=== PATIENT | male | born 1940 | race Caucasian/White ===

== ENCOUNTER → 2017-03-05 | Outpatient (CLI) | payer MEDICARE | END | disposition home or self-care (01) | LOC: LABPAT 15:37 | PROVIDERS: ATTEND Orthopaedic Surgery | DX: Z01.812 Encounter for preprocedural laboratory examination (principal) | CPT/HCPCS: 87070 ==

== ENCOUNTER → 2017-03-10 | Outpatient (CLI) | payer MEDICARE | END | disposition home or self-care (01) | LOC: LABWHC1 08:00 | PROVIDERS: ATTEND Orthopaedic Surgery | DX: Z01.818 Encounter for other preprocedural examination (principal); M16.12 Unilateral primary osteoarthritis, left hip | CPT/HCPCS: 86850; 86900; 86901 ==

== ENCOUNTER 2017-03-17 07:30 | Inpatient (IN) | payer MEDICARE ==
[2017-03-13 14:46] VITALS: BMI 25.1
--- NOTE | 2017-03-16 14:17 | HP ---
DATE OF ADMISSION: Vasyl Khalil is a 76-year-old patient seen with symptomatic left hip osteoarthritis. After treatment options were discussed, he elected to proceed with direct anterior left total hip arthroplasty. Consent was obtained. Medical clearance was provided by Dr. Dagoberto Munoz. Past medical history is hypothyroidism, osteoarthritis. Past surgical history is right hand surgery and right knee surgery. Daily medications: 1. Aleve. 2. Aspirin. 3. Synthroid. ALLERGIES: None. SOCIAL HISTORY: Patient denies tobacco use. Physical evaluation of the left hip: He has a limited range of motion with significant pain, diffuse tenderness, positive hip impingement sign. Straight-leg raise is negative. Left lower extremity is 1 inch shorter than the right. Distal neurovascular exam is intact. Radiographs of the left hip reveal severe osteoarthritis. IMPRESSION: Left hip osteoarthritis. PLAN: Direct anterior left total hip arthroplasty.
[~2017-03-17 07:30] MED LIST: ACETAMINOPHEN TAB 500 MG TAB PO ONE; DEXAMETHASONE SOD PHOSPHATE 10 MG/ML 1 ML VIAL IV ONE; HYDROmorphone 1 MG/ML 1 ML SYRINGE IVP PRN; LIDOCAINE 1% 20 ML VIAL (10MG/ML) FOR IV START INTRADERMA PRN; MELOXICAM 7.5 MG TAB PO ONE; MIDAZOLAM 2 MG/2 ML VIAL IV PRN; ONDANSETRON 4 MG/2 ML VIAL IVP ONE; TRANEXAMIC ACID 1,000 MG in SODIUM CHLORIDE 0.9% 100 ML IVPB ONE; ceFAZolin 2 GM in SODIUM CHLORIDE 0.9% 100 ML IVPB ONE
[2017-03-17 12:53] VITALS: RESP 16
[2017-03-17] MEDS ORDERED: LIDOCAINE 1% 20 ML VIAL (10MG/ML) FOR IV START INTRADERMA ONE (12:56)
[2017-03-17] MEDS: LACTATED RINGERS 1,000 ML IV SCH (12:56)
[2017-03-17] MEDS ORDERED: TRANEXAMIC ACID 1,000 MG/10 ML VIAL ONE (15:15)
[2017-03-17] MEDS ORDERED: SODIUM CHLORIDE 0.9% 100 ML BAG ONE (15:15)
[2017-03-17] MEDS ORDERED: fentaNYL (PF) 50 MCG/ML 2 ML AMP ONE (15:15)
[2017-03-17] MEDS ORDERED: PROPOFOL 10 MG/ML 20 ML VIAL IV ONE (15:15)
[2017-03-17] MEDS ORDERED: PHENYLEPHRINE-0.9% NACL SYG 1 MG/10 ML SYRINGE ONE (15:15)
[2017-03-17] MEDS ORDERED: ePHEDrine 50 MG/ML 1 ML AMP ONE (15:15)
[2017-03-17] MEDS ORDERED: MIDAZOLAM 2 MG/2 ML VIAL ONE (15:15)
[2017-03-17] MEDS ORDERED: ceFAZolin 3,000 MG in SODIUM CHLORIDE 0.9% IRRIGATIO 3,000 ML IRRIGATION ONE (15:15)
[2017-03-17] MEDS: ROPIVACAINE 246.25 MG, EPINEPHrine 0.5 MG, KETOROLAC 30 MG, cloNIDine HCL/PF 80 MCG, WA... MISCELLANE ONE ×15 (15:17→17:10)
[2017-03-17] MEDS ORDERED: LACTATED RINGERS 1,000 ML IV ONE (17:11)
[2017-03-17] MEDS ORDERED: NALOXONE 0.4 MG/ML 1 ML VIAL IV PRN (17:40)
[2017-03-17] MEDS ORDERED: ONDANSETRON 4 MG/2 ML VIAL IVP PRN (17:40)
[2017-03-17] MEDS ORDERED: HYDROcodone/APAP 7.5-325MG 1 EACH TAB PO PRN ×2 (17:40)
[2017-03-17] MEDS ORDERED: HYDROmorphone 1 MG/ML 1 ML SYRINGE IVP PRN ×3 (17:40)
[2017-03-17] MEDS ORDERED: hydrOXYzine PAMOATE 25 MG CAP PO PRN (17:40)
--- NOTE | 2017-03-17 17:40 | P.OP ---
Date of Procedure: 03/17/17 Preoperative Diagnosis: Left hip osteoarthritis Postoperative Diagnosis: Left hip osteoarthritis Procedure(s) Performed: Direct anterior left total hip arthroplasty Implants: 1. Depuy Corail cementless KLA size 13 femoral stem high offset collar 2. Depuy pinnacle 60 mm acetabular shell 3. Depuy pinnacle polyethylene acetabular liner 60 mm OD 36 mm ID 4. Biolox delta ceramic femoral head +1.536 mm Anesthesia: local, spinal Surgeon: Thomas Holland Hard Candy Spinner #1: Aguilar Lainez Estimated Blood Loss (ml): 400 Pathology: other (Femoral head) Condition: stable Disposition: PACU Indications for Procedure: 76-year-old patient seen with left hip osteoarthritis. After having treatment options discussed, he elected to proceed with left total hip arthroplasty. Operative Findings: Description of procedure Description of Procedure: The patient was taken to the operative suite. Patient underwent a spinal anesthetic by the department of anesthesia. Patient was then transferred to the [place] table. Patient was given preoperative IV antibiotics and TXA. Both lower extremities were placed in standard leg spars. The hip was then prepped and draped in the normal sterile orthopedic fashion. A standard anterior incision was made beginning 3 cm lateral and 1 cm distal to the ASIS extending 10 cm. Dissection was then carried down through the subcutaneous soft tissues down to the fascia overlying the tensor fascia maximiliano. An incision was now made through the fascia. Careful dissection was taken down exposing the tensor fascia maximiliano muscle. A Cobra retractor was now placed along the medial femoral neck and a second one along the lateral femoral neck. The venous circumflex vessels were now identified, cauterized and clipped. We identified the anterior hip capsule. An incision was made through the hip capsule along the lateral border. Tag sutures were then placed along the anterior capsule and lateral capsule. We then performed a capsulotomy. Retractors were now placed around the femoral neck itself. A Cobra retractor was now placed along the anterior acetabulum. Good exposure was now noted of the femoral head/neck complex. Residual labrum was debrided out. We placed the extremity into 3 turns of fine traction. We were then able to introduce a skid in between the femoral head and acetabulum. A placed a awl into the femoral head. We took 2 turns of traction off the extremity. Rotation was now released. The femoral head was then dislocated without difficulty. Additional releasing was performed of the capsule. The head was then reduced. All traction was released. A femoral neck cut was now made with a sagittal saw. It was completed with an osteotome at the lateral neck area. The femoral head was now removed without difficulty. There was advanced osteoarthritis of both the femoral head and acetabulum The extremity was now rotated to 60 of external rotation. It was locked in position. Residual labrum was now debrided out. Serial reaming was performed of the acetabulum. Once we reached the appropriate size and a trial was position and fit nicely. The appropriate size was now chosen opened and made available. The wound was irrigated with pulse lavage mechanical irrigation It was introduced into the acetabulum without difficulty. The C-arm/fluoroscopy was now brought into the operative field. We made sure we had a true AP pelvic view. We now under direct C-arm/ fluoroscopy introduced into the acetabular component with appropriate version and inclination. It was well seated and stable. The C-arm was pulled back. An appropriate liner was introduced and clicked into position. It was felt to be stable. At this point retractors were removed. The extremity was now placed into 125 external rotation with no traction. The leg was now dropped to the ground and adducted. Appropriate retractors were now positioned along the proximal femur. We also placed our femoral look into position. Additional capsular releasing was performed to gain access to the proximal femur. We now used a box osteotome. A canal finder was now utilized. Serial broaching was now performed until we reached the appropriate size with good overall rotational stability. Appropriate calcar planing was performed. A trial head/ neck was placed into position. The hip was now reduced. The C-arm/fluoroscopy was brought back into the operative field. A spot film was obtained of the nonoperative hip. A spot film was obtained of the trial components. Overlays were performed, we noted good overall alignment and positioning for determining leg length. The C-arm/fluoroscopy was pulled back. Retractors were repositioned and the hip was dislocated. The leg was again taken down to the ground and adducted. Appropriate retractors were repositioned as well as the femoral hook. All trial components were removed. The femoral implant was opened along with the femoral head. Wound was irrigated with pulse lavage mechanical irrigation The femoral implant was introduced with good purchase and fixation noted. The femoral head was introduced with good positioning and fixation noted. Retractors were now removed. The hip was now reduced. There appeared be good positioning of the hip. This was confirmed via fluoroscopy and a spot film was obtained to document that. Bipolar cautery had been utilized intermittently through the procedure for hemostasis. The wound was irrigated copiously with pulse lavage mechanical irrigation. The fascia was repaired with Vicryl suture. The subcutaneous soft tissues were repaired in layers with Vicryl suture. The skin was approximated with pernio/Dermabond. Sterile dressings were applied. Patient was then awakened, transferred to a bed and taken to recovery in stable condition. Raheem DE LA CRUZ assisted with the procedure.
[2017-03-17] MEDS ORDERED: SODIUM CHLORIDE 0.9% 1,000 ML IV SCH (17:45)
[2017-03-17] MEDS: traMADol 50 MG TAB PO SCH ×2 (20:14→21:07)
[2017-03-17] MEDS ORDERED: SENNOSIDES-DOCUSATE SODIUM 1 EACH TAB PO SCH (21:00)
[2017-03-17] MEDS: ceFAZolin 2 GM in SODIUM CHLORIDE 0.9% 100 ML IVPB SCH (23:12)
[2017-03-18] MEDS: LACTATED RINGERS 1,000 ML IV SCH (05:16)
[2017-03-18] MEDS ORDERED: LEVOTHYROXINE 75 MCG TAB PO SCH (06:30)
[2017-03-18 07:16] VITALS: BP 100/57; PULSE 64; TEMP 98.1
[2017-03-18 07:40] LABS: Basophils % (A) 0 %; CH 33.2; CHCM 34.1; Eosinophils % (A) 0 %; HCT 32.5 % (39.0-53.0); HDW 2.41; HGB 11.2 gm/dL (13.0-17.5); Luc # (Auto) 0.25; Luc % (Auto) 3; Lymphocytes # (A) 0.9 k/uL (1.0-4.8); Lymphocytes % (A) 10 %; MCH 33.7 pg (25.0-35.0); MCHC 34.5 g/dL (31.0-37.0); MCV 97.7 fL (80.0-100.0); Mean Platelet Volume 6.5; Monocytes # (A) 0.8 k/uL (0-1.0); Monocytes % (A) 8 %; Neutrophils # (A) 7.4 k/uL (1.3-7.7); Neutrophils % (A) 79 %; RBC 3.33 m/uL (4.30-5.90); RDW 12.5 % (11.5-15.5); WBC 9.3 k/uL (3.8-10.6); WBC (Perox) 9.73
--- NOTE | 2017-03-18 07:58 | XR ---
Limited left hip HISTORY: Open reduction internal fixation Intraoperative C-arm image documents the procedure.
[2017-03-18] MEDS: traMADol 50 MG TAB PO SCH ×2 (08:06→12:58)
[2017-03-18] MEDS: ceFAZolin 2 GM in SODIUM CHLORIDE 0.9% 100 ML IVPB SCH (08:07)
--- NOTE | 2017-03-18 08:27 | FL ---
Fluoroscopy HISTORY: Open reduction internal fixation left hip 25 seconds fluoroscopy time supplied to the referring clinician. 1 intraoperative C-arm image docume nts the procedure. See dictated report from orthopedic surgery.
[2017-03-18] MEDS ORDERED: ENOXAPARIN 40 MG/0.4 ML SYRINGE SQ SCH (09:00)
[2017-03-18] MEDS ORDERED: ASPIRIN 81 MG CHEW PO SCH (09:00)
[2017-03-18] MEDS ORDERED: MELOXICAM 7.5 MG TAB PO SCH (09:00)
[2017-03-18] MEDS ORDERED: FAMOTIDINE 20 MG TAB PO SCH (09:00)
--- NOTE | 2017-03-18 11:08 | P.PN ---
Subjective Principal diagnosis: Status post left total hip arthroplasty. Patient is seen today resting in his hospital chair, he appears comfortable. His pain is well-controlled. Patient ambulated about this point, urinary cath was removed. He denies any headaches, lightheadedness, chest pain, shortness of breath, fever or chills. Objective - Vital Signs Vital signs: Vital Signs Temp 98.1 F 03/18/17 07:00 Pulse 64 03/18/17 07:00 Resp 16 03/18/17 07:00 BP 100/57 03/18/17 07:00 Pulse Ox 98 03/18/17 07:00 Intake & Output 03/17/17 03/18/17 03/18/17 18:59 06:59 18:59 Intake Total 4850 240 240 Output Total 500 200 Balance 4350 240 40 Weight 83.007 kg Intake: IV 4850 240 Lactated Ringers 1,000 ml 240 @ 20 mls/hr IV .Q24H BUTCH Rx#:[id number] Oral 240 Output: Urine 100 200 Uretheral (Ortega) 200 Estimated Blood Loss 400 Other: Voiding Method Indwelling Catheter - Exam Left lower extremity: Incision is clean, dry and intact. Minimal soft tissue swelling present over the hip. Calf is soft, no tenderness with palpation. Plantar flexion, dorsiflexion, EHL, FHL are intact. Sensory exam light touch throughout the extremities intact, cap refill is less than 3 seconds. - Labs CBC & Chem 7: 03/18/17 07:13 Labs: Abnormal Lab Results - Last 24 Hours (Table) 03/18/17 Range/Units 07:13 RBC 3.33 L (4.30-5.90) m/uL Hgb 11.2 L (13.0-17.5) gm/dL Hct 32.5 L (39.0-53.0) % Lymphocytes # 0.9 L (1.0-4.8) k/uL Assessment and Plan Plan: Assessment: 1. Postop day 1 status post left total hip arthroplasty. Plan: 1. Pain control, we'll discharge home on oral medication 2. GI and DVT prophylaxis, will be discharged home on aspirin 325 mg twice a day 3. Wound care was discussed with patient 4. Home therapy and nursing after discharge 5. Medical recommendations 6. Discharge planning: Patient will be discharged home today Time with Patient: Less than 30
--- NOTE | 2017-03-18 11:11 | P.DS ---
Providers Date of admission: 03/17/17 11:18 Expected date of discharge: 03/18/17 Attending physician: Thomas Holland Consults: 03/17/17 17:40 Consult Physician Routine Consulting Provider: Dagoberto Munoz Consult Reason/Comments: Medical management Do you want consulting provider notified?: Yes Primary care physician: Stated None Hospital Course: Date of admission: 03/17/2017 Date of discharge: 03/18/2017 Admission diagnosis: Status post left total hip arthroplasty Discharge diagnosis: Same Attending physician: Dr. Holland Surgical procedures: Direct anterior left total hip arthroplasty Brief history: Patient is a 76-year-old male with a history of progressive primary left hip osteoarthritis. At this point patient has failed conservative treatment measures and has opted to proceed with a elective direct anterior left total hip arthroplasty. Hospital course: Details of patient's surgery can be found in operative report. Patient tolerated the procedure well and was subsequently transported to orthopedic floor. Patient's orthopeidc and medical care was provided daily. Patient had daily laboratory tests performed for evaluation of overall blood counts. Patient had daily physical therapy to include strengthening range of motion as well as education with walker ambulation. Patient was treated with Lovenox for their postoperative DVT prophylaxis during their inpatient stay. Patient was noted to have a relatively uneventful postoperative course. Patient reported satisfactory pain control with oral pain medications by postoperative day 0. Patient showed satisfactory progress with physical therapy. Patient moved steadily through the program and had no difficulty meeting the goals by postoperative day 1. Given patient's otherwise satisfactory course and having met physical therapy goals, plan is to discharge patient home on postoperative day 1. Discharge condition/disposition: Patient will be discharged home in stable condition. Discharge medications: Instructions are given on resumption of patient's normal daily medications per primary care recommendation, in addition patient will be prescribed [place] 7.5 mg/325 mg, tramadol 50 mg, Colace 100 mg, Pepcid 20 mg, aspirin 325 mg. Discharge instructions: 1. Wound care and infection precautions, keep incision dry and covered while showering, no lotions, creams, moisturizers. No soaking, tubs, pools, hottubs. Do not scrub over the incision. 2. Weight-bear as tolerated with walker / cane until follow-up. 3. Ice and elevate when necessary. Do not exceed 20 minutes per hour with ice pack. 4. Utilize compression sleeve until seen at first follow up appointment. 5. Visiting nursing care. 6. Home physical therapy. 7. Pain meds and anticoagulants per prescription. 8. Pain medication has potential to cause constipation. Increase oral fluid and fiber intake. Contact primary care provider if you have not had a bowel movement within 48 hours after discharge 9. No anti-inflammatory medication until discussed at first post operative visit, this including Motrin, Aleve, Mobic, Diclofenac. 10. Follow up in office at 2 weeks postop with Raheem Lainez PA-C 11. Follow up with your primary care doctor 7-10 days after discharge. 12. Contact [facility] with any questions, . Procedures: Left total hip arthroplasty Patient Condition at Discharge: Good Plan - Discharge Summary New Discharge Prescriptions: Aspirin 325 mg PO BID #60 tab Docusate [Colace] 100 mg PO DAILY #30 capsule Famotidine [Pepcid] 20 mg PO DAILY #30 tablet HYDROcodone/APAP 7.5-325MG [[place] 7.5] 1 each PO Q6HR PRN #40 tab PRN Reason: Pain traMADol HCl [Ultram] 50 mg PO Q6H PRN #40 tab PRN Reason: Pain Discharge Medication List Levothyroxine Sodium [Synthroid] 150 mcg PO DAILY 05/03/14 [History] Iron (Unknown Dose) 1 tab PO MOWEFR 03/13/17 [History] Niacin 500 mg PO BID 03/13/17 [History] Vitamin Pack 1 dose PO DAILY 03/13/17 [History] Aspirin 325 mg PO BID #60 tab 03/18/17 [Rx] Docusate [Colace] 100 mg PO DAILY #30 capsule 03/18/17 [Rx] Famotidine [Pepcid] 20 mg PO DAILY #30 tablet 03/18/17 [Rx] HYDROcodone/APAP 7.5-325MG [[place] 7.5] 1 each PO Q6HR PRN #40 tab 03/18/17 [Rx] traMADol HCl [Ultram] 50 mg PO Q6H PRN #40 tab 03/18/17 [Rx] Follow up Appointment(s)/Referral(s): [facility], [NON-STAFF] - 1 Week Aguilar Lainez PAC [PHYSICIAN PRECISION INSTRUMENT MAKER AND REPAIRER] - 04/02/17 1:50 pm Activity/Diet/Wound Care/Special Instructions: Orthopedic Discharge Instructions: 1. Wound care and infection precautions, keep incision dry and covered while showering, no lotions, creams, moisturizers. No soaking, pools, hot tubs. Do not scrub over incision. 2. Weight-bear as tolerated with walker / cane until follow-up. 3. Ice and elevate when necessary. Do not exceed 20 minutes per hour with ice pack. 4. Utilize compression sleeve until seen at first follow up appointment. 5. Visiting nursing care. 6. Home physical therapy. 7. Pain meds and anticoagulants per prescription. 8. Pain medication has potential to cause constipation. Increase oral fluid and fiber intake. Contact primary care provider if you have not had a bowel movement within 48 hours after discharge. 9. No anti-inflammatory medication until discussed at first post operative visit, this including Motrin, Aleve, Mobic, Diclofenac. 10. Follow up in office at 2 weeks postop with Raheem Lainez PA-C 11. Follow up with your primary care doctor 7-10 days after discharge. 12. Contact [facility] with any questions, . Discharge Disposition: HOME WITH HOME HEALTH SERVICES
[2017-03-19] MEDS ORDERED: LEVOTHYROXINE 150 MCG PO SCH (06:30)
== END 2017-03-18 14:35 | disposition home health service (06) | DRG 470 ==
LOC: 2ORMAIN 11:18 → 3SUR 17:29
PROVIDERS: ADMIT Orthopaedic Surgery; ATTEND Orthopaedic Surgery
PROC: 0SRB04A Replacement of Left Hip Joint with Ceramic on Polyethylene Synthetic Substitute, Uncemented, Open Approach (ICD-10-PCS; principal; 2017-03-17 13:00)
DX: M16.12 Unilateral primary osteoarthritis, left hip (principal); E03.9 Hypothyroidism, unspecified; Z79.82 Long term (current) use of aspirin; Z79.899 Other long term (current) drug therapy
CPT/HCPCS: 73501; 85025; 86850; 86900; 86901; 88305; 88311

== ENCOUNTER 2017-03-22 10:06 | Emergency (ER) | payer MEDICARE ==
[2017-03-22 11:02] VITALS: RESP 16
--- NOTE | 2017-03-22 11:09 | ED ---
Male Urogenital HPI - General Chief complaint: Urogenital Stated complaint: cant urinate Time Seen by Provider: 03/22/17 10:52 Source: patient, RN notes reviewed Mode of arrival: ambulatory Limitations: no limitations - History of Present Illness Initial comments: This is a 76-year-old male with a history of prostate cancer status post prostatectomy who just had a left hip replacement 5 days ago which she states is doing well who states he is been unable to urinate since last evening and now has lower abdominal pain and occasional bouts of blood from his meatus of his penis. He states that he thought he could remove his own catheter after the surgery the next day he did pull on it but did not realize there was a balloon in it. He did have blood in his urine after this the catheter was removed however and he had no trouble urinating until last night. He denies any fevers chills or sweats denies any nausea vomiting. He states the wound appears be healing well from his surgery is able ambulate. He voices no other problems at this time. He does state the lower abdominal pain is severe however. MD Complaint: other - Related Data Home Medications Medication Instructions Recorded Confirmed Levothyroxine Sodium [Synthroid] 150 mcg PO DAILY 05/03/14 03/22/17 Niacin 500 mg PO BID 03/13/17 03/22/17 Vitamin Pack 1 dose PO DAILY 03/13/17 03/22/17 Docusate [Colace] 100 mg PO DAILY PRN 03/22/17 03/22/17 Ferrous Sulfate [Feosol] 325 mg PO TUTHSA 03/22/17 03/22/17 HYDROcodone/APAP 7.5-325MG [Dairy 1 tab PO Q6HR PRN 03/22/17 03/22/17 7.5] Previous Rx's Medication Instructions Recorded Aspirin 325 mg PO BID #60 tab 03/18/17 Famotidine [Pepcid] 20 mg PO DAILY #30 tablet 03/18/17 Allergies Allergy/AdvReac Type Severity Reaction Status Date / Time No Known Allergies Allergy Verified 03/22/17 12:44 Review of Systems ROS Statement: Those systems with pertinent positive or pertinent negative responses have been documented in the HPI. ROS Other: All systems not noted in ROS Statement are negative. Past Medical History Past Medical History: Cancer, Hyperlipidemia, Osteoarthritis (OA), Prostate Disorder, Thyroid Disorder Additional Past Medical History / Comment(s): HX OF PROSTATE CANCER WITH RADIATION (2014), SQUAMOUS CELL SKIN CANCER, CHRONIC SINUSITIS, , HYPOTHYROID., STATES PAST HX OF BACK PROBLEMS. History of Any Multi-Drug Resistant Organisms: None Reported Past Surgical History: Adenoidectomy, Orthopedic Surgery, Prostate Surgery, Tonsillectomy Additional Past Surgical History / Comment(s): rt knee surgery, HIP REPLACED Past Anesthesia/Blood Transfusion Reactions: No Reported Reaction Past Psychological History: No Psychological Hx Reported Smoking Status: Never smoker Past Alcohol Use History: Occasional Additional Past Alcohol Use History / Comment(s): 2-4 BEERS - 3-4 TIMES PER WEEK. Past Drug Use History: None Reported - Past Family History Mother Family Medical History: CVA/TIA Sister(s) Family Medical History: CVA/TIA Father Family Medical History: Myocardial Infarction (DC) General Exam - General Exam Comments Initial Comments: This is a well-developed well-nourished awake alert oriented 3 male Limitations: no limitations General appearance: alert, anxious Head exam: Present: atraumatic, normocephalic, normal inspection Eye exam: Present: normal appearance, PERRL, EOMI. Absent: scleral icterus, conjunctival injection, periorbital swelling ENT exam: Present: normal exam, mucous membranes moist Neck exam: Present: normal inspection. Absent: tenderness, meningismus, lymphadenopathy Respiratory exam: Present: normal lung sounds bilaterally. Absent: respiratory distress, wheezes, rales, rhonchi, stridor Cardiovascular Exam: Present: regular rate, normal rhythm, normal heart sounds. Absent: systolic murmur, diastolic murmur, rubs, gallop, clicks GI/Abdominal exam: Present: soft, other (A distended bladder is palpable.). Absent: bruit, pulsatile mass, hernia Rectal exam: Present: deferred exam: Present: other (Circumcised male genitalia there is a small on of dark blood at the meatus). Absent: testicular tenderness, scrotal swelling Extremities exam: Present: normal capillary refill, other (The right hip incision appears be healing well no evidence of any wound dehiscence no evidence of any erythema or drainage a small amount of localized ecchymosis. No tenderness over the hip very minimal discomfort over the surgical site.) Back exam: Present: normal inspection Neurological exam: Present: alert, oriented X3, CN II-XII intact Psychiatric exam: Present: anxious Skin exam: Present: warm, dry Course Vital Signs 03/22/17 11:00 Temperature 97.9 F Pulse Rate 64 Respiratory 16 Rate Blood Pressure 176/91 O2 Sat by Pulse 100 Oximetry - Reevaluation(s) Reevaluation #1: 03/22/17 13:23 Patient did require irrigation was Ortega but he is having much relief after having the irrigation done in the bladder emptied. He'll be discharged with a Ortega catheter and leg bag she is a follow-up with Dr. Norris and return when necessary Disposition Clinical Impression: Acute urinary retention Disposition: HOME SELF-CARE Condition: Good Instructions: Urinary Retention in Men (ED)
[2017-03-22 13:58] VITALS: BP 121/59; PULSE 72; TEMP 97.6
== END 2017-03-22 13:57 | disposition home or self-care (01) ==
LOC: EC 10:06
DX: R33.9 Retention of urine, unspecified (principal); R10.30 Lower abdominal pain, unspecified; E78.5 Hyperlipidemia, unspecified; E03.9 Hypothyroidism, unspecified; Z79.899 Other long term (current) drug therapy; Z85.46 Personal history of malignant neoplasm of prostate; Z90.79 Acquired absence of other genital organ(s)
CPT/HCPCS: 51702; 99283

== ENCOUNTER 2017-05-12 19:33 | Emergency (ER) | payer MEDICARE ==
[2017-05-12 19:40] VITALS: RESP 18
--- NOTE | 2017-05-12 19:58 | ED ---
Male Urogenital HPI - General Chief complaint: Urogenital Stated complaint: Male Time Seen by Provider: 05/12/17 19:45 Source: patient, RN notes reviewed Mode of arrival: ambulatory Limitations: no limitations - History of Present Illness Initial comments: 37-year-old male presents emergency Department chief complaint states he can't urinate. Patient states that he wanted to urology this morning and it showed a harm to self cath. Patient states he started not been able to urinate last night but states that he was given self Up the Urology Office and Is Supposed to Receive More in the Mail. Patient States He Attempted Twice When He Durant That He Had Ago and States That He Was Unsuccessful. Patient States He Durant That He Stuck It in Far Enough Though He States He Had No Urine Output. Patient Denies Any Nausea and Diarrhea Constipation. Denies Any Fevers or Chills. Patient Offers No Other Complaints. - Related Data Home Medications Medication Instructions Recorded Confirmed Levothyroxine Sodium [Synthroid] 150 mcg PO DAILY 05/03/14 05/12/17 Vitamin Pack 1 dose PO DAILY 03/13/17 05/12/17 Ferrous Sulfate [Feosol] 325 mg PO MOWEFR 03/22/17 05/12/17 Aspirin EC [Ecotrin Low Dose] 81 mg PO DAILY 05/12/17 05/12/17 Niacin (Inositol Niacinate) 400 mg PO BID 05/12/17 05/12/17 [Niacin Flush Free 500 mg Cap] Allergies Allergy/AdvReac Type Severity Reaction Status Date / Time No Known Allergies Allergy Verified 05/12/17 19:40 Review of Systems ROS Statement: Those systems with pertinent positive or pertinent negative responses have been documented in the HPI. ROS Other: All systems not noted in ROS Statement are negative. Past Medical History Past Medical History: Cancer, Hyperlipidemia, Osteoarthritis (OA), Prostate Disorder, Thyroid Disorder Additional Past Medical History / Comment(s): HX OF PROSTATE CANCER WITH RADIATION (2013), SQUAMOUS CELL SKIN CANCER, CHRONIC SINUSITIS, , HYPOTHYROID., STATES PAST HX OF BACK PROBLEMS. History of Any Multi-Drug Resistant Organisms: None Reported Past Surgical History: Adenoidectomy, Orthopedic Surgery, Prostate Surgery, Tonsillectomy Additional Past Surgical History / Comment(s): rt knee surgery, HIP REPLACED Past Anesthesia/Blood Transfusion Reactions: No Reported Reaction Past Psychological History: No Psychological Hx Reported Smoking Status: Never smoker Past Alcohol Use History: Occasional Past Drug Use History: None Reported - Past Family History Mother Family Medical History: CVA/TIA Sister(s) Family Medical History: CVA/TIA Father Family Medical History: Myocardial Infarction ([place]) General Exam Limitations: no limitations General appearance: alert, in no apparent distress Respiratory exam: Present: normal lung sounds bilaterally. Absent: respiratory distress, wheezes, rales, rhonchi, stridor Cardiovascular Exam: Present: regular rate, normal rhythm, normal heart sounds. Absent: systolic murmur, diastolic murmur, rubs, gallop, clicks GI/Abdominal exam: Present: soft, tenderness (Mild suprapubic), normal bowel sounds. Absent: distended, guarding, rebound, rigid Back exam: Absent: CVA tenderness (R), CVA tenderness (L) Course Vital Signs 05/12/17 19:37 Temperature 97.0 F L Pulse Rate 78 Respiratory 18 Rate Blood Pressure 155/83 O2 Sat by Pulse 98 Oximetry Medical Decision Making - Medical Decision Making 77 show male present emergency from for urinary retention. Patient had Ortega placed. Patient states he does not want a Ortega that he wants to try to self cath again at home. Patient was instructed how to. Patient will be discharged at this time no evidence of urinary tract infection. - Lab Data Lab Results 05/12/17 Range/Units 20:05 Urine Color Yellow Urine Appearance Clear (Clear) Urine pH 5.5 (5.0-8.0) Ur Specific [place] 1.014 (1.001-1.035) Urine Protein Negative (Negative) Urine Glucose (UA) Negative (Negative) Urine Ketones Trace H (Negative) Urine Blood Negative (Negative) Urine Nitrite Negative (Negative) Urine Bilirubin Negative (Negative) Urine Urobilinogen <2.0 (<2.0) mg/dL Ur Leukocyte Esterase Negative (Negative) Disposition Clinical Impression: Urinary retention Disposition: HOME SELF-CARE Condition: Stable Instructions: Urinary Retention in Men (ED) Additional Instructions: Please return to the Emergency Department if symptoms worsen or any other concerns. Referrals: Dagoberto Munoz DO [Primary Care Provider] - 1-2 days Time of Disposition: 21:13
[2017-05-12 20:49] LABS: Appearance,Urine Clear (Clear); Bilirubin,Urine Negative (Negative); Glucose,Urine (UA) Negative (Negative); Ketones,Urine Trace (Negative); Leukocyte Esterase,Urine Negative (Negative); Nitrite,Urine Negative (Negative); PH, Urine 5.5 (5.0-8.0); Protein,Urine Negative (Negative); Specific Gravity,Urine 1.014 (1.001-1.035); UA Billing (MACRO vs. MICRO) CHEM; Urobilinogen,Urine <2.0 mg/dL (<2.0)
[2017-05-12 21:33] VITALS: BP 149/84; PULSE 65; TEMP 97.9
--- NOTE | 2017-05-20 04:59 | CDI ---
Dear Nestor Shanks MD: Please do addendum clear documentation for Ortega catheter whether it was inserted in the current visit or not as there is some confusion in the given current document. Thank You, Zak Partida Senior Hardware Design Engineer. If you have any questions, please contact Backing In Machine Tender at [phone]. mtdD
== END 2017-05-12 21:33 | disposition home or self-care (01) ==
LOC: EC 19:33
DX: R33.9 Retention of urine, unspecified (principal); R10.819 Abdominal tenderness, unspecified site; E78.5 Hyperlipidemia, unspecified; E03.9 Hypothyroidism, unspecified; M19.90 Unspecified osteoarthritis, unspecified site; Z79.82 Long term (current) use of aspirin; Z79.899 Other long term (current) drug therapy; Z85.46 Personal history of malignant neoplasm of prostate; Z98.890 Other specified postprocedural states
CPT/HCPCS: 51702; 81003; 87086; 99283

== ENCOUNTER → 2018-03-11 | Outpatient (CLI) | payer MEDICARE ==
--- NOTE | 2018-03-11 13:05 | CT ---
EXAMINATION TYPE: CT abdomen pelvis wo con DATE OF EXAM: 03/11/2018 COMPARISON: NONE HISTORY: Patient complains of upper abdominal pain. CT DLP: 880 mGycm Automated exposure control for dose reduction was used. TECHNIQUE: Helical acquisition of images was performed from the lung bases through the pelvis. FINDINGS: LUNG BASES: There is a small amount of intrafissural fluid seen on the left. Otherwise the lung bases are unremarkable. Ossifications along the pericardial surface may relate to prior pericarditis or tr auma. Visualized portions of the heart are not enlarged. LIVER/GB: The unenhanced liver is of normal morphology. No radiopaque gallstones. PANCREAS: No ductal dilatation. SPLEEN: No significant abnormality is seen. ADRENALS: Adrenal glands are symmetric without nodularity or thickening. KIDNEYS: There is a left renal sinus cyst measuring 3.7 cm possibly related to a parapelvic cyst divi ng into the renal pelvis. No evidence of hydronephrosis or nephrolithiasis. Right kidney is unremarka ble without hydronephrosis or nephrolithiasis. FREE AIR: No free air is visualized ADENOPATHY: No greater than 1 cm short axis lymph nodes are seen within the abdomen or pelvis. REPRODUCTIVE ORGANS: No significant abnormality is seen URINARY BLADDER: Bladder is decompressed with circumferential urinary bladder wall thickening. OSSEOUS STRUCTURES: There is a left hip arthroplasty and extensive degenerative changes of the right femoral acetabular joint. Moderate degenerative changes of the sacroiliac joints as well as of the v isualized spine are seen. Osseous structures are intact. BOWEL: There is proximal and mid dilatation of the small bowel containing numerous differential smal l bowel air-fluid levels. Small bowel measures up to 5.2 cm proximally. Although there is no distinct transition point in peaking the distal ileum and terminal ileal loops are decompressed. Mild bowel w all thickening is also seen with small bowel feces sign in the right mid abdomen and mid to low abdom en. Few sigmoid diverticula are noted without evidence of pneumatosis intestinalis, pneumatosis coli, or bowel perforation. There is generalized haziness of the mesentery compatible with mesenteric clinton a. No focal fluid collection is identified. Small bilateral fat filled inguinal hernias are noted. OTHER: There are mild calcific atheromatous changes seen of the abdominal aorta and its branches. IMPRESSION: 1. FINDINGS CONCERNING FOR EARLY COMPLETE VERSUS INCOMPLETE SMALL BOWEL OBSTRUCTION WITH PROXIMAL DIL ATATION OF THE DUODENUM AND JEJUNUM AND ILEAL DECOMPRESSION WITHOUT FOCAL TRANSITION POINT. DIFFERENT IAL AIR-FLUID LEVELS AND SMALL BOWEL FECES SIGN IN ADDITION TO SMALL BOWEL WALL THICKENING ARE ALSO I DENTIFIED. NO CURRENT EVIDENCE OF FOCAL PERIENTERIC FLUID COLLECTION OR PERFORATION. MILD MESENTERIC EDEMA IS ALSO PRESENT, LIKELY REACTIVE. 2. CALCIFICATIONS OF THE PERICARDIUM LIKELY FROM PRIOR PERICARDITIS. 3. CIRCUMFERENTIAL THICKENING OF THE URINARY BLADDER WALL LIKELY RELATES TO INCOMPLETE DISTENTION ALT MELANY CORRELATION WITH URINALYSIS IS RECOMMENDED.
== END | disposition home or self-care (01) ==
LOC: RADCTMAIN 10:49
PROVIDERS: ATTEND Family Medicine
DX: I31.1 Chronic constrictive pericarditis (principal); N32.89 Other specified disorders of bladder; R60.0 Localized edema
CPT/HCPCS: 74176

== ENCOUNTER 2018-03-16 10:23 | Inpatient (IN) | payer MEDICARE ==
[2018-03-16] MEDS ORDERED: SODIUM CHLORIDE 0.9% 1,000 ML IV STA (11:09)
[2018-03-16] MEDS ORDERED: RX INFO: IV CONTRAST WAS GIVEN 1 EACH MISC MISCELLANE PRN (11:09)
--- NOTE | 2018-03-16 11:57 | ED ---
General Adult HPI - General Chief complaint: Abdominal Pain Stated complaint: constipation x 18 days Time Seen by Provider: 03/16/18 10:57 Source: patient, RN notes reviewed, old records reviewed Mode of arrival: ambulatory Limitations: no limitations - History of Present Illness Initial comments: This is a 77-year-old male the ER for evaluation. Patient was essay for evaluation patient states the symptoms have progressed and worsened, he has not had bowel movements, is not eating, he has severe bloating abdominal pain. Patient has no recent change in medications. Again denies prior history of surgical or similar medical illness or surgical or surgery. - Related Data Home Medications Medication Instructions Recorded Confirmed Levothyroxine Sodium [Synthroid] 112 mcg PO DAILY 03/16/18 03/16/18 Niacin [Slo-Niacin] 1,000 mg PO DAILY 03/16/18 03/16/18 Allergies Allergy/AdvReac Type Severity Reaction Status Date / Time No Known Allergies Allergy Verified 03/16/18 10:54 Review of Systems ROS Statement: Those systems with pertinent positive or pertinent negative responses have been documented in the HPI. ROS Other: All systems not noted in ROS Statement are negative. Past Medical History Past Medical History: Cancer, Hyperlipidemia, Osteoarthritis (OA), Prostate Disorder, Thyroid Disorder Additional Past Medical History / Comment(s): HX OF PROSTATE CANCER WITH RADIATION (2013), SQUAMOUS CELL SKIN CANCER, CHRONIC SINUSITIS, , HYPOTHYROID., STATES PAST HX OF BACK PROBLEMS. History of Any Multi-Drug Resistant Organisms: None Reported Past Surgical History: Adenoidectomy, Orthopedic Surgery, Prostate Surgery, Tonsillectomy Additional Past Surgical History / Comment(s): rt knee surgery, HIP REPLACED Past Anesthesia/Blood Transfusion Reactions: No Reported Reaction Past Psychological History: No Psychological Hx Reported Smoking Status: Never smoker Past Alcohol Use History: Occasional Past Drug Use History: None Reported - Past Family History Mother Family Medical History: CVA/TIA Sister(s) Family Medical History: CVA/TIA Father Family Medical History: Myocardial Infarction ([place]) General Exam Limitations: no limitations General appearance: alert, in no apparent distress Head exam: Present: atraumatic, normocephalic, normal inspection Eye exam: Present: normal appearance, PERRL, EOMI. Absent: scleral icterus, conjunctival injection, periorbital swelling ENT exam: Present: normal exam, mucous membranes moist Neck exam: Present: normal inspection. Absent: tenderness, meningismus, lymphadenopathy Respiratory exam: Present: normal lung sounds bilaterally. Absent: respiratory distress, wheezes, rales, rhonchi, stridor Cardiovascular Exam: Present: regular rate, normal rhythm, normal heart sounds. Absent: systolic murmur, diastolic murmur, rubs, gallop, clicks GI/Abdominal exam: Present: soft, distended, normal bowel sounds. Absent: tenderness, guarding, rebound, rigid Extremities exam: Present: normal inspection, full ROM, normal capillary refill. Absent: tenderness, pedal edema, joint swelling, calf tenderness Back exam: Present: normal inspection Neurological exam: Present: alert, oriented X3, CN II-XII intact Psychiatric exam: Present: normal affect, normal mood Skin exam: Present: warm, dry, intact, normal color. Absent: rash Course Vital Signs 03/16/18 03/16/18 10:24 12:47 Temperature 96.4 F L Pulse Rate 90 74 Respiratory 18 18 Rate Blood Pressure 143/79 136/75 O2 Sat by Pulse 97 95 Oximetry Medical Decision Making - Medical Decision Making 77 male to the ED co abd pain, NV, decreased BM, positive SBO will admit for surgical conversation - Lab Data Result diagrams: 03/16/18 12:05 03/16/18 12:05 Lab Results 03/16/18 03/16/18 03/16/18 Range/Units 12:05 12:05 12:05 WBC 10.1 (3.8-10.6) k/uL RBC 4.20 L (4.30-5.90) m/uL Hgb 13.1 (13.0-17.5) gm/dL Hct 39.0 (39.0-53.0) % MCV 92.7 (80.0-100.0) fL MCH 31.2 (25.0-35.0) pg MCHC 33.6 (31.0-37.0) g/dL RDW 12.0 (11.5-15.5) % Plt Count 423 (150-450) k/uL Neutrophils % 84 % Lymphocytes % 9 % Monocytes % 5 % Eosinophils % 1 % Basophils % 0 % Neutrophils # 8.5 H (1.3-7.7) k/uL Lymphocytes # 0.9 L (1.0-4.8) k/uL Monocytes # 0.5 (0-1.0) k/uL Eosinophils # 0.1 (0-0.7) k/uL Basophils # 0.0 (0-0.2) k/uL Sodium 141 (137-145) mmol/L Potassium 4.1 (3.5-5.1) mmol/L Chloride 96 L (98-107) mmol/L Carbon Dioxide 28 (22-30) mmol/L Anion Gap 17 mmol/L BUN 24 H (9-20) mg/dL Creatinine 0.80 (0.66-1.25) mg/dL Est GFR (CKD-EPI)AfAm >90 (>60 ml/min/1.73 sqM) Est GFR (CKD-EPI)NonAf 87 (>60 ml/min/1.73 sqM) Glucose 108 H (74-99) mg/dL Plasma Lactic Acid Pradeep 0.9 (0.7-2.0) mmol/L Calcium 9.6 (8.4-10.2) mg/dL Total Bilirubin 0.5 (0.2-1.3) mg/dL AST 21 (17-59) U/L ALT 15 L (21-72) U/L Alkaline Phosphatase 66 (38-126) U/L Total Protein 6.9 (6.3-8.2) g/dL Albumin 3.9 (3.5-5.0) g/dL Amylase 68 (30-110) U/L Lipase 118 (23-300) U/L - Radiology Data Radiology results: report reviewed (CT abd Pelvis positive for SBO), image reviewed Disposition Clinical Impression: Small bowel obstruction Disposition: ADMITTED IP TO THIS [facility] Condition: Fair Referrals: Dagoberto Munoz DO [Primary Care Provider] - 1-2 days
[2018-03-16 12:15] LABS: Basophils % (A) 0 %; Eosinophils # (A) 0.1 k/uL (0-0.7); Eosinophils % (A) 1 %; HGB 13.1 gm/dL (13.0-17.5); Lymphocytes # (A) 0.9 k/uL (1.0-4.8); Lymphocytes % (A) 9 %; MCH 31.2 pg (25.0-35.0); MCHC 33.6 g/dL (31.0-37.0); MCV 92.7 fL (80.0-100.0); Mean Platelet Volume 6.4; Monocytes # (A) 0.5 k/uL (0-1.0); Monocytes % (A) 5 %; Neutrophils # (A) 8.5 k/uL (1.3-7.7); Neutrophils % (A) 84 %; Platelet Count 423 k/uL (150-450); WBC 10.1 k/uL (3.8-10.6)
[2018-03-16 12:29] LABS: ALT 15 U/L (21-72); AST 21 U/L (17-59); Albumin 3.9 g/dL (3.5-5.0); Alkaline Phosphatase 66 U/L (38-126); Amylase 68 U/L (30-110); Anion Gap 17 mmol/L; Blood Urea Nitrogen 24 mg/dL (9-20); Calcium 9.6 mg/dL (8.4-10.2); Carbon Dioxide 28 mmol/L (22-30); Chloride 96 mmol/L (98-107); Glucose 108 mg/dL (74-99); Lipase 118 U/L (23-300); Potassium 4.1 mmol/L (3.5-5.1); Sodium 141 mmol/L (137-145); Total Bilirubin 0.5 mg/dL (0.2-1.3); Total Protein 6.9 g/dL (6.3-8.2)
--- NOTE | 2018-03-16 13:40 | CT ---
EXAMINATION TYPE: CT abdomen pelvis w con DATE OF EXAM: 03/16/2018 COMPARISON: CT abdomen and pelvis from 5 days ago and older study March 28, 2014. HISTORY: Abdominal pain with nausea and decreased bowel movements CT DLP: 773.1 mGycm, Automated Exposure Control for Dose Reduction was Utilized. CONTRAST: CT scan of the abdomen and pelvis is performed without new oral but with IV Contrast, patient injecte d with 100 mL of Isovue 300. FINDINGS: LUNG BASES: Small degree of bilateral gynecomastia is noted. There is coronary artery calcification p resent which is noted marker for coronary artery disease. Calcifications in the pericardium are redem onstrated. LIVER/GB: No significant abnormality is appreciated. PANCREAS: No significant abnormality is seen. SPLEEN: No significant abnormality is seen. ADRENALS: There is slight nodular thickening to both adrenal glands, right more prominent than left o n axial image 18 favoring benign etiology redemonstrated at this is not significantly changed in size from 2014 CT. KIDNEYS: There is stable 4.3 cm oval cyst centrally left kidney upper pole level. There is symmetric cortical medullary uptake and excretion from both kidneys without evidence of hydronephrosis bilatera lly. BOWEL: There is persistent dilatation of stomach with air-fluid level, slightly less prominent than p rior exam. There is fluid-filled duodenal sweep slightly more prominent than prior study there are pe rsistent dilated small bowel loops with air-fluid levels. There is abrupt transition in the upper to midabdomen where there is narrowing of small bowel and mesentery seen best coronal images 35 through 44. Small bowel loops are dilated up to 5.8 cm right aspect axial image 38. Some residual contrast fr om prior CT is now passed into colonic loops. There is hyperdense material in the rectum. Some scatte red colonic diverticula are seen most prominent in the sigmoid colon. Colon is not dilated. Terminal ileum is not dilated in the right lower quadrant. There may be second transitional point in distal il eal loops in the right lower quadrant and pelvis. More dilated contrast diluted and fluid-filled dist al small bowel loops are noted on current study in the lower abdomen and pelvis. No definitive free a ir is seen currently. PROSTATE/SEMINAL VESICLES: No gross abnormality seen. LYMPH NODES: No greater than 1cm abdominal or pelvic lymph nodes are appreciated. OSSEOUS STRUCTURES: Metallic hardware from left hip arthroplasty causes streak artifact limiting eval uation of pelvic structures. There is moderate joint space loss and spurring in the right hip. There is multilevel moderate spurring in the thoracolumbar spine. There is facet arthropathy and disc space narrowing lower lumbar levels redemonstrated. OTHER: No significant additional abnormality is seen. IMPRESSION: Findings are consistent with worsening high-grade partial small bowel obstruction or obst ructions. Complete obstruction is not present as contrast from prior CT passes 2 colonic level but th ere is noted marked delay. There is increasing dilatation of small bowel loops noted. One suspicious point midabdomen shows swirling of mesentery, internal hernia at this level cannot be excluded. Secon d area of obstruction is felt in the distal ileum likely in the right lower quadrant or pelvis. Advis e NG tube placement and surgical consultation.
[2018-03-16] MEDS ORDERED: DEXTROSE 5%-0.45% NACL 1,000 ML IV ONE (14:03)
[2018-03-16] MEDS ORDERED: MORPHINE SULFATE 4 MG/0.8 ML SYRINGE (INJ) IVP STA (14:03)
[2018-03-16] MEDS ORDERED: MORPHINE SULFATE 4 MG/ML SYRINGE IVP PRN (14:03)
[2018-03-16] MEDS ORDERED: PANTOPRAZOLE 40 MG/10 ML VIAL IVP STA (14:03)
[2018-03-16] MEDS ORDERED: ONDANSETRON 4 MG/2 ML VIAL IVP PRN (14:03)
[2018-03-16] MEDS ORDERED: LACTATED RINGERS 1,000 ML IV SCH (16:15)
[2018-03-16] MEDS: ONDANSETRON 4 MG/2 ML VIAL IVP STA (16:24)
--- NOTE | 2018-03-16 16:29 | P.GSCN ---
History of Present Illness Consult date: 03/16/18 Reason for Consult: Small bowel obstruction History of present illness: This is a 77-year-old male who has had a 2-3 week history of crampy abdominal pain. Patient states that he is unable eat solid food. He develops abdominal pain and bloating. His CAT scan performed today shows evidence of high-grade small bowel obstruction Past Medical History Past Medical History: Cancer, Hyperlipidemia, Osteoarthritis (OA), Prostate Disorder, Thyroid Disorder Additional Past Medical History / Comment(s): HX OF PROSTATE CANCER WITH RADIATION (2013), SQUAMOUS CELL SKIN CANCER, CHRONIC SINUSITIS, , HYPOTHYROID., STATES PAST HX OF BACK PROBLEMS. History of Any Multi-Drug Resistant Organisms: None Reported Past Surgical History: Adenoidectomy, Orthopedic Surgery, Prostate Surgery, Tonsillectomy Additional Past Surgical History / Comment(s): rt knee surgery, HIP REPLACED Past Anesthesia/Blood Transfusion Reactions: No Reported Reaction Past Psychological History: No Psychological Hx Reported Smoking Status: Never smoker Past Alcohol Use History: Occasional Past Drug Use History: None Reported - Past Family History Mother Family Medical History: CVA/TIA Sister(s) Family Medical History: CVA/TIA Father Family Medical History: Myocardial Infarction ([place]) Medications and Allergies Home Medications Medication Instructions Recorded Confirmed Type Levothyroxine Sodium [Synthroid] 112 mcg PO DAILY 03/16/18 03/16/18 History Niacin [Slo-Niacin] 1,000 mg PO DAILY 03/16/18 03/16/18 History Allergies Allergy/AdvReac Type Severity Reaction Status Date / Time No Known Allergies Allergy Verified 03/16/18 10:54 Surgical - Exam Vital Signs Temp Pulse Resp BP Pulse Ox 96.4 F L 90 18 143/79 97 03/16/18 10:24 03/16/18 10:24 03/16/18 10:24 03/16/18 10:24 03/16/18 10:24 The patient denies any nausea - General well developed, no distress - Eyes PERRL - Respiratory normal expansion, normal respiratory effort - Cardiovascular Rhythm: regular - Abdomen Abdomen is bloated. There is some minimal right upper quadrant tenderness. There is no rebound or guarding. There is no peritoneal signs. Abdomen: soft Results - Labs 03/16/18 12:05 03/16/18 12:05 Abnormal Lab Results - Last 24 Hours (Table) 03/16/18 03/16/18 Range/Units 12:05 12:05 RBC 4.20 L (4.30-5.90) m/uL Neutrophils # 8.5 H (1.3-7.7) k/uL Lymphocytes # 0.9 L (1.0-4.8) k/uL Chloride 96 L (98-107) mmol/L BUN 24 H (9-20) mg/dL Glucose 108 H (74-99) mg/dL ALT 15 L (21-72) U/L Diabetes panel 03/16/18 Range/Units 12:05 Sodium 141 (137-145) mmol/L Potassium 4.1 (3.5-5.1) mmol/L Chloride 96 L (98-107) mmol/L Carbon Dioxide 28 (22-30) mmol/L BUN 24 H (9-20) mg/dL Creatinine 0.80 (0.66-1.25) mg/dL Glucose 108 H (74-99) mg/dL Calcium 9.6 (8.4-10.2) mg/dL AST 21 (17-59) U/L ALT 15 L (21-72) U/L Alkaline Phosphatase 66 (38-126) U/L Total Protein 6.9 (6.3-8.2) g/dL Albumin 3.9 (3.5-5.0) g/dL Calcium panel 03/16/18 Range/Units 12:05 Calcium 9.6 (8.4-10.2) mg/dL Albumin 3.9 (3.5-5.0) g/dL Pituitary panel 03/16/18 Range/Units 12:05 Sodium 141 (137-145) mmol/L Potassium 4.1 (3.5-5.1) mmol/L Chloride 96 L (98-107) mmol/L Carbon Dioxide 28 (22-30) mmol/L BUN 24 H (9-20) mg/dL Creatinine 0.80 (0.66-1.25) mg/dL Glucose 108 H (74-99) mg/dL Calcium 9.6 (8.4-10.2) mg/dL Adrenal panel 03/16/18 Range/Units 12:05 Sodium 141 (137-145) mmol/L Potassium 4.1 (3.5-5.1) mmol/L Chloride 96 L (98-107) mmol/L Carbon Dioxide 28 (22-30) mmol/L BUN 24 H (9-20) mg/dL Creatinine 0.80 (0.66-1.25) mg/dL Glucose 108 H (74-99) mg/dL Calcium 9.6 (8.4-10.2) mg/dL Total Bilirubin 0.5 (0.2-1.3) mg/dL AST 21 (17-59) U/L ALT 15 L (21-72) U/L Alkaline Phosphatase 66 (38-126) U/L Total Protein 6.9 (6.3-8.2) g/dL Albumin 3.9 (3.5-5.0) g/dL Assessment and Plan Assessment: Worsening high-grade partial small bowel structure. Patient will undergo exploratory laparotomy with possible lysis of adhesions tomorrow. He'll receive fluid hydration overnight.
[2018-03-16] MEDS: DEXTROSE 5%-0.45% NACL 1,000 ML IV SCH (17:55)
[2018-03-16 18:50] LABS: Amorphous Sediment,Urine Rare /hpf; Appearance,Urine Clear (Clear); Bilirubin,Urine Negative (Negative); Blood,Urine Negative (Negative); Color,Urine Yellow; Glucose,Urine (UA) Negative (Negative); Ketones,Urine 4+ (Negative); Leukocyte Esterase,Urine Negative (Negative); Mucus,Urine Rare /hpf; Nitrite,Urine Negative (Negative); Protein,Urine 1+ (Negative); RBC,Urine 2 /hpf (0-5); Squamous Epithelial Cell,Urine <1 /hpf (0-4); Urobilinogen,Urine <2.0 mg/dL (<2.0); WBC,Urine 5 /hpf (0-5)
[2018-03-16 18:51] LABS: Specific Gravity,Urine >1.050 (1.001-1.035)
[2018-03-17] MEDS: DEXTROSE 5%-0.45% NACL 1,000 ML IV SCH ×4 (00:21→20:55)
[2018-03-17] MEDS ORDERED: HEPARIN SODIUM,PORCINE 5,000 UNIT/ML 1 ML VIAL SQ STA (08:52)
[2018-03-17] MEDS ORDERED: ENOXAPARIN 40 MG/0.4 ML SYRINGE SQ SCH (09:00)
[2018-03-17] MEDS ORDERED: IV FLUID CONTINUATION 1,000 ML IV ONE (09:23)
[2018-03-17] MEDS: ONDANSETRON 4 MG/2 ML VIAL IVP STA (09:24)
[2018-03-17] MEDS ORDERED: DEXAMETHASONE SOD PHOS (MDV) 100 MG/10 ML VIAL IVP ONE (09:24)
[2018-03-17] MEDS ORDERED: MIDAZOLAM 2 MG/2 ML VIAL IV PRN (09:41)
[2018-03-17] MEDS ORDERED: ONDANSETRON ODT 4 MG TAB PO ONE (09:41)
[2018-03-17] MEDS ORDERED: DEXAMETHASONE SOD PHOSPHATE 10 MG/ML 1 ML VIAL IV ONE (09:41)
[2018-03-17] MEDS ORDERED: SCOPOLAMINE 1.5MG/72HR PATCH TRANSDERM ONE (09:41)
[2018-03-17] MEDS ORDERED: fentaNYL (PF) 50 MCG/ML 20 ML VIAL IVP PRN (09:41)
[2018-03-17] MEDS ORDERED: fentaNYL (PF) 50 MCG/ML 2 ML AMP IV PRN (09:41)
[2018-03-17] MEDS ORDERED: NALOXONE 0.4 MG/ML 1 ML VIAL IV PRN (09:42)
[2018-03-17] MEDS ORDERED: diphenhydrAMINE 50 MG/ML 1 ML VIAL IVP PRN (09:42)
[2018-03-17] MEDS ORDERED: NALBUPHINE 10 MG/ML AMPUL IV PRN (09:42)
[2018-03-17] MEDS ORDERED: MIDAZOLAM 2 MG/2 ML VIAL IVP ONE (09:48)
[2018-03-17] MEDS ORDERED: ceFAZolin IN SWFI 2 GM/20 ML SYRINGE IVP STA (10:07)
[2018-03-17] MEDS ORDERED: NEOSTIGMINE 1 MG/ML 10 ML VIAL ONE (10:41)
[2018-03-17] MEDS ORDERED: SUCCINYLCHOLINE CHLORIDE 100 MG/5 ML SYR IV ONE (10:41)
[2018-03-17] MEDS ORDERED: fentaNYL (PF) 50 MCG/ML 2 ML AMP ONE (10:41)
[2018-03-17] MEDS ORDERED: GLYCOPYRROLATE 0.2 MG/ML 2 ML VIAL ONE (10:41)
[2018-03-17] MEDS ORDERED: HEPARIN SODIUM,PORCINE 5,000 UNIT/ML 1 ML VIAL ONE (10:41)
[2018-03-17] MEDS ORDERED: ROCURONIUM BROMIDE 10 MG/ML 10 ML VIAL IV ONE (10:41)
[2018-03-17] MEDS ORDERED: MIDAZOLAM 2 MG/2 ML VIAL ONE (10:41)
[2018-03-17] MEDS ORDERED: PROPOFOL 10 MG/ML 20 ML VIAL IV ONE (10:41)
[2018-03-17] MEDS ORDERED: LIDOCAINE 1% INJ 10MG/ML (20 ML MDV) ONE (10:41)
[2018-03-17] MEDS ORDERED: LACTATED RINGERS 1,000 ML IV ONE ×2 (11:42→12:17)
[2018-03-17] MEDS ORDERED: METOCLOPRAMIDE 5 MG/ML 2 ML VIAL IVP PRN (12:30)
[2018-03-17] MEDS: BUPIVACAINE (PF) 0.5% 31.3 ML, fentaNYL (PF) 1,250 MCG in SODIUM CHLORIDE 0.9% 194 ML EPIDURAL PRN ×2 (12:40→13:15)
--- NOTE | 2018-03-17 13:03 | P.OP ---
Date of Procedure: 03/17/18 Preoperative Diagnosis: Small bowel obstruction Postoperative Diagnosis: Small bowel obstruction Pelvic abscess Diverticulitis Procedure(s) Performed: Exploratory laparotomy Lysis of adhesion Drainage of pelvic abscess Small bowel resection Partial colectomy with end colostomy Anesthesia: BHARATHI Surgeon: Nikolay Murillo Estimated Blood Loss (ml): 200 Pathology: other (Small bowel, colon) Condition: stable Disposition: PACU Description of Procedure: The patient's placed the operative table in the supine position. He received general anesthesia. His abdomen was prepped and draped in usual sterile fashion. The abdomen was entered through a midline incision and a pulmonary abdomen there was grossly dilated small bowel. The proximal small bowel was approximately 7 cm in diameter. The small bowel was run, several adhesions were lysed. and in the pelvis there appeared to be significant inflammatory response. In dissecting the small bowel out of the pelvis a abscess cavity was entered. The abscess cavity was adherent to small bowel and distal sigmoid colon. It appeared to be evidence of a diverticular abscess. At this point the abscess cavity was cultured and then a small enterotomy was made next to the inflamed small bowel in the small bowel was decompressed with suction through this enterotomy. Next the small bowel was transected proximally distally to the inflamed portion of the bowel. The bowel was divided with a GI stapler. The mesentery the bowel was divided with the LigaSure device. The specimen sent to pathology. A [id number] functional end-to-end staple anastomosis was then created between the proximal and distal ileum. A 3-0 GI silk suture was used as a crotch stitch. Next the sigmoid colon was examined. The sigmoid colon appeared to be grossly inflamed. There was concern of possible perforation of the sigmoid colon due to the inflammatory changes. At this point a limited sigmoid colectomy was performed. The bowel was transected proximally distally with the LORENE and contour stapler. Using LigaSure device the mesentery the bowel was divided. the abdomen was then irrigated with 3 L of normal saline. The proximal colon had suitable length for colostomy. The colostomy site was chosen on the left abdominal wall. And then the placenta was performed by dividing the skin with a 15 blade and then the fascia with electrocautery and then the colostomy site was created through the rectus muscle. A drain was placed in the pelvis and brought out through the right lower quadrant. The fascia was then closed with looped #1 PDS suture. The skin was closed amparo. The colostomy then matured using 3-0 Vicryl suture.
[2018-03-17 14:59] LABS: Basophils % (A) 0 %; Eosinophils % (A) 0 %; HCT 36.3 % (39.0-53.0); HGB 12.1 gm/dL (13.0-17.5); Lymphocytes # (A) 0.4 k/uL (1.0-4.8); Lymphocytes % (A) 6 %; MCH 31.4 pg (25.0-35.0); MCHC 33.4 g/dL (31.0-37.0); MCV 93.9 fL (80.0-100.0); Mean Platelet Volume 6.6; Monocytes # (A) 0.3 k/uL (0-1.0); Monocytes % (A) 4 %; Neutrophils # (A) 6.7 k/uL (1.3-7.7); Neutrophils % (A) 90 %; Platelet Count 334 k/uL (150-450); RBC 3.87 m/uL (4.30-5.90); RDW 11.9 % (11.5-15.5); WBC 7.4 k/uL (3.8-10.6)
[2018-03-17 15:07] LABS: Anion Gap 8 mmol/L; Blood Urea Nitrogen 13 mg/dL (9-20); Calcium 8.3 mg/dL (8.4-10.2); Carbon Dioxide 27 mmol/L (22-30); Chloride 104 mmol/L (98-107); Glucose 144 mg/dL (74-99); Potassium 4.3 mmol/L (3.5-5.1); Sodium 139 mmol/L (137-145)
[2018-03-17] MEDS: LACTATED RINGERS 1,000 ML IV SCH (15:22)
[2018-03-17] MEDS: PANTOPRAZOLE 40 MG/10 ML VIAL IVP SCH (15:25)
[2018-03-17] MEDS: D5-0.45% NACL WITH KCL 20MEQ/L 1,000 ML IV SCH (15:26)
[2018-03-17] MEDS: BENZOCAINE/MENTHOL LOZENG 1 EACH LOZENGE MUCOUS MEM PRN ×2 (15:29→20:58)
--- NOTE | 2018-03-17 16:24 | P.HPIM ---
History of Present Illness H&P Date: 03/17/18 77-year-old male who presented to the emergency room with a chief complaint of abdominal pain. Patient was recently seen by his primary care physician Dr. Munoz in the outpatient setting. Patient was prescribed laxatives , clear liquid diet, etc. He was also instructed to come to the ER if his symptoms did not improve or worsened. Patient states he is unable to tolerate PO intake. He tried to eat yesterday and he ended up vomiting. He states his abdominal distention has gotten worse and he continues to have abdominal pain. The patient is also noted to be somewhat noncompliant as he reported he never took the laxatives prescribed to him by Dr. Munoz in the outpatient setting because he didnt "see the need for it". CT abdominal and pelvis: Findings are consistent with worsening high grade partial small bowel obstruction or obstructions. The patient was admitted to the hospital under the care of Dr. Munoz. Consultations were placed to Dr. Murillo. Review of Systems GENERAL: Patient denies fever. Denies chills. EYES: Denies blurred vision. Denies vision changes. Denies eye pain. EARS, NOSE, MOUTH, & THROAT: Denies headache. Denies sore throat. Denies ear pain. RESPIRATORY: Denies cough. Denies shortness of breath. Denies sputum production. Denies hemoptysis. CARDIOVASCULAR: Denies chest pain or pressure. Denies palpitations. Denies arrhythmias. GASTROINTESTINAL: Positive for abdominal pain. Positive for abdominal distention. Positive for vomiting at home. Denies heartburn. Denies blood in the stool. GENITOURINARY: Denies urinary frequency. Denies burning. Denies dysuria. Denies cloudy urine. Denies blood in the urine. MUSCULOSKELETAL: Denies myalgias. Denies joint swelling. Denies decreased range of motion beyond patients baseline. INTEGUMENTARY: Denies pruitis. Denies rash. PSYCHIATRIC: Denies suicidal or homicial ideations. ENDOCRINE: Denies weight change. Denies polydipsia. Denies polyuria. HEMATOLOGIC: Denies bleeding disorders. Past Medical History Past Medical History: Cancer, Hyperlipidemia, Osteoarthritis (OA), Prostate Disorder, Thyroid Disorder Additional Past Medical History / Comment(s): HX OF PROSTATE CANCER WITH RADIATION (2013), SQUAMOUS CELL SKIN CANCER, CHRONIC SINUSITIS, , HYPOTHYROID., STATES PAST HX OF BACK PROBLEMS. History of Any Multi-Drug Resistant Organisms: None Reported Past Surgical History: Adenoidectomy, Orthopedic Surgery, Prostate Surgery, Tonsillectomy Additional Past Surgical History / Comment(s): rt knee surgery, HIP REPLACED Past Anesthesia/Blood Transfusion Reactions: No Reported Reaction Smoking Status: Never smoker - Past Family History Mother Family Medical History: CVA/TIA Sister(s) Family Medical History: CVA/TIA Father Family Medical History: Myocardial Infarction (NM) Medications and Allergies Home Medications Medication Instructions Recorded Confirmed Type Levothyroxine Sodium [Synthroid] 112 mcg PO DAILY 03/16/18 03/16/18 History Niacin [Slo-Niacin] 1,000 mg PO DAILY 03/16/18 03/16/18 History Allergies Allergy/AdvReac Type Severity Reaction Status Date / Time No Known Allergies Allergy Verified 03/16/18 10:54 Physical Exam Vitals: Vital Signs Temp Pulse Pulse Pulse Resp BP BP 03/17/18 10:13 73 18 114/62 03/17/18 10:08 81 18 122/75 03/17/18 09:45 77 18 134/74 03/17/18 09:27 98.2 F 73 18 137/73 03/17/18 09:00 98.1 F 67 16 107/61 03/17/18 06:57 98.1 F 67 16 107/61 03/16/18 22:05 98.7 F 67 16 107/53 03/16/18 21:30 16 03/16/18 16:46 76 03/16/18 15:43 97.4 F L 76 16 141/77 03/16/18 15:12 97.5 F L 77 18 139/74 03/16/18 14:59 97.5 F L 77 139/74 03/16/18 14:51 97.5 F L 77 139/74 03/16/18 12:47 74 18 136/75 Pulse Ox 03/17/18 10:13 97 03/17/18 10:08 95 03/17/18 09:45 98 03/17/18 09:27 95 03/17/18 09:00 96 03/17/18 06:57 96 03/16/18 22:05 95 03/16/18 21:30 03/16/18 16:46 03/16/18 15:43 99 03/16/18 15:12 100 03/16/18 14:59 100 03/16/18 14:51 100 03/16/18 12:47 95 Intake and Output 03/16/18 03/17/18 03/17/18 22:59 06:59 14:59 Intake Total 600 2450 600 Output Total 600 Balance 600 1850 600 Intake: IV 600 Amount of Fluid Infused ( 600 ml) Intake, IV Titration 2300 Amount Dextrose 5%-0.45% NaCl 1, 2300 000 ml @ 150 mls/hr IV . Q6H40M [facility] Rx#:[id number] Oral 150 Output: Urine 600 Other: # Voids 2 1 GENERAL: This is a 77-year-old male in no apparent distress at the time of examination. Pleasant and cooperative. HEENT: Head is atraumatic, normocephalic. Pupils are equal, round, and reactive to light. Sclerae anicteric. Conjunctivae are clear. Mucus membranes of the mouth are moist. Neck is supple. RESPIRATORY: Clear to ausculation. No wheezes, rales, or rhonchi. No use of accessory muscles. Patient maintaining oxygen saturation greater than 92%. No chest wall tenderness is noted on palpation or with deep breathing. CARDIOVASCULAR: Regular rate and rhythm. S1 and S2 noted. No systolic or diastolic murmur auscultated. No JVD noted. No S3 or S4 noted. GASTROINTESTINAL: Abdominal distention noted. Abdomen is soft and round. Pain and tenderness is noted upon palpation. INTEGUMENTARY: No cyanosis. No jaundice. No rashes noted. No cellulitis noted. EXTREMITIES: 2+ peripheral pulses. No evidence of peripheral edema. No calf tenderness noted. NEUROLOGIC: Cranial nerves II-XII intact. PSYCHIATRIC: Awake, alert, and oriented X 3. Appropriate affect. Intact judgement and insight. Results CBC & Chem 7: 03/17/18 14:10 03/17/18 14:10 Labs: Abnormal Lab Results - Last 24 Hours (Table) 03/16/18 03/16/18 03/16/18 Range/Units 12:05 12:05 18:30 RBC 4.20 L (4.30-5.90) m/uL Neutrophils # 8.5 H (1.3-7.7) k/uL Lymphocytes # 0.9 L (1.0-4.8) k/uL Chloride 96 L (98-107) mmol/L BUN 24 H (9-20) mg/dL Glucose 108 H (74-99) mg/dL ALT 15 L (21-72) U/L Ur Specific [place] >1.050 H (1.001-1.035) Urine Protein 1+ H (Negative) Urine Ketones 4+ H (Negative) Amorphous Sediment Rare H (None) /hpf Urine Mucus Rare H (None) /hpf Microbiology - Last 24 Hours (Table) 03/16/18 18:30 Urine Culture - Preliminary Urine,Voided Assessment and Plan Plan: ASSESSMENT: Abdominal pain with vomiting, inability to tolerate PO intake, and abdominal distention, present on admission, secondary to worsening high-grade partial small bowel obstruction History of prostate cancer with radiation therapy in 2013 Hypothyroidism Osteoarthritis with history of total hip replacement Hyperlipidemia PLAN: Patient scheduled for OR today with Dr. Murillo. Maintain NPO. Monitor vital signs. Further recommendations pending patient's course Nurse practitioner note has been reviewed by physician. Signing provider agrees with the documented findings, assessment, and plan of care.
[2018-03-17] MEDS: ALVIMOPAN 12 MG CAPSULE PO SCH (20:59)
[2018-03-17] MEDS: FAMOTIDINE 20 MG/2 ML VIAL IV SCH (20:59)
[2018-03-18] MEDS: D5-0.45% NACL WITH KCL 20MEQ/L 1,000 ML IV SCH ×4 (00:02→21:00)
--- NOTE | 2018-03-18 06:53 | P.PN ---
Progress Note - Text Progress Note Date: 03/18/18 Postoperative day # 1 status post expected laparotomy, epidural catheter placed for postoperative analgesia, patient doing well epidural site okay, patient currently on combination of epidural infusion solution of bupivacaine 0.0625% and Fentanyle ,the infusion rate at 7 ml per hour , patient had no motor deficit epidural site okay , vital signs stable ,VAS 0 /10 , Assessment and plan=. post operative day # 1 patient doing well ,pain well controlled , there is no anesthesia related complications
[2018-03-18] MEDS: LACTATED RINGERS 1,000 ML IV SCH (07:13)
[2018-03-18 08:25] LABS: Basophils % (A) 0 %; Eosinophils % (A) 0 %; HCT 31.2 % (39.0-53.0); HGB 10.3 gm/dL (13.0-17.5); Lymphocytes # (A) 0.8 k/uL (1.0-4.8); Lymphocytes % (A) 9 %; MCH 30.8 pg (25.0-35.0); MCHC 33.2 g/dL (31.0-37.0); MCV 92.9 fL (80.0-100.0); Mean Platelet Volume 7.3; Monocytes # (A) 0.4 k/uL (0-1.0); Monocytes % (A) 5 %; Neutrophils # (A) 8.3 k/uL (1.3-7.7); Neutrophils % (A) 86 %; Platelet Count 325 k/uL (150-450); RBC 3.36 m/uL (4.30-5.90); RDW 12.1 % (11.5-15.5); WBC 9.6 k/uL (3.8-10.6)
[2018-03-18] MEDS: ALVIMOPAN 12 MG CAPSULE PO SCH ×2 (08:49→22:03)
[2018-03-18] MEDS: FAMOTIDINE 20 MG/2 ML VIAL IV SCH ×2 (08:49→21:00)
[2018-03-18] MEDS: PANTOPRAZOLE 40 MG/10 ML VIAL IVP SCH (08:49)
[2018-03-18 08:53] LABS: ALT 17 U/L (21-72); AST 16 U/L (17-59); Albumin 2.4 g/dL (3.5-5.0); Alkaline Phosphatase 39 U/L (38-126); Anion Gap 9 mmol/L; Blood Urea Nitrogen 12 mg/dL (9-20); Calcium 7.9 mg/dL (8.4-10.2); Carbon Dioxide 26 mmol/L (22-30); Chloride 102 mmol/L (98-107); Glucose 121 mg/dL (74-99); Potassium 4.5 mmol/L (3.5-5.1); Sodium 137 mmol/L (137-145); Total Bilirubin 0.3 mg/dL (0.2-1.3); Total Protein 4.4 g/dL (6.3-8.2)
[2018-03-18] MEDS: BENZOCAINE/MENTHOL LOZENG 1 EACH LOZENGE MUCOUS MEM PRN ×2 (09:50→20:58)
--- NOTE | 2018-03-18 10:53 | P.PN ---
Subjective Progress Note Date: 03/18/18 77-year-old male who presented to the emergency room with a chief complaint of abdominal pain. Patient was recently seen by his primary care physician Dr. Munoz in the outpatient setting. Patient was prescribed laxatives , clear liquid diet, etc. He was also instructed to come to the ER if his symptoms did not improve or worsened. Patient states he is unable to tolerate PO intake. He tried to eat yesterday and he ended up vomiting. He states his abdominal distention has gotten worse and he continues to have abdominal pain. The patient is also noted to be somewhat noncompliant as he reported he never took the laxatives prescribed to him by Dr. Munoz in the outpatient setting because he didnt "see the need for it". CT abdominal and pelvis: Findings are consistent with worsening high grade partial small bowel obstruction or obstructions. The patient was admitted to the hospital under the care of Dr. Munoz. Consultations were placed to Dr. Murillo. 03/18/2018 Patient seen and examined at the bedside on rounds with Dr. Munoz. Patient is POD #1 exploratory laparotomy, lysis of adhesions, drainage of pelvic abscess, small bowel resection, and partial colectomy with end colostomy. Pathology is pending. Patient is awake and alert. States pain is tolerable. Denies shortness of breath. Denies chest pain. NG tube present with bilious output. Approximately 75cc in collection canister. CAMILA drain is intact with serosanguineous drainage. Stoma is red with very scant serous output. Urinary catheter is intact with clear yellow urine. Epidural is infusing at 7cc/hr. Blood pressure this morning is stable at 138/78. Heart rate 80-100. He is afebrile. Hemoglobin is 10.3, down from 12.1. He remains NPO. Dr. Munoz would like dietary to evaluate patient for PPN as he has been without PO intake for over a week. Objective - Vital Signs Vital signs: Vital Signs Temp 98.3 F 03/18/18 07:00 Pulse 101 H 03/18/18 07:00 Resp 18 03/18/18 07:00 BP 138/78 03/18/18 07:00 Pulse Ox 95 03/18/18 07:00 Intake & Output 03/17/18 03/18/18 03/18/18 18:59 06:59 18:59 Intake Total 4103.3 Output Total 2410 50 Balance 1693.3 -50 Weight 72.575 kg 72.575 kg 72.575 kg Intake: IV 2503.3 Intake, IV Titration 1600 Amount D5-0.45% NaCl with KCl 300 20Meq/l 1,000 ml @ 125 mls/hr IV .Q8H [facility] Rx#: [id number] Dextrose 5%-0.45% NaCl 1, 300 000 ml @ 150 mls/hr IV . Q6H40M [facility] Rx#:[id number] Lactated Ringers 1,000 ml 1000 As IV .[facility] Rx#: [id number] Output: Gastric Drainage 950 Drainage 80 50 Right Abdomen 80 50 Urine 1180 Estimated Blood Loss 200 Other: Voiding Method Indwelling Catheter Indwelling Catheter # Voids 1 - Exam GENERAL: This is a 77-year-old male in no apparent distress at the time of examination. Epidural infusing for pain control. HEENT: NG tube to LIS with bilious output. Head is atraumatic, normocephalic. Pupils are equal, round, and reactive to light. Sclerae anicteric. Conjunctivae are clear. Mucus membranes of the mouth are moist. Neck is supple. RESPIRATORY: Clear to ausculation. No wheezes, rales, or rhonchi. No use of accessory muscles. Patient maintaining oxygen saturation greater than 92%. No chest wall tenderness is noted on palpation or with deep breathing. CARDIOVASCULAR: Regular rate and rhythm. S1 and S2 noted. No systolic or diastolic murmur auscultated. No JVD noted. No S3 or S4 noted. GASTROINTESTINAL: Dressing to abdomen clean dry and intact. CAMILA drain with serosanguineous drainage noted. Colostomy present to left lower quadrant with very scant amount of serous drainage. Stoma pink. : Ortega present with clear yellow urine. INTEGUMENTARY: No cyanosis. No jaundice. No rashes noted. No cellulitis noted. EXTREMITIES: 2+ peripheral pulses. No evidence of peripheral edema. No calf tenderness noted. NEUROLOGIC: Cranial nerves II-XII intact. PSYCHIATRIC: Awake, alert, and oriented X 3. Appropriate affect. Intact judgement and insight. - Labs CBC & Chem 7: 03/18/18 08:06 03/18/18 08:06 Labs: Abnormal Lab Results - Last 24 Hours (Table) 03/17/18 03/17/18 03/18/18 Range/Units 14:10 14:10 08:06 RBC 3.87 L 3.36 L (4.30-5.90) m/uL Hgb 12.1 L 10.3 L (13.0-17.5) gm/dL Hct 36.3 L 31.2 L (39.0-53.0) % Neutrophils # 8.3 H (1.3-7.7) k/uL Lymphocytes # 0.4 L 0.8 L (1.0-4.8) k/uL Glucose 144 H (74-99) mg/dL Calcium 8.3 L (8.4-10.2) mg/dL AST (17-59) U/L ALT (21-72) U/L Total Protein (6.3-8.2) g/dL Albumin (3.5-5.0) g/dL 03/18/18 Range/Units 08:06 RBC (4.30-5.90) m/uL Hgb (13.0-17.5) gm/dL Hct (39.0-53.0) % Neutrophils # (1.3-7.7) k/uL Lymphocytes # (1.0-4.8) k/uL Glucose 121 H (74-99) mg/dL Calcium 7.9 L (8.4-10.2) mg/dL AST 16 L (17-59) U/L ALT 17 L (21-72) U/L Total Protein 4.4 L (6.3-8.2) g/dL Albumin 2.4 L (3.5-5.0) g/dL Microbiology - Last 24 Hours (Table) 03/16/18 18:30 Urine Culture - Final Urine,Voided 03/17/18 12:00 Wound Culture - Preliminary Abdomen Assessment and Plan Plan: ASSESSMENT: Abdominal pain with vomiting, inability to tolerate PO intake, and abdominal distention, present on admission, secondary to worsening high-grade partial small bowel obstruction S/P exploratory laparotomy, lysis of adhesions, drainage of pelvic abscess, small bowel resection, and partial colectomy with end colostomy, POD #1 Anemia, secondary to acute blood loss from surgery (EBL 200cc) and hemodilution from IV fluids History of prostate cancer with radiation therapy in 2013 Hypothyroidism Osteoarthritis with history of total hip replacement Hyperlipidemia PLAN: Dr. Murillo on consult. Appreciate recommendations and input. Continue postoperative surgical care per Dr. Murillo Await pathology results Maintain NPO until bowel function returns Consult dietary per Dr. Munoz to evaluate for PPN as patient has been without oral intake for over a week Pain control-Epidural management per anesthesia Continue urinary catheter while epidural is in place Incentive spirometer 10 times an hour while awake GI prophylaxis: Protonix 40 mg IV push daily DVT prophylaxis: SCDs to bilateral lower extremities Monitor vital signs and address as appropriate Monitor labs Discharge planning: Patient to return home in stable Further recommendations to follow pending patient's course Nurse practitioner note has been reviewed by physician. Signing provider agrees with the documented findings, assessment, and plan of care.
[2018-03-18 11:54] LABS: Magnesium 1.5 mg/dL (1.6-2.3); Phosphorus 2.8 mg/dL (2.5-4.5)
--- NOTE | 2018-03-18 12:23 | P.PN ---
Subjective Progress Note Date: 03/18/18 77-year-old male seen at bedside. Sitting up talkative. Nasal gastric tube in place connected to suction 50 mL out since 7 AM. CAMILA drain right lower quadrant 50 mL out since 7 AM serous drainage. Indwelling Ortega catheter in place katerine urine. Patient states pain medication effective for pain control. Has an epidural in place no numbness or tingling to the lower extremities. White count 9.6 this morning hemoglobin stable at 10.3 electrolytes within normal limits. The plan is to initiate PPN for nutritional support. Remains nothing by mouth Afebrile Postop March 17 exploratory laparotomy, lysis of adhesions, drainage of pelvic abscess, small bowel resection, partial colectomy with end colostomy for small bowel obstruction Objective - Vital Signs Vital signs: Vital Signs Temp 98.3 F 03/18/18 07:00 Pulse 101 H 03/18/18 07:00 Resp 18 03/18/18 07:00 BP 138/78 03/18/18 07:00 Pulse Ox 95 03/18/18 07:00 Intake & Output 03/17/18 03/18/18 03/18/18 18:59 06:59 18:59 Intake Total 4103.3 Output Total 2410 50 Balance 1693.3 -50 Weight 72.575 kg 72.575 kg 72.575 kg Intake: IV 2503.3 Intake, IV Titration 1600 Amount D5-0.45% NaCl with KCl 300 20Meq/l 1,000 ml @ 125 mls/hr IV .Q8H [facility] Rx#: [id number] Dextrose 5%-0.45% NaCl 1, 300 000 ml @ 150 mls/hr IV . Q6H40M [facility] Rx#:[id number] Lactated Ringers 1,000 ml 1000 As IV .[facility] Rx#: [id number] Output: Gastric Drainage 950 Drainage 80 50 Right Abdomen 80 50 Urine 1180 Estimated Blood Loss 200 Other: Voiding Method Indwelling Catheter Indwelling Catheter # Voids 1 - Exam Physical exam 77-year-old male sitting up in bed talkative pleasant cooperative stating pain medication effective for pain control Lungs bilateral adequate air movement able to use the incentive spirometer can achieve 2000 sats 95% room air no wheezing rail rhonchi no cough Heart S1-S2 audible regular no murmur denying chest pain Abdomen surgical dressing site dressing dry. CAMILA drain in place right lower quadrant serous drainage noted in the bulb. Ostomy left lower quadrant scant amount of liquid brown secretions noted. Nasal gastric tube to suction brownish secretions in the canister few hypoactive bowel tones no nausea no vomiting Extremities Venodyne's on to the bilateral lower extremities no numbness tingling to the lower extremities - Labs CBC & Chem 7: 03/18/18 08:06 03/18/18 08:06 Labs: Abnormal Lab Results - Last 24 Hours (Table) 03/17/18 03/17/18 03/18/18 Range/Units 14:10 14:10 08:06 RBC 3.87 L 3.36 L (4.30-5.90) m/uL Hgb 12.1 L 10.3 L (13.0-17.5) gm/dL Hct 36.3 L 31.2 L (39.0-53.0) % Neutrophils # 8.3 H (1.3-7.7) k/uL Lymphocytes # 0.4 L 0.8 L (1.0-4.8) k/uL Glucose 144 H (74-99) mg/dL Calcium 8.3 L (8.4-10.2) mg/dL AST (17-59) U/L ALT (21-72) U/L Total Protein (6.3-8.2) g/dL Albumin (3.5-5.0) g/dL 03/18/18 Range/Units 08:06 RBC (4.30-5.90) m/uL Hgb (13.0-17.5) gm/dL Hct (39.0-53.0) % Neutrophils # (1.3-7.7) k/uL Lymphocytes # (1.0-4.8) k/uL Glucose 121 H (74-99) mg/dL Calcium 7.9 L (8.4-10.2) mg/dL AST 16 L (17-59) U/L ALT 17 L (21-72) U/L Total Protein 4.4 L (6.3-8.2) g/dL Albumin 2.4 L (3.5-5.0) g/dL Microbiology - Last 24 Hours (Table) 03/16/18 18:30 Urine Culture - Final Urine,Voided 03/17/18 12:00 Wound Culture - Preliminary Abdomen Assessment and Plan Assessment: Impression Present on admission acute abdominal pain with poor oral intake suspect due to small bowel obstruction as evident on a CAT scan abdomen and pelvis Postop March 17 exploratory laparotomy, lysis of adhesions, drainage of pelvic abscess, Small Bowel Resection, Partial Colectomy with end colostomy for small bowel obstruction with diverticulitis History of prostate cancer with radiation treatment diagnosed 2013 Postop acute blood loss anemia from surgery with IV fluid dilutional Mild protein calorie malnutrition suspect due to poor caloric intake in a patient with two-week history of nausea inability to take a diet Plan Continue postop surgical care PPN per dietitian recommendations Epidural for pain control per anesthesia DVT and GI prophylaxis Increase activity as tolerated Encourage the use of the incentive spirometer use every 1 hour while awake Continue with the nasal gastric tube as ordered until bowel function resumes Venodyne's on as ordered Follow-up on pending wound culture The above impression and plan of care have been discussed and directed by signing physician. Jo Gant nurse practitioner acting as scribe for signing physician.
[2018-03-18] MEDS: MVI, ADULT NO.4 WITH VIT K 10 ML, TRACE (CONC-1ML/DOSE) 1 ML in AMIN 2.4%/DEX 6.8%/LIPI... IV SCH ×3 (15:27)
[2018-03-18] MEDS: MAGNESIUM SULFATE-D5W PMX 1 GM in DEXTROSE/WATER 1 100ML.BAG IVPB SCH ×2 (15:36→16:53)
[2018-03-18 17:50] LABS: Glucose,Whole Blood 156 mg/dL (75-99)
[2018-03-18] MEDS: INSULIN ASPART 100 UNIT/ML 1 ML 10 ML VIAL SQ SCH (18:16)
[2018-03-18] MEDS: BUPIVACAINE (PF) 0.5% 31.3 ML, fentaNYL (PF) 1,250 MCG in SODIUM CHLORIDE 0.9% 194 ML EPIDURAL PRN (22:04)
[2018-03-19 00:59] LABS: Glucose,Whole Blood 162 mg/dL (75-99)
[2018-03-19] MEDS: INSULIN ASPART 100 UNIT/ML 1 ML 10 ML VIAL SQ SCH ×5 (01:50→23:49)
[2018-03-19] MEDS: D5-0.45% NACL WITH KCL 20MEQ/L 1,000 ML IV SCH ×2 (04:09→12:18)
[2018-03-19] MEDS: LEVOTHYROXINE 112 MCG TAB PO SCH (05:38)
[2018-03-19 06:38] LABS: Glucose,Whole Blood 144 mg/dL (75-99)
[2018-03-19] MEDS: FAMOTIDINE 20 MG/2 ML VIAL IV SCH ×2 (08:11→20:12)
[2018-03-19] MEDS: ALVIMOPAN 12 MG CAPSULE PO SCH ×2 (08:11→20:12)
[2018-03-19] MEDS: PANTOPRAZOLE 40 MG/10 ML VIAL IVP SCH (08:12)
[2018-03-19] MEDS: BENZOCAINE/MENTHOL LOZENG 1 EACH LOZENGE MUCOUS MEM PRN ×2 (08:15→20:12)
[2018-03-19 08:33] LABS: Basophils % (A) 0 %; Eosinophils # (A) 0.1 k/uL (0-0.7); Eosinophils % (A) 2 %; HCT 27.5 % (39.0-53.0); HGB 9.2 gm/dL (13.0-17.5); Lymphocytes # (A) 0.8 k/uL (1.0-4.8); Lymphocytes % (A) 9 %; MCHC 33.6 g/dL (31.0-37.0); MCV 92.5 fL (80.0-100.0); Mean Platelet Volume 6.5; Monocytes # (A) 0.4 k/uL (0-1.0); Monocytes % (A) 5 %; Neutrophils # (A) 6.6 k/uL (1.3-7.7); Neutrophils % (A) 83 %; Platelet Count 270 k/uL (150-450); RBC 2.97 m/uL (4.30-5.90); RDW 12.1 % (11.5-15.5)
[2018-03-19 08:36] LABS: Ionized Calcium 4.8 mg/dL (4.5-5.3)
[2018-03-19 09:40] LABS: ALT 15 U/L (21-72); AST 22 U/L (17-59); Albumin 2.2 g/dL (3.5-5.0); Alkaline Phosphatase 42 U/L (38-126); Anion Gap 7 mmol/L; Blood Urea Nitrogen 12 mg/dL (9-20); Calcium 7.4 mg/dL (8.4-10.2); Carbon Dioxide 27 mmol/L (22-30); Chloride 101 mmol/L (98-107); Glucose 116 mg/dL (74-99); Magnesium 2.1 mg/dL (1.6-2.3); Phosphorus 1.9 mg/dL (2.5-4.5); Potassium 4.2 mmol/L (3.5-5.1); Sodium 135 mmol/L (137-145); Total Bilirubin 0.2 mg/dL (0.2-1.3); Total Protein 4.2 g/dL (6.3-8.2)
[2018-03-19] MEDS: LACTATED RINGERS 1,000 ML IV SCH (10:01)
--- NOTE | 2018-03-19 11:01 | P.PN ---
Subjective Progress Note Date: 03/19/18 77 -year-old male sitting up in bed talkative pleasant states the pain medication effective for pain control epidural in place. Per Anesthesia protocol denies any tingling numbness to the bilateral lower extremities. Indwelling Ortega catheter in place. Labs reviewed noted low phosphorus currently being corrected and replaced denies dizziness lightheadedness chest pain or shortness of breath nasal gastric tube to suction PPN infusing for nutritional support Initial presentation to the emergency room with severe abdominal bloating increased pain decrease appetite no bowel movement worked up for small bowel obstruction Postop March 17 exploratory laparotomy, lysis of adhesions, drainage of pelvic abscess, small bowel resection, partial colectomy with end colostomy for small bowel obstruction - Objective - Vital Signs Vital signs: Vital Signs Temp 97.8 F 03/19/18 08:01 Pulse 79 03/19/18 08:01 Resp 16 03/19/18 08:01 BP 116/63 03/19/18 08:01 Pulse Ox 95 03/19/18 08:01 Intake & Output 03/18/18 03/19/18 03/19/18 18:59 06:59 18:59 Output Total 600 950 Balance -600 -950 Weight 72.575 kg 82.5 kg Output: Gastric Drainage 450 Urine 600 500 2-way Urethral 500 Other: Voiding Method Indwelling Catheter Indwelling Catheter Indwelling Catheter # Voids 1 - Exam Physical exam 77-year-old male sitting up in bed denying any dizziness lightheadedness no chest pain no shortness of breath afebrile Lungs bilateral adequate air movement able to use the incentive spirometer can achieve 2000 sats 95% room air Heart S1-S2 audible regular no murmur denying chest pain not tachycardic heart rate in the 70s Abdomen surgical dressing site dressing dry. CAMILA drain in place right lower quadrant serous drainage noted in the bulb. Ostomy left lower quadrant scant amount of liquid brown secretions noted. Nasal gastric tube to suction brownish secretions in the canister few hypoactive bowel tones no nausea no vomiting Extremities Venodyne's on to the bilateral lower extremities no numbness tingling to the lower extremities moves all extremities appropriately - Labs CBC & Chem 7: 03/19/18 08:14 03/19/18 08:14 Labs: Abnormal Lab Results - Last 24 Hours (Table) 03/18/18 03/18/18 03/19/18 Range/Units 08:06 17:48 00:55 RBC (4.30-5.90) m/uL Hgb (13.0-17.5) gm/dL Hct (39.0-53.0) % Lymphocytes # (1.0-4.8) k/uL Sodium (137-145) mmol/L Glucose (74-99) mg/dL POC Glucose (mg/dL) 156 H 162 H (75-99) mg/dL Calcium (8.4-10.2) mg/dL Phosphorus (2.5-4.5) mg/dL Magnesium 1.5 L (1.6-2.3) mg/dL ALT (21-72) U/L Total Protein (6.3-8.2) g/dL Albumin (3.5-5.0) g/dL 03/19/18 03/19/18 03/19/18 Range/Units 06:37 08:14 08:14 RBC 2.97 L (4.30-5.90) m/uL Hgb 9.2 L (13.0-17.5) gm/dL Hct 27.5 L (39.0-53.0) % Lymphocytes # 0.8 L (1.0-4.8) k/uL Sodium 135 L (137-145) mmol/L Glucose 116 H (74-99) mg/dL POC Glucose (mg/dL) 144 H (75-99) mg/dL Calcium 7.4 L (8.4-10.2) mg/dL Phosphorus 1.9 L (2.5-4.5) mg/dL Magnesium (1.6-2.3) mg/dL ALT 15 L (21-72) U/L Total Protein 4.2 L (6.3-8.2) g/dL Albumin 2.2 L (3.5-5.0) g/dL Microbiology - Last 24 Hours (Table) 03/17/18 12:00 Wound Culture - Preliminary Abdomen Assessment and Plan Assessment: Impression Present on admission acute abdominal pain with poor oral intake suspect due to small bowel obstruction as evident on a CAT scan abdomen and pelvis Postop March 17 exploratory laparotomy, lysis of adhesions, drainage of pelvic abscess, Small Bowel Resection, Partial Colectomy with end colostomy for small bowel obstruction with diverticulitis History of prostate cancer with radiation treatment diagnosed 2013 Postop acute blood loss anemia from surgery with IV fluid dilutional Mild protein calorie malnutrition suspect due to poor caloric intake in a patient with two-week history of nausea inability to take a diet Electrolyte abnormality hypophosphorus Plan Pain control PT OT eval for subacute rehab placement when appropriate Phosphorus been replaced Continue postop surgical care PPN per dietitian recommendations Epidural for pain control per anesthesia DVT and GI prophylaxis Increase activity as tolerated Encourage the use of the incentive spirometer use every 1 hour while awake Continue with the nasal gastric tube as ordered until bowel function resumes Venodyne's on as ordered Follow-up on pending wound culture The above impression and plan of care have been discussed and directed by signing physician. Jo Gant nurse practitioner acting as scribe for signing physician.
[2018-03-19 11:32] LABS: Glucose,Whole Blood 150 mg/dL (75-99)
--- NOTE | 2018-03-19 12:30 | P.PN ---
Subjective Progress Note Date: 03/19/18 77-year-old male who presented to the emergency room with a chief complaint of abdominal pain. Patient was recently seen by his primary care physician Dr. Munoz in the outpatient setting. Patient was prescribed laxatives , clear liquid diet, etc. He was also instructed to come to the ER if his symptoms did not improve or worsened. Patient states he is unable to tolerate PO intake. He tried to eat yesterday and he ended up vomiting. He states his abdominal distention has gotten worse and he continues to have abdominal pain. The patient is also noted to be somewhat noncompliant as he reported he never took the laxatives prescribed to him by Dr. Munoz in the outpatient setting because he didnt "see the need for it". CT abdominal and pelvis: Findings are consistent with worsening high grade partial small bowel obstruction or obstructions. The patient was admitted to the hospital under the care of Dr. Munoz. Consultations were placed to Dr. Murillo. 03/18/2018 Patient seen and examined at the bedside on rounds with Dr. Munoz. Patient is POD #1 exploratory laparotomy, lysis of adhesions, drainage of pelvic abscess, small bowel resection, and partial colectomy with end colostomy. Pathology is pending. Patient is awake and alert. States pain is tolerable. Denies shortness of breath. Denies chest pain. NG tube present with bilious output. Approximately 75cc in collection canister. CAMILA drain is intact with serosanguineous drainage. Stoma is red with very scant serous output. Urinary catheter is intact with clear yellow urine. Epidural is infusing at 7cc/hr. Blood pressure this morning is stable at 138/78. Heart rate 80-100. He is afebrile. Hemoglobin is 10.3, down from 12.1. He remains NPO. Dr. Munoz would like dietary to evaluate patient for PPN as he has been without PO intake for over a week. 03/19/2018 Patient seen and examined at the bedside on rounds with Dr. Munoz. Patient is awake and alert. Epidural is infusing. Pain is tolerable per patient. NG tube intact to LIS. PPN infusing. Ortega catheter intact with yellow urine. Hemoglobin 9.2. Phosphorus is low at 1.9. Patient denies shortness of breath or chest pain. Patient remains hemodynamically stable. Objective - Vital Signs Vital signs: Vital Signs Temp 97.8 F 03/19/18 08:01 Pulse 79 03/19/18 08:01 Resp 16 03/19/18 08:01 BP 116/63 03/19/18 08:01 Pulse Ox 95 03/19/18 08:01 Intake & Output 03/18/18 03/19/18 03/19/18 18:59 06:59 18:59 Output Total 600 950 Balance -600 -950 Weight 72.575 kg 82.5 kg Output: Gastric Drainage 450 Urine 600 500 2-way Urethral 500 Other: Voiding Method Indwelling Catheter Indwelling Catheter Indwelling Catheter # Voids 1 - Exam GENERAL: This is a 77-year-old male in no apparent distress at the time of examination. Epidural infusing for pain control. HEENT: NG tube to LIS with bilious/brown output. Head is atraumatic, normocephalic. Pupils are equal, round, and reactive to light. Sclerae anicteric. Conjunctivae are clear. Mucus membranes of the mouth are moist. Neck is supple. RESPIRATORY: Clear to ausculation. No wheezes, rales, or rhonchi. No use of accessory muscles. Patient maintaining oxygen saturation greater than 92%. No chest wall tenderness is noted on palpation or with deep breathing. CARDIOVASCULAR: Regular rate and rhythm. S1 and S2 noted. No systolic or diastolic murmur auscultated. No JVD noted. No S3 or S4 noted. GASTROINTESTINAL: Dressing to abdomen intact with dark brownish drainage noted on dressing. CAMILA drain with serosanguineous drainage noted. Colostomy present to left lower quadrant with very scant amount of brown output. Stoma pink/red. : Ortega present with clear yellow urine. INTEGUMENTARY: No cyanosis. No jaundice. No rashes noted. No cellulitis noted. EXTREMITIES: 2+ peripheral pulses. No evidence of peripheral edema. No calf tenderness noted. NEUROLOGIC: Cranial nerves II-XII intact. PSYCHIATRIC: Awake, alert, and oriented X 3. Appropriate affect. Intact judgement and insight. - Labs CBC & Chem 7: 03/19/18 08:14 03/19/18 08:14 Labs: Abnormal Lab Results - Last 24 Hours (Table) 03/18/18 03/18/18 03/19/18 Range/Units 08:06 17:48 00:55 RBC (4.30-5.90) m/uL Hgb (13.0-17.5) gm/dL Hct (39.0-53.0) % Lymphocytes # (1.0-4.8) k/uL Sodium (137-145) mmol/L Glucose (74-99) mg/dL POC Glucose (mg/dL) 156 H 162 H (75-99) mg/dL Calcium (8.4-10.2) mg/dL Phosphorus (2.5-4.5) mg/dL Magnesium 1.5 L (1.6-2.3) mg/dL ALT (21-72) U/L Total Protein (6.3-8.2) g/dL Albumin (3.5-5.0) g/dL 03/19/18 03/19/18 03/19/18 Range/Units 06:37 08:14 08:14 RBC 2.97 L (4.30-5.90) m/uL Hgb 9.2 L (13.0-17.5) gm/dL Hct 27.5 L (39.0-53.0) % Lymphocytes # 0.8 L (1.0-4.8) k/uL Sodium 135 L (137-145) mmol/L Glucose 116 H (74-99) mg/dL POC Glucose (mg/dL) 144 H (75-99) mg/dL Calcium 7.4 L (8.4-10.2) mg/dL Phosphorus 1.9 L (2.5-4.5) mg/dL Magnesium (1.6-2.3) mg/dL ALT 15 L (21-72) U/L Total Protein 4.2 L (6.3-8.2) g/dL Albumin 2.2 L (3.5-5.0) g/dL 03/19/18 Range/Units 11:23 RBC (4.30-5.90) m/uL Hgb (13.0-17.5) gm/dL Hct (39.0-53.0) % Lymphocytes # (1.0-4.8) k/uL Sodium (137-145) mmol/L Glucose (74-99) mg/dL POC Glucose (mg/dL) 150 H (75-99) mg/dL Calcium (8.4-10.2) mg/dL Phosphorus (2.5-4.5) mg/dL Magnesium (1.6-2.3) mg/dL ALT (21-72) U/L Total Protein (6.3-8.2) g/dL Albumin (3.5-5.0) g/dL Microbiology - Last 24 Hours (Table) 03/17/18 12:00 Wound Culture - Preliminary Abdomen Assessment and Plan Plan: ASSESSMENT: Abdominal pain with vomiting, inability to tolerate PO intake, and abdominal distention, present on admission, secondary to worsening high-grade partial small bowel obstruction S/P exploratory laparotomy, lysis of adhesions, drainage of pelvic abscess, small bowel resection, and partial colectomy with end colostomy, POD #2 Anemia, secondary to acute blood loss from surgery (EBL 200cc) and hemodilution from IV fluids, an expected outcome of surgery History of prostate cancer with radiation therapy in 2013 Hypothyroidism Osteoarthritis with history of total hip replacement Hyperlipidemia Hypophosphatemia Mild calorie protein malnutrition secondary to decreased PO intake x 1 week PLAN: Dr. Murillo on consult. Appreciate recommendations and input. Continue postoperative surgical care per Dr. Murillo Await pathology results Maintain NPO until bowel function returns Continue PPN Replace phosphorus Pain control-Epidural management per anesthesia Continue urinary catheter while epidural is in place Incentive spirometer 10 times an hour while awake GI prophylaxis: Pepcid 20mg IV BID DVT prophylaxis: SCDs to bilateral lower extremities Monitor vital signs and address as appropriate Monitor labs PT/OT Further recommendations to follow pending patient's course Nurse practitioner note has been reviewed by physician. Signing provider agrees with the documented findings, assessment, and plan of care.
[2018-03-19] MEDS: SODIUM PHOSPHATE 10 MMOL in SODIUM CHLORIDE 0.9% 250 ML IVPB SCH ×2 (12:39→15:26)
[2018-03-19] MEDS: MVI, ADULT NO.4 WITH VIT K 10 ML, TRACE (CONC-1ML/DOSE) 1 ML in AMIN 2.4%/DEX 6.8%/LIPI... IV SCH ×3 (15:26)
[2018-03-19 17:34] LABS: Glucose,Whole Blood 120 mg/dL (75-99)
[2018-03-19] MEDS: BUPIVACAINE (PF) 0.5% 31.3 ML, fentaNYL (PF) 1,250 MCG in SODIUM CHLORIDE 0.9% 194 ML EPIDURAL PRN (23:20)
[2018-03-19 23:31] LABS: Glucose,Whole Blood 194 mg/dL (75-99)
[2018-03-20] MEDS: D5-0.45% NACL WITH KCL 20MEQ/L 1,000 ML IV SCH ×4 (03:00→23:11)
[2018-03-20] MEDS: BENZOCAINE/MENTHOL LOZENG 1 EACH LOZENGE MUCOUS MEM PRN ×2 (04:54→08:52)
[2018-03-20 05:21] LABS: Glucose,Whole Blood 164 mg/dL (75-99)
[2018-03-20] MEDS: INSULIN ASPART 100 UNIT/ML 1 ML 10 ML VIAL SQ SCH ×3 (06:07→17:56)
[2018-03-20] MEDS: LEVOTHYROXINE 112 MCG TAB PO SCH (06:08)
--- NOTE | 2018-03-20 07:21 | P.PN ---
Progress Note - Text Progress Note Date: 03/20/18 Postoperative day # 3 status post exploratory laparotomy lysis of adhesions , epidural catheter placement for postoperative analgesia, patient doing well epidural site okay, patient currently on combination of epidural infusion solution of bupivacaine 0.0625% and fentanyl 5 g per mL the infusion rate at 5 ml per hour , patient had no motor deficit epidural site okay , pain adequately controlled. Catheter to be removed today, do not give subQ heparin until 2 hours after catheter removal
[2018-03-20 08:00] LABS: Anion Gap 8 mmol/L; Blood Urea Nitrogen 9 mg/dL (9-20); Calcium 7.5 mg/dL (8.4-10.2); Carbon Dioxide 27 mmol/L (22-30); Chloride 101 mmol/L (98-107); Glucose 130 mg/dL (74-99); Magnesium 2.1 mg/dL (1.6-2.3); Phosphorus 2.5 mg/dL (2.5-4.5); Sodium 136 mmol/L (137-145)
--- NOTE | 2018-03-20 09:22 | P.PN ---
Subjective Progress Note Date: 03/20/18 77-year-old male who presented to the emergency room with a chief complaint of abdominal pain. Patient was recently seen by his primary care physician Dr. Munoz in the outpatient setting. Patient was prescribed laxatives , clear liquid diet, etc. He was also instructed to come to the ER if his symptoms did not improve or worsened. Patient states he is unable to tolerate PO intake. He tried to eat yesterday and he ended up vomiting. He states his abdominal distention has gotten worse and he continues to have abdominal pain. The patient is also noted to be somewhat noncompliant as he reported he never took the laxatives prescribed to him by Dr. Munoz in the outpatient setting because he didnt "see the need for it". CT abdominal and pelvis: Findings are consistent with worsening high grade partial small bowel obstruction or obstructions. The patient was admitted to the hospital under the care of Dr. Munoz. Consultations were placed to Dr. Murillo. 03/18/2018 Patient seen and examined at the bedside on rounds with Dr. Munoz. Patient is POD #1 exploratory laparotomy, lysis of adhesions, drainage of pelvic abscess, small bowel resection, and partial colectomy with end colostomy. Pathology is pending. Patient is awake and alert. States pain is tolerable. Denies shortness of breath. Denies chest pain. NG tube present with bilious output. Approximately 75cc in collection canister. CAMILA drain is intact with serosanguineous drainage. Stoma is red with very scant serous output. Urinary catheter is intact with clear yellow urine. Epidural is infusing at 7cc/hr. Blood pressure this morning is stable at 138/78. Heart rate 80-100. He is afebrile. Hemoglobin is 10.3, down from 12.1. He remains NPO. Dr. Munoz would like dietary to evaluate patient for PPN as he has been without PO intake for over a week. 03/19/2018 Patient seen and examined at the bedside on rounds with Dr. Munoz. Patient is awake and alert. Epidural is infusing. Pain is tolerable per patient. NG tube intact to LIS. PPN infusing. Ortega catheter intact with yellow urine. Hemoglobin 9.2. Phosphorus is low at 1.9. Patient denies shortness of breath or chest pain. Patient remains hemodynamically stable. 03/20/2018 Patient seen and examined at the bedside on rounds with Dr. Munoz. Patient awake and alert. Epidural to be discontinued today per anesthesia. NG tube remains intact to LIS. PPN is infusing. Ortega catheter present with yellow urine. Patient states his pain is tolerable at this time. Denies shortness of breath. Denies chest pain or pressure. He states he is using his incentive spirometer 10 times an hour. Patient remains hemodynamically stable. Discharge planning includes subacute rehab. Patient requesting [facility] or [facility]. Objective - Vital Signs Vital signs: Vital Signs Temp 98.7 F 03/20/18 07:47 Pulse 72 03/20/18 07:47 Resp 16 03/20/18 07:47 BP 111/57 03/20/18 07:47 Pulse Ox 95 03/20/18 07:47 Intake & Output 03/19/18 03/20/18 03/20/18 18:59 06:59 18:59 Intake Total 1918.667 177.567 Output Total 625 1150 Balance 1293.667 -972.433 Weight 83.3 kg Intake: Intake, IV Titration 1918.667 177.567 Amount Bupivacaine (Pf) 0.5% 31. 177.567 3 ml fentaNYL (PF) 1,250 mcg In Sodium Chloride 0. 9% 194 ml @ Per Protocol EPIDURAL .Q0M PRN Rx#: [id number] Mvi, Adult No.4 with Vit 1918.667 K 10 ml Trace (Conc-1Ml/ Dose) 1 ml In Brantley 2.4%/ Dex 6.8%/Lipid/Lytes 1, 920 ml @ 80 mls/hr IV . Q24H [facility] Rx#:[id number] Output: Gastric Drainage 100 Drainage 60 Right Abdomen 60 Urine 450 1150 2-way Urethral 1150 Stool 15 Other: Voiding Method Indwelling Catheter Indwelling Catheter - Exam GENERAL: This is a 77-year-old male in no apparent distress at the time of examination. HEENT: NG tube to LIS with bilious/brown output. Head is atraumatic, normocephalic. Pupils are equal, round, and reactive to light. Sclerae anicteric. Conjunctivae are clear. Mucus membranes of the mouth are moist. Neck is supple. RESPIRATORY: Clear to ausculation. No wheezes, rales, or rhonchi. No use of accessory muscles. Patient maintaining oxygen saturation greater than 92%. No chest wall tenderness is noted on palpation or with deep breathing. CARDIOVASCULAR: Regular rate and rhythm. S1 and S2 noted. No systolic or diastolic murmur auscultated. No JVD noted. No S3 or S4 noted. GASTROINTESTINAL: Dressing to abdomen clean dry and intact. CAMILA drain with serosanguineous drainage noted. Colostomy present to left lower quadrant with small amount of brown liquid output. Stoma pink/red. : Ortega present with clear yellow urine. INTEGUMENTARY: No cyanosis. No jaundice. No rashes noted. No cellulitis noted. EXTREMITIES: 2+ peripheral pulses. No evidence of peripheral edema. No calf tenderness noted. NEUROLOGIC: Cranial nerves II-XII intact. PSYCHIATRIC: Awake, alert, and oriented X 3. Appropriate affect. Intact judgement and insight. - Labs CBC & Chem 7: 03/19/18 08:14 03/20/18 07:12 Labs: Abnormal Lab Results - Last 24 Hours (Table) 03/19/18 03/19/18 03/19/18 Range/Units 08:14 11:23 17:15 Sodium 135 L (137-145) mmol/L Creatinine (0.66-1.25) mg/dL Glucose 116 H (74-99) mg/dL POC Glucose (mg/dL) 150 H 120 H (75-99) mg/dL Calcium 7.4 L (8.4-10.2) mg/dL Phosphorus 1.9 L (2.5-4.5) mg/dL ALT 15 L (21-72) U/L Total Protein 4.2 L (6.3-8.2) g/dL Albumin 2.2 L (3.5-5.0) g/dL 03/19/18 03/20/18 03/20/18 Range/Units 23:28 05:19 07:12 Sodium 136 L (137-145) mmol/L Creatinine 0.65 L (0.66-1.25) mg/dL Glucose 130 H (74-99) mg/dL POC Glucose (mg/dL) 194 H 164 H (75-99) mg/dL Calcium 7.5 L (8.4-10.2) mg/dL Phosphorus (2.5-4.5) mg/dL ALT (21-72) U/L Total Protein (6.3-8.2) g/dL Albumin (3.5-5.0) g/dL Microbiology - Last 24 Hours (Table) 03/17/18 12:00 Gram Stain - Final Abdomen Wound Culture - Final Assessment and Plan Plan: ASSESSMENT: Abdominal pain with vomiting, inability to tolerate PO intake, and abdominal distention, present on admission, secondary to worsening high-grade partial small bowel obstruction S/P exploratory laparotomy, lysis of adhesions, drainage of pelvic abscess, small bowel resection, and partial colectomy with end colostomy, POD #3 Anemia, secondary to acute blood loss from surgery (EBL 200cc) and hemodilution from IV fluids, an expected outcome of surgery History of prostate cancer with radiation therapy in 2013 Hypothyroidism Osteoarthritis with history of total hip replacement Hyperlipidemia Hypophosphatemia Mild calorie protein malnutrition secondary to decreased PO intake x 1 week PLAN: Dr. Murillo on consult. Appreciate recommendations and input. Continue postoperative surgical care per Dr. Murillo Await pathology results Begin clear liquid diet if okay with surgery Once clear liquid diet is started, PPN may be discontinued after current bag infuses Epidural to be discontinued today Discontinue urinary catheter after epidural is discontinued Incentive spirometer 10 times an hour while awake GI prophylaxis: Pepcid 20mg IV BID DVT prophylaxis: SCDs to bilateral lower extremities Monitor vital signs and address as appropriate Monitor labs PT/OT Discharge planning: [place]. Patient requesting [facility] or [facility] Further recommendations to follow pending patient's course Nurse practitioner note has been reviewed by physician. Signing provider agrees with the documented findings, assessment, and plan of care.
[2018-03-20] MEDS: FAMOTIDINE 20 MG/2 ML VIAL IV SCH ×2 (09:26→20:23)
[2018-03-20] MEDS: ALVIMOPAN 12 MG CAPSULE PO SCH ×2 (09:26→20:23)
[2018-03-20 11:59] LABS: Glucose,Whole Blood 154 mg/dL (75-99)
[2018-03-20] MEDS: LACTATED RINGERS 1,000 ML IV SCH (12:20)
--- NOTE | 2018-03-20 13:13 | P.PN ---
Subjective Progress Note Date: 03/20/18 77 -year-old male seen sitting up in a chair reading a newspaper states pain medication has been effective for pain control. Denying any nausea vomiting. Nasogastric tube to be removed with the plan to keep the patient nothing by mouth. Epidural catheter has been removed no numbness or tingling to the lower extremities. A few hypoactive bowel tones noted surgical dressing dry ostomy stoma pink left lower quadrant no movement states is not passing gas Postop March 17 exploratory laparotomy, lysis of adhesions, drainage of pelvic abscess, small bowel resection, partial colectomy with end colostomy for small bowel obstruction Objective - Vital Signs Vital signs: Vital Signs Temp 98.7 F 03/20/18 07:47 Pulse 72 03/20/18 07:47 Resp 16 03/20/18 07:47 BP 111/57 03/20/18 07:47 Pulse Ox 95 03/20/18 07:47 Intake & Output 03/19/18 03/20/18 03/20/18 18:59 06:59 18:59 Intake Total 1918.667 177.567 58.583 Output Total 625 1150 Balance 1293.667 -972.433 58.583 Weight 83.3 kg Intake: Intake, IV Titration 1918.667 177.567 58.583 Amount Bupivacaine (Pf) 0.5% 31. 177.567 58.583 3 ml fentaNYL (PF) 1,250 mcg In Sodium Chloride 0. 9% 194 ml @ Per Protocol EPIDURAL .Q0M PRN Rx#: [id number] Mvi, Adult No.4 with Vit 1918.667 K 10 ml Trace (Conc-1Ml/ Dose) 1 ml In Brantley 2.4%/ Dex 6.8%/Lipid/Lytes 1, 920 ml @ 80 mls/hr IV . Q24H [facility] Rx#:[id number] Output: Gastric Drainage 100 Drainage 60 Right Abdomen 60 Urine 450 1150 2-way Urethral 1150 Stool 15 Other: Voiding Method Indwelling Catheter Indwelling Catheter Indwelling Catheter - Exam Physical exam 77-year-old male sitting up in a chair pleasant talkative cooperative oriented 3 Lungs adequate air movement bilaterally on room air sats are 98% no cough noted Heart S1-S2 audible regular denying chest pain Abdomen soft not distended surgical tenderness appropriate ostomy left lower quadrant stoma pink no gas no stool. Has not voided since indwelling Ortega catheter removed. Nasogastric tube just removed a few hypoactive bowel tones. Surgical dressings dry. CAMILA drain right lower quadrant scant amount of serous drainage noted in the bulb Extremities Venodyne's on to the bilateral lower extreme - Labs CBC & Chem 7: 03/19/18 08:14 03/20/18 07:12 Labs: Abnormal Lab Results - Last 24 Hours (Table) 03/19/18 03/19/18 03/20/18 Range/Units 17:15 23:28 05:19 Sodium (137-145) mmol/L Creatinine (0.66-1.25) mg/dL Glucose (74-99) mg/dL POC Glucose (mg/dL) 120 H 194 H 164 H (75-99) mg/dL Calcium (8.4-10.2) mg/dL 03/20/18 03/20/18 Range/Units 07:12 11:57 Sodium 136 L (137-145) mmol/L Creatinine 0.65 L (0.66-1.25) mg/dL Glucose 130 H (74-99) mg/dL POC Glucose (mg/dL) 154 H (75-99) mg/dL Calcium 7.5 L (8.4-10.2) mg/dL Microbiology - Last 24 Hours (Table) 03/17/18 12:00 Gram Stain - Final Abdomen Wound Culture - Final Assessment and Plan Assessment: Impression Present on admission acute abdominal pain with poor oral intake suspect due to small bowel obstruction as evident on a CAT scan abdomen and pelvis Postop March 17 exploratory laparotomy, lysis of adhesions, drainage of pelvic abscess, Small Bowel Resection, Partial Colectomy with end colostomy for small bowel obstruction with diverticulitis History of prostate cancer with radiation treatment diagnosed 2013 Postop acute blood loss anemia from surgery with IV fluid dilutional Mild protein calorie malnutrition suspect due to poor caloric intake in a patient with two-week history of nausea inability to take a diet Electrolyte abnormality hypophosphorus corrected improved Plan Pain control PT OT eval for subacute rehab placement when appropriate Remove nasal gastric and indwelling Ortega catheter now Continue postop surgical care PPN per dietitian recommendations Keep nothing by mouth until bowel function resumes DVT and GI prophylaxis Increase activity as tolerated Encourage the use of the incentive spirometer use every 1 hour while awake Venodyne's on as ordered Follow-up on pending wound culture The above impression and plan of care have been discussed and directed by signing physician. Jo Gant nurse practitioner acting as scribe for signing physician.
[2018-03-20 13:34] VITALS: BMI 25.6
[2018-03-20] MEDS: MVI, ADULT NO.4 WITH VIT K 10 ML, TRACE (CONC-1ML/DOSE) 1 ML in AMIN 2.4%/DEX 6.8%/LIPI... IV SCH ×3 (16:08)
[2018-03-20 17:51] LABS: Glucose,Whole Blood 148 mg/dL (75-99)
[2018-03-20 23:58] LABS: Glucose,Whole Blood 149 mg/dL (75-99)
[2018-03-21] MEDS: INSULIN ASPART 100 UNIT/ML 1 ML 10 ML VIAL SQ SCH ×5 (00:26→23:44)
[2018-03-21 05:59] LABS: Glucose,Whole Blood 167 mg/dL (75-99)
[2018-03-21] MEDS: D5-0.45% NACL WITH KCL 20MEQ/L 1,000 ML IV SCH (06:12)
[2018-03-21] MEDS: LEVOTHYROXINE 112 MCG TAB PO SCH (06:13)
[2018-03-21 08:06] LABS: Anion Gap 9 mmol/L; Blood Urea Nitrogen 7 mg/dL (9-20); Calcium 7.8 mg/dL (8.4-10.2); Carbon Dioxide 25 mmol/L (22-30); Chloride 103 mmol/L (98-107); Glucose 97 mg/dL (74-99); Magnesium 2.3 mg/dL (1.6-2.3); Phosphorus 2.7 mg/dL (2.5-4.5); Potassium 3.9 mmol/L (3.5-5.1); Sodium 137 mmol/L (137-145)
--- NOTE | 2018-03-21 09:14 | P.PN ---
Progress Note - Text Progress Note Date: 03/21/18 The patient resting comfortably in his bed. His epidural and Ortega catheter removed yesterday. He has no trouble urinating. He has some minimal incisional pain. On exam his vital signs are stable. His abdomen soft. Incision site is clean dry tach. There is some minimal output through the colostomy. Status post small bowel resection and Pema procedure for diverticular abscess with small bowel obstruction. Patient will start on clear liquids today. We will advance his diet slowly.
[2018-03-21] MEDS ORDERED: D5-0.45% NACL WITH KCL 20MEQ/L 1,000 ML IV SCH (09:15)
[2018-03-21] MEDS: DEXTROSE 5%-0.9% NACL 1,000 ML IV SCH (09:38)
[2018-03-21] MEDS: ALVIMOPAN 12 MG CAPSULE PO SCH ×2 (09:40→20:50)
[2018-03-21] MEDS: FAMOTIDINE 20 MG/2 ML VIAL IV SCH ×2 (09:40→20:50)
[2018-03-21 11:59] LABS: Glucose,Whole Blood 154 mg/dL (75-99)
[2018-03-21] MEDS: POTASSIUM CHLORIDE 10 MEQ in WATER FOR INJECTION 1 100ML.BAG IVPB SCH ×2 (12:52→15:55)
[2018-03-21] MEDS: KETOROLAC 30 MG/ML 1 ML VIAL IVP PRN ×2 (13:44→19:13)
--- NOTE | 2018-03-21 14:36 | P.PN ---
Subjective patient underwent the partial colectomy for high-grade partial small bowel obstruction has a colostomy bag had a small bowel movement sluggish bowel sounds , avoiding opiates patient will be started on Toradol for pain. Patient is on full liquid diet at this time. Constitutional: Denied any fatigue denied any fever. Cardio vascular: denied any chest pain, palpitations Gastrointestinal denied any nausea vomiting, is complaining of mild abdominal pain Pulmonary: Denied any shortness of breath cough Neurologic denied any new focal deficits Objective - Vital Signs Vital signs: Vital Signs Temp 98.4 F 03/21/18 07:05 Pulse 73 03/21/18 07:05 Resp 18 03/21/18 07:05 BP 129/60 03/21/18 07:05 Pulse Ox 90 L 03/21/18 07:05 Intake & Output 03/20/18 03/21/18 03/21/18 18:59 06:59 18:59 Intake Total 6618.475 1993 Output Total 25 820 500 Balance 1963.583 820 -500 Weight 83.3 kg 83.5 kg Intake: IV 1640 D5-0.45% NaCl with KCl 1000 20Meq/l 1,000 ml @ 125 mls/hr IV .Q8H [facility] Rx#: [id number] Mvi, Adult No.4 with Vit 640 K 10 ml Trace (Conc-1Ml/ Dose) 1 ml In Brantley 2.4%/ Dex 6.8%/Lipid/Lytes 1, 920 ml @ 80 mls/hr IV . Q24H [facility] Rx#:[id number] Intake, IV Titration 583 Amount Bupivacaine (Pf) 0.5% 31. .583 3 ml fentaNYL (PF) 1,250 mcg In Sodium Chloride 0. 9% 194 ml @ Per Protocol EPIDURAL .Q0M PRN Rx#: [id number] Mvi, Adult No.4 with Vit 1931 K 10 ml Trace (Conc-1Ml/ Dose) 1 ml In Brantley 2.4%/ Dex 6.8%/Lipid/Lytes 1, 920 ml @ 80 mls/hr IV . Q24H [facility] Rx#:[id number] Output: Drainage 25 20 Right Abdomen 25 20 Urine 800 500 Other: Voiding Method Indwelling Catheter Toilet # Voids 1 2 - Exam PHYSICAL EXAMINATION: GENERAL: The patient is alert and oriented x3, not in any acute distress. Well developed, well nourished. HEENT: Pupils are round and equally reacting to light. EOMI. No scleral icterus. No conjunctival pallor. Normocephalic, atraumatic. No pharyngeal erythema. No thyromegaly. CARDIOVASCULAR: S1 and S2 present. No murmurs, rubs, or gallops. PULMONARY: Chest is clear to auscultation, no wheezing or crackles. ABDOMEN: Soft, minimal diffuse tenderness left-sided colostomy bag in place to his bowel sounds MUSCULOSKELETAL: No joint swelling or deformity. EXTREMITIES: No cyanosis, clubbing, or pedal edema. NEUROLOGICAL: Gross neurological examination did not reveal any focal deficits. SKIN: No rashes. - Labs CBC & Chem 7: 03/19/18 08:14 03/21/18 07:17 Labs: Abnormal Lab Results - Last 24 Hours (Table) 03/20/18 03/20/18 03/21/18 Range/Units 17:48 23:55 05:56 BUN (9-20) mg/dL Creatinine (0.66-1.25) mg/dL POC Glucose (mg/dL) 148 H 149 H 167 H (75-99) mg/dL Calcium (8.4-10.2) mg/dL 03/21/18 03/21/18 Range/Units 07:17 11:57 BUN 7 L (9-20) mg/dL Creatinine 0.60 L (0.66-1.25) mg/dL POC Glucose (mg/dL) 154 H (75-99) mg/dL Calcium 7.8 L (8.4-10.2) mg/dL Assessment and Plan Plan: -high-grade partial small bowel obstruction: Secondary to a small mass pathology of which is still pending patient had a colostomy in place does appear to have mild ileus further management as mentioned above fluids will be changed to D5 normal saline from D5 half-normal saline because of concerns of hyponatremia -Status post laparotomy and adhesion lysis and drainage of pelvic abscess -acute blood loss anemia from surgery -Benign prostatic hypertrophy and history of prostate cancer status post radiation therapy -Hypothyroid as a -Past arthritis -Hyperlipidemia -Mild protein calorie malnutrition. For above-mentioned chronic visual problems patient will be resumed and continued on home medications patient will needpharmacologic DVT prophylaxisas well as GI prophylaxis
[2018-03-21] MEDS: MVI, ADULT NO.4 WITH VIT K 10 ML, TRACE (CONC-1ML/DOSE) 1 ML in AMIN 2.4%/DEX 6.8%/LIPI... IV SCH ×3 (15:42)
[2018-03-21 18:00] LABS: Glucose,Whole Blood 122 mg/dL (75-99)
[2018-03-21] MEDS: HEPARIN SODIUM,PORCINE 5,000 UNIT/ML 1 ML VIAL SQ SCH (20:53)
[2018-03-21 23:45] LABS: Glucose,Whole Blood 117 mg/dL (75-99)
[2018-03-22] MEDS: DEXTROSE 5%-0.9% NACL 1,000 ML IV SCH (01:28)
[2018-03-22] MEDS: KETOROLAC 30 MG/ML 1 ML VIAL IVP PRN ×3 (01:29→22:36)
[2018-03-22 06:09] LABS: Glucose,Whole Blood 130 mg/dL (75-99)
[2018-03-22] MEDS: LEVOTHYROXINE 112 MCG TAB PO SCH (06:11)
[2018-03-22] MEDS: INSULIN ASPART 100 UNIT/ML 1 ML 10 ML VIAL SQ SCH ×2 (06:11→13:39)
[2018-03-22 08:09] LABS: Albumin 2.4 g/dL (3.5-5.0); Anion Gap 9 mmol/L; Blood Urea Nitrogen 8 mg/dL (9-20); Calcium 7.9 mg/dL (8.4-10.2); Carbon Dioxide 27 mmol/L (22-30); Chloride 104 mmol/L (98-107); Glucose 108 mg/dL (74-99); Magnesium 2.3 mg/dL (1.6-2.3); Phosphorus 3.6 mg/dL (2.5-4.5); Potassium 4.3 mmol/L (3.5-5.1); Sodium 140 mmol/L (137-145)
[2018-03-22 08:25] LABS: Ionized Calcium 4.9 mg/dL (4.5-5.3)
[2018-03-22] MEDS: ALVIMOPAN 12 MG CAPSULE PO SCH ×2 (08:58→20:27)
[2018-03-22] MEDS: HEPARIN SODIUM,PORCINE 5,000 UNIT/ML 1 ML VIAL SQ SCH ×2 (08:58→20:27)
[2018-03-22] MEDS: FAMOTIDINE 20 MG/2 ML VIAL IV SCH ×2 (08:58→20:27)
--- NOTE | 2018-03-22 09:21 | P.PN ---
Subjective patient underwent the partial colectomy for high-grade partial small bowel obstruction has a colostomy bag had a small bowel movement sluggish bowel sounds , avoiding opiates patient will be started on Toradol for pain. Patient is on full liquid diet at this time. 03/22/2018 Patient colonic mass is benign and a small abscess no malignant pathology was appreciated. Patient's the D5 normal saline will risk and new patient is on oral diet patient is also on peripheral parenteral nutrition which need to be tapered down Constitutional: Denied any fatigue denied any fever. Cardio vascular: denied any chest pain, palpitations Gastrointestinal denied any nausea vomiting, is complaining of mild abdominal pain Pulmonary: Denied any shortness of breath cough Neurologic denied any new focal deficits Objective - Vital Signs Vital signs: Vital Signs Temp 97.6 F 03/22/18 07:10 Pulse 66 03/22/18 07:10 Resp 18 03/22/18 07:10 BP 125/62 03/22/18 07:10 Pulse Ox 97 03/22/18 07:10 Intake & Output 03/21/18 03/22/18 03/22/18 18:59 06:59 18:59 Intake Total 1885.333 240 Output Total 530 1000 Balance 1355.333 -760 Weight 83.5 kg Intake: Intake, IV Titration 1885.333 Amount Mvi, Adult No.4 with Vit 1885.333 K 10 ml Trace (Conc-1Ml/ Dose) 1 ml In Brantley 2.4%/ Dex 6.8%/Lipid/Lytes 1, 920 ml @ 80 mls/hr IV . Q24H [facility] Rx#:[id number] Oral 240 Output: Drainage 30 Right Abdomen 30 Urine 500 1000 Other: Voiding Method Toilet Toilet Urinal Urinal Diaper # Voids 1 - Exam PHYSICAL EXAMINATION: GENERAL: The patient is alert and oriented x3, not in any acute distress. Well developed, well nourished. HEENT: Pupils are round and equally reacting to light. EOMI. No scleral icterus. No conjunctival pallor. Normocephalic, atraumatic. No pharyngeal erythema. No thyromegaly. CARDIOVASCULAR: S1 and S2 present. No murmurs, rubs, or gallops. PULMONARY: Chest is clear to auscultation, no wheezing or crackles. ABDOMEN: Soft, minimal diffuse tenderness left-sided colostomy bag in place, that is gas in the colostomy bag patient has a right-sided abdominal drain and sluggish bowel sounds MUSCULOSKELETAL: No joint swelling or deformity. EXTREMITIES: No cyanosis, clubbing, or pedal edema. NEUROLOGICAL: Gross neurological examination did not reveal any focal deficits. SKIN: No rashes. - Labs CBC & Chem 7: 03/19/18 08:14 03/22/18 07:36 Labs: Abnormal Lab Results - Last 24 Hours (Table) 03/21/18 03/21/18 03/21/18 Range/Units 11:57 17:58 23:43 BUN (9-20) mg/dL Creatinine (0.66-1.25) mg/dL Glucose (74-99) mg/dL POC Glucose (mg/dL) 154 H 122 H 117 H (75-99) mg/dL Calcium (8.4-10.2) mg/dL Albumin (3.5-5.0) g/dL 03/22/18 03/22/18 Range/Units 06:08 07:36 BUN 8 L (9-20) mg/dL Creatinine 0.63 L (0.66-1.25) mg/dL Glucose 108 H (74-99) mg/dL POC Glucose (mg/dL) 130 H (75-99) mg/dL Calcium 7.9 L (8.4-10.2) mg/dL Albumin 2.4 L (3.5-5.0) g/dL Assessment and Plan Plan: -high-grade partial small bowel obstruction: Status post laparotomy and colectomy, Secondary to a small mass pathology is benign. -Status post laparotomy and adhesion lysis and drainage of pelvic abscess -acute blood loss anemia from surgery -Benign prostatic hypertrophy and history of prostate cancer status post radiation therapy -Hypothyroid as a -Past arthritis -Hyperlipidemia -Mild protein calorie malnutrition. For above-mentioned chronic visual problems patient will be resumed and continued on home medications patient will needpharmacologic DVT prophylaxisas well as GI prophylaxis
--- NOTE | 2018-03-22 10:25 | P.PN ---
Progress Note - Text Progress Note Date: 03/22/18 The patient's resting comfortably in his bed. He has evidence of flatus and his colostomy bag. On exam his vital signs are stable. His abdomen soft. His incision is clean dry intact. Status post small bowel and colonic resection for obstruction related to diverticular abscess. The patient will have his TPN weaned. We'll encourage increased oral intake
[2018-03-22] MEDS: BENZOCAINE/MENTHOL LOZENG 1 EACH LOZENGE MUCOUS MEM PRN ×3 (16:25→22:39)
[2018-03-22 22:27] VITALS: RESP 16
[2018-03-23] MEDS: BENZOCAINE/MENTHOL LOZENG 1 EACH LOZENGE MUCOUS MEM PRN ×4 (00:53→12:03)
[2018-03-23] MEDS: KETOROLAC 30 MG/ML 1 ML VIAL IVP PRN ×2 (04:46→12:04)
[2018-03-23] MEDS: LEVOTHYROXINE 112 MCG TAB PO SCH (06:01)
[2018-03-23 07:47] VITALS: BP 127/64; PULSE 74; TEMP 98.1
[2018-03-23] MEDS ORDERED: MORPHINE SULFATE 4 MG/ML SYRINGE IVP PRN (08:00)
[2018-03-23] MEDS ORDERED: HYDROcodone/APAP 5-325MG 1 EACH TAB PO PRN (08:02)
[2018-03-23 08:11] LABS: Anion Gap 11 mmol/L; Blood Urea Nitrogen 8 mg/dL (9-20); Calcium 8.2 mg/dL (8.4-10.2); Carbon Dioxide 27 mmol/L (22-30); Chloride 103 mmol/L (98-107); Glucose 96 mg/dL (74-99); Phosphorus 4.4 mg/dL (2.5-4.5); Potassium 4.5 mmol/L (3.5-5.1); Sodium 141 mmol/L (137-145)
[2018-03-23] MEDS: ALVIMOPAN 12 MG CAPSULE PO SCH (08:35)
[2018-03-23] MEDS: HEPARIN SODIUM,PORCINE 5,000 UNIT/ML 1 ML VIAL SQ SCH (08:35)
[2018-03-23] MEDS ORDERED: FAMOTIDINE 20 MG TAB PO SCH (09:00)
[2018-03-23] MEDS ORDERED: MORPHINE ORAL SOLN 10 MG/5 ML CUP PO PRN (09:02)
--- NOTE | 2018-03-23 12:00 | P.DS ---
Providers Date of admission: 03/16/18 14:03 Expected date of discharge: 03/23/18 Attending physician: Dagoberto Munoz Consults: 03/16/18 14:03 Consult Physician Routine Consulting Provider: Nikolay Murillo Consult Reason/Comments: sbo Do you want consulting provider notified?: Yes Primary care physician: Dagoberto Munoz [facility] Course: 77-year-old male who presented to the emergency room with a chief complaint of abdominal pain. Patient was recently seen by his primary care physician Dr. Munoz in the outpatient setting. Patient was prescribed laxatives , clear liquid diet, etc. He was also instructed to come to the ER if his symptoms did not improve or worsened. Patient states he is unable to tolerate PO intake. He tried to eat yesterday and he ended up vomiting. He states his abdominal distention has gotten worse and he continues to have abdominal pain. The patient is also noted to be somewhat noncompliant as he reported he never took the laxatives prescribed to him by Dr. Munoz in the outpatient setting because he didnt "see the need for it". CT abdominal and pelvis: Findings are consistent with worsening high grade partial small bowel obstruction or obstructions. The patient was admitted to the hospital under the care of Dr. Munoz. Consultations were placed to Dr. Murillo. The patient underwent exploratory laparotomy, lysis of adhesions, drainage of pelvic abscess, small bowel resection, and partial colectomy with end colostomy on 03/17/2018. The patient was initially placed on TPN due to decreased PO intake , which has since been discontinued. He also had an NG tube which has been discontinued. He also had a CAMILA drain placed to the right lower quadrant. He was started on a clear liquid diet which was advanced as tolerated. His ostomy has been functioning with brown output. Patient had an epidural for pain control which was discontinued without complication. He has been transitioned to oral pain medications. Physical therapy evaluated patient and recommended subacute rehab. Patient agreeable to [facility] . The patient was deemed stable for discharge per Dr. Munoz. He is to follow up on an outpatient basis with Dr. Munoz and Dr. Murillo. DISCHARGE DIAGNOSIS: Abdominal pain with vomiting, inability to tolerate PO intake, and abdominal distention, present on admission, secondary to worsening high-grade partial small bowel obstruction S/P exploratory laparotomy, lysis of adhesions, drainage of pelvic abscess, small bowel resection, and partial colectomy with end colostomy Anemia, secondary to acute blood loss from surgery (EBL 200cc) and hemodilution from IV fluids, an expected outcome of surgery History of prostate cancer with radiation therapy in 2013 Hypothyroidism Osteoarthritis with history of total hip replacement Hyperlipidemia Hypophosphatemia, improved Mild calorie protein malnutrition secondary to decreased PO intake x 1 week Nurse practitioner note has been reviewed by physician. Signing provider agrees with the documented findings, assessment, and plan of care. Patient Condition at Discharge: Stable Plan - Discharge Summary Discharge Rx Participant: Yes New Discharge Prescriptions: New Alvimopan [Entereg] 12 mg PO BID capsule Benzocaine/Menthol Lozeng [Cepacol lozenge] 1 each MUCOUS MEM Q1HR PRN lozenge PRN Reason: Sore Throat HYDROcodone/APAP 5-325MG [[place] 5-325] 1 each PO Q6HR PRN tab PRN Reason: Moderate Pain Continue Levothyroxine Sodium [Synthroid] 112 mcg PO DAILY Niacin [Slo-Niacin] 1,000 mg PO DAILY Discharge Medication List Levothyroxine Sodium [Synthroid] 112 mcg PO DAILY 03/16/18 [History] Niacin [Slo-Niacin] 1,000 mg PO DAILY 03/16/18 [History] Alvimopan [Entereg] 12 mg PO BID capsule 03/23/18 [Rx] Benzocaine/Menthol Lozeng [Cepacol lozenge] 1 each MUCOUS MEM Q1HR PRN lozenge 03/23/18 [Rx] HYDROcodone/APAP 5-325MG [[place] 5-325] 1 each PO Q6HR PRN tab 03/23/18 [Rx] Follow up Appointment(s)/Referral(s): Dagoberto Munoz DO [Primary Care Provider] - 1 Week [facility], [NON-STAFF] - 1 Week Nikolay Murillo MD [STAFF PHYSICIAN] - 2 Weeks Patient Instructions/Handouts: Colostomy Care (GEN) Activity/Diet/Wound Care/Special Instructions: Colostomy Care Instructions: Date of last pouching system change: 03.19.2018 Current colostomy Care Products for Rehab Provided by the hospital : Convatec moldable flange #[id number] (three) Convatec pouches with filter [id number] (three) No sting prep pads (10) Ostomy powder for around the stoma irritation Mr Khalil is to empty the pouching system when the bag is 1/3 to 1/2 full Mr Khalil will need assistance to change the pouching system which needs to be done every 3 -5 days. Mr Khalil desires to have disposable pouching system as soon as possible (Please arrange in 2-3 weeks form hospital discharge) Activity as tolerated Regular/soft diet with chopped foods
--- NOTE | 2018-03-23 12:53 | P.PN ---
Subjective Progress Note Date: 03/23/18 77 -year-old male seen sitting up in a chair this morning. Currently taking a full liquid diet tolerating. Ostomy functioning moderate amount of air noted in the ostomy bag moderate amount of brown stool noted ostomy teaching reinforced. The plan of care discussed with the patient scheduled today to go to subacute rehab patient choice. Reports no nausea vomiting urinating no difficulty.Postop March 17 exploratory laparotomy, lysis of adhesions, drainage of pelvic abscess, small bowel resection, partial colectomy with end colostomy for small bowel obstruction Objective - Vital Signs Vital signs: Vital Signs Temp 98.1 F 03/23/18 07:08 Pulse 74 03/23/18 07:08 Resp 16 03/23/18 07:08 BP 127/64 03/23/18 07:08 Pulse Ox 95 03/23/18 07:08 Intake & Output 03/22/18 03/23/18 03/23/18 18:59 06:59 18:59 Output Total 165 10 Balance -165 -10 Weight 83.2 kg Output: Drainage 10 Right Abdomen 10 Urine 150 Stool 15 Other: Voiding Method Urinal Urinal Urinal Incontinent Incontinent Incontinent # Voids 2 - Exam Physical exam 77-year-old male sitting up in a chair no dizziness or lightheadedness or chest pain or shortness of breath taking a diet tolerating Lungs adequate air movement bilaterally no shortness of breath Heart S1-S2 audible regular Abdomen ostomy left lower quadrant moderate amount of air in the bag 100 amount of brown stool noted stoma pink. Urinating no difficulty. Tolerating diet. Surgical dressing site dry CAMILA drain right lower quadrant scant amount of serous drainage noted nondistended nontender Extremities no edema noted - Labs CBC & Chem 7: 03/19/18 08:14 03/23/18 07:28 Labs: Abnormal Lab Results - Last 24 Hours (Table) 03/23/18 Range/Units 07:28 BUN 8 L (9-20) mg/dL Calcium 8.2 L (8.4-10.2) mg/dL Assessment and Plan Assessment: Impression Present on admission acute abdominal pain with poor oral intake suspect due to small bowel obstruction as evident on a CAT scan abdomen and pelvis Postop March 17 exploratory laparotomy, lysis of adhesions, drainage of pelvic abscess, Small Bowel Resection, Partial Colectomy with end colostomy for small bowel obstruction with diverticulitis History of prostate cancer with radiation treatment diagnosed 2014 Postop acute blood loss anemia from surgery with IV fluid dilutional Mild protein calorie malnutrition suspect due to poor caloric intake in a patient with two-week history of nausea inability to take a diet Electrolyte abnormality hypophosphorus corrected improved Plan Pain control PT OT From a surgical perspective okay to transfer to subacute rehab defer to the timing to the attending The above impression and plan of care have been discussed and directed by signing physician. Jo Gant nurse practitioner acting as scribe for signing physician.
== END 2018-03-23 15:45 | DRG 330 ==
LOC: EC 10:23 → 5MS5E 14:03
PROVIDERS: ADMIT Family Medicine; ATTEND Family Medicine
PROC: 0DBN0ZZ Excision of Sigmoid Colon, Open Approach (ICD-10-PCS; principal; 2018-03-17 07:30)
PROC: 0DB80ZZ Excision of Small Intestine, Open Approach (ICD-10-PCS; principal; 2018-03-17 07:30)
PROC: 0D1N0Z4 Bypass Sigmoid Colon to Cutaneous, Open Approach (ICD-10-PCS; principal; 2018-03-17 07:30)
DX: K56.51 Intestinal adhesions [bands], with partial obstruction (principal); D62 Acute posthemorrhagic anemia; K57.20 Diverticulitis of large intestine with perforation and abscess without bleeding; E44.1 Mild protein-calorie malnutrition; E03.9 Hypothyroidism, unspecified; E78.5 Hyperlipidemia, unspecified; E83.39 Other disorders of phosphorus metabolism; J32.9 Chronic sinusitis, unspecified; M19.90 Unspecified osteoarthritis, unspecified site; Z82.49 Family history of ischemic heart disease and other diseases of the circulatory system; Z85.46 Personal history of malignant neoplasm of prostate; Z85.828 Personal history of other malignant neoplasm of skin; Z91.19 Patient's noncompliance with other medical treatment and regimen; Z92.3 Personal history of irradiation; Z96.649 Presence of unspecified artificial hip joint; Z79.890 Hormone replacement therapy; Z79.899 Other long term (current) drug therapy
CPT/HCPCS: 36415; 74177; 80048; 80053; 81001; 82040; 82150; 82330; 83605; 83690; 83735; 84100; 84478; 85025; 87070; 87086; 87205; 88307; 94760; 96360; 96361; 99285

== ENCOUNTER → 2018-06-12 | Outpatient (CLI) | payer MEDICARE ==
[2018-06-12 12:16] LABS: HCT 39.5 % (39.0-53.0); HGB 12.6 gm/dL (13.0-17.5); MCH 31.1 pg (25.0-35.0); MCHC 31.9 g/dL (31.0-37.0); MCV 97.5 fL (80.0-100.0); Mean Platelet Volume 6.4; Platelet Count 168 k/uL (150-450); RBC 4.05 m/uL (4.30-5.90); RDW 15.3 % (11.5-15.5); WBC 5.4 k/uL (3.8-10.6)
[2018-06-12 12:28] LABS: Potassium 4.4 mmol/L (3.5-5.1)
== END | disposition home or self-care (01) ==
LOC: LABPAT 11:26
PROVIDERS: ATTEND Surgery
DX: Z01.818 Encounter for other preprocedural examination (principal); Z01.812 Encounter for preprocedural laboratory examination; K57.32 Diverticulitis of large intestine without perforation or abscess without bleeding; E03.9 Hypothyroidism, unspecified
CPT/HCPCS: 36415; 80051; 85027; 93005

== ENCOUNTER 2018-06-17 09:39 | Day surgery (SDC) | payer MEDICARE ==
[2018-06-09 13:38] VITALS: BMI 23.0
[~2018-06-17 09:39] MED LIST changes: -ACETAMINOPHEN TAB 500 MG TAB PO ONE; -DEXAMETHASONE SOD PHOSPHATE 10 MG/ML 1 ML VIAL IV ONE; -HYDROmorphone 1 MG/ML 1 ML SYRINGE IVP PRN; -MELOXICAM 7.5 MG TAB PO ONE; -MIDAZOLAM 2 MG/2 ML VIAL IV PRN; -ONDANSETRON 4 MG/2 ML VIAL IVP ONE; -TRANEXAMIC ACID 1,000 MG in SODIUM CHLORIDE 0.9% 100 ML IVPB ONE; -ceFAZolin 2 GM in SODIUM CHLORIDE 0.9% 100 ML IVPB ONE
[2018-06-17 10:19] VITALS: TEMP 97.9
[2018-06-17] MEDS: LACTATED RINGERS 1,000 ML IV SCH ×2 (10:19→11:49)
[2018-06-17] MEDS ORDERED: PROPOFOL 10 MG/ML 20 ML VIAL IV ONE (11:51)
--- NOTE | 2018-06-17 11:58 | P.GSHP ---
History of Present Illness H&P Date: 06/17/18 Chief Complaint: History of perforated diverticulitis 's is a 78-year-old male been sick for colonoscopy. Patient has a previous history of perforated diverticula is. He presents for colonoscopy. He is undergoing reversal colostomy tomorrow. Past Medical History Past Medical History: Cancer, Hyperlipidemia, Osteoarthritis (OA), Prostate Disorder, Thyroid Disorder Additional Past Medical History / Comment(s): In February 2018 pelvic abscess, diverticulitis,small bowel obs, HX OF PROSTATE CANCER WITH RADIATION (2013), SQUAMOUS CELL SKIN CANCER, CHRONIC SINUSITIS, , HYPOTHYROID., STATES PAST HX OF BACK PROBLEMS. History of Any Multi-Drug Resistant Organisms: MRSA Date of last positivie culture/infection: 04/01/18 MDRO Source:: ABDOMEN Surgical Site Past Surgical History: Adenoidectomy, Bowel Resection, Orthopedic Surgery, Prostate Surgery, Tonsillectomy Additional Past Surgical History / Comment(s): Exploratory Laparotomy Lysis of Adhesions Small Bowel Resection Partial Colectomy w/Colostomy 03-17-18,rt knee surgery, Lt HIP REPLACED Past Anesthesia/Blood Transfusion Reactions: No Reported Reaction Additional Past Anesthesia/Blood Transfusion Reaction / Comment(s): No hx blood transfusion Additional Psychological History / Comment(s): pt is independant. lives alone in 2 story home that has 8 porch steps. no home care sevices. no medical equipment. - Past Family History Mother Family Medical History: CVA/TIA Sister(s) Family Medical History: CVA/TIA Father Family Medical History: Myocardial Infarction ([place]) Medications and Allergies Home Medications Medication Instructions Recorded Confirmed Type Levothyroxine Sodium [Synthroid] 112 mcg PO HS 03/16/18 06/17/18 History Niacin [Slo-Niacin] 500 mg PO BID 03/16/18 06/17/18 History Daily Advantage Supp Packet 1 dose PO DAILY 06/09/18 06/17/18 History Gold Daily Regiman Supp Packet 1 dose PO DAILY 06/09/18 06/17/18 History Iron 27 mg PO DAILY 06/09/18 06/17/18 History Allergies Allergy/AdvReac Type Severity Reaction Status Date / Time No Known Allergies Allergy Verified 06/17/18 10:07 Surgical - Exam Vital Signs Temp Pulse Resp BP Pulse Ox 97.9 F 70 16 146/68 97 06/17/18 10:06/17/18 10:06/17/18 10:09 06/17/18 10:06/17/18 10:09 - General well developed, no distress - Eyes PERRL - ENT normal pinna - Neck no masses - Respiratory normal expansion - Cardiovascular Rhythm: regular - Abdomen Abdomen: soft, non tender Assessment and Plan Assessment: History of perforated diverticula is. We'll perform colonoscopy.
--- NOTE | 2018-06-17 12:15 | P.OP ---
Date of Procedure: 06/17/18 Preoperative Diagnosis: History of perforated diverticula Postoperative Diagnosis: Diverticulosis Procedure(s) Performed: Colonoscopy Anesthesia: MAC Surgeon: Nikolay Murillo Pathology: none sent Condition: stable Disposition: PACU Description of Procedure: The patient's placed on the endoscopy table in the lateral position. He received IV sedation. Digital rectal exam was performed which revealed no abnormalities. The flexible colonoscope was then placed patient anus. There was a large amount stool seen in the defunctionalized rectum. The colonoscope was placed the level of 20 cm there is no evidence of any pathology. Scope was withdrawn. Next digital exam of the colostomy was performed. The flexible close scope was then placed patient colostomy passed rotator colon. The ileocecal valve sutures. The cecum, ascending and transverse colon appeared normal. In the remaining descending colon there was a few scattered diverticula. Scope was withdrawn for patient.
[2018-06-17 12:17] VITALS: RESP 18
[2018-06-17] MEDS ORDERED: NA PHOS,M-B/NA PHOS,DI-BA 133 ML ENEMA RECTAL STA (12:20)
[2018-06-17 12:43] VITALS: BP 142/75; PULSE 50
== END 2018-06-17 13:29 | disposition home or self-care (01) ==
LOC: ORWHC2ENDO 09:39
PROVIDERS: ATTEND Surgery
DX: Z43.3 Encounter for attention to colostomy (principal); K57.30 Diverticulosis of large intestine without perforation or abscess without bleeding; E78.5 Hyperlipidemia, unspecified; M19.90 Unspecified osteoarthritis, unspecified site; E03.9 Hypothyroidism, unspecified; J32.9 Chronic sinusitis, unspecified; Z90.49 Acquired absence of other specified parts of digestive tract; Z79.890 Hormone replacement therapy; Z79.899 Other long term (current) drug therapy; Z96.642 Presence of left artificial hip joint; Z85.46 Personal history of malignant neoplasm of prostate; Z85.828 Personal history of other malignant neoplasm of skin; Z92.3 Personal history of irradiation; Z86.14 Personal history of Methicillin resistant Staphylococcus aureus infection
CPT/HCPCS: 44388; 45330; J2704; 44389; 45388

== ENCOUNTER 2018-06-18 07:45 | Inpatient (IN) | payer MEDICARE ==
[2018-06-09 10:48] VITALS: BMI 23.0
[~2018-06-18 07:45] MED LIST changes: +DEXAMETHASONE SOD PHOSPHATE 10 MG/ML 1 ML VIAL IV ONE; +HEPARIN SODIUM,PORCINE 5,000 UNIT/ML 1 ML VIAL SQ ONE; +HYDROmorphone 0.5 MG/0.5 ML SYRINGE IVP PRN; -LIDOCAINE 1% 20 ML VIAL (10MG/ML) FOR IV START INTRADERMA PRN; +ONDANSETRON 4 MG/2 ML VIAL IVP ONE; +ceFAZolin IN SWFI 2 GM/20 ML SYRINGE IVP ONE; +metroNIDAZOLE-NS PMX 500 MG in SALINE 1 100ML.BAG IVPB ONE
[2018-06-18] MEDS ORDERED: NA PHOS,M-B/NA PHOS,DI-BA 133 ML ENEMA RECTAL ONE (08:25)
[2018-06-18] MEDS ORDERED: LIDOCAINE 1% 20 ML VIAL (10MG/ML) FOR IV START INTRADERMA ONE (09:29)
[2018-06-18] MEDS: LACTATED RINGERS 1,000 ML IV SCH (09:29)
[2018-06-18] MEDS ORDERED: MIDAZOLAM 2 MG/2 ML VIAL IV ONE (09:36)
[2018-06-18] MEDS ORDERED: fentaNYL (PF) 50 MCG/ML 2 ML AMP IV ONE (09:36)
--- NOTE | 2018-06-18 09:51 | P.GSHP ---
History of Present Illness H&P Date: 06/18/18 Chief Complaint: History of perforated diverticulitis This a 78-year-old male who is a history of perforated diverticulitis. Patient presents today for reversal of colostomy. Patient aware the risk of bleeding, wound infection and possible colostomy. Past Medical History Past Medical History: Cancer, Hyperlipidemia, Osteoarthritis (OA), Prostate Disorder, Thyroid Disorder Additional Past Medical History / Comment(s): In February 2018 pelvic abscess, diverticulitis,small bowel obs, HX OF PROSTATE CANCER WITH RADIATION (2013), SQUAMOUS CELL SKIN CANCER, CHRONIC SINUSITIS, , HYPOTHYROID., STATES PAST HX OF BACK PROBLEMS. History of Any Multi-Drug Resistant Organisms: MRSA Date of last positivie culture/infection: 04/01/18 MDRO Source:: ABDOMEN Surgical Site Past Surgical History: Adenoidectomy, Bowel Resection, Orthopedic Surgery, Prostate Surgery, Tonsillectomy Additional Past Surgical History / Comment(s): Exploratory Laparotomy Lysis of Adhesions Small Bowel Resection Partial Colectomy w/Colostomy 03-17-18,rt knee surgery, Lt HIP REPLACED Past Anesthesia/Blood Transfusion Reactions: No Reported Reaction Additional Past Anesthesia/Blood Transfusion Reaction / Comment(s): No hx blood transfusion Additional Psychological History / Comment(s): pt is independant. lives alone in 2 story home that has 8 [address] steps. no home care sevices. no medical equipment. - Past Family History Mother Family Medical History: CVA/TIA Sister(s) Family Medical History: CVA/TIA Father Family Medical History: Myocardial Infarction ([place]) Medications and Allergies Home Medications Medication Instructions Recorded Confirmed Type Levothyroxine Sodium [Synthroid] 112 mcg PO HS 03/16/18 06/18/18 History Niacin [Slo-Niacin] 500 mg PO BID 03/16/18 06/18/18 History Daily Advantage Supp Packet 1 dose PO DAILY 06/09/18 06/18/18 History Gold Daily Regiman Supp Packet 1 dose PO DAILY 06/09/18 06/18/18 History Iron 27 mg PO DAILY 06/09/18 06/18/18 History Allergies Allergy/AdvReac Type Severity Reaction Status Date / Time No Known Allergies Allergy Verified 06/18/18 08:46 Surgical - Exam Vital Signs Temp Pulse Resp BP Pulse Ox 98.0 F 91 16 127/69 97 06/18/18 08:39 06/18/18 08:39 06/18/18 08:39 06/18/18 08:39 06/18/18 08:39 - General well developed, no distress - Eyes PERRL - ENT normal pinna - Neck no masses - Respiratory normal expansion - Cardiovascular Rhythm: regular - Abdomen Colostomy in left lower quadrant Abdomen: soft, non tender Assessment and Plan Assessment: History of perforated diverticulitis with colostomy. Patient will undergo reversal of colostomy today.
[2018-06-18] MEDS ORDERED: NALOXONE 0.4 MG/ML 1 ML VIAL IV PRN (09:56)
[2018-06-18] MEDS ORDERED: ROPIVACAINE 300 MG, HYDROMORPHONE (PF) 5 MG in SODIUM CHLORIDE 0.9% 190 ML EPIDURAL PRN (09:56)
[2018-06-18] MEDS ORDERED: SUCCINYLCHOLINE CHLORIDE 100 MG/5 ML SYR IV ONE (10:19)
[2018-06-18] MEDS ORDERED: fentaNYL (PF) 50 MCG/ML 2 ML AMP ONE (10:19)
[2018-06-18] MEDS ORDERED: GLYCOPYRROLATE 0.2 MG/ML 2 ML VIAL ONE (10:19)
[2018-06-18] MEDS ORDERED: ePHEDrine SULFATE/0.9% NACL/PF 50 MG/5 ML SYRINGE IV ONE (10:19)
[2018-06-18] MEDS ORDERED: PROPOFOL 10 MG/ML 20 ML VIAL IV ONE (10:19)
[2018-06-18] MEDS ORDERED: NEOSTIGMINE 1 MG/ML 10 ML VIAL ONE (10:19)
[2018-06-18] MEDS ORDERED: LIDOCAINE 1% INJ 10MG/ML (20 ML MDV) ONE (10:19)
[2018-06-18] MEDS ORDERED: MIDAZOLAM 2 MG/2 ML VIAL ONE (10:19)
[2018-06-18] MEDS ORDERED: ROCURONIUM BROMIDE 10 MG/ML 10 ML VIAL IV ONE (10:19)
[2018-06-18] MEDS ORDERED: LACTATED RINGERS 1,000 ML IV ONE (11:36)
[2018-06-18] MEDS ORDERED: ONDANSETRON 4 MG/2 ML VIAL IVP PRN (12:12)
[2018-06-18] MEDS ORDERED: BENZOCAINE/MENTHOL LOZENG 1 EACH LOZENGE MUCOUS MEM PRN (12:12)
--- NOTE | 2018-06-18 12:18 | P.OP ---
Date of Procedure: 06/18/18 Preoperative Diagnosis: Perforated diverticulitis Postoperative Diagnosis: Perforated diverticulitis Adhesions Incisional hernia Procedure(s) Performed: Reversal of colostomy Lysis of adhesions Partial colectomy Repair of incisional hernia Anesthesia: BHARATHI Surgeon: Nikolay Mruillo Estimated Blood Loss (ml): 50 Pathology: other (Sigmoid colon) Condition: stable Disposition: PACU Description of Procedure: Patient's placed the operative table in supine position. He received general anesthesia. He was then placed in dorsal lithotomy position. Several times made to place a Ortega catheter and then a Coude catheter. This was impossible. Dr. Marie was consulted for Ortega catheter placement. Please see his operative note. The abdomen was prepped and draped usual sterile fashion. The abdomen was entered through a midline incision. There were adhesions encountered. Approximately 20 minutes of operative time used to lyse adhesions. The colon was transected at the fascial level of the colostomy. And then more adhesions were lysed in the pelvis. The rectal stump was then visualized. At this point the redundant colon was transected with a GI stapler. Then using the Enseal device the mesentery the bowel was divided. The specimen sent to pathology. The pursestring device was placed on the proximal colon. And then the colon was opened and the anvil for the 29 mm EEA stapler is placed in the colon. The pursestring was secured. The human resources executive assistant placed the EEA stapler into the rectum. The spike was driven through the rectum and then connected to the anvil. The stapler was then closed and then fired. The stapler was withdrawn. 2 intact tissue rings were removed. Using a hiydrogrip Distal colon was occluded and then the rigid sigmoidoscope was used to place air into the rectal vault. There is known to any extravasation of the air at the anastomosis. At this point the abdomen was irrigated there is no bleeding seen. Using clean instruments the fascia was closed with PDS suture. Skin was closed amparo. The colostomy site was then excised and the fascia was closed with 0 Vicryl. The skin was closed amparo. Prevena wound system was placed on top of the staple line. Patient top procedure well. Dr. Marie came into the end of the case to place the Ortega catheter.
--- NOTE | 2018-06-18 13:14 | P.PCN ---
Date of Procedure: 06/18/18 Preoperative Diagnosis: Inability to place Ortega catheter Postoperative Diagnosis: Vesical Neck Contracture Procedure(s) Performed: Flexible Cystoscopy with Ortega Catheter Insertion Anesthesia: BHARATHI Surgeon: Sony Hillman Estimated Blood Loss (ml): 0 Pathology: none sent Condition: stable Disposition: PACU Indications for Procedure: 78 yo WM who underwent an RALP for prostate cancer in March 2014. He underwent reversal of colostomy today by Dr. Murillo. Attempts to place a Ortega catheter were unsuccessful, as well as urethral dilation with filiforms and followers. I was consulted for this reason. Operative Findings: Vesical Neck Contracture Description of Procedure: I entered the operating room with the patient under general anesthesia. Dr. Murillo had completed the colostomy reversal. The patient's condition was stable. He was placed in the dorsolithotomy position. The 16-Norwegian flexible cystoscope was passed through the urethra under direct vision. The urethra appeared normal. The prostate is surgically absent. A wide caliber vesical neck contracture was noted. It was possible to deflect the cystoscope anteriorly and advanced the cystoscope into the bladder. There is a small amount of debris in the bladder, thus somewhat limiting visualization. No tumors or foreign bodies were seen. The ureteral orifices were not identified with certainty. The cystoscope was removed, and a 14-Norwegian coud-tip Ortega catheter was placed without difficulty. The return was clear. The catheter was connected to gravity drainage.
[2018-06-18] MEDS ORDERED: diphenhydrAMINE 50 MG/ML 1 ML VIAL IVP ONE (13:39)
[2018-06-18 14:34] LABS: Basophils % (A) 0 %; Eosinophils % (A) 0 %; HCT 39.3 % (39.0-53.0); HGB 12.5 gm/dL (13.0-17.5); Lymphocytes # (A) 0.4 k/uL (1.0-4.8); Lymphocytes % (A) 5 %; MCH 30.2 pg (25.0-35.0); MCHC 31.8 g/dL (31.0-37.0); MCV 94.8 fL (80.0-100.0); Mean Platelet Volume 6.6; Monocytes # (A) 0.1 k/uL (0-1.0); Monocytes % (A) 2 %; Neutrophils # (A) 7.1 k/uL (1.3-7.7); Neutrophils % (A) 93 %; Platelet Count 150 k/uL (150-450); RBC 4.14 m/uL (4.30-5.90); RDW 14.6 % (11.5-15.5); WBC 7.7 k/uL (3.8-10.6)
[2018-06-18 14:48] LABS: Anion Gap 6 mmol/L; Blood Urea Nitrogen 15 mg/dL (9-20); Calcium 8.6 mg/dL (8.4-10.2); Carbon Dioxide 25 mmol/L (22-30); Chloride 108 mmol/L (98-107); Glucose 125 mg/dL (74-99); Potassium 3.8 mmol/L (3.5-5.1); Sodium 139 mmol/L (137-145)
--- NOTE | 2018-06-18 18:04 | P.GSCN ---
History of Present Illness Consult date: 06/18/18 Reason for Consult: Inability to place Ortega catheter Requesting physician: Nikolay Murillo History of present illness: The patient is a 78-year-old white male undergoing colostomy reversal. Attempts to place a Ortega catheter preoperatively were unsuccessful. I'm consulted for this reason. The patient is known to have undergone a robotic- assisted laparoscopic prostatectomy (RALP) in 2013. Past Medical History Past Medical History: Cancer, Hyperlipidemia, Osteoarthritis (OA), Prostate Disorder, Thyroid Disorder Additional Past Medical History / Comment(s): In February 2018 pelvic abscess, diverticulitis,small bowel obs, HX OF PROSTATE CANCER WITH RADIATION (2013), SQUAMOUS CELL SKIN CANCER, CHRONIC SINUSITIS, , HYPOTHYROID., STATES PAST HX OF BACK PROBLEMS. History of Any Multi-Drug Resistant Organisms: MRSA Year Discovered:: 04/01/18 MDRO Source:: ABDOMEN Surgical Site Past Surgical History: Adenoidectomy, Bowel Resection, Orthopedic Surgery, Prostate Surgery, Tonsillectomy Additional Past Surgical History / Comment(s): Exploratory Laparotomy Lysis of Adhesions Small Bowel Resection Partial Colectomy w/Colostomy 03-17-18,rt knee surgery, Lt HIP REPLACED Past Anesthesia/Blood Transfusion Reactions: No Reported Reaction Additional Past Anesthesia/Blood Transfusion Reaction / Comm: No hx blood transfusion Additional Psychological History / Comment(s): pt is independant. lives alone in 2 story home that has 8 porch steps. no home care sevices. no medical equipment. - Past Family History Mother Family Medical History: CVA/TIA Sister(s) Family Medical History: CVA/TIA Father Family Medical History: Myocardial Infarction ([place]) Medications and Allergies Home Medications Medication Instructions Recorded Confirmed Type Levothyroxine Sodium [Synthroid] 112 mcg PO HS 03/16/18 06/18/18 History Niacin [Slo-Niacin] 500 mg PO BID 03/16/18 06/18/18 History Daily Advantage Supp Packet 1 dose PO DAILY 06/09/18 06/18/18 History Gold Daily Regiman Supp Packet 1 dose PO DAILY 06/09/18 06/18/18 History Iron 27 mg PO DAILY 06/09/18 06/18/18 History Allergies Allergy/AdvReac Type Severity Reaction Status Date / Time No Known Allergies Allergy Verified 06/18/18 08:46 Surgical - Exam Vital Signs Temp Pulse Resp BP Pulse Ox 98.0 F 91 16 127/69 97 06/18/18 08:39 06/18/18 08:39 06/18/18 08:39 06/18/18 08:39 06/18/18 08:39 - General well developed, well nourished - Genitourinary normal penis with no external lesions, testicles non-tender Assessment and Plan (1) Bladder neck contracture Current Visit: Yes Status: Acute Code(s): N32.0 - BLADDER-NECK OBSTRUCTION SNOMED Code(s): 60981273727764 (2) Malignant neoplasm of prostate Current Visit: Yes Status: Acute Code(s): C61 - MALIGNANT NEOPLASM OF PROSTATE SNOMED Code(s): 826703664 Plan: The patient has a wide caliber vesical neck contracture, confirmed by cystoscopy , and a 14-Burmese coud-tip Ortega catheter was placed. This may be removed when no longer needed. Incidentally, the patient had extracapsular extension of his prostate cancer, with negative surgical margins. However, his PSA level in April 2018 was 0.25. In view of this, he may require salvage radiation therapy. I will review his office records and discuss this with him.
[2018-06-18] MEDS: HEPARIN SODIUM,PORCINE 5,000 UNIT/ML 1 ML VIAL SQ SCH (18:13)
[2018-06-18] MEDS: D5-0.45% NACL WITH KCL 20MEQ/L 1,000 ML IV SCH ×2 (20:43→20:46)
[2018-06-18] MEDS: LEVOTHYROXINE 112 MCG TAB PO SCH (20:48)
[2018-06-18] MEDS: FAMOTIDINE 20 MG/2 ML VIAL IV SCH (20:48)
[2018-06-19] MEDS: HEPARIN SODIUM,PORCINE 5,000 UNIT/ML 1 ML VIAL SQ SCH ×4 (00:13→23:28)
[2018-06-19] MEDS: D5-0.45% NACL WITH KCL 20MEQ/L 1,000 ML IV SCH ×3 (04:52→20:26)
[2018-06-19] MEDS: LACTATED RINGERS 1,000 ML IV SCH (05:35)
--- NOTE | 2018-06-19 07:39 | P.PN ---
Progress Note - Text 06/19 716am 78-year-old male status post colostomy reversal by Dr. downs. Patient has an epidural catheter for postop pain control with the solution running at 5 cc an hour. Patient has a VAS of 1 with no motor or sensory deficit. Plan to continue epidural infusion
[2018-06-19] MEDS: ALVIMOPAN 12 MG CAPSULE PO SCH ×2 (09:52→20:25)
[2018-06-19] MEDS: FAMOTIDINE 20 MG/2 ML VIAL IV SCH ×2 (09:52→20:25)
[2018-06-19] MEDS ORDERED: diphenhydrAMINE 50 MG/ML 1 ML VIAL IVP PRN (10:50)
--- NOTE | 2018-06-19 10:51 | P.CONS ---
History of Present Illness - Reason for Consult Consult date: 06/19/18 Medical management Requesting physician: Nikolay Murillo - Chief Complaint s/p reversal of colostomy - History of Present Illness 78-year-old male who underwent reversal of colostomy on 06/18/[address] Munoz was consulted for medical management. The patient was hospitalized from 03/16/2018 until 03/24/2018 secondary to bowel obstruction. At that time the patient underwent expiratory laparotomy, lysis of adhesions, drainage of pelvic abscess, small bowel resection, and partial colectomy with end colostomy. He presents back to the hospital on 06/18/2018 for reversal of colostomy. In the operating room a indwelling urinary catheter was attempted many times but was unsuccessful. Urology was consulted and Dr. Hillman performed flexible cystoscopy with Ortega catheter insertion. 06/19/2018 The patient is seen and examined at the bedside on rounds with Dr. Munoz. The patient is sitting up in bed. He is awake and alert and oriented. He is tolerating a clear liquid diet. Epidural catheter is infusing at 5 mL an hour. Patient states his pain is tolerable at this time. Patient does complain of some mild itching to bilateral upper extremities. Indwelling urinary catheter remains intact with clear yellow urine. Patient denies passing flatus at this time. Prevara wound vac is intact to abdominal surgical site. Vital signs remain stable. He is afebrile. He is on room air with oxygen saturations greater then 92%. He denies shortness of breath or cough. Denies chest pain or pressure. Denies nausea or vomiting. Review of Systems Those systems with pertinent positive or pertinent negative responses have been documented in the HPI Past Medical History Past Medical History: Cancer, Hyperlipidemia, Osteoarthritis (OA), Prostate Disorder, Thyroid Disorder Additional Past Medical History / Comment(s): In February 2018 pelvic abscess, diverticulitis,small bowel obs, HX OF PROSTATE CANCER WITH RADIATION (2013), SQUAMOUS CELL SKIN CANCER, CHRONIC SINUSITIS, , HYPOTHYROID., STATES PAST HX OF BACK PROBLEMS. History of Any Multi-Drug Resistant Organisms: MRSA Year Discovered:: 04/01/18 MDRO Source:: ABDOMEN Surgical Site Past Surgical History: Adenoidectomy, Bowel Resection, Orthopedic Surgery, Prostate Surgery, Tonsillectomy Additional Past Surgical History / Comment(s): Exploratory Laparotomy Lysis of Adhesions Small Bowel Resection Partial Colectomy w/Colostomy 03-17-18,rt knee surgery, Lt HIP REPLACED Past Anesthesia/Blood Transfusion Reactions: No Reported Reaction Additional Past Anesthesia/Blood Transfusion Reaction / Comm: No hx blood transfusion Additional Psychological History / Comment(s): pt is independant. lives alone in 2 story home that has 8 porch steps. no home care sevices. no medical equipment. - Past Family History Mother Family Medical History: CVA/TIA Sister(s) Family Medical History: CVA/TIA Father Family Medical History: Myocardial Infarction ([place]) Medications and Allergies Home Medications Medication Instructions Recorded Confirmed Type Levothyroxine Sodium [Synthroid] 112 mcg PO HS 03/16/18 06/18/18 History Niacin [Slo-Niacin] 500 mg PO BID 03/16/18 06/18/18 History Daily Advantage Supp Packet 1 dose PO DAILY 06/09/18 06/18/18 History Gold Daily Regiman Supp Packet 1 dose PO DAILY 06/09/18 06/18/18 History Iron 27 mg PO DAILY 06/18/18 06/18/18 History Allergies Allergy/AdvReac Type Severity Reaction Status Date / Time No Known Allergies Allergy Verified 06/18/18 14:36 Physical Exam Vitals: Vital Signs Temp Pulse Pulse Pulse Resp BP Pulse Ox 06/19/18 07:00 97.6 F 78 16 102/60 92 L 06/19/18 00:10 98.7 F 82 16 100/55 93 L 06/18/18 20:41 97.7 F 74 16 110/58 95 06/18/18 16:30 78 16 111/59 97 06/18/18 16:15 88 16 117/56 99 06/18/18 16:00 85 16 117/59 96 06/18/18 15:45 79 16 110/62 97 06/18/18 15:30 79 16 106/56 98 06/18/18 15:15 79 16 104/57 98 06/18/18 15:00 79 16 108/57 95 06/18/18 14:45 74 16 114/61 95 06/18/18 14:37 97.9 F 72 16 112/59 96 06/18/18 14:30 97.9 F 72 16 112/59 96 06/18/18 14:01 71 18 107/58 96 06/18/18 13:45 74 18 90/52 95 06/18/18 13:31 84 18 107/55 97 06/18/18 13:12 97.5 F L 85 14 103/56 97 Intake and Output 06/18/18 06/19/18 06/19/18 22:59 06:59 14:59 Intake Total 300 600 Output Total 900 Balance 300 -900 600 Intake: Oral 300 600 Output: Urine 900 Other: Voiding Method Indwelling Catheter Indwelling Catheter GENERAL: This is a 78-year-old male in no apparent distress at the time of examination. Pleasant and cooperative. HEENT: Head is atraumatic, normocephalic. Pupils are equal, round, and reactive to light. Sclerae anicteric. Conjunctivae are clear. Mucus membranes of the mouth are moist. Neck is supple. RESPIRATORY: Clear to ausculation. No wheezes, rales, or rhonchi. No use of accessory muscles. Patient maintaining oxygen saturation greater than 92%. No chest wall tenderness is noted on palpation or with deep breathing. CARDIOVASCULAR: Regular rate and rhythm. S1 and S2 noted. No systolic or diastolic murmur auscultated. No JVD noted. No S3 or S4 noted. GASTROINTESTINAL: Wound VAC system intact to surgical site. No distention noted. Abdomen soft and round. Hypoactive bowel sounds auscultated x 4 quadrants. Appropriate surgical pain upon palpation of abdomen. INTEGUMENTARY: Epidural site clean dry and intact. No cyanosis. No jaundice. No rashes noted. No cellulitis noted. EXTREMITIES: 2+ peripheral pulses. No evidence of peripheral edema. No calf tenderness noted. NEUROLOGIC: Cranial nerves II-XII intact. PSYCHIATRIC: Awake, alert, and oriented X 3. Appropriate affect. Intact judgement and insight. Results CBC & Chem 7: 06/18/18 14:21 06/18/18 14:21 Labs: Abnormal Lab Results - Last 24 Hours (Table) 06/18/18 06/18/18 Range/Units 14:21 14:21 RBC 4.14 L (4.30-5.90) m/uL Hgb 12.5 L (13.0-17.5) gm/dL Lymphocytes # 0.4 L (1.0-4.8) k/uL Chloride 108 H (98-107) mmol/L Glucose 125 H (74-99) mg/dL Assessment and Plan Plan: ASSESSMENT: S/P reversal of colostomy, POD #1 History of bowel obstruction in March 2018 with exploratory laparotomy, lysis of adhesions, drainage of pelvic abscess, small bowel resection, and partial colectomy with end colostomy Vesicular neck contracture, status post flexible cystoscopy with Ortega catheter insertion per urology History of prostate cancer, status post robotic-assisted laparoscopic prostatectomy in 2013 Hypothyroidism Hyperlipidemia Osteoarthritis PLAN: Continue postoperative care per Dr. Murillo Continue epidural per anesthesia. Continue catheter while epidural is infusing Benadryl PRN for itching Incentive spirometer 10 times an hour Activity as tolerated Advance diet per surgery Home meds as appropriate Monitor labs GI prophylaxis: Pepcid 20 mg IV BID DVT prophylaxis: Heparin 5000 units subcu every 8 hours Monitor vital signs and address as appropriate Further recommendations pending patient's course Thank you for this consultation We will continue to follow with Vasyl during his hospitalization Nurse practitioner note has been reviewed by physician. Signing provider agrees with the documented findings, assessment, and plan of care.
--- NOTE | 2018-06-19 14:32 | P.PN ---
Subjective Progress Note Date: 06/19/18 Principal diagnosis: Colostomy reversal Patient doing well today. Tolerating clear liquids. Asking for more to eat. No labs from today. No nausea or vomiting. Objective - Vital Signs Vital signs: Vital Signs Temp 97.6 F 06/19/18 07:00 Pulse 78 06/19/18 07:00 Resp 16 06/19/18 07:00 BP 102/60 06/19/18 07:00 Pulse Ox 92 L 06/19/18 07:00 Intake & Output 06/18/18 06/19/18 06/19/18 18:59 06:59 18:59 Intake Total 1400 300 600 Output Total 70 900 1300 Balance 1330 -600 -700 Weight 74.843 kg Intake: IV 1400 Oral 300 600 Output: Urine 20 900 1300 Coude 500 Estimated Blood Loss 50 Other: Voiding Method Indwelling Catheter Indwelling Catheter Indwelling Catheter - Exam Abdomen: Soft, nondistended, suction dressing intact, minimal tenderness - Labs CBC & Chem 7: 06/18/18 14:21 06/18/18 14:21 Labs: Abnormal Lab Results - Last 24 Hours (Table) 06/18/18 06/18/18 Range/Units 14:21 14:21 RBC 4.14 L (4.30-5.90) m/uL Hgb 12.5 L (13.0-17.5) gm/dL Lymphocytes # 0.4 L (1.0-4.8) k/uL Chloride 108 H (98-107) mmol/L Glucose 125 H (74-99) mg/dL Assessment and Plan (1) History of colostomy reversal Narrative/Plan: Will increase diet. Ambulate. Recheck labs tomorrow. Current Visit: Yes Status: Acute Code(s): Z98.890 - OTHER SPECIFIED POSTPROCEDURAL STATES SNOMED Code(s): 995170810
[2018-06-19] MEDS: LEVOTHYROXINE 112 MCG TAB PO SCH (20:25)
[2018-06-20] MEDS: LACTATED RINGERS 1,000 ML IV SCH (05:11)
[2018-06-20] MEDS: D5-0.45% NACL WITH KCL 20MEQ/L 1,000 ML IV SCH ×3 (05:12→23:28)
[2018-06-20 06:40] LABS: Basophils % (A) 0 %; Eosinophils # (A) 0.1 k/uL (0-0.7); Eosinophils % (A) 2 %; HCT 32.4 % (39.0-53.0); HGB 10.4 gm/dL (13.0-17.5); Lymphocytes % (A) 15 %; MCH 30.4 pg (25.0-35.0); MCHC 32.1 g/dL (31.0-37.0); MCV 94.7 fL (80.0-100.0); Mean Platelet Volume 6.8; Monocytes # (A) 0.4 k/uL (0-1.0); Monocytes % (A) 6 %; Neutrophils % (A) 75 %; Platelet Count 131 k/uL (150-450); RBC 3.42 m/uL (4.30-5.90); RDW 14.6 % (11.5-15.5); WBC 6.7 k/uL (3.8-10.6)
[2018-06-20 06:53] LABS: Anion Gap 3 mmol/L; Blood Urea Nitrogen 8 mg/dL (9-20); Calcium 8.1 mg/dL (8.4-10.2); Carbon Dioxide 28 mmol/L (22-30); Chloride 105 mmol/L (98-107); Glucose 106 mg/dL (74-99); Potassium 4.4 mmol/L (3.5-5.1); Sodium 136 mmol/L (137-145)
[2018-06-20] MEDS: HEPARIN SODIUM,PORCINE 5,000 UNIT/ML 1 ML VIAL SQ SCH ×3 (09:59→23:27)
[2018-06-20] MEDS: ALVIMOPAN 12 MG CAPSULE PO SCH ×2 (10:00→19:58)
[2018-06-20] MEDS: FAMOTIDINE 20 MG/2 ML VIAL IV SCH (10:00)
--- NOTE | 2018-06-20 10:16 | P.PN ---
Progress Note - Text Anesthesia POD 2. Status Post colostomy reversal under general endotracheal anesthesia with an epidrual catheter placed at T10 for post surgical pain releif. VAS (0, 3) with Ropivicaine 0.12 % and Dilaudid 20 mcg / cc running at 5 cc / hr. Lower extremity strength (4/4). No sedation. Site looks OK.
--- NOTE | 2018-06-20 10:28 | P.PN ---
Subjective Progress Note Date: 06/20/18 Principal diagnosis: Colostomy reversal Patient doing well today. Pain is well-controlled. Tolerating full liquids. White blood cell count normal. Objective - Vital Signs Vital signs: Vital Signs Temp 98.2 F 06/20/18 09:55 Pulse 74 06/20/18 09:55 Resp 16 06/20/18 09:55 BP 112/67 06/20/18 09:55 Pulse Ox 94 L 06/20/18 09:55 Intake & Output 06/19/18 06/20/18 06/20/18 18:59 06:59 18:59 Intake Total 600 1100 Output Total 1800 2500 Balance -1200 -1400 Intake: Intake, IV Titration 1000 Amount D5-0.45% NaCl with KCl 1000 20Meq/l 1,000 ml @ 125 mls/hr IV .Q8H BUTCH Rx#: [id number] Oral 600 Other 100 Output: Urine 1800 2500 Coude 500 Other: Voiding Method Indwelling Catheter Indwelling Catheter Indwelling Catheter # Bowel Movements 1 - Exam Abdomen: Soft, nondistended, mild tenderness, incision clean and dry - Labs CBC & Chem 7: 06/20/18 06:10 06/20/18 06:10 Labs: Abnormal Lab Results - Last 24 Hours (Table) 06/20/18 06/20/18 Range/Units 06:10 06:10 RBC 3.42 L (4.30-5.90) m/uL Hgb 10.4 L (13.0-17.5) gm/dL Hct 32.4 L (39.0-53.0) % Plt Count 131 L (150-450) k/uL Sodium 136 L (137-145) mmol/L BUN 8 L (9-20) mg/dL Glucose 106 H (74-99) mg/dL Calcium 8.1 L (8.4-10.2) mg/dL Assessment and Plan (1) History of colostomy reversal Narrative/Plan: Increase activity today. Advance diet for breakfast tomorrow. Keep Ortega for now. Remove epidural tomorrow. Current Visit: Yes Status: Acute Code(s): Z98.890 - OTHER SPECIFIED POSTPROCEDURAL STATES SNOMED Code(s): 552798916
--- NOTE | 2018-06-20 12:38 | P.PN ---
Subjective on-call hospitalist covering over the weekend only 06/20 and 06/21 This a 78-year-old male who is a history of perforated diverticulitis. Patient presents today for reversal of colostomy, done on 06/18/2018. also patient has been evaluated by urology for failure to place the Ortega catheter preoperatively. The patient is known to have undergone a robotic-assisted laparoscopic prostatectomy (RALP) in 2013. patient has a PSA level of 0.25 on 2017 , and the urologist recommended salvage radiation therapy 06/20/2018 Patient is doing well, she is tolerating diet. Pain is minimal. Ortega still in a Place. Colostomy bag looks draining appropriately with no surrounding leakage or cellulitis. Blood pressure is controlled Objective - Vital Signs Vital signs: Vital Signs Temp 98.2 F 06/20/18 09:55 Pulse 74 06/20/18 09:55 Resp 16 06/20/18 09:55 BP 112/67 06/20/18 09:55 Pulse Ox 94 L 06/20/18 09:55 Intake & Output 06/19/18 06/20/18 06/20/18 18:59 06:59 18:59 Intake Total 600 1100 Output Total 1800 2500 Balance -1200 -1400 Intake: Intake, IV Titration 1000 Amount D5-0.45% NaCl with KCl 1000 20Meq/l 1,000 ml @ 125 mls/hr IV .Q8H BUTCH Rx#: [id number] Oral 600 Other 100 Output: Urine 1800 2500 Coude 500 Other: Voiding Method Indwelling Catheter Indwelling Catheter Indwelling Catheter # Bowel Movements 1 - Labs CBC & Chem 7: 06/20/18 06:10 06/20/18 06:10 Labs: Abnormal Lab Results - Last 24 Hours (Table) 06/20/18 06/20/18 Range/Units 06:10 06:10 RBC 3.42 L (4.30-5.90) m/uL Hgb 10.4 L (13.0-17.5) gm/dL Hct 32.4 L (39.0-53.0) % Plt Count 131 L (150-450) k/uL Sodium 136 L (137-145) mmol/L BUN 8 L (9-20) mg/dL Glucose 106 H (74-99) mg/dL Calcium 8.1 L (8.4-10.2) mg/dL Assessment and Plan Plan: - reverse of colostomy on 06/18/2018, patient has been followed by the surgical team for postop management. patient still on clear liquid diet. possible removal of epidural catheter tomorrow - history of her prostate cancer, status post prostatectomy. the urologist recommended salvage radiation therapy DVT prophylaxis, subcutaneous heparin GI prophylaxis on Pepcid covering for Dr. Munoz over the weekend
[2018-06-20] MEDS: FAMOTIDINE 20 MG TAB PO SCH (19:59)
[2018-06-20] MEDS: LEVOTHYROXINE 112 MCG TAB PO SCH (19:59)
[2018-06-21] MEDS: D5-0.45% NACL WITH KCL 20MEQ/L 1,000 ML IV SCH ×3 (05:23→23:35)
[2018-06-21 07:17] LABS: Basophils % (A) 0 %; Eosinophils # (A) 0.1 k/uL (0-0.7); Eosinophils % (A) 3 %; HCT 32.1 % (39.0-53.0); HGB 10.6 gm/dL (13.0-17.5); Lymphocytes # (A) 0.9 k/uL (1.0-4.8); Lymphocytes % (A) 20 %; MCH 31.8 pg (25.0-35.0); MCHC 33.1 g/dL (31.0-37.0); MCV 95.9 fL (80.0-100.0); Mean Platelet Volume 6.8; Monocytes # (A) 0.3 k/uL (0-1.0); Monocytes % (A) 7 %; Neutrophils % (A) 68 %; Platelet Count 119 k/uL (150-450); RBC 3.35 m/uL (4.30-5.90); RDW 14.4 % (11.5-15.5); WBC 4.4 k/uL (3.8-10.6)
[2018-06-21 07:31] LABS: Anion Gap 4 mmol/L; Blood Urea Nitrogen 5 mg/dL (9-20); Calcium 8.1 mg/dL (8.4-10.2); Carbon Dioxide 28 mmol/L (22-30); Chloride 104 mmol/L (98-107); Glucose 102 mg/dL (74-99); Potassium 4.3 mmol/L (3.5-5.1); Sodium 136 mmol/L (137-145)
[2018-06-21] MEDS ORDERED: HYDROmorphone 1 MG/ML 1 ML SYRINGE IVP PRN (10:03)
--- NOTE | 2018-06-21 10:04 | P.PN ---
Subjective Progress Note Date: 06/21/18 Principal diagnosis: Colostomy reversal Patient doing well today. T-max 99.4. Minimal pain. White blood cell count normal. He is having liquid stools. Objective - Vital Signs Vital signs: Vital Signs Temp 98.4 F 06/21/18 09:48 Pulse 72 06/21/18 09:48 Resp 16 06/21/18 09:48 BP 112/64 06/21/18 09:48 Pulse Ox 96 06/21/18 09:48 Intake & Output 06/20/18 06/21/18 06/21/18 18:59 06:59 18:59 Intake Total 2200 Output Total 2700 1200 400 Balance -2700 1000 -400 Intake: Intake, IV Titration 2000 Amount D5-0.45% NaCl with KCl 2000 20Meq/l 1,000 ml @ 125 mls/hr IV .Q8H BUTCH Rx#: [id number] Other 200 Output: Urine 2700 1200 400 Coude 2200 400 Other: Voiding Method Indwelling Catheter Indwelling Catheter # Voids 3 # Bowel Movements 1 - Exam Abdomen: Soft, nondistended, minimal tenderness, dressing intact - Labs CBC & Chem 7: 06/21/18 06:39 06/21/18 06:39 Labs: Abnormal Lab Results - Last 24 Hours (Table) 06/21/18 06/21/18 Range/Units 06:39 06:39 RBC 3.35 L (4.30-5.90) m/uL Hgb 10.6 L (13.0-17.5) gm/dL Hct 32.1 L (39.0-53.0) % Plt Count 119 L (150-450) k/uL Lymphocytes # 0.9 L (1.0-4.8) k/uL Sodium 136 L (137-145) mmol/L BUN 5 L (9-20) mg/dL Glucose 102 H (74-99) mg/dL Calcium 8.1 L (8.4-10.2) mg/dL Assessment and Plan (1) History of colostomy reversal Narrative/Plan: We'll remove epidural. Keep Ortega. Ambulate. Continue low fiber diet. Current Visit: Yes Status: Acute Code(s): Z98.890 - OTHER SPECIFIED POSTPROCEDURAL STATES SNOMED Code(s): 320540246
[2018-06-21] MEDS: HYDROcodone/APAP 5-325MG 1 EACH TAB PO PRN ×3 (12:44→23:35)
[2018-06-21] MEDS: FAMOTIDINE 20 MG TAB PO SCH ×2 (12:45→20:29)
[2018-06-21] MEDS: ALVIMOPAN 12 MG CAPSULE PO SCH ×2 (12:45→20:29)
[2018-06-21] MEDS: HEPARIN SODIUM,PORCINE 5,000 UNIT/ML 1 ML VIAL SQ SCH ×3 (12:45→23:35)
--- NOTE | 2018-06-21 13:56 | P.PN ---
Progress Note - Text Anesthesia postoperative day 3. We have discontinued the T10 epidural catheter , the patient is resting comfortably and doing well. Epidural site looks good.
[2018-06-21] MEDS: LEVOTHYROXINE 112 MCG TAB PO SCH (20:29)
[2018-06-21] MEDS ORDERED: HYDROmorphone 2 MG TAB PO PRN (21:21)
--- NOTE | 2018-06-21 21:38 | P.PN ---
Progress Note - Text Progress Note Date: 06/21/18 Mr. Khalil required intraoperative cystoscopy for Ortega catheter placement, due to a wide caliber vesical neck contracture. He underwent a robotic radical prostatectomy in 2013 for high risk [place] 4+ 3 cancer with a pre op PSA of 9.63 ng/ml. 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 There was invasion of seminal vesicles and extensive extraprostatic extension with 1 positive periprostatic lymph node. He receive adjuvant RT, and his PSA level was 0.25 in April 2018. He normally has very good continence. Mr. Khalil is very knowledgeable regarding his prostate cancer. He saw a medical oncologist at [facility] last fall regarding his biochemical recurrence. He is aware that there is no role for additional surgery or pelvic irradiation. If the PSA level were to increase significantly , imaging would be considered along with the institution of androgen deprivation therapy. However, I do not recommend either at this time. I did stress the need for him to undergo surveillance at regular intervals, and I suggested he follow up with Dr. Sarmiento in 6-12 months.
--- NOTE | 2018-06-21 22:43 | P.PN ---
Subjective on-call hospitalist covering over the weekend only 06/20 and 06/21 This a 78-year-old male who is a history of perforated diverticulitis. Patient presents today for reversal of colostomy, done on 06/18/2018. also patient has been evaluated by urology for failure to place the Ortega catheter preoperatively. The patient is known to have undergone a robotic-assisted laparoscopic prostatectomy (RALP) in 2013. patient has a PSA level of 0.25 on 2017 , and the urologist recommended salvage radiation therapy 06/20/2018 Patient is doing well, she is tolerating diet. Pain is minimal. Ortega still in a Place. Colostomy bag looks draining appropriately with no surrounding leakage or cellulitis. Blood pressure is controlled 06/21/2018 pt remains to do well, his epidural is off. his pain is controlled. i had a lengthy discussion with the pt about this prostate problem, pt is aware of his prostate disease and states his last PSA on 2016 was around 0.19 (pt is not sure though), and he made aware of his PSA is 0.25 and the recommendation of the urologist for salvage radiation therapy for his cancer disease, he agrees with these recommendation he told me he is going to talk to for more details Objective - Vital Signs Vital signs: Vital Signs Temp 98.0 F 06/21/18 15:00 Pulse 76 06/21/18 15:00 Resp 16 06/21/18 16:11 BP 114/66 06/21/18 15:00 Pulse Ox 97 06/21/18 15:00 Intake & Output 06/20/18 06/21/18 06/21/18 18:59 06:59 18:59 Intake Total 2200 Output Total 2700 1200 1600 Balance -2700 1000 -1600 Intake: Intake, IV Titration 2000 Amount D5-0.45% NaCl with KCl 2000 20Meq/l 1,000 ml @ 125 mls/hr IV .Q8H BUTCH Rx#: [id number] Other 200 Output: Urine 2700 1200 1600 Coude 2200 1300 Other: Voiding Method Indwelling Catheter Indwelling Catheter # Voids 3 # Bowel Movements 1 - Exam GENERAL: The patient is alert and oriented x3, not in any acute distress. Well developed, well nourished. HEENT: Pupils are round and equally reacting to light. EOMI. No scleral icterus. No conjunctival pallor. Normocephalic, atraumatic. No pharyngeal erythema. No thyromegaly. CARDIOVASCULAR: S1 and S2 present. No murmurs, rubs, or gallops. PULMONARY: Chest is clear to auscultation, no wheezing or crackles. ABDOMEN: Soft, nontender, nondistended, normoactive bowel sounds. No palpable organomegaly. wound is clean with no surrounding cellulites MUSCULOSKELETAL: No joint swelling or deformity. EXTREMITIES: No cyanosis, clubbing, or pedal edema. NEUROLOGICAL: Gross neurological examination did not reveal any focal deficits. SKIN: No rashes. - Labs CBC & Chem 7: 06/21/18 06:39 06/21/18 06:39 Labs: Abnormal Lab Results - Last 24 Hours (Table) 06/21/18 06/21/18 Range/Units 06:39 06:39 RBC 3.35 L (4.30-5.90) m/uL Hgb 10.6 L (13.0-17.5) gm/dL Hct 32.1 L (39.0-53.0) % Plt Count 119 L (150-450) k/uL Lymphocytes # 0.9 L (1.0-4.8) k/uL Sodium 136 L (137-145) mmol/L BUN 5 L (9-20) mg/dL Glucose 102 H (74-99) mg/dL Calcium 8.1 L (8.4-10.2) mg/dL Assessment and Plan Plan: - reverse of colostomy on 06/18/2018, patient has been followed by the surgical team for postop management. patient still on clear liquid diet. possible removal of epidural catheter tomorrow - history of her prostate cancer, status post prostatectomy. the urologist recommended salvage radiation therapy.please refer to for futher recommendation and follow up. pt informed about this problem and recommendation DVT prophylaxis, subcutaneous heparin GI prophylaxis on Pepcid covering for Dr. Munoz over the weekend, he will resume the care of the pt tomorrow
[2018-06-22] MEDS: HYDROcodone/APAP 5-325MG 1 EACH TAB PO PRN ×2 (05:12→11:28)
[2018-06-22] MEDS: D5-0.45% NACL WITH KCL 20MEQ/L 1,000 ML IV SCH ×3 (07:15→21:28)
[2018-06-22 07:53] LABS: Basophils % (A) 0 %; Eosinophils # (A) 0.1 k/uL (0-0.7); Eosinophils % (A) 3 %; HCT 34.8 % (39.0-53.0); HGB 11.6 gm/dL (13.0-17.5); Lymphocytes # (A) 0.8 k/uL (1.0-4.8); Lymphocytes % (A) 18 %; MCH 31.5 pg (25.0-35.0); MCHC 33.3 g/dL (31.0-37.0); MCV 94.7 fL (80.0-100.0); Mean Platelet Volume 6.5; Monocytes # (A) 0.3 k/uL (0-1.0); Monocytes % (A) 8 %; Neutrophils % (A) 69 %; Platelet Count 162 k/uL (150-450); RBC 3.67 m/uL (4.30-5.90); RDW 14.3 % (11.5-15.5); WBC 4.4 k/uL (3.8-10.6)
[2018-06-22 08:05] LABS: Anion Gap 2 mmol/L; Blood Urea Nitrogen 4 mg/dL (9-20); Calcium 8.3 mg/dL (8.4-10.2); Carbon Dioxide 30 mmol/L (22-30); Chloride 107 mmol/L (98-107); Glucose 105 mg/dL (74-99); Potassium 4.1 mmol/L (3.5-5.1); Sodium 139 mmol/L (137-145)
[2018-06-22] MEDS: HEPARIN SODIUM,PORCINE 5,000 UNIT/ML 1 ML VIAL SQ SCH ×3 (08:09→23:43)
[2018-06-22] MEDS: ALVIMOPAN 12 MG CAPSULE PO SCH ×2 (08:09→21:22)
[2018-06-22] MEDS: FAMOTIDINE 20 MG TAB PO SCH ×2 (08:09→21:22)
--- NOTE | 2018-06-22 11:22 | P.PN ---
Subjective Progress Note Date: 06/22/18 78-year-old male who underwent reversal of colostomy on 06/18/[address] Munoz was consulted for medical management. The patient was hospitalized from 03/16/2018 until 03/24/2018 secondary to bowel obstruction. At that time the patient underwent expiratory laparotomy, lysis of adhesions, drainage of pelvic abscess, small bowel resection, and partial colectomy with end colostomy. He presents back to the hospital on 06/18/2018 for reversal of colostomy. In the operating room a indwelling urinary catheter was attempted many times but was unsuccessful. Urology was consulted and Dr. Hillman performed flexible cystoscopy with Ortega catheter insertion. 06/19/2018 The patient is seen and examined at the bedside on rounds with Dr. Munoz. The patient is sitting up in bed. He is awake and alert and oriented. He is tolerating a clear liquid diet. Epidural catheter is infusing at 5 mL an hour. Patient states his pain is tolerable at this time. Patient does complain of some mild itching to bilateral upper extremities. Indwelling urinary catheter remains intact with clear yellow urine. Patient denies passing flatus at this time. Prevara wound vac is intact to abdominal surgical site. Vital signs remain stable. He is afebrile. He is on room air with oxygen saturations greater then 92%. He denies shortness of breath or cough. Denies chest pain or pressure. Denies nausea or vomiting. 06/20/2018-note per covering provider 06/21/2018-note per covering provider 06/22/2018 Patient seen and examined at the bedside. Patient is awake and alert. Patient reports he ambulated in the hallways and made 4 laps around the nursing unit. He states his appetite is fair but is tolerating his diet. Denies nausea or vomiting. Denies chest pain or pressure. Wound vac to abdomen remains intact. Patient reports he has been having bowel movements. IV fluids continue to infuse at 125cc/hr. Vital signs remain stable. Objective - Vital Signs Vital signs: Vital Signs Temp 97.8 F 06/22/18 07:19 Pulse 64 06/22/18 07:19 Resp 16 06/22/18 07:19 BP 149/72 06/22/18 07:19 Pulse Ox 97 06/22/18 07:19 Intake & Output 06/21/18 06/22/18 06/22/18 18:59 06:59 18:59 Intake Total 2100 Output Total 20990 Balance -2099 - Intake: Intake, IV Titration 2000 Amount D5-0.45% NaCl with KCl 2000 20Meq/l 1,000 ml @ 125 mls/hr IV .Q8H [facility] Rx#: [id number] Other 100 Output: Urine 20990 [place] 1300 Other: Voiding Method Indwelling Catheter Indwelling Catheter - Exam GENERAL: This is a 78-year-old male in no apparent distress at the time of examination. Pleasant and cooperative. HEENT: Head is atraumatic, normocephalic. Pupils are equal, round, and reactive to light. Sclerae anicteric. Conjunctivae are clear. Mucus membranes of the mouth are moist. Neck is supple. RESPIRATORY: Clear to ausculation. No wheezes, rales, or rhonchi. No use of accessory muscles. Patient maintaining oxygen saturation greater than 92%. No chest wall tenderness is noted on palpation or with deep breathing. CARDIOVASCULAR: Regular rate and rhythm. S1 and S2 noted. No systolic or diastolic murmur auscultated. No JVD noted. No S3 or S4 noted. GASTROINTESTINAL: Wound VAC system intact to surgical site. No distention noted. Abdomen soft and round. Bowel sounds auscultated x 4 quadrants. Appropriate surgical pain upon palpation of abdomen. INTEGUMENTARY: No cyanosis. No jaundice. No rashes noted. No cellulitis noted. EXTREMITIES: 2+ peripheral pulses. No evidence of peripheral edema. No calf tenderness noted. NEUROLOGIC: Cranial nerves II-XII intact. PSYCHIATRIC: Awake, alert, and oriented X 3. Appropriate affect. Intact judgement and insight. - Labs CBC & Chem 7: 06/22/18 07:30 06/22/18 07:30 Labs: Abnormal Lab Results - Last 24 Hours (Table) 06/22/18 06/22/18 Range/Units 07:30 07:30 RBC 3.67 L (4.30-5.90) m/uL Hgb 11.6 L (13.0-17.5) gm/dL Hct 34.8 L (39.0-53.0) % Lymphocytes # 0.8 L (1.0-4.8) k/uL BUN 4 L (9-20) mg/dL Glucose 105 H (74-99) mg/dL Calcium 8.3 L (8.4-10.2) mg/dL Assessment and Plan Plan: ASSESSMENT: S/P reversal of colostomy, POD #4 History of bowel obstruction in March 2018 with exploratory laparotomy, lysis of adhesions, drainage of pelvic abscess, small bowel resection, and partial colectomy with end colostomy Vesicular neck contracture, status post flexible cystoscopy with Ortega catheter insertion per urology History of prostate cancer, status post robotic-assisted laparoscopic prostatectomy in 2013 Hypothyroidism Hyperlipidemia Osteoarthritis PLAN: Continue postoperative care per Dr. Murillo Pain control with [place]. Dilaudid added for severe pain. Try to limit narcotics if possible Continue indwelling catheter per urology Incentive spirometer 10 times an hour Activity as tolerated Home meds as appropriate Monitor labs GI prophylaxis: Pepcid 20 mg PO BID DVT prophylaxis: Heparin 5000 units subcu every 8 hours Monitor vital signs and address as appropriate Further recommendations pending patient's course Patient will require home care at the time of discharge as he lives alone Nurse practitioner note has been reviewed by physician. Signing provider agrees with the documented findings, assessment, and plan of care.
--- NOTE | 2018-06-22 11:32 | P.PN ---
Subjective Progress Note Date: 06/22/18 78-year-old male resting in bed no new events. Reports having had one bowel movement yesterday tolerating a diet white count 4.4 hemoglobin 11.6 pain medication effective for pain control Nursing reports patient tentative discharge plans are to go home home care per hospice case manager Postop colstomy reversal, lysis of adhesions, partial colectomy, repair of incisional hernia done for perforated diverticulitis June 18 Objective - Vital Signs Vital signs: Vital Signs Temp 97.8 F 06/22/18 07:19 Pulse 64 06/22/18 07:19 Resp 16 06/22/18 07:19 BP 149/72 06/22/18 07:19 Pulse Ox 97 06/22/18 07:19 Intake & Output 06/21/18 06/22/18 06/22/18 18:59 06:59 18:59 Intake Total 2100 Output Total 2100 2300 Balance -2100 -200 Intake: Intake, IV Titration 2000 Amount D5-0.45% NaCl with KCl 2000 20Meq/l 1,000 ml @ 125 mls/hr IV .Q8H [facility] Rx#: [id number] Other 100 Output: Urine 2100 2300 Coude 1300 Other: Voiding Method Indwelling Catheter Indwelling Catheter - Exam Physical exam limited Abdomen soft nondistended prevenra wound system in place surgical dressing dry not distended tolerating diet surgical tenderness appropriate indwelling Ortega catheter in place - Labs CBC & Chem 7: 06/22/18 07:30 06/22/18 07:30 Labs: Abnormal Lab Results - Last 24 Hours (Table) 06/22/18 06/22/18 Range/Units 07:30 07:30 RBC 3.67 L (4.30-5.90) m/uL Hgb 11.6 L (13.0-17.5) gm/dL Hct 34.8 L (39.0-53.0) % Lymphocytes # 0.8 L (1.0-4.8) k/uL BUN 4 L (9-20) mg/dL Glucose 105 H (74-99) mg/dL Calcium 8.3 L (8.4-10.2) mg/dL Assessment and Plan Assessment: Impression Postop on the june reversal of colostomy , lysis of adhesions, partial colectomy, repair of incisional hernia done for perforated diverticulitis History of undergoing an robotic-assisted laparoscopic prostatectomy for prostate cancer in March [address]. [address] Ortega catheter preoperatively likely due to vesical neck contracture status post flexible cystoscopy with Ortega catheter insertion Plan Continue postop surgical care Pain control Increase activity Anticipate discharge next 24 hours if clinically stable DVT and GI prophylaxis Continue indwelling Ortega catheter until discussed with urology The above impression and plan of care have been discussed and directed by signing physician. Jo Gant nurse practitioner acting as scribe for signing physician.
[2018-06-22] MEDS: METOCLOPRAMIDE 5 MG/ML 2 ML VIAL IVP PRN ×2 (14:01→21:22)
[2018-06-22] MEDS: LEVOTHYROXINE 112 MCG TAB PO SCH (21:22)
[2018-06-23] MEDS: METOCLOPRAMIDE 5 MG/ML 2 ML VIAL IVP PRN ×2 (04:47→10:55)
[2018-06-23 07:06] LABS: Basophils % (A) 0 %; Eosinophils # (A) 0.1 k/uL (0-0.7); Eosinophils % (A) 2 %; HCT 35.8 % (39.0-53.0); HGB 11.8 gm/dL (13.0-17.5); Lymphocytes # (A) 0.6 k/uL (1.0-4.8); Lymphocytes % (A) 12 %; MCH 30.7 pg (25.0-35.0); Mean Platelet Volume 6.7; Monocytes # (A) 0.4 k/uL (0-1.0); Monocytes % (A) 7 %; Neutrophils # (A) 4.1 k/uL (1.3-7.7); Neutrophils % (A) 78 %; Platelet Count 206 k/uL (150-450); RBC 3.85 m/uL (4.30-5.90); RDW 14.2 % (11.5-15.5); WBC 5.3 k/uL (3.8-10.6)
[2018-06-23 07:16] LABS: Anion Gap 7 mmol/L; Blood Urea Nitrogen 5 mg/dL (9-20); Calcium 8.5 mg/dL (8.4-10.2); Carbon Dioxide 26 mmol/L (22-30); Chloride 103 mmol/L (98-107); Glucose 118 mg/dL (74-99); Potassium 4.2 mmol/L (3.5-5.1); Sodium 136 mmol/L (137-145)
[2018-06-23] MEDS: ALVIMOPAN 12 MG CAPSULE PO SCH ×2 (08:59→21:00)
[2018-06-23] MEDS: FAMOTIDINE 20 MG TAB PO SCH ×2 (08:59→21:00)
[2018-06-23] MEDS: HEPARIN SODIUM,PORCINE 5,000 UNIT/ML 1 ML VIAL SQ SCH ×2 (09:00→16:16)
--- NOTE | 2018-06-23 09:44 | P.PN ---
Subjective Progress Note Date: 06/23/18 78-year-old male who underwent reversal of colostomy on 06/18/[address] Munoz was consulted for medical management. The patient was hospitalized from 03/16/2018 until 03/24/2018 secondary to bowel obstruction. At that time the patient underwent expiratory laparotomy, lysis of adhesions, drainage of pelvic abscess, small bowel resection, and partial colectomy with end colostomy. He presents back to the hospital on 06/18/2018 for reversal of colostomy. In the operating room a indwelling urinary catheter was attempted many times but was unsuccessful. Urology was consulted and Dr. Hillman performed flexible cystoscopy with Ortega catheter insertion. 06/19/2018 The patient is seen and examined at the bedside on rounds with Dr. Munoz. The patient is sitting up in bed. He is awake and alert and oriented. He is tolerating a clear liquid diet. Epidural catheter is infusing at 5 mL an hour. Patient states his pain is tolerable at this time. Patient does complain of some mild itching to bilateral upper extremities. Indwelling urinary catheter remains intact with clear yellow urine. Patient denies passing flatus at this time. Prevara wound vac is intact to abdominal surgical site. Vital signs remain stable. He is afebrile. He is on room air with oxygen saturations greater then 92%. He denies shortness of breath or cough. Denies chest pain or pressure. Denies nausea or vomiting. 06/20/2018-note per covering provider 06/21/2018-note per covering provider 06/22/2018 Patient seen and examined at the bedside. Patient is awake and alert. Patient reports he ambulated in the hallways and made 4 laps around the nursing unit. He states his appetite is fair but is tolerating his diet. Denies nausea or vomiting. Denies chest pain or pressure. Wound vac to abdomen remains intact. Patient reports he has been having bowel movements. IV fluids continue to infuse at 125cc/hr. Vital signs remain stable. 06/23/2018 Patient seen and examined at the bedside on rounds with Dr. Munoz. Patient is awake and alert. Patient reports he had a liquid bowel movement yesterday afternoon but none since that time. Patient reports he feels very gassy and is burping alot. Patient reports eating oatmeal this morning and then having an episode of emesis afterwards. Abdomen appears more distended today versus yesterday. Wound vac to abdomen remains intact. Urinary catheter remains intact. Patients blood pressure has been elevated over the past 12 hours, however blood pressure has been controlled before that. Patient takes no antihypertensive medications outpatient basis. Patient once again expresses concerns that there is no one at home to take care of him or to cook for him. Patient states last admission he was discharged to [facility] and states it helped him greatly. Patient expresses wishes to possibly go back to [facility] after DC. However, patient stated he was walking around the nursing unit yesterday although this was not visualized by this provider. Will obtain PT/OT consult to see if patient meets [facility] requirements/ Objective - Vital Signs Vital signs: Vital Signs Temp 97.1 F L 06/23/18 07:00 Pulse 67 06/23/18 07:00 Resp 16 06/23/18 07:00 BP 174/84 06/23/18 07:00 Pulse Ox 97 06/23/18 07:00 Intake & Output 06/22/18 06/23/18 06/23/18 18:59 06:59 18:59 Intake Total 1890 200 Output Total 1600 Balance -1600 1890 200 Intake: Intake, IV Titration 960 Amount D5-0.45% NaCl with KCl 960 20Meq/l 1,000 ml @ 60 mls /hr IV .[id number] [facility] Rx#: [id number] Oral 930 200 Output: Urine 1600 Other: Voiding Method Indwelling Catheter Indwelling Catheter # Bowel Movements 1 - Exam GENERAL: This is a 78-year-old male in no apparent distress at the time of examination. Pleasant and cooperative. HEENT: Head is atraumatic, normocephalic. Pupils are equal, round, and reactive to light. Sclerae anicteric. Conjunctivae are clear. Mucus membranes of the mouth are moist. Neck is supple. RESPIRATORY: Clear to ausculation. No wheezes, rales, or rhonchi. No use of accessory muscles. Patient maintaining oxygen saturation greater than 92%. No chest wall tenderness is noted on palpation or with deep breathing. CARDIOVASCULAR: Regular rate and rhythm. S1 and S2 noted. No systolic or diastolic murmur auscultated. No JVD noted. No S3 or S4 noted. GASTROINTESTINAL/: Wound VAC system intact to surgical site. Indwelling urinary catheter remains intact with clear yellow urine. Abdomen appears more firm and distended today. Appropriate surgical pain upon palpation of abdomen. INTEGUMENTARY: No cyanosis. No jaundice. No rashes noted. No cellulitis noted. EXTREMITIES: 2+ peripheral pulses. No evidence of peripheral edema. No calf tenderness noted. NEUROLOGIC: Cranial nerves II-XII intact. PSYCHIATRIC: Awake, alert, and oriented X 3. Appropriate affect. Intact judgement and insight. - Labs CBC & Chem 7: 06/23/18 06:43 06/23/18 06:43 Labs: Abnormal Lab Results - Last 24 Hours (Table) 06/23/18 06/23/18 Range/Units 06:43 06:43 RBC 3.85 L (4.30-5.90) m/uL Hgb 11.8 L (13.0-17.5) gm/dL Hct 35.8 L (39.0-53.0) % Lymphocytes # 0.6 L (1.0-4.8) k/uL Sodium 136 L (137-145) mmol/L BUN 5 L (9-20) mg/dL Glucose 118 H (74-99) mg/dL Assessment and Plan Plan: ASSESSMENT: S/P reversal of colostomy, POD #5 Suspected postoperative ileus History of bowel obstruction in March 2018 with exploratory laparotomy, lysis of adhesions, drainage of pelvic abscess, small bowel resection, and partial colectomy with end colostomy Vesicular neck contracture, status post flexible cystoscopy with Ortega catheter insertion per urology History of prostate cancer, status post robotic-assisted laparoscopic prostatectomy in 2013 Hypothyroidism Hyperlipidemia Osteoarthritis Hypertension, suspect due to pain, emesis, or ileus PLAN: Continue postoperative care per Dr. Murillo Change diet to NPO. Await further recommendations from general surgery Tylenol for pain. Try to limit narcotics if possible Continue indwelling catheter per urology Incentive spirometer 10 times an hour Activity as tolerated Continue to monitor BP. Will not add PO medications at this time as patients elevated BP has only been present for about 12 hours and was well controlled prior. Will add PRN hydralazine and monitor patients BP. Home meds as appropriate Monitor labs GI prophylaxis: Pepcid 20 mg PO BID DVT prophylaxis: Heparin 5000 units subcu every 8 hours Monitor vital signs and address as appropriate Further recommendations pending patient's course Patient will require home care at the time of discharge as he lives alone versus [facility] Consult PT/OT to evaluate if patient will meet requirements of [facility] Nurse practitioner note has been reviewed by physician. Signing provider agrees with the documented findings, assessment, and plan of care.
--- NOTE | 2018-06-23 09:49 | P.PN ---
Subjective Progress Note Date: 06/23/18 A 78-year-old male sitting up in bed. Patient states he did take a [place] for pain last night felt nauseated after did vomit a small amount of oatmeal "[place] do not seem to really help the pain" indwelling Ortega catheter in place surgical dressing site dry active bowel tones no stool Prevenera wound system in place patient states he did ambulate in the hallway several times yesterday abdomen not distended mild tenderness patient has multiple questions about going home will defer to the case management coordinator to discuss with patient discharge plan Postop colstomy reversal, lysis of adhesions, partial colectomy, repair of incisional hernia done for perforated diverticulitis June 18 Objective - Vital Signs Vital signs: Vital Signs Temp 97.1 F L 06/23/18 07:00 Pulse 67 06/23/18 07:00 Resp 16 06/23/18 07:00 BP 174/84 06/23/18 07:00 Pulse Ox 97 06/23/18 07:00 Intake & Output 06/22/18 06/23/18 06/23/18 18:59 06:59 18:59 Intake Total 1890 200 Output Total 1600 Balance -1600 1890 200 Intake: Intake, IV Titration 960 Amount D5-0.45% NaCl with KCl 960 20Meq/l 1,000 ml @ 60 mls /hr IV .[id number] [facility] Rx#: [id number] Oral 930 200 Output: Urine 1600 Other: Voiding Method Indwelling Catheter Indwelling Catheter Indwelling Catheter # Bowel Movements 1 - Exam Physical exam Sitting up in bed appears in no acute distress Lungs clear on room air no shortness of breath Heart S1-S2 audible regular denying chest pain Abdomen soft nondistended prevenra wound system in place surgical dressing dry not distended tolerating surgical tenderness appropriate indwelling Ortega catheter in place Extremities no edema - Labs CBC & Chem 7: 06/23/18 06:43 06/23/18 06:43 Labs: Abnormal Lab Results - Last 24 Hours (Table) 06/23/18 06/23/18 Range/Units 06:43 06:43 RBC 3.85 L (4.30-5.90) m/uL Hgb 11.8 L (13.0-17.5) gm/dL Hct 35.8 L (39.0-53.0) % Lymphocytes # 0.6 L (1.0-4.8) k/uL Sodium 136 L (137-145) mmol/L BUN 5 L (9-20) mg/dL Glucose 118 H (74-99) mg/dL Assessment and Plan Assessment: Impression Postop on the june reversal of colostomy , lysis of adhesions, partial colectomy, repair of incisional hernia done for perforated diverticulitis History of undergoing an robotic-assisted laparoscopic prostatectomy for prostate cancer in March [address]. [address] Ortega catheter preop likely due to vesical neck contracture status post flexible cystoscopy with Ortega catheter insertion Plan Continue postop surgical care Pain control Increase activity Anticipate discharge next 24 hours if clinically stable DVT and GI prophylaxis Continue indwelling Ortega catheter until discussed with urology talent acquisition program manager to pursue the discharge plan The above impression and plan of care have been discussed and directed by signing physician. Jo Gant nurse practitioner acting as scribe for signing physician.
[2018-06-23] MEDS: ONDANSETRON 4 MG TAB PO PRN ×2 (12:40→18:54)
[2018-06-23] MEDS: ACETAMINOPHEN TAB 325 MG TAB PO PRN ×2 (15:34→20:59)
[2018-06-23] MEDS: hydrALAZINE HCL 20 MG/ML 1 ML VIAL IVP PRN ×2 (15:35→21:18)
[2018-06-23 20:25] VITALS: RESP 16
[2018-06-23] MEDS: LEVOTHYROXINE 112 MCG TAB PO SCH (21:00)
[2018-06-24] MEDS: HEPARIN SODIUM,PORCINE 5,000 UNIT/ML 1 ML VIAL SQ SCH ×2 (00:41→08:33)
[2018-06-24] MEDS: D5-0.45% NACL WITH KCL 20MEQ/L 1,000 ML IV SCH (01:14)
[2018-06-24] MEDS: ONDANSETRON 4 MG TAB PO PRN ×2 (02:19→10:56)
[2018-06-24] MEDS: ACETAMINOPHEN TAB 325 MG TAB PO PRN (04:02)
[2018-06-24 07:06] LABS: Glucose,Whole Blood 145 mg/dL (75-99)
[2018-06-24 07:46] VITALS: BP 166/80; PULSE 69; TEMP 97.6
[2018-06-24] MEDS: FAMOTIDINE 20 MG TAB PO SCH (08:33)
[2018-06-24] MEDS: ALVIMOPAN 12 MG CAPSULE PO SCH (08:33)
--- NOTE | 2018-06-24 09:38 | P.DS ---
Providers Date of admission: 06/18/18 08:01 Expected date of discharge: 06/24/18 Attending physician: Nikolay Downs Consults: 06/18/18 12:12 Consult Physician Routine Consulting Provider: Dagoberto Munoz Reason/Comments: Medical management Do you want consulting provider notified?: Yes Primary care physician: Dagoberto Munoz [facility] Course: 78-year-old male presented on the day of admission to undergo reversal of colostomy , lysis of adhesion, partial colectomy, repair of incisional hernia. Patient had perforated diverticulitis that had occurred on the 03/17/2018. This admission there were no postop events. On the day of discharge patient was up ambulatory on the unit tolerating diet as prescribed. Pain medication effective for pain control patient was using plain Tylenol. Patient had refused [place] stated they made him nauseated could not control the pain. Patient was urinating without difficulty in the surgical incision sites were dry patient was deemed appropriate to be discharged home Impression discharge diagnosis Postop on the june reversal of colostomy , lysis of adhesions, partial colectomy, repair of incisional hernia done for perforated diverticulitis History of undergoing an robotic-assisted laparoscopic prostatectomy for prostate cancer in March [address]. [address] Ortega catheter preop likely due to vesical neck contracture status post flexible cystoscopy with Ortega catheter insertion The above impression and plan of care have been discussed and directed by signing physician. Jo Gant nurse practitioner acting as scribe for signing physician. Plan - Discharge Summary Discharge Rx Participant: Yes New Discharge Prescriptions: New Acetaminophen Tab [Tylenol] 650 mg PO Q4HR PRN #30 tab PRN Reason: Fever And/ Or Pain Ondansetron [Zofran] 4 mg PO Q8HR PRN #20 tab PRN Reason: Nausea And Vomiting Continue Levothyroxine Sodium [Synthroid] 112 mcg PO HS Niacin [Slo-Niacin] 500 mg PO BID Gold Daily [place] Supp Packet 1 dose PO DAILY Daily Advantage Supp Packet 1 dose PO DAILY Iron 27 mg PO DAILY Discharge Medication List Levothyroxine Sodium [Synthroid] 112 mcg PO HS 03/16/18 [History] Niacin [Slo-Niacin] 500 mg PO BID 03/16/18 [History] Daily Advantage Supp Packet 1 dose PO DAILY 06/09/18 [History] Gold Daily Regiman Supp Packet 1 dose PO DAILY 06/09/18 [History] Iron 27 mg PO DAILY 06/18/18 [History] Acetaminophen Tab [Tylenol] 650 mg PO Q4HR PRN #30 tab 06/24/18 [Rx] Ondansetron [Zofran] 4 mg PO Q8HR PRN #20 tab 06/24/18 [Rx] Follow up Appointment(s)/Referral(s): Dagoberto Munoz DO [Primary Care Provider] - 07/01/18 9:40 am [facility], [NON-STAFF] - Nikolay Downs MD [STAFF PHYSICIAN] - 06/29/18 12:15 pm Patient Instructions/Handouts: Open Colostomy Reversal (DC) Activity/Diet/Wound Care/Special Instructions: Hospital bed and bedside table - Rented from [facility] - [phone] No tub bath for six weeks. Shower daily. No lifting over 10 pounds for the next 6 weeks. May use ice packs to surgical site. Continue Provena wound VAC as ordered to be removed at Dr. downs office Encourage patient to walk hourly Encourage patient to take 6 small meals daily rather than 3 large meals Encourage oral intake Discharge Disposition: HOME WITH HOME HEALTH SERVICES
--- NOTE | 2018-06-24 11:19 | P.PN ---
Subjective Progress Note Date: 06/24/18 78-year-old male who underwent reversal of colostomy on 06/18/[address] Munoz was consulted for medical management. The patient was hospitalized from 03/16/2018 until 03/24/2018 secondary to bowel obstruction. At that time the patient underwent expiratory laparotomy, lysis of adhesions, drainage of pelvic abscess, small bowel resection, and partial colectomy with end colostomy. He presents back to the hospital on 06/18/2018 for reversal of colostomy. In the operating room a indwelling urinary catheter was attempted many times but was unsuccessful. Urology was consulted and Dr. Hillman performed flexible cystoscopy with Ortega catheter insertion. 06/19/2018 The patient is seen and examined at the bedside on rounds with Dr. Munoz. The patient is sitting up in bed. He is awake and alert and oriented. He is tolerating a clear liquid diet. Epidural catheter is infusing at 5 mL an hour. Patient states his pain is tolerable at this time. Patient does complain of some mild itching to bilateral upper extremities. Indwelling urinary catheter remains intact with clear yellow urine. Patient denies passing flatus at this time. Prevara wound vac is intact to abdominal surgical site. Vital signs remain stable. He is afebrile. He is on room air with oxygen saturations greater then 92%. He denies shortness of breath or cough. Denies chest pain or pressure. Denies nausea or vomiting. 06/20/2018-note per covering provider 06/21/2018-note per covering provider 06/22/2018 Patient seen and examined at the bedside. Patient is awake and alert. Patient reports he ambulated in the hallways and made 4 laps around the nursing unit. He states his appetite is fair but is tolerating his diet. Denies nausea or vomiting. Denies chest pain or pressure. Wound vac to abdomen remains intact. Patient reports he has been having bowel movements. IV fluids continue to infuse at 125cc/hr. Vital signs remain stable. 06/23/2018 Patient seen and examined at the bedside on rounds with Dr. Munoz. Patient is awake and alert. Patient reports he had a liquid bowel movement yesterday afternoon but none since that time. Patient reports he feels very gassy and is burping alot. Patient reports eating oatmeal this morning and then having an episode of emesis afterwards. Abdomen appears more distended today versus yesterday. Wound vac to abdomen remains intact. Urinary catheter remains intact. Patients blood pressure has been elevated over the past 12 hours, however blood pressure has been controlled before that. Patient takes no antihypertensive medications outpatient basis. Patient once again expresses concerns that there is no one at home to take care of him or to cook for him. Patient states last admission he was discharged to [facility] and states it helped him greatly. Patient expresses wishes to possibly go back to [facility] after DC. However, patient stated he was walking around the nursing unit yesterday although this was not visualized by this provider. Will obtain PT/OT consult to see if patient meets [facility] requirements 06/24/2018 patient seen and examined at the bedside. Patient states he is passing flatus and did have a bowel movement. Patient has been ambulating around in the hallway. Patient states his pain is tolerable at this time. Anticipate discharge home today. Objective - Vital Signs Vital signs: Vital Signs Temp 97.6 F 06/24/18 06:45 Pulse 69 06/24/18 06:45 Resp 16 06/24/18 06:45 BP 166/80 06/24/18 06:45 Pulse Ox 94 L 06/24/18 06:45 Intake & Output 06/23/18 06/24/18 06/24/18 18:59 06:59 18:59 Intake Total 200 820 600 Output Total 525 100 Balance -325 820 500 Intake: Oral 200 820 600 Output: Urine 525 100 Coude 300 Other: Voiding Method Indwelling Catheter Urinal # Voids 1 1 3 # Bowel Movements 1 - Exam GENERAL: This is a 78-year-old male in no apparent distress at the time of examination. Pleasant and cooperative. HEENT: Head is atraumatic, normocephalic. Pupils are equal, round, and reactive to light. Sclerae anicteric. Conjunctivae are clear. Mucus membranes of the mouth are moist. Neck is supple. RESPIRATORY: Clear to ausculation. No wheezes, rales, or rhonchi. No use of accessory muscles. Patient maintaining oxygen saturation greater than 92%. No chest wall tenderness is noted on palpation or with deep breathing. CARDIOVASCULAR: Regular rate and rhythm. S1 and S2 noted. No systolic or diastolic murmur auscultated. No JVD noted. No S3 or S4 noted. GASTROINTESTINAL/: Wound VAC system intact to surgical site. abdomen soft. Bowel sounds present. Appropriate surgical pain upon palpation of abdomen. INTEGUMENTARY: No cyanosis. No jaundice. No rashes noted. No cellulitis noted. EXTREMITIES: 2+ peripheral pulses. No evidence of peripheral edema. No calf tenderness noted. NEUROLOGIC: Cranial nerves II-XII intact. PSYCHIATRIC: Awake, alert, and oriented X 3. Appropriate affect. Intact judgement and insight. - Labs CBC & Chem 7: 06/23/18 06:43 06/23/18 06:43 Labs: Abnormal Lab Results - Last 24 Hours (Table) 06/24/18 Range/Units 07:04 POC Glucose (mg/dL) 145 H (75-99) mg/dL Assessment and Plan Plan: ASSESSMENT: S/P reversal of colostomy, POD #6 Suspected postoperative ileus, ruled out per general surgery History of bowel obstruction in March 2018 with exploratory laparotomy, lysis of adhesions, drainage of pelvic abscess, small bowel resection, and partial colectomy with end colostomy Vesicular neck contracture, status post flexible cystoscopy with Ortega catheter insertion per urology History of prostate cancer, status post robotic-assisted laparoscopic prostatectomy in 2013 Hypothyroidism Hyperlipidemia Osteoarthritis Hypertension, suspect due to pain, emesis, or ileus PLAN: patient is cleared for discharge from a medical standpoint when cleared by general surgery. Patient is to resume his previous home medications. Patient to follow-up with Dr. Munoz on an outpatient basis. Nurse practitioner note has been reviewed by physician. Signing provider agrees with the documented findings, assessment, and plan of care.
== END 2018-06-24 11:15 | disposition home health service (06) | DRG 331 ==
LOC: 2ORMAIN 08:01 → 3SUR 13:11
PROVIDERS: ADMIT Surgery; ATTEND Surgery
PROC: 0WQF0ZZ Repair Abdominal Wall, Open Approach (ICD-10-PCS; 2018-06-18)
PROC: 0T9B80Z Drainage of Bladder with Drainage Device, Via Natural or Artificial Opening Endoscopic (ICD-10-PCS; 2018-06-18)
PROC: 0DBN0ZZ Excision of Sigmoid Colon, Open Approach (ICD-10-PCS; principal; 2018-06-18 09:45)
PROC: 0DNW0ZZ Release Peritoneum, Open Approach (ICD-10-PCS; 2018-06-18 09:45)
DX: Z43.3 Encounter for attention to colostomy (principal); E03.9 Hypothyroidism, unspecified; N32.0 Bladder-neck obstruction; K43.2 Incisional hernia without obstruction or gangrene; K66.0 Peritoneal adhesions (postprocedural) (postinfection); I10 Essential (primary) hypertension; J32.9 Chronic sinusitis, unspecified; E78.5 Hyperlipidemia, unspecified; M19.91 Primary osteoarthritis, unspecified site; Z79.890 Hormone replacement therapy; Z79.899 Other long term (current) drug therapy; Z87.19 Personal history of other diseases of the digestive system; Z92.3 Personal history of irradiation; Z85.46 Personal history of malignant neoplasm of prostate; Z85.828 Personal history of other malignant neoplasm of skin; Z86.14 Personal history of Methicillin resistant Staphylococcus aureus infection; Z96.641 Presence of right artificial hip joint; Z82.3 Family history of stroke; Z82.49 Family history of ischemic heart disease and other diseases of the circulatory system
CPT/HCPCS: 80048; 85025; 86850; 86900; 86901; 88304

== ENCOUNTER 2018-07-05 12:16 | Emergency (ER) | payer MEDICARE ==
[2018-07-05 12:37] VITALS: RESP 16
[2018-07-05] MEDS ORDERED: LIDOCAINE URO-JET JELLY 2% 5 ML KIT URETHRAL ONE (13:26)
--- NOTE | 2018-07-05 13:38 | ED ---
General Adult HPI - General Chief complaint: Urogenital Stated complaint: URINE RETENTION Source: patient Mode of arrival: ambulatory Limitations: no limitations - History of Present Illness Initial comments: Dictation was produced using [employer] dictation software. please excuse any grammatical, word or spelling errors. Chief Complaint: 78-year-old male with past medical history cancer, this anemia , prostate disorder it's with urinary retention History of Present Illness: Patient is a 78-year-old male with recent surgery presents urinary retention. Patient has past medical history of prostate disorder. He states that he had had Foleys multiple occasions. Since yesterday he has been having had to self cath himself due to inability to urinate. Patient states he last Himself at 11:30 AM. Patient had cath himself approximately 3 times since yesterday. He does have an established urologist Dr. Marie. Patient denies any constitutional symptoms. The ROS documented in this emergency department record has been reviewed and confirmed by me. Those systems with pertinent positive or negative responses have been documented in the HPI. All other systems are other negative and/or noncontributory. - Related Data Home Medications Medication Instructions Recorded Confirmed Levothyroxine Sodium [Synthroid] 112 mcg PO HS 03/16/18 06/18/18 Niacin [Slo-Niacin] 500 mg PO BID 03/16/18 06/18/18 Daily Advantage Supp Packet 1 dose PO DAILY 06/09/18 06/18/18 Gold Daily Regiman Supp Packet 1 dose PO DAILY 06/09/18 06/18/18 Iron 27 mg PO DAILY 06/18/18 06/18/18 Previous Rx's Medication Instructions Recorded Acetaminophen Tab [Tylenol] 650 mg PO Q4HR PRN #30 tab 06/24/18 Ondansetron [Zofran] 4 mg PO Q8HR PRN #20 tab 06/24/18 Allergies Allergy/AdvReac Type Severity Reaction Status Date / Time No Known Allergies Allergy Verified 06/18/18 14:36 Review of Systems ROS Statement: Those systems with pertinent positive or pertinent negative responses have been documented in the HPI. ROS Other: All systems not noted in ROS Statement are negative. Past Medical History Past Medical History: Cancer, Hyperlipidemia, Osteoarthritis (OA), Prostate Disorder, Thyroid Disorder Additional Past Medical History / Comment(s): In February 2018 pelvic abscess, diverticulitis,small bowel obs, HX OF PROSTATE CANCER WITH RADIATION (2013), SQUAMOUS CELL SKIN CANCER, CHRONIC SINUSITIS, , HYPOTHYROID., STATES PAST HX OF BACK PROBLEMS. History of Any Multi-Drug Resistant Organisms: MRSA Date of last positivie culture/infection: 04/01/18 MDRO Source:: ABDOMEN Surgical Site Past Surgical History: Adenoidectomy, Bowel Resection, Orthopedic Surgery, Prostate Surgery, Tonsillectomy Additional Past Surgical History / Comment(s): Exploratory Laparotomy Lysis of Adhesions Small Bowel Resection Partial Colectomy w/Colostomy 03-17-18,rt knee surgery, Lt HIP REPLACED, had gamez cath placed after 03/17/18 surgery. Past Anesthesia/Blood Transfusion Reactions: No Reported Reaction Additional Past Anesthesia/Blood Transfusion Reaction / Comment(s): No hx blood transfusion Past Psychological History: No Psychological Hx Reported Smoking Status: Never smoker Past Alcohol Use History: Rare Past Drug Use History: None Reported - Past Family History Mother Family Medical History: CVA/TIA Sister(s) Family Medical History: CVA/TIA Father Family Medical History: Myocardial Infarction ([place]) General Exam - General Exam Comments Initial Comments: PHYSICAL EXAM: General Impression: Alert and oriented x3, not in acute distress HEENT: Normocephalic atraumatic, extra-ocular movements intact, pupils equal and reactive to light bilaterally, mucous membranes moist. Cardiovascular: Heart regular rate and rhythm, S1&S2 audible, no murmurs, rubs or gallops Chest: Lungs clear to auscultation bilaterally, no rhonchi, no wheeze, no rales Abdomen: Bowel sounds present, abdomen soft, non-tender, non-distended, no organomegaly, surgical scar clean dry and intact Musculoskeletal: Pulses present and equal in all extremities, no peripheral edema Motor: Power 5/5 bilaterally, no focal deficits noted Neurological: CN II-XII grossly intact, no focal motor or sensory deficits noted Skin: Intact with no visualized rashes Psych: Normal affect and mood Limitations: no limitations Course Vital Signs 07/05/18 12:35 Temperature 97.9 F Pulse Rate 75 Respiratory 16 Rate Blood Pressure 118/68 O2 Sat by Pulse 98 Oximetry Medical Decision Making - Medical Decision Making ED course: [id number] with past medical history of urinary retention and multiple Gamez insertions presents with urinary retention. As upon arrival are within acceptable limits. Gamez catheter placed. 14-Macanese catheter was placed. Urinalysis obtained showing no acute processes. Patient given leg bag. He'll be discharged with Gamez catheter in place. Patient told to follow- up with his urologist upon discharge. Patient understandable and agreeable to plan. - Lab Data Lab Results 07/05/18 Range/Units 14:11 Urine Color Yellow Urine Appearance Clear (Clear) Urine pH 5.5 (5.0-8.0) Ur Specific [place] 1.021 (1.001-1.035) Urine Protein Trace H (Negative) Urine Glucose (UA) Negative (Negative) Urine Ketones Negative (Negative) Urine Blood Negative (Negative) Urine Nitrite Negative (Negative) Urine Bilirubin Negative (Negative) Urine Urobilinogen <2.0 (<2.0) mg/dL Ur Leukocyte Esterase Negative (Negative) Disposition Clinical Impression: Urinary retention Disposition: HOME SELF-CARE Condition: Good Instructions: Urinary Retention in Men (ED) Is patient prescribed a controlled substance at d/c from ED?: No Referrals: Dagoberto Munoz DO [Primary Care Provider] - 1-2 days Sony Hillman MD [STAFF PHYSICIAN] - 1-2 days Time of Disposition: 14:28
[2018-07-05 14:19] LABS: Appearance,Urine Clear (Clear); Bilirubin,Urine Negative (Negative); Blood,Urine Negative (Negative); Color,Urine Yellow; Glucose,Urine (UA) Negative (Negative); Ketones,Urine Negative (Negative); Leukocyte Esterase,Urine Negative (Negative); Nitrite,Urine Negative (Negative); PH, Urine 5.5 (5.0-8.0); Protein,Urine Trace (Negative); Specific Gravity,Urine 1.021 (1.001-1.035); Urobilinogen,Urine <2.0 mg/dL (<2.0)
[2018-07-05 14:49] VITALS: BP 125/71; PULSE 60; TEMP 98.3
== END 2018-07-05 14:57 | disposition home or self-care (01) ==
LOC: EC 12:16
DX: R33.9 Retention of urine, unspecified (principal); E03.9 Hypothyroidism, unspecified; Z86.14 Personal history of Methicillin resistant Staphylococcus aureus infection; Z85.828 Personal history of other malignant neoplasm of skin; Z85.46 Personal history of malignant neoplasm of prostate; Z79.899 Other long term (current) drug therapy; Z96.641 Presence of right artificial hip joint
CPT/HCPCS: 51702; 81003; 87086; 99283

== ENCOUNTER 2018-07-05 22:35 | Emergency (ER) | payer MEDICARE ==
--- NOTE | 2018-07-06 00:07 | ED ---
Male Urogenital HPI - General Chief complaint: Urogenital Stated complaint: Urination issue Time Seen by Provider: 07/05/18 23:42 Source: patient, RN notes reviewed Mode of arrival: ambulatory Limitations: no limitations - History of Present Illness Initial comments: This is a 78-year-old male who presents to the emergency department with chief complaint of urination issue. Patient states that he sees Dr. Hillman, urologist. Patient states that last evening he began having difficulty urinating. He states he was unable to initiate urination. Patient states that he had 3 straight caths left at home. He states that he used them yesterday and was able to urinate using them. Patient states that he then presented to the emergency department today at around 10 AM and a Gamez catheter was inserted. Patient states that he returned home at approximately 3 PM. He states that he has been drinking fluids but has had a low amount of urinary output into the bag. Patient reports lower abdominal pain and spasms. He states he believes the gamez catheter is not working properly. Patient denies any fevers or chills, chest pain or shortness of breath, nausea or vomiting, diarrhea or constipation. He requests to have the urinary catheter checked. - Related Data Home Medications Medication Instructions Recorded Confirmed Levothyroxine Sodium [Synthroid] 112 mcg PO HS 03/16/18 06/18/18 Niacin [Slo-Niacin] 500 mg PO BID 03/16/18 06/18/18 Daily Advantage Supp Packet 1 dose PO DAILY 06/09/18 06/18/18 Gold Daily Regiman Supp Packet 1 dose PO DAILY 06/09/18 06/18/18 Iron 27 mg PO DAILY 06/18/18 06/18/18 Previous Rx's Medication Instructions Recorded Acetaminophen Tab [Tylenol] 650 mg PO Q4HR PRN #30 tab 06/24/18 Ondansetron [Zofran] 4 mg PO Q8HR PRN #20 tab 06/24/18 Allergies Allergy/AdvReac Type Severity Reaction Status Date / Time No Known Allergies Allergy Verified 06/18/18 14:36 Review of Systems ROS Statement: Those systems with pertinent positive or pertinent negative responses have been documented in the HPI. ROS Other: All systems not noted in ROS Statement are negative. Past Medical History Past Medical History: Cancer, Hyperlipidemia, Osteoarthritis (OA), Prostate Disorder, Thyroid Disorder Additional Past Medical History / Comment(s): In February 2018 pelvic abscess, diverticulitis,small bowel obs, HX OF PROSTATE CANCER WITH RADIATION (2013), SQUAMOUS CELL SKIN CANCER, CHRONIC SINUSITIS, , HYPOTHYROID., STATES PAST HX OF BACK PROBLEMS. History of Any Multi-Drug Resistant Organisms: MRSA Date of last positivie culture/infection: 04/01/18 MDRO Source:: ABDOMEN Surgical Site Past Surgical History: Adenoidectomy, Bowel Resection, Orthopedic Surgery, Prostate Surgery, Tonsillectomy Additional Past Surgical History / Comment(s): Exploratory Laparotomy Lysis of Adhesions Small Bowel Resection Partial Colectomy w/Colostomy 03-17-18,rt knee surgery, Lt HIP REPLACED, had gamez cath placed after 03/17/18 surgery. Past Anesthesia/Blood Transfusion Reactions: No Reported Reaction Additional Past Anesthesia/Blood Transfusion Reaction / Comment(s): No hx blood transfusion Past Psychological History: No Psychological Hx Reported Smoking Status: Never smoker Past Alcohol Use History: Rare Past Drug Use History: None Reported - Past Family History Mother Family Medical History: CVA/TIA Sister(s) Family Medical History: CVA/TIA Father Family Medical History: Myocardial Infarction ([place]) General Exam - General Exam Comments Initial Comments: General: Awake and alert, well-developed; in no apparent distress. HEENT: Head atraumatic, normocephalic. Pupils are equal, round and reactive to light. Extraocular movements intact. Oropharynx moist without erythema or exudate. Neck: Supple. Normal ROM. Cardiovascular: Regular rate and rhythm. No murmurs, rubs or gallops. Chest symmetrical. Respiratory: Lungs clear to auscultation bilaterally. No wheezes, rales or rhonchi. Normal respiratory effort with no use of accessory muscles. Abdomen: Soft, non-distended. Tenderness on palpation of suprapubic region. No rigidity, rebound or guarding. Normal bowel sounds in all 4 quadrants. Musculoskeletal: Normal ROM, no tenderness bilateral upper and lower extremities. Ambulating normally. Skin: [place], warm and dry without rashes or lesions. Neurological: Alert and oriented x3. CN II-XII grossly intact. Speech is fluent and answers are appropriate. No focal neuro deficits. Psychiatric: Normal mood and affect. No overt signs of depression or anxiety noted. Limitations: no limitations Course Vital Signs 07/05/18 22:43 Temperature 98.3 F Pulse Rate 87 Respiratory 18 Rate Blood Pressure 183/90 O2 Sat by Pulse 99 Oximetry Medical Decision Making - Medical Decision Making This is a 78-year-old male who presents to the emergency department with chief complaint of urinary issues. Patient states that he presented to the emergency department earlier today for urinary retention and a Gamez catheter was placed. Patient states that he was discharged home at approximately 3 PM. He states that he has had minimal urine output into the bag. He reports lower abdominal pain, urgency and spasms. Patient states he has been drinking fluids. On exam , the nurse noticed that the Gamez catheter was not draining because the clamp was closed and the bag was originally installed upside down. This was corrected and urine freely flowed into the bag. A new bag was installed. Patient notes significant improvement in symptoms. Recommended following up with Dr. Hillman tomorrow morning. Patient's vital signs are stable and he is in no acute distress. He will be discharged home at this time. All questions answered. Disposition Clinical Impression: Gamez catheter problem Disposition: HOME SELF-CARE Condition: Good Instructions: Gamez Catheter Placement and Care (ED) Additional Instructions: Please follow-up with Dr. Hillman in the morning. Please follow up with primary care provider within 1-2 days. Return to emergency department if symptoms should worsen or any concerns arise. Is patient prescribed a controlled substance at d/c from ED?: No Referrals: Dagoberto Munoz DO [Primary Care Provider] - 1-2 days Time of Disposition: 00:37
[2018-07-06 00:53] VITALS: BP 162/59; PULSE 68; RESP 17; TEMP 98.8
== END 2018-07-06 00:53 | disposition home or self-care (01) ==
LOC: EC 22:35
DX: T83.098A Other mechanical complication of other urinary catheter, initial encounter (principal); E03.9 Hypothyroidism, unspecified; Z85.46 Personal history of malignant neoplasm of prostate; Z85.828 Personal history of other malignant neoplasm of skin; Z86.14 Personal history of Methicillin resistant Staphylococcus aureus infection; Z87.19 Personal history of other diseases of the digestive system; Z90.49 Acquired absence of other specified parts of digestive tract; Z93.3 Colostomy status; Z96.642 Presence of left artificial hip joint; Z79.899 Other long term (current) drug therapy; Y84.6 Urinary catheterization as the cause of abnormal reaction of the patient, or of later complication, without mention of misadventure at the time of the procedure
CPT/HCPCS: 51702; 81003; 87086; 99283

== ENCOUNTER → 2019-05-10 | Outpatient (CLI) | payer MEDICARE | END | disposition home or self-care (01) | LOC: LABWHC1 15:10 | PROVIDERS: ATTEND Urology | DX: C61 Malignant neoplasm of prostate (principal) | CPT/HCPCS: 36415; 84153 ==

== ENCOUNTER → 2019-08-23 | Outpatient (CLI) | payer MEDICARE ==
--- NOTE | 2019-08-23 14:20 | MR ---
EXAMINATION TYPE: MR knee RT wo con DATE OF EXAM: 08/23/2019 COMPARISON: Bilateral knee x-rays dated 08/06/2019 HISTORY: Right knee pain TECHNIQUE: Multiplanar, multisequence imaging of the right knee is performed without IV contrast. FINDINGS: MEDIAL MENISCUS: There is an oblique tear of the posterior horn of the medial meniscus contiguous wit h the inferior articular surface. There is also a radial tear of the free edge of the anterior body o f the medial meniscus. There is ar 4 mm parameniscal cyst. LATERAL MENISCUS: There is an oblique tear of the posterior horn of the lateral meniscus contiguous w ith the inferior articular surface. There is some extent into the meniscal body from a longitudinal c omponent. The tear appears to extend to the meniscal root posteriorly. CRUCIATE LIGAMENTS: The anterior and posterior cruciate ligaments are intact and unremarkable. COLLATERAL LIGAMENTS: The medial collateral ligament and lateral collateral ligament complex are inta ct. There is very mild high signal superficial to the medial collateral ligament suggesting medial co llateral ligament bursitis. EXTENSOR MECHANISM: Visualized quadriceps and patellar tendons are intact. There is slight increased signal seen on the insertional fibers of the quadriceps tendon with overlying subcutaneous edema in t he peripatellar region indicative of mild tendinosis. EFFUSION: Very small joint effusion. POPLITEAL CYST: No popliteal/hall cyst. TRICOMPARTMENT SPACES: There are small tricompartmental osteophytes. Joint spaces remain aligned CARTILAGE: There is a partial thickness defect of the weightbearing surface of the lateral compartmen t measuring 1.1 cm. Within the medial compartment there is generalized cartilaginous thinning and def ect of the medial tibial plateau measuring 7 mm. Patellofemoral compartment demonstrates mild thinnin g throughout, diffuse heterogeneity, small fissures, and medial facet near full-thickness defect robert uring 1.2 cm without underlying bone marrow edema. BONE MARROW SIGNAL: There is a small focus of bone marrow edema of the lateral tibia measuring 7 mm i n the proximal metaphysis. OTHER: There is a tear in the popliteus measuring 0.5 x 0.6 cm. This is intrasubstance with mild ten dinosis of the insertional fibers. IMPRESSION: 1. Oblique tear of the posterior horn of the medial meniscus with 4 mm parameniscal cyst. There is al so relates here the free edge of the anterior body of the medial meniscus. 2. Oblique tear posterior horn of the lateral meniscus contiguous with the inferior articular surface and extends into the meniscal root and body. 3. Small intrasubstance tear of the popliteus muscle and high signal of the insertional fibers indica ting tendinosis, appearing mild in degree. 4. Mild tricompartmental arthrosis and chondrosis. 5. Very small area of bone marrow edema of the lateral tibial metaphysis. 6. Slight high signal overlying the medial collateral ligament suggesting mild medial collateral liga ment bursitis. 7. Mild quadriceps insertional fiber tendinosis.
== END | disposition home or self-care (01) ==
LOC: RADMRIMAIN 10:59
PROVIDERS: ATTEND Orthopaedic Surgery
DX: S83.241A Other tear of medial meniscus, current injury, right knee, initial encounter (principal); S83.281A Other tear of lateral meniscus, current injury, right knee, initial encounter; M17.11 Unilateral primary osteoarthritis, right knee; M67.88 Other specified disorders of synovium and tendon, other site

== ENCOUNTER → 2019-09-17 | Outpatient (CLI) | payer MEDICARE ==
[2019-09-17 15:44] LABS: Basophils % (A) 1 %; Eosinophils # (A) 0.1 k/uL (0-0.7); Eosinophils % (A) 3 %; HCT 38.9 % (39.0-53.0); Lymphocytes # (A) 1.2 k/uL (1.0-4.8); Lymphocytes % (A) 28 %; MCH 33.3 pg (25.0-35.0); MCHC 33.5 g/dL (31.0-37.0); MCV 99.4 fL (80.0-100.0); Mean Platelet Volume 6.2; Monocytes # (A) 0.2 k/uL (0-1.0); Monocytes % (A) 5 %; Neutrophils # (A) 2.6 k/uL (1.3-7.7); Neutrophils % (A) 60 %; Platelet Count 173 k/uL (150-450); RBC 3.91 m/uL (4.30-5.90); RDW 12.1 % (11.5-15.5); WBC 4.4 k/uL (3.8-10.6)
[2019-09-17 15:50] LABS: Potassium 4.6 mmol/L (3.5-5.1)
== END | disposition home or self-care (01) ==
LOC: LABPAT 14:35
PROVIDERS: ATTEND Orthopaedic Surgery
DX: Z01.818 Encounter for other preprocedural examination (principal); Z01.812 Encounter for preprocedural laboratory examination; M23.91 Unspecified internal derangement of right knee
CPT/HCPCS: 80051; 85025; 93005

== ENCOUNTER → 2019-09-17 | Outpatient (CLI) | payer MEDICARE | LOC: LABWHC1 14:40 | DX: C61 Malignant neoplasm of prostate (principal) | CPT/HCPCS: 36415; 84153; 84403 ==

== ENCOUNTER 2019-09-30 12:37 | Day surgery (SDC) | payer MEDICARE ==
[2019-09-28 15:56] VITALS: BMI 24.4
--- NOTE | 2019-09-29 16:06 | HP ---
HISTORY AND PHYSICAL DATE OF SURGERY: 09/30/2019 Vasyl Khalil is a 79-year-old patient seen with progressive right knee pain. We discussed options for treatment. He elected to proceed with right knee arthroscopy. Consent was obtained. PAST MEDICAL HISTORY: Hypothyroidism. PAST SURGICAL HISTORY: Knee arthroscopy. DAILY MEDICATIONS: Synthroid. ALLERGIES: NONE. SOCIAL HISTORY: Denies tobacco use. PHYSICAL EVALUATION OF RIGHT KNEE: Range of motion is 0 to 125. There is tenderness along the medial joint line. Positive medial Keturah's. Ligaments are stable. Hip rotation without pain. Distal neurovascular exam is intact. RADIOGRAPHS: Radiographs of the right knee revealed mild to moderate osteoarthritis. MRI of the right knee revealed medial and lateral meniscal tears. IMPRESSION: 1. Internal derangement of the right knee with medial and lateral meniscal tears. 2. Right knee osteoarthritis. 3. Hypothyroidism. PLAN: Right knee arthroscopy with partial meniscectomy and debridement. MMODL / IJN: [id number] /
[~2019-09-30 12:37] MED LIST changes: -HEPARIN SODIUM,PORCINE 5,000 UNIT/ML 1 ML VIAL SQ ONE; +LACTATED RINGERS 1,000 ML IV SCH; +LIDOCAINE 1% 20 ML VIAL (10MG/ML) FOR IV START INTRADERMA PRN; -ONDANSETRON 4 MG/2 ML VIAL IVP ONE; +SCOPOLAMINE 1.5MG/72HR PATCH TRANSDERM ONE; -ceFAZolin IN SWFI 2 GM/20 ML SYRINGE IVP ONE; -metroNIDAZOLE-NS PMX 500 MG in SALINE 1 100ML.BAG IVPB ONE
[2019-09-30] MEDS ORDERED: ONDANSETRON 4 MG/2 ML VIAL IVP ONE (13:20)
[2019-09-30] MEDS ORDERED: MIDAZOLAM 2 MG/2 ML VIAL ONE (14:02)
[2019-09-30] MEDS ORDERED: LIDOCAINE 1% INJ 10MG/ML (20 ML MDV) ONE (14:02)
[2019-09-30] MEDS ORDERED: SUCCINYLCHOLINE CHLORIDE 100 MG/5 ML SYR IV ONE (14:02)
[2019-09-30] MEDS ORDERED: PROPOFOL 10 MG/ML 20 ML VIAL IV ONE (14:02)
[2019-09-30] MEDS ORDERED: fentaNYL (PF) 50 MCG/ML 2 ML AMP ONE (14:02)
[2019-09-30] MEDS ORDERED: BUPIVACAINE (PF) 0.25% 30 ML VIAL SQ ONE (14:27)
--- NOTE | 2019-09-30 14:52 | P.OP ---
Date of Procedure: 09/30/19 Preoperative Diagnosis: Internal derangement right knee Postoperative Diagnosis: 1. Medial meniscal tear right knee 2. Grade 2/3 chondromalacia medial femoral condyle right knee 3. Reactive synovitis medial, lateral and suprapatellar compartments right knee Procedure(s) Performed: 1. Arthroscopic partial medial meniscectomy right knee 2. Arthroscopic chondroplasty medial femoral condyle right knee 3. Arthroscopic partial synovectomy medial, lateral and suprapatellar compartments right knee Anesthesia: JOVANNAA, local Surgeon: Thomas Holland Estimated Blood Loss (ml): 5 Pathology: none sent Condition: stable Disposition: PACU Indications for Procedure: 79-year-old patient seen with progressive right knee pain. After treatment options were discussed, he elected to proceed with arthroscopy. Operative Findings: See description of procedure Description of Procedure: Patient was taken to the operative suite. Patient underwent a general anesthetic by the department of anesthesia. Patient was given preoperative antibiotics. The right lower extremity was placed in a well-padded arthroscopic leg bee. The right leg was prepped and draped in the normal sterile orthopedic fashion. A lateral parapatellar and suprapatellar incision was made. Trochars were inserted. Arthroscopy was initiated. Suprapatellar pouch revealed diffuse thick reactive synovitis. The patellofemoral joint appeared to articulate congruently. There was grade 1/2 chondromalacia of the patella with no osteochondral tears present. The scope was guided into the medial gutter. No loose bodies or plica were identified. The scope was then guided into the medial compartment. A medial parapatellar incision was made. Trocar inserted followed by probe. There was a complex tear involving the posterior horn medial meniscus. There was a radial tear anterior horn medial meniscus. There were grade 2/3 chondromalacia changes of the medial femoral condyle with osteochondral flap tears present. There was thick reactive synovitis anteriorly. I performed a partial medial meniscectomy getting down to stable meniscal tissue. I performed a chondroplasty of the medial femoral condyle getting down to stable osteochondral tissue. I performed a partial synovectomy decompressing the thick reactive synovitis. The residual meniscus was stable. There was good decompression of the synovitis. The residual osteochondral surface was stable. Scope and probe were then guided into the intercondylar notch. Cruciates were identified, probed and found to be stable. The scope and probe were then guided into lateral compartment. There was some mild fraying midbody lateral meniscus. There was thick reactive synovitis anteriorly. There was no significant chondromalacia. I debrided that mild fraying of the lateral meniscus. I performed a partial synovectomy decompressing the thick reactive synovitis. There was good decompression of the synovitis. The scope was in guided back into the suprapatellar compartment. I introduced a motorized shaver into the suprapatellar compartment. I debrided some piecemeal fragments of meniscus I encountered. I performed a partial synovectomy decompressing reactive synovitis. The shaver was removed. I took one more look on the entire knee, no residual debris. Instruments were now removed from the joint. The joint was infiltrated with .25% Marcaine. Steri-Strips were applied to the portal sites. Sterile dressings were applied. The patient was placed into a SOCO hose. No tourniquet was utilized. The patient was awakened, transferred to a bed and taken to recovery stable satisfactory condition.
[2019-09-30 15:00] VITALS: TEMP 96.9
[2019-09-30 15:43] VITALS: PULSE 64
[2019-09-30 16:09] VITALS: RESP 18
[2019-09-30 17:16] VITALS: BP 128/67
== END 2019-09-30 16:55 | disposition home or self-care (01) ==
LOC: OR 12:37
PROVIDERS: ATTEND Orthopaedic Surgery
DX: M23.221 Derangement of posterior horn of medial meniscus due to old tear or injury, right knee (principal); M23.211 Derangement of anterior horn of medial meniscus due to old tear or injury, right knee; M22.41 Chondromalacia patellae, right knee; M94.261 Chondromalacia, right knee; M65.861 Other synovitis and tenosynovitis, right lower leg; E03.9 Hypothyroidism, unspecified; M17.11 Unilateral primary osteoarthritis, right knee; E78.5 Hyperlipidemia, unspecified; I10 Essential (primary) hypertension; C61 Malignant neoplasm of prostate; Z79.890 Hormone replacement therapy; Z79.899 Other long term (current) drug therapy; Z90.49 Acquired absence of other specified parts of digestive tract
CPT/HCPCS: 29881; 29876; J2250; J1100; J0690; J2405; J2001; J3010; J0330; J2704

== ENCOUNTER → 2019-10-11 | Outpatient (CLI) | payer MEDICARE ==
[2019-10-11 15:14] LABS: African American GFR (CKD) >90 (>60 ml/min/1.73 sqM); Blood Urea Nitrogen 23 mg/dL (9-20); Non-African American GFR(CKD) 86 (>60 ml/min/1.73 sqM)
--- NOTE | 2019-10-12 10:05 | CT ---
EXAMINATION TYPE: CT abdomen pelvis w con DATE OF EXAM: 10/12/2019 COMPARISON: 03/16/2018 and 03/28/2014 HISTORY: 79 year-old male lower abdominal pain, 2018 hernia repair pain TECHNIQUE: Contiguous axial scanning of the abdomen and pelvis following administration of 100 ml Iso gordon 300 IV contrast. Delayed images through the kidneys and coronal/sagittal reconstructions perform ed. CT DLP: 1063.6 mGycm Automated exposure control for dose reduction was used. FINDINGS: Heart normal size without pericardial effusion. A few scattered pericardial calcifications suggesting sequela of prior pericarditis. Three-vessel coronary artery calcifications are present. Lung bases c lear without pleural effusion. No focal liver lesion or biliary ductal dilatation. Portal venous system is patent. Gallbladder, left adrenal gland, spleen, and pancreas appear within normal limits. Diverticulum of th e second portion of the duodenum projecting into the pancreatic region. Stable 1.3 cm right adrenal nodule as compared to 2014 suggesting underlying benign adrenal adenoma. Right kidney within normal limits. Stable 4.7 cm left-sided parapelvic cysts. No dilated small bowel, free fluid, or free air. Air ventral abdominal wall hernia repair. However, there is persistent supraumbilical rectus diastase s with anterior bulging laxity. Numerous small defects are present through the linea alba extending a pproximately 10 cm craniocaudal, refer to sagittal image 60-73 for examples. The largest area of maureen iating omental fat measures 3.9 cm wide along the epigastric region. There is mild subcutaneous edema in the left paramedian region directly above the umbilicus, referred axial image 49. No mesenteric or retroperitoneal lymphadenopathy. Moderate to large stool burden. Metal artifact from the patient's left thoracoplasty limits visualization of pelvic structures. This seems to be a staple line along the rectosigmoid junction from prior resection and reanastomosis. Bones: Degenerative changes of the right hip. Left vertebral artery plasty. Moderate to advanced dege nerative disc disease L4-L5 and L5-S1. Vascular disease. Facet arthropathy lower lumbar spine. IMPRESSION: 1. PRIOR VENTRAL ABDOMINAL WALL MESH REPAIR. NUMEROUS SMALL FATTY INCISIONAL HERNIAS ARE PRESENT MICHAEL G THE SUPRAUMBILICAL MIDLINE SPANNING 10.0 CM CRANIOCAUDAL. THE LARGEST SUCH OUTPOUCHING MEASURES 3.9 CM WIDE ALONG THE EPIGASTRIC REGION. 2. ADDITIONALLY, THERE IS A SMALL AMOUNT OF FOCAL EDEMA WITHIN THE SUBCUTANEOUS ADIPOSE ALONG THE LEF T PARAMEDIAN MIDLINE JUST ABOVE THE UMBILICUS. SOME LOCALIZED INFLAMMATION IS SUGGESTED HERE. 3. PERSISTENT RECTUS DIASTASES THROUGHOUT WITH ANTERIOR BULGING LAXITY. 4. LARGE STOOL BURDEN.
== END | disposition home or self-care (01) ==
LOC: RADCTMAIN 14:10
PROVIDERS: ATTEND Surgery
DX: K43.2 Incisional hernia without obstruction or gangrene (principal); K42.9 Umbilical hernia without obstruction or gangrene; M62.08 Separation of muscle (nontraumatic), other site; K62.89 Other specified diseases of anus and rectum; Z98.890 Other specified postprocedural states; Z01.812 Encounter for preprocedural laboratory examination
CPT/HCPCS: 82565; 84520; 74177; 36415; Q9967

== ENCOUNTER → 2020-04-19 | Outpatient (CLI) | payer MEDICARE | END | disposition home or self-care (01) | LOC: LABWHC1 12:04 | PROVIDERS: ATTEND Urology | DX: C61 Malignant neoplasm of prostate (principal) | CPT/HCPCS: 36415; 84153; 84403 ==

== ENCOUNTER → 2020-09-25 | Outpatient (CLI) | payer MEDICARE ==
[2020-09-26 02:01] LABS: Prostate Specific Antigen <0.1 ng/mL (0.0-6.5); Testosterone <7.00 ng/dL (86.98-780.10)
== END | disposition home or self-care (01) ==
LOC: LABWHC1 12:07
PROVIDERS: ATTEND Urology
DX: C61 Malignant neoplasm of prostate (principal)
CPT/HCPCS: 36415; 84153; 84403

== ENCOUNTER → 2020-11-24 | Outpatient (CLI) | payer MEDICARE ==
[2020-11-24 19:58] LABS: Prostate Specific Antigen 0.1 ng/mL (0.0-6.5)
== END | disposition home or self-care (01) ==
LOC: LABWHC1 12:04
PROVIDERS: ATTEND Urology
DX: C61 Malignant neoplasm of prostate (principal)
CPT/HCPCS: 36415; 84153; 84403

== ENCOUNTER 2021-02-09 09:28 | Emergency (ER) | payer MEDICARE ==
[2021-02-09 09:35] VITALS: BP 113/71; PULSE 76; RESP 19; TEMP 98.9
--- NOTE | 2021-02-09 10:14 | ED ---
General Adult HPI - General Chief complaint: Fever Stated complaint: COVID + Time Seen by Provider: 02/09/21 10:01 Source: patient, RN notes reviewed Mode of arrival: ambulatory Limitations: no limitations - History of Present Illness Initial comments: Patient is a 80-year-old male that presents to emergency department complaining of Covid since February 07. He noted that he went to [facility] after decided to begin experiencing some symptoms such as cough and fever. He tested positive and he did bring his results with him the emergency room. He notes that he was referred to the emergency room for monoclonal antibody therapy as he meets the criteria to his age weight and time frame of onset of symptoms. He denied any other complaints or issues that he noted that he did some research on the monoclonal antibody and noted that it prevents hospitalization and increase in symptoms by good margin and wants to get a therapy to prevent him from po tentially get admitted to the hospital. She did note that he had a mild cough and a fever intermittently. He denied any other symptoms or complaints. He denied any chest pain shortness of breath headache nausea vomiting diarrhea constipation or chills fatigue. - Related Data Home Medications Medication Instructions Recorded Confirmed Lupron(Dose Unkown) 1 dose IV Q180D 09/28/19 02/09/21 Levothyroxine Sodium [Synthroid] 125 mcg PO HS 02/09/21 02/09/21 Niacin [Niacin ER] 1,000 mg PO BID 02/09/21 02/09/21 Allergies Allergy/AdvReac Type Severity Reaction Status Date / Time No Known Allergies Allergy Verified 02/09/21 11:54 Review of Systems ROS Statement: Those systems with pertinent positive or pertinent negative responses have been documented in the HPI. ROS Other: All systems not noted in ROS Statement are negative. Past Medical History Past Medical History: Cancer, Hyperlipidemia, Osteoarthritis (OA), Prostate Disorder, Thyroid Disorder Additional Past Medical History / Comment(s): In February 2018 pelvic abscess,diverticulitis,small bowel obs, HX OF PROSTATE CANCER WITH RADIATION (2013), SQUAMOUS CELL SKIN CANCER, CHRONIC SINUSITIS, , HYPOTHYROID., STATES PAST HX OF BACK PROBLEMS. History of Any Multi-Drug Resistant Organisms: MRSA Date of last positivie culture/infection: 04/01/18 MDRO Source:: ABDOMEN Surgical Site Past Surgical History: Adenoidectomy, Bowel Resection, Orthopedic Surgery, Prostate Surgery, Tonsillectomy Additional Past Surgical History / Comment(s): Exploratory Laparotomy Lysis of Adhesions Small Bowel Resection Partial Colectomy w/Colostomy 03-17-18,rt knee surgery, Lt HIP REPLACED, had gamez cath placed after 03/17/18 surgery. Past Anesthesia/Blood Transfusion Reactions: No Reported Reaction Additional Past Anesthesia/Blood Transfusion Reaction / Comment(s): No hx blood transfusion Past Psychological History: No Psychological Hx Reported Smoking Status: Never smoker Past Alcohol Use History: Rare - Past Family History Mother Family Medical History: No Reported History Sister(s) Family Medical History: CVA/TIA Father Family Medical History: Myocardial Infarction (MS) General Exam Limitations: no limitations General appearance: alert, in no apparent distress Head exam: Present: atraumatic, normocephalic, normal inspection Eye exam: Present: normal appearance, PERRL, EOMI. Absent: scleral icterus, conjunctival injection, periorbital swelling ENT exam: Present: normal exam, mucous membranes moist Neck exam: Present: normal inspection. Absent: tenderness, meningismus, lymphadenopathy Respiratory exam: Present: normal lung sounds bilaterally. Absent: respiratory distress, wheezes, rales, rhonchi, stridor Cardiovascular Exam: Present: regular rate, normal rhythm, normal heart sounds. Absent: systolic murmur, diastolic murmur, rubs, gallop, clicks GI/Abdominal exam: Present: soft, normal bowel sounds. Absent: distended, tenderness, guarding, rebound, rigid Extremities exam: Present: normal inspection, full ROM, normal capillary refill. Absent: tenderness, pedal edema, joint swelling, calf tenderness Neurological exam: Present: alert, oriented X3, CN II-XII intact Psychiatric exam: Present: normal affect, normal mood Skin exam: Present: warm, dry, intact, normal color. Absent: rash Course Vital Signs 02/09/21 09:32 Temperature 98.9 F Pulse Rate 76 Respiratory 19 Rate Blood Pressure 113/71 O2 Sat by Pulse 99 Oximetry Medical Decision Making - Medical Decision Making 80-year-old male that tested positive for Covid on 02/07/2021 present for monoclonal antibody therapy. Chest x-ray ordered, Covid test withheld due to patient bringing results from urgent care visit with him. Monoclonal antibody therapy ordered. Patient was educated on the benefits versus risks and the treatment process. Case discussed with Dr. Zimmerman, patient can discharge home. - Radiology Data Radiology results: report reviewed, image reviewed Chest x-ray: No acute cardiopulmonary process. Disposition Clinical Impression: COVID-19 Disposition: HOME SELF-CARE Condition: Stable Instructions (If sedation given, give patient instructions): Coronavirus Disease 2019 (COVID-19) Additional Instructions: Please return to the Emergency Department if symptoms worsen or any other concerns. Follow-up with primary care in 2-5 days. Take [id number] anti-inflammatories for a muscle aches pains or fever. Increase oral fluid intake. Is patient prescribed a controlled substance at d/c from ED?: No Referrals: Dagoberto Munoz DO [Primary Care Provider] - 1-2 days Time of Disposition: 12:09
--- NOTE | 2021-02-09 10:57 | XR ---
EXAMINATION TYPE: XR chest 2V DATE OF EXAM: 02/09/2021 COMPARISON: NONE HISTORY: Covid infection TECHNIQUE: Frontal and lateral views of the chest are obtained. FINDINGS: There is no focal air space opacity, pleural effusion, or pneumothorax seen. The cardiac silhouette size is within normal limits. The osseous structures are intact. Patient is rotated. IMPRESSION: No acute cardiopulmonary process.
[2021-02-09] MEDS ORDERED: BAMLANIVIMAB 700 MG in SODIUM CHLORIDE 0.9% 50 ML IVPB ONE (11:00)
== END 2021-02-09 12:31 | disposition home or self-care (01) ==
LOC: EC 09:28
DX: U07.1 COVID-19 (principal); E78.5 Hyperlipidemia, unspecified; M19.90 Unspecified osteoarthritis, unspecified site; Z85.46 Personal history of malignant neoplasm of prostate
CPT/HCPCS: 71046; 99283; 96374; Q0239

== ENCOUNTER → 2021-05-17 | Outpatient (CLI) | payer MEDICARE ==
[2021-05-18 02:25] LABS: Prostate Specific Antigen <0.1 ng/mL (0.0-6.5); Testosterone <7.00 ng/dL (86.98-780.10)
== END | disposition home or self-care (01) ==
LOC: LABWHC1 15:18
PROVIDERS: ATTEND Urology
DX: C61 Malignant neoplasm of prostate (principal)
CPT/HCPCS: 36415; 84153; 84403

== ENCOUNTER → 2021-08-31 | Outpatient (CLI) | payer MEDICARE ==
--- NOTE | 2021-09-01 04:36 | MR ---
EXAMINATION TYPE: MR knee LT wo con DATE OF EXAM: 08/31/2021 COMPARISON: 08/23/2019 HISTORY: Left inner knee pain, pain behind knee, pain around kneecap for 7 weeks. History of knee lyn cyrus Multiplanar multiecho imaging of the left knee without contrast. The anterior and posterior cruciate ligaments are intact. There is moderate size knee joint effusion. There is some thinning and increased signal in the medial collateral ligament. The lateral collatera l ligament appears intact. There is large horizontal tear of the posterior horn of the medial meniscu s extending to the inferior surface. There is also tear of the anterior horn medial meniscus extendin g to the superior surface. Patella is intact. There is no evidence of a fracture. I see no bony destr uctive process. There is subcutaneous edema around the knee which is more on the medial aspect. IMPRESSION: Large horizontal tear of the anterior posterior horns of the medial meniscus. Partial tea r of the medial collateral ligament. Moderate knee joint effusion. No fracture.
== END | disposition home or self-care (01) ==
LOC: RADMRIMAIN 18:56
PROVIDERS: ATTEND Orthopaedic Surgery
DX: M23.322 Other meniscus derangements, posterior horn of medial meniscus, left knee (principal); M23.312 Other meniscus derangements, anterior horn of medial meniscus, left knee; M25.462 Effusion, left knee

== ENCOUNTER 2021-10-24 10:02 | Day surgery (SDC) | payer MEDICARE ==
[2021-10-22 10:55] VITALS: BMI 23.6
--- NOTE | 2021-10-23 19:50 | HP ---
HISTORY AND PHYSICAL DATE OF SURGERY: 10/24/2021 Vasyl Khalil is an 81-year-old gentleman seen with progressive left knee pain. We discussed options for treatment. He elected to proceed with arthroscopy. Consent was obtained. Medical clearance was provided by Dr. Dagoberto Munoz. PAST MEDICAL HISTORY: Hypothyroidism. PAST SURGICAL HISTORY: Knee arthroscopy, total hip arthroplasty, abdominal surgery, prostatectomy. DAILY MEDICATIONS: Lupron, Synthroid. ALLERGIES: NONE. SOCIAL HISTORY: He denies tobacco use. PHYSICAL EVALUATION OF THE LEFT KNEE: Range of motion is zero to 135. Mild effusion. Tenderness, medial joint line. Positive medial Keturah's. Ligaments stable. Hip rotation without pain. Distal neurovascular exam intact. Radiographs of the left knee show moderate osteoarthritis. MRI left knee shows medial meniscal tear and effusion. IMPRESSION: 1. Internal derangement of left knee with medial meniscal tear. 2. Hypothyroidism. PLAN: Left knee arthroscopy with partial meniscectomy and debridement. MMODL / IJN: [id number] /
[~2021-10-24 10:02] MED LIST changes: -DEXAMETHASONE SOD PHOSPHATE 10 MG/ML 1 ML VIAL IV ONE; +DEXAMETHASONE SOD PHOSPHATE 4 MG/ML 1 ML VIAL IV ONE; +LIDOCAINE 1% (10MG/ML) FOR IV START INTRADERMA PRN; -LIDOCAINE 1% 20 ML VIAL (10MG/ML) FOR IV START INTRADERMA PRN; +MIDAZOLAM 2 MG/2 ML VIAL IV PRN; +ONDANSETRON 4 MG/2 ML VIAL IVP ONE; -SCOPOLAMINE 1.5MG/72HR PATCH TRANSDERM ONE
[2021-10-24 10:53] VITALS: RESP 16
[2021-10-24] MEDS ORDERED: .fentaNYL (PF) 50 MCG/ML 2 ML AMP ONE (11:48)
[2021-10-24] MEDS ORDERED: LIDOCAINE 1% INJ 10MG/ML (20 ML MDV) ONE (11:48)
[2021-10-24] MEDS ORDERED: PROPOFOL 10 MG/ML 20 ML VIAL IV ONE (11:48)
[2021-10-24] MEDS ORDERED: SUCCINYLCHOLINE CHLORIDE 100 MG/5 ML SYR IV ONE (11:48)
[2021-10-24] MEDS ORDERED: BUPIVACAINE (PF) 0.25% 30 ML VIAL INTRAARTIC ONE (11:59)
--- NOTE | 2021-10-24 12:42 | P.OP ---
Date of Procedure: 10/24/21 Preoperative Diagnosis: Internal derangement left knee Postoperative Diagnosis: 1. Complex tear medial meniscus left knee 2. Reactive synovitis medial, lateral and suprapatellar compartments left knee Procedure(s) Performed: 1. Arthroscopic partial medial meniscectomy left knee 2. Arthroscopic partial synovectomy medial, lateral and suprapatellar compartments left knee Anesthesia: JOVANNAA, local Surgeon: Thomas Holland Estimated Blood Loss (ml): 5 Pathology: none sent Condition: stable Disposition: PACU Indications for Procedure: 81-year-old patient seen with progressive left knee pain. After treatment options were discussed, he elected to proceed with arthroscopy. Operative Findings: See description of procedure Description of Procedure: Patient was taken to the operative suite. Patient underwent a general ane sthetic by the department of anesthesia. Patient was given preoperative antibiotics. The left lower extremity was placed in a well-padded arthroscopic leg bee. The left leg was prepped and draped in the normal sterile orthopedic fashion. A lateral parapatellar and suprapatellar incision was made. Trochars were inserted. Arthroscopy was initiated. Suprapatellar pouch revealed diffuse thick reactive synovitis. The patellofemoral joint appeared to articulate congruently. There was grade 1 chondromalacia of the patella with no osteochondral tears present. The scope was guided into the medial gutter. No loose bodies or plica were identified. The scope was then guided into the medial compartment. A medial parapatellar incision was made. Trocar inserted followed by probe. There was a complex tear involving the posterior horn and midbody of the medial meniscus. There were grade 1 chondromalacia changes of the medial femoral condyle without osteochondral tears present. There was thick reactive synovitis anteriorly. I performed a partial medial meniscectomy getting down to stable meniscal tissue. I performed a partial synovectomy decompressing the thick reactive synovitis. Shaver was now removed. The residual meniscus was probed and found to be stable. Scope and probe were then guided into the intercondylar notch. Cruciates were identified, probed and found to be stable. The scope and probe were then guided into lateral compartment. Lateral meniscus was probed and was found to be stable. There was some thick reactive synovitis anteriorly. There was no chondromalacia present. I introduced a motorized shaver and I performed a partial synovectomy. The shaver was removed. There was good decompression of the synovitis. The scope was in guided back into the suprapatellar compartment. I introduced a motorized shaver into the super compartment. I debrided some piecemeal fragments of meniscus I encountered. I performed a partial synovectomy. Shaver was removed. There was good decompression of the synovitis. I took one more look on the entire knee, no residual debris. Instruments were now removed from the joint. The joint was infiltrated with .25% Marcaine. Steri-Strips were applied to the portal sites. Sterile dressings were applied. The patient was placed into a SOCO hose. No tourniquet was utilized. The patient was awakened, transferred to a bed and taken to recovery stable satisfactory condition.
[2021-10-24 12:51] VITALS: TEMP 96.9
[2021-10-24 13:57] VITALS: BP 145/64; PULSE 56
== END 2021-10-24 14:30 | disposition home or self-care (01) ==
LOC: OR 10:02
PROVIDERS: ATTEND Orthopaedic Surgery
DX: S83.232A Complex tear of medial meniscus, current injury, left knee, initial encounter (principal); E07.9 Disorder of thyroid, unspecified; Z79.899 Other long term (current) drug therapy
CPT/HCPCS: 29881; 29876; J1100; J0690; J2405; J2001; J3010; J0330; J2704

== ENCOUNTER → 2021-11-26 | Outpatient (CLI) | payer MEDICARE | END | disposition home or self-care (01) | LOC: LABWHC1 11:02 | PROVIDERS: ATTEND Urology | DX: R97.20 Elevated prostate specific antigen [PSA] (principal) | CPT/HCPCS: 36415; 84153 ==

== ENCOUNTER → 2022-09-09 | Outpatient (CLI) | payer MEDICARE ==
--- NOTE | 2022-09-09 15:17 | US ---
EXAMINATION TYPE: US venous doppler duplex LE DATE OF EXAM: 09/09/2022 3:00 PM COMPARISON: NONE CLINICAL HISTORY: M79.661 pain right lower leg. Not on blood thinners. No hx blood clots. SIDE PERFORMED: Bilateral TECHNIQUE: The lower extremity deep venous system is examined utilizing real time linear array sonog arnav with graded compression, doppler sonography and color-flow sonography. VESSELS IMAGED: Common Femoral Vein Deep Femoral Vein Greater Saphenous Vein * Femoral Vein Popliteal Vein Small Saphenous Vein * Proximal Calf Veins (* superficial vessels) Right Leg: Negative for DVT Left Leg: Negative for DVT Grayscale, color doppler, spectral doppler imaging performed of the deep veins of the lower extremiti es. There is normal flow, compressibility, vascular waveforms. IMPRESSION: No evidence of deep vein thrombosis of either lower extremity.
== END | disposition home or self-care (01) ==
LOC: RADUSWWP 14:28
PROVIDERS: ATTEND Family Medicine
DX: M79.661 Pain in right lower leg (principal)
CPT/HCPCS: 93970

== ENCOUNTER 2023-11-30 03:09 | Emergency (ER) | payer MEDICARE ==
[2023-11-30 03:40] VITALS: BP 121/70; PULSE 75; RESP 18; TEMP 98.5
[2023-11-30 04:26] LABS: Basophils % (A) 0 %; Eosinophils # (A) 0.2 k/uL (0-0.7); Eosinophils % (A) 3 %; HCT 40.3 % (39.0-53.0); HGB 13.6 gm/dL (13.0-17.5); Lymphocytes # (A) 1.8 k/uL (1.0-4.8); Lymphocytes % (A) 30 %; MCH 33.1 pg (25.0-35.0); MCHC 33.6 g/dL (31.0-37.0); MCV 98.4 fL (80.0-100.0); Mean Platelet Volume 7.1; Monocytes # (A) 0.5 k/uL (0-1.0); Monocytes % (A) 8 %; Neutrophils # (A) 3.4 k/uL (1.3-7.7); Neutrophils % (A) 56 %; Platelet Count 176 k/uL (150-450); RDW 12.3 % (11.5-15.5); WBC 6.1 k/uL (3.8-10.6)
[2023-11-30 04:34] LABS: Appearance,Urine Turbid (Clear); Bacteria,Urine Moderate /hpf; Bilirubin,Urine Negative (Negative); Blood,Urine Large (Negative); Color,Urine Dark Red; Glucose,Urine (UA) Negative (Negative); Hyaline Casts,Urine 68 /lpf (0-2); Ketones,Urine Negative (Negative); Leukocyte Esterase,Urine Small (Negative); Nitrite,Urine Negative (Negative); Protein,Urine 2+ (Negative); RBC,Urine >182 /hpf (0-5); Triple Phosphate Crystal,Urine Few /hpf; Urobilinogen,Urine <2.0 mg/dL (<2.0); WBC,Urine 30 /hpf (0-5)
[2023-11-30 04:36] LABS: Specific Gravity,Urine 1.022 (1.001-1.035)
[2023-11-30 04:53] LABS: ALT 17 U/L (4-49); AST 31 U/L (17-59); African American GFR (CKD) >90 (>60 ml/min/1.73 sqM); Albumin 3.8 g/dL (3.5-5.0); Alkaline Phosphatase 89 U/L (38-126); Anion Gap 6 mmol/L; Blood Urea Nitrogen 25 mg/dL (9-20); Calcium 8.9 mg/dL (8.4-10.2); Carbon Dioxide 28 mmol/L (22-30); Chloride 104 mmol/L (98-107); Glucose 108 mg/dL (74-99); Non-African American GFR(CKD) 86 (>60 ml/min/1.73 sqM); Potassium 4.1 mmol/L (3.5-5.1); Sodium 138 mmol/L (137-145); Total Bilirubin 0.3 mg/dL (0.2-1.3); Total Protein 6.7 g/dL (6.3-8.2)
[2023-11-30] MEDS ORDERED: cefTRIAXone IN SWFI 1,000 MG/10 ML SYRINGE IVP STA (05:36)
--- NOTE | 2023-11-30 05:38 | ED ---
General Adult HPI - General Chief complaint: Urogenital Stated complaint: blood in cath Time Seen by Provider: 11/30/23 03:29 Source: patient, RN notes reviewed, old records reviewed Mode of arrival: ambulatory Limitations: no limitations - History of Present Illness Initial comments: Patient is an 83-year-old male with past medical history remarkable for prostate cancer, with recently placed suprapubic catheter. States that yesterday he began experiencing hematuria. Has been continuing. Is not on blood thinners. Has no other complaints. Presents for further evaluation of this time. He is following up with local urology Dr. Blanc. Presents for further evaluation. Denies any other consultations. 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 Is not on blood thinners. - Related Data Home Medications Medication Instructions Recorded Confirmed Lupron(Dose Unkown) 1 dose IV Q180D 09/28/19 10/24/21 Levothyroxine Sodium [Synthroid] 125 mcg PO HS 02/09/21 10/24/21 Niacin [Niacin ER] 1,000 mg PO BID 02/09/21 10/22/21 Previous Rx's Medication Instructions Recorded Ciprofloxacin HCl [Cipro] 500 mg PO BID 7 Days #14 tab 11/30/23 Allergies Allergy/AdvReac Type Severity Reaction Status Date / Time No Known Allergies Allergy Verified 11/30/23 03:27 Review of Systems ROS Statement: Those systems with pertinent positive or pertinent negative responses have been documented in the HPI. Review of Systems: CONST: Denies fever EYES: Denies blurry vision ENT: Denies nasal congestion C/V: Denies Chest pain RESP: Denies shortness of breath GI: Denies abdominal pain : Endorses hematuria SKIN: Denies rash. MSK: Denies joint pain. NEURO: Denies headache ROS Other: All systems not noted in ROS Statement are negative. Past Medical History Past Medical History: Cancer, Hyperlipidemia, Osteoarthritis (OA), Prostate Disorder, Thyroid Disorder Additional Past Medical History / Comment(s): In February 2018 pelvic absces s,diverticulitis,small bowel obs, HX OF PROSTATE CANCER WITH RADIATION (2013), SQUAMOUS CELL SKIN CANCER, CHRONIC SINUSITIS, , HYPOTHYROID., STATES PAST HX OF BACK PROBLEMS. History of Any Multi-Drug Resistant Organisms: MRSA Date of last positivie culture/infection: 04/01/18 MDRO Source:: ABDOMEN Surgical Site Past Surgical History: Adenoidectomy, Bowel Resection, Orthopedic Surgery, Prostate Surgery, Tonsillectomy Additional Past Surgical History / Comment(s): Exploratory Laparotomy Lysis of Adhesions Small Bowel Resection Partial Colectomy w/Colostomy 03-17-18,rt knee surgery, Lt HIP REPLACED, had gamez cath placed after 03/17/18 surgery. Past Anesthesia/Blood Transfusion Reactions: No Reported Reaction Additional Past Anesthesia/Blood Transfusion Reaction / Comment(s): No hx blood transfusion Past Psychological History: No Psychological Hx Reported Smoking Status: Never smoker Past Alcohol Use History: Occasional Past Drug Use History: None Reported - Past Family History Mother Family Medical History: No Reported History Sister(s) Family Medical History: CVA/TIA Father Family Medical History: Myocardial Infarction ([place]) General Exam - General Exam Comments Initial Comments: General: Appears in no acute distress. HEAD: Normal with no signs of head trauma. EYES: PERRLA, EOMI, conjunctiva normal, no discharge. ENT: Hearing grossly intact, normal oropharynx. RESPIRATORY: Clear breath sounds bilaterally. No wheezes, rales, or rhonchi. C/V: Regular rate and rhythm. S1 and S2 auscultated, no edema, peripheral pulses 2+ and intact throughout ABD: Abd is soft, nontender, nondistended. Suprapubic catheter site is clean with no signs of infection. There is gross hematuria in leg bag. EXT: Normal range of motion, no obvious deformity SKIN: No rashes or lesions observed on exposed skin. NEURO: Alert and oriented x 4. Limitations: no limitations Course Vital Signs 11/30/23 03:26 Temperature 98.5 F Pulse Rate 75 Respiratory 18 Rate Blood Pressure 121/70 O2 Sat by Pulse 99 Oximetry Medical Decision Making - Medical Decision Making Was pt. sent in by a medical professional or institution (, PA, SENIOR ASP NET DEVELOPER, urgent care, hospital, or care home...) When possible be specific @ -No Did you speak to anyone other than the patient for history (EMS, parent, family, police, friend...)? What history was obtained from this source @ -No Did you review nursing and triage notes (agree or disagree)? Why? @ -I reviewed and agree with nursing and triage notes Were old charts reviewed (outside hosp., previous admission, EMS record, old EKG, old radiological studies, urgent care reports/EKG's, care home records)? Report findings @ -No old charts were reviewed Differential Diagnosis (chest pain, altered mental status, abdominal pain women, abdominal pain men, vaginal bleeding, weakness, fever, dyspnea, syncope, headache, dizziness, GI bleed, back pain, seizure, CVA, palpatations, mental health, musculoskeletal)? @ -Hematuria, UTI, dysfunctional suprapubic catheter. This list is not all- inclusive. EKG interpreted by me (3pts min.). @ -None done X-rays interpreted by me (1pt min.). @ -None done CT interpreted by me (1pt min.). @ -None done U/S interpreted by me (1pt. min.). @ -None done What testing was considered but not performed or refused? (CT, X-rays, U/S, labs)? Why? @ -None What meds were considered but not given or refused? Why? @ -None Did you discuss the management of the patient with other professionals (professionals i.e. , PA, SENIOR ASP NET DEVELOPER, lab, RT, psych nurse, psychotherapist social worker, client solutions manager, teacher, principal gifts officer, case worker)? Give summary @ -No Was smoking cessation discussed for >3mins.? @ -No Was critical care preformed (if so, how long)? @ -No Were there social determinants of health that impacted care today? How? (Homelessness, low income, unemployed, alcoholism, drug addiction, transportation, low edu. Level, literacy, decrease access to med. care, [facility], rehab)? @ -No Was there de-escalation of care discussed even if they declined (Discuss DNR or withdrawal of care, Hospice)? DNR status @ -No What co-morbidities impacted this encounter? (DM, HTN, Smoking, COPD, CAD, Cancer, CVA, ARF, Chemo, Hep., AIDS, mental health diagnosis, sleep apnea, morbid obesity)? @ -None Was patient admitted / discharged? Hospital course, mention meds given and route, prescriptions, significant lab abnormalities, going to OR and other pertinent info. @ -Patient presents with hematuria and a suprapubic Gamez catheter. No other complaints. We'll obtain basic labs to evaluate kidney function, possible UTI, as well as hemoglobin level. Patient was in agreement this plan. We will irrigate the Gamez catheter multiple times. Vital signs within except for limits. Gamez catheter irrigated with 3-4 L of normal saline with improvement as the urine is now pinkish color. His no longer dark red. Patient's labs are markable for normal hemoglobin, kidney function within acceptable limits, as well as findings suggestive of UTI on urinalysis. I discussed results of the patient. He will be discharged home at this time on antibiotics. He will receive a dose of Rocephin prior to discharge. Recommended he follow-up with his urologist Dr. Blanc. He was in agreement this plan. I will provide the patient with a prescription for ciprofloxacin. I instructed the patient to follow up with their PCP in the next 1-3 days. I explained that the patient should return to the emergency department if they experience any worsening symptoms. Strict return precautions were discussed with the patient. The patient expressed understanding of these instructions. I answered all questions that the patient had. The patient was discharged home in good condition with their prescriptions and follow up information. Undiagnosed new problem with uncertain prognosis? @ -No Drug Therapy requiring intensive monitoring for toxicity (Heparin, Nitro, Insulin, Cardizem)? @ -No Were any procedures done? @ -No Diagnosis/symptom? @ -Hematuria, UTI, suprapubic Gamez catheter Acute, or Chronic, or Acute on Chronic? @ -Acute Uncomplicated (without systemic symptoms) or Complicated (systemic symptoms)? @ -Uncomplicated Side effects of treatment? @ -No Exacerbation, Progression, or Severe Exacerbation? @ -No Poses a threat to life or bodily function? How? (Chest pain, USA, [place], pneumonia, PE, COPD, DKA, ARF, appy, cholecystitis, CVA, Diverticulitis, Homicidal, Suicidal, threat to staff... and all critical care pts) @ -No - Lab Data Result diagrams: 11/30/23 04:03 11/30/23 04:34 Lab Results 11/30/23 11/30/23 11/30/23 Range/Units 04:03 04:19 04:34 WBC 6.1 (3.8-10.6) k/uL RBC 4.10 L (4.30-5.90) m/uL Hgb 13.6 (13.0-17.5) gm/dL Hct 40.3 (39.0-53.0) % MCV 98.4 (80.0-100.0) fL MCH 33.1 (25.0-35.0) pg MCHC 33.6 (31.0-37.0) g/dL RDW 12.3 (11.5-15.5) % Plt Count 176 (150-450) k/uL MPV 7.1 Neutrophils % 56 % Lymphocytes % 30 % Monocytes % 8 % Eosinophils % 3 % Basophils % 0 % Neutrophils # 3.4 (1.3-7.7) k/uL Lymphocytes # 1.8 (1.0-4.8) k/uL Monocytes # 0.5 (0-1.0) k/uL Eosinophils # 0.2 (0-0.7) k/uL Basophils # 0.0 (0-0.2) k/uL Sodium 138 (137-145) mmol/L Potassium 4.1 (3.5-5.1) mmol/L Chloride 104 (98-107) mmol/L Carbon Dioxide 28 (22-30) mmol/L Anion Gap 6 mmol/L BUN 25 H (9-20) mg/dL Creatinine 0.73 (0.66-1.25) mg/dL Est GFR (CKD-EPI)AfAm >90 (>60 ml/min/1.73 sqM) Est GFR (CKD-EPI)NonAf 86 (>60 ml/min/1.73 sqM) Glucose 108 H (74-99) mg/dL Calcium 8.9 (8.4-10.2) mg/dL Total Bilirubin 0.3 (0.2-1.3) mg/dL AST 31 (17-59) U/L ALT 17 (4-49) U/L Alkaline Phosphatase 89 (38-126) U/L Total Protein 6.7 (6.3-8.2) g/dL Albumin 3.8 (3.5-5.0) g/dL Urine Color Dark Red Urine Appearance Turbid (Clear) Urine pH 8.0 (5.0-8.0) Ur Specific [place] 1.022 (1.001-1.035) Urine Protein 2+ H (Negative) Urine Glucose (UA) Negative (Negative) Urine Ketones Negative (Negative) Urine Blood Large H (Negative) Urine Nitrite Negative (Negative) Urine Bilirubin Negative (Negative) Urine Urobilinogen <2.0 (<2.0) mg/dL Ur Leukocyte Esterase Small H (Negative) Urine RBC >182 H (0-5) /hpf Urine WBC 30 H (0-5) /hpf Triple Phos Crystals Few H (None) /hpf Urine Bacteria Moderate H (None) /hpf Hyaline Casts 68 H (0-2) /lpf Disposition Clinical Impression: UTI (urinary tract infection), Suprapubic catheter, Hematuria Disposition: HOME SELF-CARE Condition: Good Instructions (If sedation given, give patient instructions): Urinary Tract Infection in Men (ED) Prescriptions: Ciprofloxacin HCl [Cipro] 500 mg PO BID 7 Days #14 tab Is patient prescribed a controlled substance at d/c from ED?: No Referrals: Dagoberto Munoz DO [Primary Care Provider] - 1-2 days Vega Blanc MD [STAFF PHYSICIAN] - 1-2 days Time of Disposition: 05:25
== END 2023-11-30 06:22 | disposition home or self-care (01) ==
LOC: EC 03:09
DX: T83.091A Other mechanical complication of indwelling urethral catheter, initial encounter (principal); N39.0 Urinary tract infection, site not specified; E03.9 Hypothyroidism, unspecified; Z79.890 Hormone replacement therapy
CPT/HCPCS: 36415; 80053; 85025; 81001; 99283; 96374; J0696

== ENCOUNTER 2023-12-01 13:58 | Emergency (ER) | payer MEDICARE ==
--- NOTE | 2023-12-01 14:00 | ED ---
Male Urogenital HPI - General Stated complaint: abn labs Time Seen by Provider: 12/01/23 13:59 Source: patient, RN notes reviewed - History of Present Illness Initial comments: Patient is an 83-year-old male presented ER with chief complaint of urinary catheter bag problem. Patient states he is unable to get it to drain. Patient has tried sticking a toothpick and it has been unsuccessful. Patient denies any fevers, chills, night sweats. - Related Data Home Medications Medication Instructions Recorded Confirmed Lupron(Dose Unkown) 1 dose IV Q180D 09/28/19 10/24/21 Levothyroxine Sodium [Synthroid] 125 mcg PO HS 02/09/21 10/24/21 Niacin [Niacin ER] 1,000 mg PO BID 02/09/21 10/22/21 Previous Rx's Medication Instructions Recorded Ciprofloxacin HCl [Cipro] 500 mg PO BID 7 Days #14 tab 11/30/23 Allergies Allergy/AdvReac Type Severity Reaction Status Date / Time No Known Allergies Allergy Verified 12/01/23 14:15 Review of Systems ROS Statement: Those systems with pertinent positive or pertinent negative responses have been documented in the HPI. ROS Other: All systems not noted in ROS Statement are negative. Past Medical History Past Medical History: Cancer, Hyperlipidemia, Osteoarthritis (OA), Prostate Disorder, Thyroid Disorder Additional Past Medical History / Comment(s): In February 2018 pelvic abscess,diverticulitis,small bowel obs, HX OF PROSTATE CANCER WITH RADIATION (2013), SQUAMOUS CELL SKIN CANCER, CHRONIC SINUSITIS, , HYPOTHYROID., STATES PAST HX OF BACK PROBLEMS. History of Any Multi-Drug Resistant Organisms: MRSA Date of last positivie culture/infection: 04/01/18 MDRO Source:: ABDOMEN Surgical Site Past Surgical History: Adenoidectomy, Bowel Resection, Orthopedic Surgery, Prostate Surgery, Tonsillectomy Additional Past Surgical History / Comment(s): Exploratory Laparotomy Lysis of Adhesions Small Bowel Resection Partial Colectomy w/Colostomy 03-17-18,rt knee surgery, Lt HIP REPLACED, had gamez cath placed after 03/17/18 surgery. Past Anesthesia/Blood Transfusion Reactions: No Reported Reaction Additional Past Anesthesia/Blood Transfusion Reaction / Comment(s): No hx blood transfusion Past Psychological History: No Psychological Hx Reported Smoking Status: Never smoker Past Alcohol Use History: Occasional Past Drug Use History: None Reported - Past Family History Mother Family Medical History: No Reported History Sister(s) Family Medical History: CVA/TIA Father Family Medical History: Myocardial Infarction ([place]) General Exam - General Exam Comments Initial Comments: Visual Physical Exam Vital signs reviewed General: Well-appearing, nontoxic, no acute distress. Head: Normocephalic, atraumatic Eyes: PERRLA, EOMI ENT: Airway patent Chest: Nonlabored breathing Skin: No visual rash, normal skin tone Neuro: Alert and oriented 3 Musculoskeletal: No gross abnormalities General appearance: alert, in no apparent distress Head exam: Present: atraumatic, normocephalic, normal inspection Respiratory exam: Present: normal lung sounds bilaterally. Absent: respiratory distress, wheezes, rales, rhonchi, stridor Cardiovascular Exam: Present: regular rate, normal rhythm, normal heart sounds. Absent: systolic murmur, diastolic murmur, rubs, gallop, clicks Neurological exam: Present: alert, oriented X3, CN II-XII intact Psychiatric exam: Present: normal affect, normal mood Skin exam: Present: warm, dry, intact, normal color. Absent: rash Course Vital Signs 12/01/23 14:13 Temperature 98 F Pulse Rate 62 Respiratory 16 Rate Blood Pressure 115/51 O2 Sat by Pulse 99 Oximetry Medical Decision Making - Medical Decision Making I performed the quick note portion of the exam. Electronically signed by Rachel Hill PA-C Was pt. sent in by a medical professional or institution (DOROTHY Lopez, ELECTRIC LINEMAN, urgent care, hospital, or snf...) When possible be specific @ -No Did you speak to anyone other than the patient for history (EMS, parent, family, police, friend...)? What history was obtained from this source @ -No Did you review nursing and triage notes (agree or disagree)? Why? @ -I reviewed and agree with nursing and triage notes Were old charts reviewed (outside hosp., previous admission, EMS record, old EKG, old radiological studies, urgent care reports/EKG's, snf records)? Report findings @ -No old charts were reviewed Differential Diagnosis (chest pain, altered mental status, abdominal pain women, abdominal pain men, vaginal bleeding, weakness, fever, dyspnea, syncope, headache, dizziness, GI bleed, back pain, seizure, CVA, palpatations, mental health, musculoskeletal)? @ -Differential Abdominal Pain Men: Appendicitis, cholecystitis, diverticulosis, ischemic bowel, pancreatitis, hepatitis, UTI, gastroenteritis, AAA, incarcerated hernia, bowel obstruction, constipation, inflammatory bowel, hepatitis, peptic ulcer disease, splenic infarction, perforated viscus, testicular torsion, this is not meant to be an all-inclusive list EKG interpreted by me (3pts min.). @ -None X-rays interpreted by me (1pt min.). @ -None done CT interpreted by me (1pt min.). @ -None done U/S interpreted by me (1pt. min.). @ -None done What testing was considered but not performed or refused? (CT, X-rays, U/S, labs)? Why? @ -None What meds were considered but not given or refused? Why? @ -None Did you discuss the management of the patient with other professionals (professionals i.e. , PA, ELECTRIC LINEMAN, lab, RT, psych nurse, social service director, business transformation manager, teacher, agricultural technical officer, case work aide)? Give summary @ -No Was smoking cessation discussed for >3mins.? @ -No Was critical care preformed (if so, how long)? @ -No Were there social determinants of health that impacted care today? How? (Homelessness, low income, unemployed, alcoholism, drug addiction, transportation, low edu. Level, literacy, decrease access to med. care, detention, rehab)? @ -No Was there de-escalation of care discussed even if they declined (Discuss DNR or withdrawal of care, Hospice)? DNR status @ -No What co-morbidities impacted this encounter? (DM, HTN, Smoking, COPD, CAD, Cancer, CVA, ARF, Chemo, Hep., AIDS, mental health diagnosis, sleep apnea, morbid obesity)? @ -None Was patient admitted / discharged? Hospital course, mention meds given and route, prescriptions, significant lab abnormalities, going to OR and other pertinent info. @ -Patient is an 83-year-old male presented ER with chief complaint of urinary catheter bag malfunction. Vitals stable. History and physical exam were completed. Patient no other complaints at this time. Patient's catheter bag was cleaned with warm water and was flowing correctly. I discussed return parameters. Patient discharged stable condition with follow-up to PCP. Patient exposed understanding and agreement with care plan. Undiagnosed new problem with uncertain prognosis? @ -No Drug Therapy requiring intensive monitoring for toxicity (Heparin, Nitro, I nsulin, Cardizem)? @ -No Were any procedures done? @ -No Diagnosis/symptom? @ -Urinary catheter problem Acute, or Chronic, or Acute on Chronic? @ -Acute Uncomplicated (without systemic symptoms) or Complicated (systemic symptoms)? @ -Uncomplicated Side effects of treatment? @ -No Exacerbation, Progression, or Severe Exacerbation? @ -No Poses a threat to life or bodily function? How? (Chest pain, [place], [place], pneumonia, PE, COPD, DKA, ARF, appy, cholecystitis, CVA, Diverticulitis, Homicidal, Suicidal, threat to staff... and all critical care pts) @ -No Disposition Clinical Impression: Urinary catheter complication Disposition: HOME SELF-CARE Condition: Stable Additional Instructions: Please follow-up with PCP. Return to ER for any new or worsening symptoms. Is patient prescribed a controlled substance at d/c from ED?: No Referrals: Dagoberto Munoz DO [Primary Care Provider] - 1-2 days Time of Disposition: 14:48
[2023-12-01 14:25] VITALS: BP 115/51; PULSE 62; RESP 16; TEMP 98
== END 2023-12-01 15:01 | disposition home or self-care (01) ==
LOC: EC 13:58
DX: T83.098A Other mechanical complication of other urinary catheter, initial encounter (principal); E07.9 Disorder of thyroid, unspecified; Z79.890 Hormone replacement therapy
CPT/HCPCS: 99282

== ENCOUNTER 2023-12-25 02:46 | Emergency (ER) | payer MEDICARE ==
[2023-12-25 02:58] VITALS: RESP 18
--- NOTE | 2023-12-25 04:07 | ED ---
General Adult HPI - General Chief complaint: Urogenital Stated complaint: NEEDS FLUSHING, CATHETER Source: patient Mode of arrival: ambulatory Limitations: no limitations - History of Present Illness Initial comments: 3-year-old male presents to ED with a chief complaint of catheter problem. Patient states he had a suprapubic catheter placed while he was on for the on November 06. Patient states it has been draining normally with intermittent hematuria however patient states over the past 2 days has noticed that he has been able to urinate small amounts out of his penis. Because of this he manipulated his suprapubic catheter bag above his belly to try and see if he can urinate on his own. Since then he reports that the bag has not been draining and he has been unable to urinate on his own and now notes some lower abdominal pain. No other complaints at this time. - Related Data Home Medications Medication Instructions Recorded Confirmed Lupron(Dose Unkown) 1 dose IV Q180D 09/28/19 10/24/21 Levothyroxine Sodium [Synthroid] 125 mcg PO HS 02/09/21 10/24/21 Niacin [Niacin ER] 1,000 mg PO BID 02/09/21 10/22/21 Previous Rx's Medication Instructions Recorded Ciprofloxacin HCl [Cipro] 500 mg PO BID 7 Days #14 tab 11/30/23 Allergies Allergy/AdvReac Type Severity Reaction Status Date / Time No Known Allergies Allergy Verified 12/25/23 02:56 Review of Systems ROS Statement: Those systems with pertinent positive or pertinent negative responses have been documented in the HPI. ROS Other: All systems not noted in ROS Statement are negative. Past Medical History Past Medical History: Cancer, Hyperlipidemia, Osteoarthritis (OA), Prostate Disorder, Thyroid Disorder Additional Past Medical History / Comment(s): In February 2018 pelvic abscess,diverticulitis,small bowel obs, HX OF PROSTATE CANCER WITH RADIATION (2013), SQUAMOUS CELL SKIN CANCER, CHRONIC SINUSITIS, , HYPOTHYROID., STATES PAST HX OF BACK PROBLEMS. History of Any Multi-Drug Resistant Organisms: MRSA Date of last positivie culture/infection: 04/01/18 MDRO Source:: ABDOMEN Surgical Site Past Surgical History: Adenoidectomy, Bowel Resection, Orthopedic Surgery, Prostate Surgery, Tonsillectomy Additional Past Surgical History / Comment(s): Exploratory Laparotomy Lysis of Adhesions Small Bowel Resection Partial Colectomy w/Colostomy 03-17-18,rt knee surgery, Lt HIP REPLACED, had gamez cath placed after 03/17/18 surgery. Past Anesthesia/Blood Transfusion Reactions: No Reported Reaction Additional Past Anesthesia/Blood Transfusion Reaction / Comment(s): No hx blood transfusion Past Psychological History: No Psychological Hx Reported Smoking Status: Never smoker Past Alcohol Use History: Occasional Past Drug Use History: None Reported - Past Family History Mother Family Medical History: No Reported History Sister(s) Family Medical History: CVA/TIA Father Family Medical History: Myocardial Infarction ([place]) General Exam Limitations: no limitations General appearance: alert Neck exam: Present: normal inspection Respiratory exam: Present: normal lung sounds bilaterally Cardiovascular Exam: Present: regular rate GI/Abdominal exam: Present: other (Distention in the suprapubic region with tend erness to palpation. Bladder scan showed 500 mL) Neurological exam: Present: alert, oriented X3 Skin exam: Present: warm, dry Course Vital Signs 12/25/23 12/25/23 02:52 04:04 Temperature 97.8 F 98.0 F Pulse Rate 92 78 Respiratory 18 18 Rate Blood Pressure 153/88 150/89 O2 Sat by Pulse 99 99 Oximetry Medical Decision Making - Medical Decision Making Was pt. sent in by a medical professional or institution (, PA, [employer], urgent care, hospital, or [place] [facility] facility...) When possible be specific @ -No Did you speak to anyone other than the patient for history (EMS, parent, family, police, friend...)? What history was obtained from this source @ -No Did you review nursing and triage notes (agree or disagree)? Why? @ -I reviewed and agree with nursing and triage notes Were old charts reviewed (outside hosp., previous admission, EMS record, old EKG, old radiological studies, urgent care reports/EKG's, [place] [facility] facility records)? Report findings @ -No old charts were reviewed Differential Diagnosis (chest pain, altered mental status, abdominal pain women, abdominal pain men, vaginal bleeding, weakness, fever, dyspnea, syncope, headache, dizziness, GI bleed, back pain, seizure, CVA, palpatations, mental health, musculoskeletal)? @ -Differential Abdominal Pain Men: Appendicitis, cholecystitis, diverticulosis, ischemic bowel, pancreatitis, hepatitis, UTI, gastroenteritis, AAA, incarcerated hernia, bowel obstruction, constipation, inflammatory bowel, hepatitis, peptic ulcer disease, splenic infarction, perforated viscus, testicular torsion, this is not meant to be an all-inclusive list EKG interpreted by me (3pts min.). @ -As above X-rays interpreted by me (1pt min.). @ -None done CT interpreted by me (1pt min.). @ -None done U/S interpreted by me (1pt. min.). @ -None done What testing was considered but not performed or refused? (CT, X-rays, U/S, labs)? Why? @ -None What meds were considered but not given or refused? Why? @ -None Did you discuss the management of the patient with other professionals (professionals i.e. Dr., PA, [employer], lab, RT, psych nurse, high school social studies teacher, business job titles, teacher, special loan officer, case liner)? Give summary @ -No Was smoking cessation discussed for >3mins.? @ -No Was critical care preformed (if so, how long)? @ -No Were there social determinants of health that impacted care today? How? (Homelessness, low income, unemployed, alcoholism, drug addiction, transportation, low edu. Level, literacy, decrease access to med. care, nursing home, rehab)? @ -No Was there de-escalation of care discussed even if they declined (Discuss DNR or withdrawal of care, Hospice)? DNR status @ -No What co-morbidities impacted this encounter? (DM, HTN, Smoking, COPD, CAD, Cancer, CVA, ARF, Chemo, Hep., AIDS, mental health diagnosis, sleep apnea, morbid obesity)? @ -None Was patient admitted / discharged? Hospital course, mention meds given and route, prescriptions, significant lab abnormalities, going to OR and other pertinent info. @ -Discharge Patient presenting secondary to his suprapubic catheter not draining. Patient had this irrigated and is now draining properly. Advised to follow up with his reconstructive surgeon and urologist as scheduled. Discussed return precautions with patient who verbalizes agreement. Undiagnosed new problem with uncertain prognosis? @ -No Drug Therapy requiring intensive monitoring for toxicity (Heparin, Nitro, Insulin, Cardizem)? @ -No Were any procedures done? @ -No Diagnosis/symptom? @ -Urinary retention, malfunctioning suprapubic catheter now resolved Acute, or Chronic, or Acute on Chronic? @ -Acute Uncomplicated (without systemic symptoms) or Complicated (systemic symptoms)? @ -Uncomplicated Side effects of treatment? @ -No Exacerbation, Progression, or Severe Exacerbation? @ -No Poses a threat to life or bodily function? How? (Chest pain, [place], MA, pneumonia, PE, COPD, DKA, ARF, appy, cholecystitis, CVA, Diverticulitis, Homicidal, Suicidal, threat to staff... and all critical care pts) @ -No Disposition Clinical Impression: Urinary retention, Suprapubic catheter dysfunction Disposition: HOME SELF-CARE Condition: Good Additional Instructions: Please return to the Emergency Department if symptoms worsen or any other concerns. Please follow-up with your reconstructive surgeon and urologist as scheduled. Is patient prescribed a controlled substance at d/c from ED?: No Referrals: Dagoberto Munoz DO [Primary Care Provider] - 1-2 days Time of Disposition: 04:12
[2023-12-25 04:21] VITALS: BP 150/89; PULSE 78; TEMP 98
== END 2023-12-25 04:19 | disposition home or self-care (01) ==
LOC: EC 02:46
DX: T83.098A Other mechanical complication of other urinary catheter, initial encounter (principal); E07.9 Disorder of thyroid, unspecified; Z79.890 Hormone replacement therapy
CPT/HCPCS: 99283

== ENCOUNTER 2023-12-29 04:32 | Emergency (ER) | payer MEDICARE ==
[2023-12-29 05:11] VITALS: BP 134/66; PULSE 73; RESP 18; TEMP 97.9
--- NOTE | 2023-12-29 06:26 | ED ---
Male Urogenital HPI - General Chief complaint: Urogenital Stated complaint: Catheter Malfunction Time Seen by Provider: 12/29/23 06:13 Source: patient, RN notes reviewed Mode of arrival: ambulatory Limitations: no limitations - History of Present Illness Initial comments: This is an 83 year old male who presents to the emergency department for problems with his suprapubic catheter. States that he went about 4 hours without any drainage from the suprapubic catheter. He did not want to wait before he started to develop discomfort before he came in. However, when he was in the waiting room he started to get drainage from this again. States that when he has been here for this issue before, they were able to use a syringe and unclog it. He inquired as to if he can be taught how to do this so he can try and manage this at home on his own before coming to the emergency department in the future. - Related Data Home Medications Medication Instructions Recorded Confirmed Lupron(Dose Unkown) 1 dose IV Q180D 09/28/19 10/24/21 Levothyroxine Sodium [Synthroid] 125 mcg PO HS 02/09/21 10/24/21 Niacin [Niacin ER] 1,000 mg PO BID 02/09/21 10/22/21 Previous Rx's Medication Instructions Recorded Ciprofloxacin HCl [Cipro] 500 mg PO BID 7 Days #14 tab 11/30/23 Sulfamethox-Tmp 800-160Mg [Bactrim 1 tab PO Q12HR 7 Days #14 tab 12/29/23 DS 800-160 mg] Allergies Allergy/AdvReac Type Severity Reaction Status Date / Time No Known Allergies Allergy Verified 12/29/23 04:46 Review of Systems ROS Statement: Those systems with pertinent positive or pertinent negative responses have been documented in the HPI. ROS Other: All systems not noted in ROS Statement are negative. Past Medical History Past Medical History: Cancer, Hyperlipidemia, Osteoarthritis (OA), Prostate Disorder, Thyroid Disorder Additional Past Medical History / Comment(s): In February 2018 pelvic abscess,diverticulitis,small bowel obs, HX OF PROSTATE CANCER WITH RADIATION (2013), SQUAMOUS CELL SKIN CANCER, CHRONIC SINUSITIS, , HYPOTHYROID., STATES PAST HX OF BACK PROBLEMS. History of Any Multi-Drug Resistant Organisms: MRSA Date of last positivie culture/infection: 04/01/18 MDRO Source:: ABDOMEN Surgical Site Past Surgical History: Adenoidectomy, Bowel Resection, Orthopedic Surgery, Prostate Surgery, Tonsillectomy Additional Past Surgical History / Comment(s): Exploratory Laparotomy Lysis of Adhesions Small Bowel Resection Partial Colectomy w/Colostomy 03-17-18,rt knee surgery, Lt HIP REPLACED, had gamez cath placed after 03/17/18 surgery. Past Anesthesia/Blood Transfusion Reactions: No Reported Reaction Additional Past Anesthesia/Blood Transfusion Reaction / Comment(s): No hx blood transfusion Past Psychological History: No Psychological Hx Reported Smoking Status: Never smoker Past Alcohol Use History: Occasional Past Drug Use History: None Reported - Past Family History Mother Family Medical History: No Reported History Sister(s) Family Medical History: CVA/TIA Father Family Medical History: Myocardial Infarction ([place]) General Exam Limitations: no limitations General appearance: alert, in no apparent distress Head exam: Present: atraumatic, normocephalic, normal inspection Respiratory exam: Present: normal lung sounds bilaterally. Absent: respiratory distress, wheezes, rales, rhonchi, stridor Cardiovascular Exam: Present: regular rate, normal rhythm, normal heart sounds. Absent: systolic murmur, diastolic murmur, rubs, gallop, clicks GI/Abdominal exam: Present: soft, normal bowel sounds. Absent: distended, tenderness, guarding, rebound, rigid Neurological exam: Present: alert, oriented X3, CN II-XII intact Psychiatric exam: Present: normal affect, normal mood Skin exam: Present: warm, dry, intact, normal color. Absent: rash Course Vital Signs 12/29/23 04:45 Temperature 97.9 F Pulse Rate 73 Respiratory 18 Rate Blood Pressure 134/66 O2 Sat by Pulse 98 Oximetry Medical Decision Making - Medical Decision Making This is an 83-year-old male who presents to the emergency department for problems with drainage from his suprapubic catheter. Was pt. sent in by a medical professional or institution? @ -No Did you speak to anyone other than the patient for history? @ -No Did you review nursing and triage notes? @ -Yes, and I agree, it is accurate with regards to the patient's symptoms. Were old charts reviewed? @ -No Differential Diagnosis? @ -Differential Suprapubic Catheter Problems: Obstruction, UTI, malposition, this is not meant to be an all-inclusive list. EKG interpreted by me (3pts min.)? @ -Not obtained X-rays interpreted by me (1pt min.)? @ -Not obtained CT interpreted by me (1pt min.)? @ -Not obtained U/S interpreted by me (1pt. min.)? @ -Not obtained What testing was considered but not performed? (CT, X-rays, U/S, labs)? Why? @ -None What meds were considered but not given? Why? @ -None Did you discuss the management of the patient with other professionals? @ -No Did you reconcile home meds? @ -No Was smoking cessation discussed for >3mins.? @ -No Was critical care preformed (if so, how long)? @ -No Were there social determinants of health that impacted care today? How? (Homelessness, low income, unemployed, alcoholism, drug addiction, transportation, low edu. Level, literacy, decrease access to med. care, group home, rehab)? @ -No Was there de-escalation of care discussed even if they declined? (Discuss DNR or withdrawal of care, Hospice)? @ -No What co-morbidities impacted this encounter? (DM, HTN, Smoking, COPD, CAD, Cancer, CVA, Hep., AIDS, mental health diagnosis, sleep apnea, morbid obesity)? @ -Prostate disorder Was patient admitted / discharged? @ -Discharged. When the patient was brought back to the examination room, his suprapubic catheter started draining on its own again and he did not have any discomfort. Urinalysis was potentially suggestive of infection. Urine sent for culture. Will start patient on antibiotics given the blood and possible clogs in the catheter, which may be a result of infection. Prescription for Bactrim provided with dosing instructions reviewed. Urine sent for culture. Patient was educated by nursing staff on how to flush the catheter himself in the event this happens in the future. He was otherwise discharged home in stable condition. Undiagnosed new problem with uncertain prognosis? @ -None Drug Therapy requiring intensive monitoring for toxicity (Heparin, Nitro, Insulin, Cardizem)? @ -None Were any procedures done? @ -None Diagnosis/symptom? @ -Problem with his suprapubic catheter, UTI Acute, or Chronic, or Acute on Chronic? @ -Acute Uncomplicated (without systemic symptoms) or Complicated (systemic symptoms)? @ -Uncomplicated Side effects of treatment? @ -None Exacerbation, Progression, or Severe Exacerbation] @ -Not applicable Poses a threat to life or bodily function? @ -No Return precautions reviewed in depth, the patient is instructed to return to the emergency department with any new, worsening, or concerning symptoms. Patient verbalized understanding. This case was discussed in detail with the attending ED physician, Dr. Brown. Presentation, findings, and treatment plan discussed in detail as well. - Lab Data Lab Results 12/29/23 Range/Units 06:21 Urine Color Light Red Urine Appearance Cloudy (Clear) Urine pH 5.5 (5.0-8.0) Ur Specific [place] 1.024 (1.001-1.035) Urine Protein 2+ H (Negative) Urine Glucose (UA) Negative (Negative) Urine Ketones 1+ H (Negative) Urine Blood Large H (Negative) Urine Nitrite Negative (Negative) Urine Bilirubin Negative (Negative) Urine Urobilinogen <2.0 (<2.0) mg/dL Ur Leukocyte Esterase Moderate H (Negative) Urine RBC >182 H (0-5) /hpf Urine WBC 82 H (0-5) /hpf Ur Squamous Epith Cells <1 (0-4) /hpf Urine Bacteria Few H (None) /hpf Urine Mucus Many H (None) /hpf Disposition Clinical Impression: Suprapubic catheter dysfunction, UTI (urinary tract infection) Disposition: HOME SELF-CARE Instructions (If sedation given, give patient instructions): Urinary Tract Infection in Men (ED), How to Care for Your Suprapubic Catheter (DC) Additional Instructions: Return to the emergency department with any new, worsening, or concerning symptoms. Take the antibiotic as prescribed for 7 days. Follow up with your primary care provider in 1-2 days. Prescriptions: Sulfamethox-Tmp 800-160Mg [Bactrim DS 800-160 mg] 1 tab PO Q12HR 7 Days #14 tab Is patient prescribed a controlled substance at d/c from ED?: No Referrals: Dagoberto Munoz DO [Primary Care Provider] - 1-2 days Time of Disposition: 08:34
[2023-12-29 08:20] LABS: Bacteria,Urine Few /hpf; Mucus,Urine Many /hpf; RBC,Urine >182 /hpf (0-5); Squamous Epithelial Cell,Urine <1 /hpf (0-4); WBC,Urine 82 /hpf (0-5)
[2023-12-29 08:51] LABS: Appearance,Urine Cloudy (Clear); Bilirubin,Urine Negative (Negative); Blood,Urine Large (Negative); Color,Urine Light Red; Glucose,Urine (UA) Negative (Negative); Ketones,Urine 1+ (Negative); Leukocyte Esterase,Urine Moderate (Negative); Nitrite,Urine Negative (Negative); PH, Urine 5.5 (5.0-8.0); Protein,Urine 2+ (Negative); Specific Gravity,Urine 1.024 (1.001-1.035); Urobilinogen,Urine <2.0 mg/dL (<2.0)
== END 2023-12-29 08:57 | disposition home or self-care (01) ==
LOC: EC 04:32
DX: T83.091A Other mechanical complication of indwelling urethral catheter, initial encounter (principal); E07.9 Disorder of thyroid, unspecified; Z79.890 Hormone replacement therapy
CPT/HCPCS: 81001; 87086; 99283

== ENCOUNTER 2024-01-01 10:15 | Emergency (ER) | payer MEDICARE ==
[2024-01-01 10:23] VITALS: RESP 18
--- NOTE | 2024-01-01 10:33 | ED ---
Male Urogenital HPI - General Chief complaint: Urogenital Stated complaint: BLOOD IN URINE Time Seen by Provider: 01/01/24 10:25 Source: patient Mode of arrival: ambulatory Limitations: no limitations - History of Present Illness Initial comments: Patient's an 83-year-old gentleman with a history of bladder outlet obstruction with suprapubic catheter and hypothyroidism presents emergency room with complaints of blood in the urine. The patient had a suprapubic catheter placed at the end of October. He has seen a regular urologist times since having this place. Last saw the urologist a week ago. Patient has a follow-up appointment with a specialist surgeon tomorrow regarding the suprapubic catheter impending surgery. The patient states that he grew concerned that he might be anemic due to the blood loss. He states that the leg bag frequently has blood in it however occasionally does clear up. He is not on any anticoagulation. He denie s any flank pain nausea vomiting or fever. He denies any history of anemia. - Related Data Home Medications Medication Instructions Recorded Confirmed Levothyroxine Sodium [Synthroid] 112 mcg PO HS 01/01/24 01/01/24 Previous Rx's Medication Instructions Recorded Sulfamethox-Tmp 800-160Mg [Bactrim 1 tab PO Q12HR 7 Days #14 tab 12/29/23 DS 800-160 mg] Allergies Allergy/AdvReac Type Severity Reaction Status Date / Time No Known Allergies Allergy Verified 01/01/24 12:38 Review of Systems ROS Statement: Those systems with pertinent positive or pertinent negative responses have been documented in the HPI. ROS Other: All systems not noted in ROS Statement are negative. Past Medical History Past Medical History: Cancer, Hyperlipidemia, Osteoarthritis (OA), Prostate Disorder, Thyroid Disorder Additional Past Medical History / Comment(s): In February 2018 pelvic abscess,diverticulitis,small bowel obs, HX OF PROSTATE CANCER WITH RADIATION (2013), SQUAMOUS CELL SKIN CANCER, CHRONIC SINUSITIS, , HYPOTHYROID., STATES PAST HX OF BACK PROBLEMS. History of Any Multi-Drug Resistant Organisms: MRSA Date of last positivie culture/infection: 04/01/18 MDRO Source:: ABDOMEN Surgical Site Past Surgical History: Adenoidectomy, Bowel Resection, Orthopedic Surgery, Prostate Surgery, Tonsillectomy Additional Past Surgical History / Comment(s): Exploratory Laparotomy Lysis of Adhesions Small Bowel Resection Partial Colectomy w/Colostomy 03-17-18,rt knee surgery, Lt HIP REPLACED, had gamez cath placed after 03/17/18 surgery. Past Anesthesia/Blood Transfusion Reactions: No Reported Reaction Additional Past Anesthesia/Blood Transfusion Reaction / Comment(s): No hx blood transfusion Past Psychological History: No Psychological Hx Reported Smoking Status: Never smoker Past Alcohol Use History: Occasional Past Drug Use History: None Reported - Past Family History Mother Family Medical History: No Reported History Sister(s) Family Medical History: CVA/TIA Father Family Medical History: Myocardial Infarction ([place]) General Exam Limitations: no limitations General appearance: alert, in no apparent distress Head exam: Present: atraumatic Eye exam: Present: normal appearance ENT exam: Present: normal exam Neck exam: Present: normal inspection, full ROM Respiratory exam: Present: normal lung sounds bilaterally Cardiovascular Exam: Present: regular rate GI/Abdominal exam: Present: soft, other (suprapubic catheter in place, no sparks rrounding erythema or warmth. no drainage.). Absent: tenderness, guarding Extremities exam: Present: full ROM Back exam: Present: full ROM Neurological exam: Present: alert, oriented X3 Course Vital Signs 01/01/24 10:20 Temperature 98 F Pulse Rate 78 Respiratory 18 Rate Blood Pressure 138/68 O2 Sat by Pulse 100 Oximetry - Reevaluation(s) Reevaluation #1: 01/01/24 12:15 Patient is well-appearing emergency room. I discussed lab results which are positive for UTI and hematuria. He is not anemic on the CBC. I discussed these findings with him and discussed treatment with antibiotics and follow-up at his appointment with the specialist tomorrow. The patient was written for Bactrim and picked it up about 5 days ago however he has not started it. I did discuss with him that he should in fact start this medication prescribed. Was given Rocephin in the emergency room Medical Decision Making - Medical Decision Making Was pt. sent in by a medical professional or institution (DOROTHY Lopez, HITCH TECHNICIAN, urgent care, hospital, or skilled nursing...) When possible be specific @ -[No] Did you speak to anyone other than the patient for history (EMS, parent, family, police, friend...)? What history was obtained from this source @ -[No] Did you review nursing and triage notes (agree or disagree)? Why? @ -[I reviewed and agree with nursing and triage notes] Were old charts reviewed (outside hosp., previous admission, EMS record, old E KG, old radiological studies, urgent care reports/EKG's, skilled nursing records)? Report findings @ -External medication records were reviewed Differential Diagnosis (chest pain, altered mental status, abdominal pain women, abdominal pain men, vaginal bleeding, weakness, fever, dyspnea, syncope, headache, dizziness, GI bleed, back pain, seizure, CVA, palpatations, mental health, musculoskeletal)? @ -UTI, anemia, hematuria, cystitis EKG interpreted by me (3pts min.). @ -[As above] X-rays interpreted by me (1pt min.). @ -[None done] CT interpreted by me (1pt min.). @ -[None done] U/S interpreted by me (1pt. min.). @ -[None done] What testing was considered but not performed or refused? (CT, X-rays, U/S, labs)? Why? @ -CT has patient has no flank pain no pelvic pain nausea, vomiting or fevers. What meds were considered but not given or refused? Why? @ -[None] Did you discuss the management of the patient with other professionals (professionals i.e. , PA, HITCH TECHNICIAN, lab, RT, psych nurse, social science professor, oil gauger, teacher, low altitude air defense officer, rn case mgr)? Give summary @ -[No] Was smoking cessation discussed for >3mins.? @ -[No] Was critical care preformed (if so, how long)? @ -[No] Were there social determinants of health that impacted care today? How? (Homelessness, low income, unemployed, alcoholism, drug addiction, transportation, low edu. Level, literacy, decrease access to med. care, long term, rehab)? @ -[No] Was there de-escalation of care discussed even if they declined (Discuss DNR or withdrawal of care, Hospice)? DNR status @ -[No] What co-morbidities impacted this encounter? (DM, HTN, Smoking, COPD, CAD, Cancer, CVA, ARF, Chemo, Hep., AIDS, mental health diagnosis, sleep apnea, morbid obesity)? @ -Chronic indwelling suprapubic catheter Was patient admitted / discharged? Hospital course, mention meds given and route, prescriptions, significant lab abnormalities, going to OR and other pertinent info. @ -Patient is stable to be discharged and outpatient. He was instructed to start the Bactrim he was prescribed by days ago for the UTI and keep his appointment with a specialist tomorrow. Undiagnosed new problem with uncertain prognosis? @ -No Drug Therapy requiring intensive monitoring for toxicity (Heparin, Nitro, Insulin, Cardizem)? @ -[No] Were any procedures done? @ -[No] Diagnosis/symptom? @ -UTI, hematuria Acute, or Chronic, or Acute on Chronic? @ -Acute Uncomplicated (without systemic symptoms) or Complicated (systemic symptoms)? @ -[default] Side effects of treatment? @ -[No] Exacerbation, Progression, or Severe Exacerbation? @ -[No] Poses a threat to life or bodily function? How? (Chest pain, [place], [place], pneumonia, PE, COPD, DKA, ARF, appy, cholecystitis, CVA, Diverticulitis, Homicidal, Suicidal, threat to staff... and all critical care pts) @ -[No] - Lab Data Result diagrams: 01/01/24 10:33 01/01/24 10:33 Lab Results 01/01/24 01/01/24 01/01/24 Range/Units 10:33 10:33 10:33 WBC 5.8 (3.8-10.6) k/uL RBC 3.77 L (4.30-5.90) m/uL Hgb 12.3 L (13.0-17.5) gm/dL Hct 37.7 L (39.0-53.0) % MCV 100.0 (80.0-100.0) fL MCH 32.5 (25.0-35.0) pg MCHC 32.5 (31.0-37.0) g/dL RDW 12.3 (11.5-15.5) % Plt Count 175 (150-450) k/uL MPV 7.3 Neutrophils % 58 % Lymphocytes % 29 % Monocytes % 7 % Eosinophils % 4 % Basophils % 1 % Neutrophils # 3.4 (1.3-7.7) k/uL Lymphocytes # 1.7 (1.0-4.8) k/uL Monocytes # 0.4 (0-1.0) k/uL Eosinophils # 0.2 (0-0.7) k/uL Basophils # 0.0 (0-0.2) k/uL Sodium 139 (137-145) mmol/L Potassium 3.9 (3.5-5.1) mmol/L Chloride 108 H (98-107) mmol/L Carbon Dioxide 27 (22-30) mmol/L Anion Gap 4 mmol/L BUN 27 H (9-20) mg/dL Creatinine 0.75 (0.66-1.25) mg/dL Est GFR (CKD-EPI)AfAm >90 (>60 ml/min/1.73 sqM) Est GFR (CKD-EPI)NonAf 86 (>60 ml/min/1.73 sqM) Glucose 132 H (74-99) mg/dL Calcium 8.5 (8.4-10.2) mg/dL Total Bilirubin 0.4 (0.2-1.3) mg/dL AST 31 (17-59) U/L ALT 21 (4-49) U/L Alkaline Phosphatase 82 (38-126) U/L Total Protein 5.6 L (6.3-8.2) g/dL Albumin 3.1 L (3.5-5.0) g/dL Urine Color Dark Red Urine Appearance Turbid (Clear) Urine RBC >182 H (0-5) /hpf Urine WBC >182 H (0-5) /hpf Urine Bacteria Many H (None) /hpf Disposition Clinical Impression: Hematuria, UTI (urinary tract infection) Disposition: HOME SELF-CARE Condition: Good Instructions (If sedation given, give patient instructions): Urinary Tract Infection in Men (ED), Hematuria (ED) Is patient prescribed a controlled substance at d/c from ED?: No When asked, does pt state using other controlled substances?: No If prescribed controlled substance>3 days was MAPS reviewed?: No Referrals: Dagoberto Munoz DO [Primary Care Provider] - 1-2 days Time of Disposition: 12:35
[2024-01-01 11:14] LABS: Basophils % (A) 1 %; Eosinophils # (A) 0.2 k/uL (0-0.7); Eosinophils % (A) 4 %; HCT 37.7 % (39.0-53.0); HGB 12.3 gm/dL (13.0-17.5); Lymphocytes # (A) 1.7 k/uL (1.0-4.8); Lymphocytes % (A) 29 %; MCH 32.5 pg (25.0-35.0); MCHC 32.5 g/dL (31.0-37.0); Mean Platelet Volume 7.3; Monocytes # (A) 0.4 k/uL (0-1.0); Monocytes % (A) 7 %; Neutrophils # (A) 3.4 k/uL (1.3-7.7); Neutrophils % (A) 58 %; Platelet Count 175 k/uL (150-450); RBC 3.77 m/uL (4.30-5.90); RDW 12.3 % (11.5-15.5); WBC 5.8 k/uL (3.8-10.6)
[2024-01-01 11:36] LABS: Appearance,Urine Turbid (Clear); Color,Urine Dark Red
[2024-01-01 11:37] LABS: Bacteria,Urine Many /hpf; RBC,Urine >182 /hpf (0-5); WBC,Urine >182 /hpf (0-5)
[2024-01-01 11:38] LABS: ALT 21 U/L (4-49); AST 31 U/L (17-59); African American GFR (CKD) >90 (>60 ml/min/1.73 sqM); Albumin 3.1 g/dL (3.5-5.0); Alkaline Phosphatase 82 U/L (38-126); Anion Gap 4 mmol/L; Blood Urea Nitrogen 27 mg/dL (9-20); Calcium 8.5 mg/dL (8.4-10.2); Carbon Dioxide 27 mmol/L (22-30); Chloride 108 mmol/L (98-107); Glucose 132 mg/dL (74-99); Non-African American GFR(CKD) 86 (>60 ml/min/1.73 sqM); Potassium 3.9 mmol/L (3.5-5.1); Sodium 139 mmol/L (137-145); Total Bilirubin 0.4 mg/dL (0.2-1.3); Total Protein 5.6 g/dL (6.3-8.2)
[2024-01-01] MEDS: cefTRIAXone 1,000 MG VIAL (IM USE) IM STA (12:32)
[2024-01-01 12:58] VITALS: BP 132/80; PULSE 80; TEMP 98.8
== END 2024-01-01 12:50 | disposition home or self-care (01) ==
LOC: EC 10:15
DX: N39.0 Urinary tract infection, site not specified (principal); B97.0 Adenovirus as the cause of diseases classified elsewhere; E03.9 Hypothyroidism, unspecified; Z79.890 Hormone replacement therapy
CPT/HCPCS: 36415; 80053; 85025; 81001; 87086; 99283; 96372; J0696; 87077; 87186

== ENCOUNTER 2024-01-03 01:53 | Emergency (ER) | payer MEDICARE ==
[2024-01-03 02:11] VITALS: BP 131/63; PULSE 68; RESP 18; TEMP 97.5
--- NOTE | 2024-01-03 02:38 | ED ---
General Adult HPI - General Chief complaint: Urogenital Stated complaint: Cath issues Time Seen by Provider: 01/03/24 02:09 Source: patient Mode of arrival: ambulatory Limitations: no limitations - History of Present Illness Initial comments: 83-year-old male presents to the ED with a chief complaint of catheter issue. Patient reports he followed up with his reconstructive surgeon today and he had a new suprapubic catheter placed however upon returning home he realized he did not have supplies in order to flush his catheter therefore prompting prese ntation to the ED for further evaluation. States that it is otherwise draining normally and he would just like to have some more supplies. No other complaints at this time. - Related Data Home Medications Medication Instructions Recorded Confirmed Levothyroxine Sodium [Synthroid] 112 mcg PO HS 01/01/24 01/01/24 Previous Rx's Medication Instructions Recorded Sulfamethox-Tmp 800-160Mg [Bactrim 1 tab PO Q12HR 7 Days #14 tab 12/29/23 DS 800-160 mg] Allergies Allergy/AdvReac Type Severity Reaction Status Date / Time No Known Allergies Allergy Verified 01/01/24 12:38 Review of Systems ROS Statement: Those systems with pertinent positive or pertinent negative responses have been documented in the HPI. ROS Other: All systems not noted in ROS Statement are negative. Past Medical History Past Medical History: Cancer, Hyperlipidemia, Osteoarthritis (OA), Prostate Disorder, Thyroid Disorder Additional Past Medical History / Comment(s): In February 2018 pelvic abscess,diverticulitis,small bowel obs, HX OF PROSTATE CANCER WITH RADIATION (2013), SQUAMOUS CELL SKIN CANCER, CHRONIC SINUSITIS, , HYPOTHYROID., STATES PAST HX OF BACK PROBLEMS. History of Any Multi-Drug Resistant Organisms: MRSA Date of last positivie culture/infection: 04/01/18 MDRO Source:: ABDOMEN Surgical Site Past Surgical History: Adenoidectomy, Bowel Resection, Orthopedic Surgery, Prostate Surgery, Tonsillectomy Additional Past Surgical History / Comment(s): Exploratory Laparotomy Lysis of Adhesions Small Bowel Resection Partial Colectomy w/Colostomy 03-17-18,rt knee surgery, Lt HIP REPLACED, had gamez cath placed after 03/17/18 surgery. Past Anesthesia/Blood Transfusion Reactions: No Reported Reaction Additional Past Anesthesia/Blood Transfusion Reaction / Comment(s): No hx blood transfusion Past Psychological History: No Psychological Hx Reported Smoking Status: Never smoker Past Alcohol Use History: Occasional Past Drug Use History: None Reported - Past Family History Mother Family Medical History: No Reported History Sister(s) Family Medical History: CVA/TIA Father Family Medical History: Myocardial Infarction ([place]) General Exam Limitations: no limitations General appearance: alert, in no apparent distress Eye exam: Present: normal appearance Neck exam: Present: normal inspection Respiratory exam: Present: normal lung sounds bilaterally Cardiovascular Exam: Present: regular rate, normal rhythm GI/Abdominal exam: Present: soft, other (Suprapubic catheter in place with no evidence of surrounding infection. Catheter is draining. Urine appears yellow with no gross blood or sediment.) Neurological exam: Present: alert, oriented X3 Skin exam: Present: warm, dry Course Vital Signs 01/03/24 02:05 Temperature 97.5 F L Pulse Rate 68 Respiratory 18 Rate Blood Pressure 131/63 O2 Sat by Pulse 98 Oximetry Medical Decision Making - Medical Decision Making Was pt. sent in by a medical professional or institution (, PA, BUSINESS INTELLIGENCE REPORTING ANALYST, urgent care, hospital, or snf...) When possible be specific @ -No Did you speak to anyone other than the patient for history (EMS, parent, family, police, friend...)? What history was obtained from this source @ -No Did you review nursing and triage notes (agree or disagree)? Why? @ -I reviewed and agree with nursing and triage notes Were old charts reviewed (outside hosp., previous admission, EMS record, old EKG, old radiological studies, urgent care reports/EKG's, snf records)? Report findings @ -No old charts were reviewed Differential Diagnosis (chest pain, altered mental status, abdominal pain women, abdominal pain men, vaginal bleeding, weakness, fever, dyspnea, syncope, headache, dizziness, GI bleed, back pain, seizure, CVA, palpatations, mental health, musculoskeletal)? @ -Not applicable EKG interpreted by me (3pts min.). @ -None X-rays interpreted by me (1pt min.). @ -None done CT interpreted by me (1pt min.). @ -None done U/S interpreted by me (1pt. min.). @ -None done What testing was considered but not performed or refused? (CT, X-rays, U/S, labs)? Why? @ -None What meds were considered but not given or refused? Why? @ -None Did you discuss the management of the patient with other professionals (professionals i.e. Dr., PA, BUSINESS INTELLIGENCE REPORTING ANALYST, lab, RT, psych nurse, protective services social worker, doctor of chiropractic, teacher, chief medical officer, housing case manager)? Give summary @ -No Was smoking cessation discussed for >3mins.? @ -No Was critical care preformed (if so, how long)? @ -No Were there social determinants of health that impacted care today? How? (Homelessness, low income, unemployed, alcoholism, drug addiction, transportation, low edu. Level, literacy, decrease access to med. care, custodial, rehab)? @ -No Was there de-escalation of care discussed even if they declined (Discuss DNR or withdrawal of care, Hospice)? DNR status @ -No What co-morbidities impacted this encounter? (DM, HTN, Smoking, COPD, CAD, Cancer, CVA, ARF, Chemo, Hep., AIDS, mental health diagnosis, sleep apnea, morbid obesity)? @ -None Was patient admitted / discharged? Hospital course, mention meds given and route, prescriptions, significant lab abnormalities, going to OR and other pertinent info. @ -Discharge 83-year-old male presenting to the ED with complaints of needing supplies to flush his catheter. Patient requested to flush this on his own as he noted he was here previously secondary to it being clogged and needing to be flushed. Patient was able to flush his catheter on his own and it is working normally. At this time patient would not like any testing on his urine to make sure there is no evidence of infection. Patient discharged home in stable condition with supplies to flush his catheter. Undiagnosed new problem with uncertain prognosis? @ -No Drug Therapy requiring intensive monitoring for toxicity (Heparin, Nitro, Insuli n, Cardizem)? @ -No Were any procedures done? @ -No Diagnosis/symptom? @ -Catheter problem Acute, or Chronic, or Acute on Chronic? @ -Acute Uncomplicated (without systemic symptoms) or Complicated (systemic symptoms)? @ -Uncomplicated Side effects of treatment? @ -No Exacerbation, Progression, or Severe Exacerbation? @ -No Poses a threat to life or bodily function? How? (Chest pain, [place], [place], pneumonia, PE, COPD, DKA, ARF, appy, cholecystitis, CVA, Diverticulitis, Homicidal, Suicidal, threat to staff... and all critical care pts) @ -No Disposition Clinical Impression: Catheter (urine) change required Disposition: HOME SELF-CARE Condition: Good Additional Instructions: Please return to the Emergency Department if symptoms worsen or any other concerns. Please follow-up with your reconstructive surgeon and urologist. Is patient prescribed a controlled substance at d/c from ED?: No Referrals: Dagoberto Munoz DO [Primary Care Provider] - 1-2 days Time of Disposition: 02:38
== END 2024-01-03 02:45 | disposition home or self-care (01) ==
LOC: EC 01:53
DX: T83.091A Other mechanical complication of indwelling urethral catheter, initial encounter (principal); E03.9 Hypothyroidism, unspecified; Z79.890 Hormone replacement therapy
CPT/HCPCS: 99283

== ENCOUNTER 2024-01-25 06:06 | Emergency (ER) | payer MEDICARE ==
[2024-01-25 06:18] VITALS: TEMP 97.8
--- NOTE | 2024-01-25 06:42 | ED ---
Male Urogenital HPI - General Chief complaint: Urogenital Stated complaint: cath issues Time Seen by Provider: 01/25/24 06:15 Source: patient, RN notes reviewed Mode of arrival: ambulatory Limitations: no limitations - History of Present Illness Initial comments: This is an 83-year-old male presents emergency department with chief complaint of suprapubic catheter issues. He states that it is not draining. He states he starts getting larger more pressure states he has been having dribbling from his penis. Patient states that this started over last summer in which he was in [place] states he was unable to go through unable to do place a catheter in which she states he has suprapubic catheter placed the following morning by urologist. Patient states he did follow-up with his urologist here Dr. Blanc referred him to reconstructive urologist out of [place]. Patient states he had his catheter replaced 4 weeks ago he was to follow-up 2 weeks later which he did for a larger catheter but I decided that he would be scheduled for or procedure. Patient states that he has been trying to flush at home with no success. - Related Data Home Medications Medication Instructions Recorded Confirmed Levothyroxine Sodium [Synthroid] 112 mcg PO HS 01/01/24 01/01/24 Previous Rx's Medication Instructions Recorded Sulfamethox-Tmp 800-160Mg [Bactrim 1 tab PO Q12HR 7 Days #14 tab 12/29/23 DS 800-160 mg] Ciprofloxacin HCl [Cipro] 500 mg PO Q12HR #6 tablet 01/25/24 Allergies Allergy/AdvReac Type Severity Reaction Status Date / Time No Known Allergies Allergy Verified 01/01/24 12:38 Review of Systems ROS Statement: Those systems with pertinent positive or pertinent negative responses have been documented in the HPI. ROS Other: All systems not noted in ROS Statement are negative. Past Medical History Past Medical History: Cancer, Hyperlipidemia, Osteoarthritis (OA), Prostate Disorder, Thyroid Disorder Additional Past Medical History / Comment(s): In February 2018 pelvic abscess,diverticulitis,small bowel obs, HX OF PROSTATE CANCER WITH RADIATION (2013), SQUAMOUS CELL SKIN CANCER, CHRONIC SINUSITIS, , HYPOTHYROID., STATES PAST HX OF BACK PROBLEMS. History of Any Multi-Drug Resistant Organisms: MRSA Date of last positivie culture/infection: 04/01/18 MDRO Source:: ABDOMEN Surgical Site Past Surgical History: Adenoidectomy, Bowel Resection, Orthopedic Surgery, Prostate Surgery, Tonsillectomy Additional Past Surgical History / Comment(s): Exploratory Laparotomy Lysis of Adhesions Small Bowel Resection Partial Colectomy w/Colostomy 03-17-18,rt knee surgery, Lt HIP REPLACED, had gamez cath placed after 03/17/18 surgery. Past Anesthesia/Blood Transfusion Reactions: No Reported Reaction Additional Past Anesthesia/Blood Transfusion Reaction / Comment(s): No hx blood transfusion Past Psychological History: No Psychological Hx Reported Smoking Status: Never smoker Past Alcohol Use History: Occasional Past Drug Use History: None Reported - Past Family History Mother Family Medical History: No Reported History Sister(s) Family Medical History: CVA/TIA Father Family Medical History: Myocardial Infarction ([place]) General Exam Limitations: no limitations General appearance: alert, in no apparent distress Head exam: Present: atraumatic, normocephalic, normal inspection Respiratory exam: Present: normal lung sounds bilaterally. Absent: respiratory distress, wheezes, rales, rhonchi, stridor Cardiovascular Exam: Present: regular rate, normal rhythm, normal heart sounds. Absent: systolic murmur, diastolic murmur, rubs, gallop, clicks GI/Abdominal exam: Present: soft, normal bowel sounds. Absent: distended, tenderness, guarding, rebound, rigid Course Vital Signs 01/25/24 01/25/24 01/25/24 06:07 07:34 09:56 Temperature 97.8 F Pulse Rate 70 72 68 Respiratory 16 18 20 Rate Blood Pressure 173/63 137/84 124/79 O2 Sat by Pulse 100 97 97 Oximetry Medical Decision Making - Medical Decision Making Was pt. sent in by a medical professional or institution (, PA, CHANNEL SALES MANAGER, urgent care, hospital, or halfway...) When possible be specific @ -No Did you speak to anyone other than the patient for history (EMS, parent, family, police, friend...)? What history was obtained from this source @ -No Did you review nursing and triage notes (agree or disagree)? Why? @ -I reviewed and agree with nursing and triage notes Were old charts reviewed (outside hosp., previous admission, EMS record, old EKG, old radiological studies, urgent care reports/EKG's, halfway records)? Report findings @ -No old charts were reviewed Differential Diagnosis (chest pain, altered mental status, abdominal pain women, abdominal pain men, vaginal bleeding, weakness, fever, dyspnea, syncope, headache, dizziness, GI bleed, back pain, seizure, CVA, palpatations, mental health, musculoskeletal)? @ -Urine retention, suprapubic catheter complication EKG interpreted by me (3pts min.). @ -None none X-rays interpreted by me (1pt min.). @ -None done CT interpreted by me (1pt min.). @ -None done U/S interpreted by me (1pt. min.). @ -None done What testing was considered but not performed or refused? (CT, X-rays, U/S, labs)? Why? @ -None What meds were considered but not given or refused? Why? @ -None Did you discuss the management of the patient with other professionals (professionals i.e. , PA, CHANNEL SALES MANAGER, lab, RT, psych nurse, professor of social work, safety instruction police officer, teacher, information officer, case fitter)? Give summary @ -[Dr. Blanc who came and evaluate the patient removed suprapubic catheter, dilated the patient and placed new catheter Was smoking cessation discussed for >3mins.? @ -No Was critical care preformed (if so, how long)? @ -No Were there social determinants of health that impacted care today? How? (Homelessness, low income, unemployed, alcoholism, drug addiction, transportation, low edu. Level, literacy, decrease access to med. care, detention, rehab)? @ -No Was there de-escalation of care discussed even if they declined (Discuss DNR or withdrawal of care, Hospice)? DNR status @ -No What co-morbidities impacted this encounter? (DM, HTN, Smoking, COPD, CAD, Cancer, CVA, ARF, Chemo, Hep., AIDS, mental health diagnosis, sleep apnea, morbid obesity)? @ -None Was patient admitted / discharged? Hospital course, mention meds given and route, prescriptions, significant lab abnormalities, going to OR and other pertinent info. @ -[ discharged suprapubic catheter was exchanged by urologist patient was recommended to be given 3 days worth of Cipro and will follow-up with his urologist. Undiagnosed new problem with uncertain prognosis? @ -No Drug Therapy requiring intensive monitoring for toxicity (Heparin, Nitro, Insu yfn, Cardizem)? @ -No Were any procedures done? @ -No Diagnosis/symptom? @ -Suprapubic catheter dysfunction Acute, or Chronic, or Acute on Chronic? @ -Acute Uncomplicated (without systemic symptoms) or Complicated (systemic symptoms)? @ -Uncomplicated Side effects of treatment? @ -No Exacerbation, Progression, or Severe Exacerbation? @ -No Poses a threat to life or bodily function? How? (Chest pain, USA, [place], pneumonia, PE, COPD, DKA, ARF, appy, cholecystitis, CVA, Diverticulitis, Homicidal, Suicidal, threat to staff... and all critical care pts) @ -No Disposition Clinical Impression: Suprapubic catheter dysfunction Disposition: HOME SELF-CARE Condition: Stable Instructions (If sedation given, give patient instructions): How to Care for Your Suprapubic Catheter (DC) Additional Instructions: Please return to the Emergency Department if symptoms worsen or any other concerns. Prescriptions: Ciprofloxacin HCl [Cipro] 500 mg PO Q12HR #6 tablet Is patient prescribed a controlled substance at d/c from ED?: No Referrals: Dagoberto Munoz DO [Primary Care Provider] - 1-2 days Time of Disposition: 09:41
--- NOTE | 2024-01-25 10:05 | P.GSCN ---
History of Present Illness Consult date: 01/25/24 Reason for Consult: Urinary retention History of present illness: This is an 83-year-old male with history of metastatic prostate cancer treated with radiation currently on androgen deprivation therapy. He has developed a urethral stricture. He is currently being managed with a suprapubic tube, he is following up with Dr. Worthington at [place] to discuss definitive therapy for his urethral stricture. Presented to the ER with clogging of the suprapubic tube. He has been having minimal output with gross hematuria from his suprapubic tube, and is having intermittent urination per urethra. He indicated his last suprapubic tube was exchanged by Dr. Worthington and it was challenging and only a 12 Beninese suprapubic tube was placed. Of note his initial suprapubic tube was placed in November at [place] by interventional radiology given his previous abdominal surgeries. Review of Systems - Constitutional Denies fever, Denies weight loss - EENT Ears, nose, mouth and throat: Denies dysphagia - Respiratory Denies cough, Denies 7 - Gastrointestinal Reports as per HPI - Genitourinary Reports hematuria, Denies dysuria Past Medical History Past Medical History: Cancer, Hyperlipidemia, Osteoarthritis (OA), Prostate Disorder, Thyroid Disorder Additional Past Medical History / Comment(s): In February 2018 pelvic abscess,diverticulitis,small bowel obs, HX OF PROSTATE CANCER WITH RADIATION (2013), SQUAMOUS CELL SKIN CANCER, CHRONIC SINUSITIS, , HYPOTHYROID., STATES PAST HX OF BACK PROBLEMS. History of Any Multi-Drug Resistant Organisms: MRSA Year Discovered:: 04/01/18 MDRO Source:: ABDOMEN Surgical Site Past Surgical History: Adenoidectomy, Bowel Resection, Orthopedic Surgery, Prostate Surgery, Tonsillectomy Additional Past Surgical History / Comment(s): Exploratory Laparotomy Lysis of Adhesions Small Bowel Resection Partial Colectomy w/Colostomy 03-17-18,rt knee surgery, Lt HIP REPLACED, had gamez cath placed after 03/17/18 surgery. Past Anesthesia/Blood Transfusion Reactions: No Reported Reaction Additional Past Anesthesia/Blood Transfusion Reaction / Comm: No hx blood transfusion Past Psychological History: No Psychological Hx Reported Smoking Status: Never smoker Past Alcohol Use History: Occasional Past Drug Use History: None Reported - Past Family History Mother Family Medical History: No Reported History Sister(s) Family Medical History: CVA/TIA Father Family Medical History: Myocardial Infarction ([place]) Medications and Allergies Home Medications Medication Instructions Recorded Confirmed Type Sulfamethox-Tmp 800-160Mg [Bactrim 1 tab PO Q12HR 7 Days #14 tab 12/29/23 01/01/24 Rx DS 800-160 mg] Levothyroxine Sodium [Synthroid] 112 mcg PO HS 01/01/24 01/01/24 History Ciprofloxacin HCl [Cipro] 500 mg PO Q12HR #6 tablet 01/25/24 Rx Allergies Allergy/AdvReac Type Severity Reaction Status Date / Time No Known Allergies Allergy Verified 01/01/24 12:38 Surgical - Exam Vital Signs Temp Pulse Resp BP Pulse Ox 97.8 F 70 16 173/63 100 01/25/24 06:07 01/25/24 06:07 01/25/24 06:07 01/25/24 06:07 01/25/24 06:07 - General no distress, no pain - Eyes normal ocular movement, no pale - ENT normal nares, normal mucosa - Respiratory normal expansion, normal respiratory effort - Abdomen Abdomen: soft, non tender - Psychiatric oriented to time, oriented to person, oriented to place Assessment and Plan Assessment: 83-year-old male with urethral stricture being managed with a suprapubic tube. Presented with SP tube clogging. He is following up with Dr. Worthington to discuss definitive management for his urethral stricture -A new 12 Beninese suprapubic tube was placed over wire, please see the procedure note for details -OK for discharge from urology standpoint, recommend discharging with 3 days of Cipro -Advised to keep follow-up with Dr. Worthington
--- NOTE | 2024-01-25 10:10 | P.PCN ---
Date of Procedure: 01/25/24 Preoperative Diagnosis: Urethral stricture Postoperative Diagnosis: Same Procedure(s) Performed: Suprapubic tube placement Condition: stable Indications for Procedure: 83-year-old male history of urethral stricture being managed with a suprapubic tube, presented to the ER due to clogging of the suprapubic tube, attempted exchange was unsuccessful. Discussed with him we will exchange the tube over guidewire guidance Description of Procedure: The previous 12 South African suprapubic tube was removed. I attempted to place a 14 South African and a 12 [place] African silicone catheters, but resistance was met and I was unable to advance the catheter into the bladder. At this time I proceeded with placing new catheter over a guidewire. I was able to cannulate the tract using an 035 Glidewire, next a 6 [place] African open-ended catheter was passed over the wire and the wire was removed and the open-ended catheter was left in place. At this time I did get a return of clear urine which confirmed that the wire was within the bladder. At this time the wire was readvanced through the catheter and the catheter was removed with the wire in place. Next I attempted to pass a 12 [place] silicone catheter over the wire but resistance was met at the tract at the level of the fascia. At this point given the difficulty decision was made to proceed with dilation. Next I advanced an 8 South African dilator over the wire which passed easily. Next I advanced a 10 South African dilator and a 12 [place] African dilator without any difficulties. Next a 14 [place] African dilator was passed over the wire there was significant scarring at the level of the bladder and the fascia and there was difficulties advancing the dilator but I was subsequently able to advance it into the bladder. At this time a 12 [place] silicone catheter was advanced over the wire again there was quite a bit of narrowing at the fascia and the bladder level but I was able to advance the catheter into the bladder. Next the catheter was irrigated to clear without any difficulty. The balloon was inflated with 10 cc. Patient tolerated procedure well
[2024-01-25 10:12] VITALS: BP 124/79; PULSE 68; RESP 20
== END 2024-01-25 10:10 | disposition home or self-care (01) ==
LOC: EC 06:06
DX: T83.091A Other mechanical complication of indwelling urethral catheter, initial encounter (principal); N35.919 Unspecified urethral stricture, male, unspecified site; E03.9 Hypothyroidism, unspecified; Z79.890 Hormone replacement therapy
CPT/HCPCS: 51703; 51798; 99283

== ENCOUNTER 2024-02-12 19:07 | Emergency (ER) | payer MEDICARE ==
[2024-02-12 19:26] VITALS: BP 108/61; PULSE 75; RESP 18; TEMP 98.5
--- NOTE | 2024-02-12 21:26 | ED ---
Male Urogenital HPI - General Chief complaint: Urogenital Stated complaint: Cath issues Time Seen by Provider: 02/12/24 19:56 Source: patient Mode of arrival: ambulatory Limitations: no limitations - History of Present Illness Initial comments: This patient is an 83-year-old man with history of previous urinary retention, he states probably due to urethral stricture, and previous placement of suprapubic catheter. The patient notes that he has been having difficulty with the suprapubic catheter. It had stopped draining urine. The patient states th at he did attempt to flush the catheter as he was trained to do but it did not appear to resolve the blockage. The patient does note that he is not having abdominal or back pain. He states that he is passing urine through the urethra. He does note that he is due to have urologic procedure within the next couple of weeks to resolve the urethral strictures. He is seeing Dr. Norris. The patient denies fever or chills. MD Complaint: other (Primary retention) Onset/Timin -: days(s) Severity scale (1-10): 0 Consistency: intermittent Improves with: urination Worsens with: none Reports: urinary retention - Related Data Home Medications Medication Instructions Recorded Confirmed Levothyroxine Sodium [Synthroid] 112 mcg PO HS 01/01/24 01/01/24 Previous Rx's Medication Instructions Recorded Sulfamethox-Tmp 800-160Mg [Bactrim 1 tab PO Q12HR 7 Days #14 tab 12/29/23 DS 800-160 mg] Ciprofloxacin HCl [Cipro] 500 mg PO Q12HR #6 tablet 01/25/24 Allergies Allergy/AdvReac Type Severity Reaction Status Date / Time No Known Allergies Allergy Verified 02/12/24 19:25 Review of Systems ROS Statement: Those systems with pertinent positive or pertinent negative responses have been documented in the HPI. ROS Other: All systems not noted in ROS Statement are negative. Constitutional: Denies: fever, chills Respiratory: Denies: cough, dyspnea Cardiovascular: Denies: chest pain, edema Gastrointestinal: Denies: abdominal pain, vomiting, diarrhea Genitourinary: Denies: dysuria, hematuria, testicular pain Musculoskeletal: Denies: back pain Skin: Denies: rash Neurological: Denies: headache Past Medical History Past Medical History: Cancer, Hyperlipidemia, Osteoarthritis (OA), Prostate Disorder, Thyroid Disorder Additional Past Medical History / Comment(s): In February 2018 pelvic abscess,diverticulitis,small bowel obs, HX OF PROSTATE CANCER WITH RADIATION (2013), SQUAMOUS CELL SKIN CANCER, CHRONIC SINUSITIS, , HYPOTHYROID., STATES PAST HX OF BACK PROBLEMS. History of Any Multi-Drug Resistant Organisms: MRSA Date of last positivie culture/infection: 04/01/18 MDRO Source:: ABDOMEN Surgical Site Past Surgical History: Adenoidectomy, Bowel Resection, Orthopedic Surgery, Prostate Surgery, Tonsillectomy Additional Past Surgical History / Comment(s): Exploratory Laparotomy Lysis of Adhesions Small Bowel Resection Partial Colectomy w/Colostomy 03-17-18,rt knee surgery, Lt HIP REPLACED, had gamez cath placed after 03/17/18 surgery. Past Anesthesia/Blood Transfusion Reactions: No Reported Reaction Additional Past Anesthesia/Blood Transfusion Reaction / Comment(s): No hx blood transfusion Past Psychological History: No Psychological Hx Reported Smoking Status: Never smoker Past Alcohol Use History: Occasional Past Drug Use History: None Reported - Past Family History Mother Family Medical History: No Reported History Sister(s) Family Medical History: CVA/TIA Father Family Medical History: Myocardial Infarction ([place]) General Exam Limitations: no limitations General appearance: alert, in no apparent distress Head exam: Present: atraumatic, normocephalic Respiratory exam: Present: normal lung sounds bilaterally. Absent: respiratory distress, wheezes, rales, rhonchi, stridor Cardiovascular Exam: Present: regular rate, normal rhythm, normal heart sounds. Absent: systolic murmur, diastolic murmur, rubs, gallop GI/Abdominal exam: Present: soft. Absent: distended, tenderness, guarding, rebound, rigid, mass Extremities exam: Present: normal inspection. Absent: pedal edema Back exam: Absent: CVA tenderness (R), CVA tenderness (L) Skin exam: Present: warm, dry, intact, normal color. Absent: rash Course Vital Signs 02/12/24 19:23 Temperature 98.5 F Pulse Rate 75 Respiratory 18 Rate Blood Pressure 108/61 O2 Sat by Pulse 97 Oximetry Medical Decision Making - Medical Decision Making Patient is an 83-year-old man with difficulty clearing probable obstruction of the suprapubic catheter. The patient is not currently having pain or other signs or symptoms of urinary retention. He is passing urine through his urethra though he states that the stream is not very strong. Discussed case with Dr. Hillman, who is covering urology this evening and he states that the patient should come to the clinic first thing in the morning where they will attempt to resolve the obstruction. I discussed return parameters with the patient who understands if he stops passing urine tonight, if he develops abdominal or back pain or any other symptoms develop he should return emergency department immediately. Was pt. sent in by a medical professional or institution (, DOROTHY, EMERGENCY SERVICE RESTORER, urgent care, hospital, or senior living...) When possible be specific @ -[No] Did you speak to anyone other than the patient for history (EMS, parent, family, police, friend...)? What history was obtained from this source @ -[No] Did you review nursing and triage notes (agree or disagree)? Why? @ -[I reviewed and agree with nursing and triage notes] Were old charts reviewed (outside hosp., previous admission, EMS record, old EKG, old radiological studies, urgent care reports/EKG's, senior living records)? Report findings @ -[This, old charts were reviewed] Differential Diagnosis (chest pain, altered mental status, abdominal pain women, abdominal pain men, vaginal bleeding, weakness, fever, dyspnea, syncope, headache, dizziness, GI bleed, back pain, seizure, CVA, palpatations, mental health, musculoskeletal)? @ -[The differential diagnosis includes suprapubic catheter malfunction, urinary tract infection, as well as other conditions including urologic malignancy, this list not comprehensive EKG interpreted by me (3pts min.). @ -[As above] X-rays interpreted by me (1pt min.). @ -[None done] CT interpreted by me (1pt min.). @ -[None done] U/S interpreted by me (1pt. min.). @ -[None done] What testing was considered but not performed or refused? (CT, X-rays, U/S, labs)? Why? @ -[None] What meds were considered but not given or refused? Why? @ -[None] Did you discuss the management of the patient with other professionals (professionals i.e. , DOROTHY, EMERGENCY SERVICE RESTORER, lab, RT, psych nurse, healthcare social worker, wood ski maker, teacher, global chief creative officer, pillowcase cleaner)? Give summary @ -[Discussed with urology on-call, see above Was smoking cessation discussed for >3mins.? @ -[No] Was critical care preformed (if so, how long)? @ -[No] Were there social determinants of health that impacted care today? How? (Homelessness, low income, unemployed, alcoholism, drug addiction, transportation, low edu. Level, literacy, decrease access to med. care, [place] [facility], rehab)? @ -[No] Was there de-escalation of care discussed even if they declined (Discuss DNR or withdrawal of care, Hospice)? DNR status @ -[No] What co-morbidities impacted this encounter? (DM, HTN, Smoking, COPD, CAD, Cancer, CVA, ARF, Chemo, Hep., AIDS, mental health diagnosis, sleep apnea, morbid obesity)? @ -[Urethral stricture. Suprapubic catheter Was patient admitted / discharged? Hospital course, mention meds given and route, prescriptions, significant lab abnormalities, going to OR and other pertinent info. @ -[See above Undiagnosed new problem with uncertain prognosis? @ -[No] Drug Therapy requiring intensive monitoring for toxicity (Heparin, Nitro, Insulin, Cardizem)? @ -[No] Were any procedures done? @ -[No] Diagnosis/symptom? @ -[Acute suprapubic catheter malfunction Acute, or Chronic, or Acute on Chronic? @ -[Acute Uncomplicated (without systemic symptoms) or Complicated (systemic symptoms)? @ -[default] Side effects of treatment? @ -[No] Exacerbation, Progression, or Severe Exacerbation? @ -[No] Poses a threat to life or bodily function? How? (Chest pain, [place], [place], pneumonia, PE, COPD, DKA, ARF, appy, cholecystitis, CVA, Diverticulitis, Homicidal, Suicidal, threat to staff... and all critical care pts) @ -[The patient understands that this may become a threat to renal function if the problem is not resolved and will follow-up tomorrow Disposition Clinical Impression: Urinary retention Disposition: HOME SELF-CARE Condition: Good Instructions (If sedation given, give patient instructions): Urinary Retention in Men (ED) Additional Instructions: As we discussed, go directly to the urology clinic in the morning they will attempt to resolve the suprapubic catheter obstruction. Is patient prescribed a controlled substance at d/c from ED?: No Referrals: Dagoberto Munoz DO [Primary Care Provider] - 1-2 days Vega Blanc MD [STAFF PHYSICIAN] - 1-2 days
== END 2024-02-12 21:35 | disposition home or self-care (01) ==
LOC: EC 19:07
DX: T83.098A Other mechanical complication of other urinary catheter, initial encounter (principal)
CPT/HCPCS: 99282

== ENCOUNTER 2024-05-12 16:32 | Emergency (ER) | payer MEDICARE ==
[2024-05-12 16:43] VITALS: RESP 16
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
[2024-05-12 20:05] VITALS: BP 141/62; PULSE 80; TEMP 98.2
== END 2024-05-12 20:14 | disposition home or self-care (01) ==
LOC: EC 16:32
DX: T74.11XA Adult physical abuse, confirmed, initial encounter (principal)
CPT/HCPCS: 70450; 99285

== ENCOUNTER 2024-07-19 13:49 | Emergency (ER) | payer MEDICARE ==
[2024-07-19 13:56] VITALS: TEMP 97.6
--- NOTE | 2024-07-19 14:27 | ED ---
General Adult HPI - General Chief complaint: Extremity Problem,Nontraumatic Stated complaint: Feet Swelling Time Seen by Provider: 07/19/24 14:03 Source: patient Mode of arrival: ambulatory Limitations: no limitations - History of Present Illness Initial comments: Dictation was produced using [email or web address] dictation software. please excuse any grammatical, word or spelling errors. Chief Complaint: 84-year-old male presents to the emergency department for lower extremity edema History of Present Illness: Patient is an 84-year-old male presents to the [facility] department for lower extremity edema. On the of last month patient had prostate procedure performed by urologist. Since the surgery he noticed that there was some swelling that collected in his lower extremities. Denies any shortness of breath. Denies any chest pain. No lower extremity swelling. He has indwelling Gamez catheter has been taking Bactrim, Pyridium and Flomax since the surgery. The ROS documented in this emergency department record has been reviewed and confirmed by me. Those systems with pertinent positive or negative responses have been documented in the HPI. All other systems are other negative and/or noncontributory. - Related Data Home Medications Medication Instructions Recorded Confirmed Levothyroxine Sodium [Synthroid] 112 mcg PO HS 01/01/24 01/01/24 Previous Rx's Medication Instructions Recorded Sulfamethox-Tmp 800-160Mg [Bactrim 1 tab PO Q12HR 7 Days #14 tab 12/29/23 DS 800-160 mg] Ciprofloxacin HCl [Cipro] 500 mg PO Q12HR #6 tablet 01/25/24 Allergies Allergy/AdvReac Type Severity Reaction Status Date / Time No Known Allergies Allergy Verified 05/12/24 16:44 Review of Systems ROS Statement: Those systems with pertinent positive or pertinent negative responses have been documented in the HPI. ROS Other: All systems not noted in ROS Statement are negative. Past Medical History Past Medical History: Cancer, Hyperlipidemia, Osteoarthritis (OA), Prostate Disorder, Thyroid Disorder Additional Past Medical History / Comment(s): In February 2018 pelvic abscess,diverticulitis,small bowel obs, HX OF PROSTATE CANCER WITH RADIATION (2013), SQUAMOUS CELL SKIN CANCER, CHRONIC SINUSITIS, , HYPOTHYROID., STATES PAST HX OF BACK PROBLEMS. History of Any Multi-Drug Resistant Organisms: MRSA Date of last positivie culture/infection: 04/01/18 MDRO Source:: ABDOMEN Surgical Site Past Surgical History: Adenoidectomy, Bowel Resection, Orthopedic Surgery, Prostate Surgery, Tonsillectomy Additional Past Surgical History / Comment(s): Exploratory Laparotomy Lysis of Adhesions Small Bowel Resection Partial Colectomy w/Colostomy 03-17-18,rt knee surgery, Lt HIP REPLACED, had gamez cath placed after 03/17/18 surgery. Past Anesthesia/Blood Transfusion Reactions: No Reported Reaction Additional Past Anesthesia/Blood Transfusion Reaction / Comment(s): No hx blood transfusion Past Psychological History: No Psychological Hx Reported Smoking Status: Never smoker Past Alcohol Use History: Occasional Past Drug Use History: None Reported - Past Family History Mother Family Medical History: No Reported History Sister(s) Family Medical History: CVA/TIA Father Family Medical History: Myocardial Infarction ([place]) General Exam - General Exam Comments Initial Comments: PHYSICAL EXAM: General Impression: Alert and oriented x3, not in acute distress HEENT: Normocephalic atraumatic, extra-ocular movements intact, pupils equal and reactive to light bilaterally, mucous membranes moist. Cardiovascular: Heart regular rate and rhythm Chest: Able to complete full sentences, no retractions, no tachypnea Abdomen: abdomen soft, non-tender, non-distended, no organomegaly Musculoskeletal: Pulses present and equal in all extremities, 1+ pitting edema to the lower extremities Motor: no focal deficits noted Neurological: CN II-XII grossly intact, no focal motor or sensory deficits noted Skin: Intact with no visualized rashes Psych: Normal affect and mood Limitations: no limitations Course Vital Signs 07/19/24 13:52 Temperature 97.6 F Pulse Rate 79 Respiratory 20 Rate Blood Pressure 126/61 O2 Sat by Pulse 94 L Oximetry Medical Decision Making - Medical Decision Making Was pt. sent in by a medical professional or institution (, PA, SUPERVISOR [employer] WAVE, urgent care, hospital, or fdc...) When possible be specific @ -No Did you speak to anyone other than the patient for history (EMS, parent, family, police, friend...)? What history was obtained from this source @ -No Did you review nursing and triage notes (agree or disagree)? Why? @ -I reviewed and agree with nursing and triage notes Were old charts reviewed (outside hosp., previous admission, EMS record, old EKG, old radiological studies, urgent care reports/EKG's, fdc records)? Report findings @ -No old charts were reviewed Differential Diagnosis (chest pain, altered mental status, abdominal pain women, abdominal pain men, vaginal bleeding, musculoskeletal, weakness, fever, dyspnea, syncope, headache, dizziness, GI bleed, back pain, seizure, CVA, palpatations, mental health)? @ -Heart failure, Cellulitis, dependent edema EKG interpreted by me (3pts min.). @ -None done X-rays interpreted by me (1pt min.). @ -None done CT interpreted by me (1pt min.). @ -None done U/S interpreted by me (1pt. min.). @ -None done What testing was considered but not performed or refused? (CT, X-rays, U/S, labs)? Why? @ -None What meds were considered but not given or refused? Why? @ -None Was smoking cessation discussed for >3mins.? @ -No Were there social determinants of health that impacted care today? How? (Ho melessness, low income, unemployed, alcoholism, drug addiction, transportation, low edu. Level, literacy, decrease access to med. care, [facility], rehab)? @ -No Was there de-escalation of care discussed even if they declined (Discuss DNR or withdrawal of care, Hospice)? DNR status @ -No What co-morbidities impacted this encounter? (DM, HTN, Smoking, COPD, CAD, Cancer, CVA, ARF, Chemo, Hep., AIDS, mental health diagnosis, sleep apnea, morbid obesity)? @ -None Was patient admitted / discharged? Hospital course, mention meds given and route, prescriptions, significant lab abnormalities, going to OR and other pertinent info. @ -84-year-old male presents with lower extremity edema. Vital signs upon arrival are within acceptable limits. Patient has pitting edema on physical exam. Likely dependent secondary to recent urologic surgery. Metabolic panel obtained. No electrolyte derangement. Patient given dose of IV Lasix. Discharged told to follow-up with primary care doctor for further care of lower extremity edema Did you discuss the management of the patient with other professionals ( professionals i.e. , PA, SUPERVISOR [employer] WAVE, lab, RT, psych nurse, psych social worker, german tutor, teacher, security patrol officer, protective services case worker)? Give summary @ -No Was critical care preformed (if so, how long)? @ -No Undiagnosed new problem with uncertain prognosis? @ -No Drug Therapy requiring intensive monitoring for toxicity (Heparin, Nitro, Insulin, Cardizem)? @ -No Were any procedures done? @ -No Diagnosis/symptom? Acute, or Chronic, or Acute on Chronic? Uncomplicated (without systemic symptoms) or Complicated (systemic symptoms)? @ -Lower extremity edema Side effects of treatment? @ -No Exacerbation, Progression, or Severe Exacerbation? @ -No Poses a threat to life or bodily function? How? (Chest pain, USA, CA, pneumonia, PE, COPD, DKA, ARF, appy, cholecystitis, CVA, Diverticulitis, Homicidal, Suicidal, threat to staff... and all critical care pts) @ -No - Lab Data Result diagrams: 07/19/24 14:26 Lab Results 07/19/24 Range/Units 14:26 Sodium 133 L (137-145) mmol/L Potassium 4.6 (3.5-5.1) mmol/L Chloride 102 (98-107) mmol/L Carbon Dioxide 30 (22-30) mmol/L Anion Gap 1 mmol/L BUN 22 H (9-20) mg/dL Creatinine 0.79 (0.66-1.25) mg/dL Est GFR (CKD-EPI)AfAm >90 (>60 ml/min/1.73 sqM) Est GFR (CKD-EPI)NonAf 83 (>60 ml/min/1.73 sqM) Glucose 80 (74-99) mg/dL Calcium 8.7 (8.4-10.2) mg/dL Disposition Clinical Impression: Lower extremity edema Disposition: HOME SELF-CARE Condition: Good Instructions (If sedation given, give patient instructions): Leg Edema (ED) Is patient prescribed a controlled substance at d/c from ED?: No Referrals: Dagoberto Munoz DO [Primary Care Provider] - 1-2 days Time of Disposition: 15:14
[2024-07-19 14:55] LABS: African American GFR (CKD) >90 (>60 ml/min/1.73 sqM); Anion Gap 1 mmol/L; Blood Urea Nitrogen 22 mg/dL (9-20); Calcium 8.7 mg/dL (8.4-10.2); Carbon Dioxide 30 mmol/L (22-30); Chloride 102 mmol/L (98-107); Glucose 80 mg/dL (74-99); Non-African American GFR(CKD) 83 (>60 ml/min/1.73 sqM); Potassium 4.6 mmol/L (3.5-5.1); Sodium 133 mmol/L (137-145)
[2024-07-19] MEDS: FUROSEMIDE 10 MG/ML 2 ML VIAL IV ONE (15:29)
[2024-07-19 15:56] VITALS: BP 137/72; PULSE 74; RESP 18
== END 2024-07-19 15:56 | disposition home or self-care (01) ==
LOC: EC 13:49
DX: R60.0 Localized edema (principal)
CPT/HCPCS: 36415; 80048; 99282; J1940

== ENCOUNTER → 2024-08-31 | Outpatient (CLI) | payer MEDICARE ==
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
== END ==
LOC: RADMRIMAIN 12:57
PROVIDERS: ATTEND Family Medicine
DX: S31.115A Laceration without foreign body of abdominal wall, periumbilic region without penetration into peritoneal cavity, initial encounter (principal); K46.9 Unspecified abdominal hernia without obstruction or gangrene; N28.1 Cyst of kidney, acquired; K86.2 Cyst of pancreas; K40.20 Bilateral inguinal hernia, without obstruction or gangrene, not specified as recurrent
CPT/HCPCS: 72195; 74181

== ENCOUNTER 2024-09-15 18:54 | Emergency (ER) | payer MEDICARE ==
[2024-09-15 19:06] VITALS: BP 110/68; PULSE 86; RESP 18; TEMP 98.4
--- NOTE | 2024-09-15 19:31 | ED ---
General Adult HPI - General Chief complaint: Urogenital Stated complaint: urinary issues Time Seen by Provider: 09/15/24 19:08 Source: patient Mode of arrival: wheelchair Limitations: no limitations - History of Present Illness Initial comments: Dictation was produced using [employer] dictation software. please excuse any grammatical, word or spelling errors. Chief Complaint: 84-year-old male with chronic groin and urinary symptoms presents to the ER for urinalysis History of Present Illness: Patient is 84-year-old male he has chronic urinary and groin symptoms. He has seen his primary care doctor along with urologist regarding his symptoms. Last week he had a urine test done and he was told today that his results were equivocal for an infection. Patient states that he has had multiple workups between [place] and our hospital along with outpatient physicians and no one seemed to be able to give patient answers as to what is going on. He seen a urologist last week. Patient here at the ER today because he wants his urine tested from a different facility. The ROS documented in this emergency department record has been reviewed and con firmed by me. Those systems with pertinent positive or negative responses have been documented in the HPI. All other systems are other negative and/or noncontributory. - Related Data Home Medications Medication Instructions Recorded Confirmed Levothyroxine Sodium [Synthroid] 112 mcg PO HS 01/01/24 01/01/24 Previous Rx's Medication Instructions Recorded Sulfamethox-Tmp 800-160Mg [Bactrim 1 tab PO Q12HR 7 Days #14 tab 12/29/23 DS 800-160 mg] Ciprofloxacin HCl [Cipro] 500 mg PO Q12HR #6 tablet 01/25/24 Allergies Allergy/AdvReac Type Severity Reaction Status Date / Time No Known Allergies Allergy Verified 09/15/24 19:04 Review of Systems ROS Statement: Those systems with pertinent positive or pertinent negative responses have been documented in the HPI. ROS Other: All systems not noted in ROS Statement are negative. Past Medical History Past Medical History: Cancer, Hyperlipidemia, Osteoarthritis (OA), Prostate Disorder, Thyroid Disorder Additional Past Medical History / Comment(s): In February 2018 pelvic abscess,diverticulitis,small bowel obs, HX OF PROSTATE CANCER WITH RADIATION (2013), SQUAMOUS CELL SKIN CANCER, CHRONIC SINUSITIS, , HYPOTHYROID., STATES PAST HX OF BACK PROBLEMS. History of Any Multi-Drug Resistant Organisms: MRSA Date of last positivie culture/infection: 04/01/18 MDRO Source:: ABDOMEN Surgical Site Past Surgical History: Adenoidectomy, Bowel Resection, Orthopedic Surgery, Prostate Surgery, Tonsillectomy Additional Past Surgical History / Comment(s): Exploratory Laparotomy Lysis of Adhesions Small Bowel Resection Partial Colectomy w/Colostomy 03-17-18,rt knee surgery, Lt HIP REPLACED, had gamez cath placed after 03/17/18 surgery. Past Anesthesia/Blood Transfusion Reactions: No Reported Reaction Additional Past Anesthesia/Blood Transfusion Reaction / Comment(s): No hx blood transfusion Past Psychological History: No Psychological Hx Reported Smoking Status: Never smoker Past Alcohol Use History: Occasional Past Drug Use History: None Reported - Past Family History Mother Family Medical History: No Reported History Sister(s) Family Medical History: CVA/TIA Father Family Medical History: Myocardial Infarction (SC) General Exam - General Exam Comments Initial Comments: PHYSICAL EXAM: General Impression: Alert and oriented x3, not in acute distress HEENT: Normocephalic atraumatic, extra-ocular movements intact, pupils equal and reactive to light bilaterally, mucous membranes moist. Cardiovascular: Heart regular rate and rhythm Chest: Able to complete full sentences, no retractions, no tachypnea Abdomen: abdomen soft, non-tender, non-distended, no organomegaly Musculoskeletal: Pulses present and equal in all extremities, no peripheral edema Motor: no focal deficits noted Neurological: CN II-XII grossly intact, no focal motor or sensory deficits noted Skin: Intact with no visualized rashes Psych: Normal affect and mood Limitations: no limitations Course Vital Signs 09/15/24 19:04 Temperature 98.4 F Pulse Rate 86 Respiratory 18 Rate Blood Pressure 110/68 O2 Sat by Pulse 96 Oximetry Medical Decision Making - Medical Decision Making Was pt. sent in by a medical professional or institution (, PA, ASSESSMENT CLINICIAN, urgent care, hospital, or shelter...) When possible be specific @ -No Did you speak to anyone other than the patient for history (EMS, parent, family, police, friend...)? What history was obtained from this source @ -No Did you review nursing and triage notes (agree or disagree)? Why? @ -I reviewed and agree with nursing and triage notes Were old charts reviewed (outside hosp., previous admission, EMS record, old EKG, old radiological studies, urgent care reports/EKG's, shelter records)? Report findings @ -No old charts were reviewed Differential Diagnosis (chest pain, altered mental status, abdominal pain women, abdominal pain men, vaginal bleeding, musculoskeletal, weakness, fever, dyspnea, syncope, headache, dizziness, GI bleed, back pain, seizure, CVA, palpatations, mental health)? @ -UTI, urethritis, hemorrhagic cystitis EKG interpreted by me (3pts min.). @ -None done X-rays interpreted by me (1pt min.). @ -None done CT interpreted by me (1pt min.). @ -None done U/S interpreted by me (1pt. min.). @ -None done What testing was considered but not performed or refused? (CT, X-rays, U/S, labs)? Why? @ -None What meds were considered but not given or refused? Why? @ -None Was smoking cessation discussed for >3mins.? @ -No Were there social determinants of health that impacted care today? How? (Homelessness, low income, unemployed, alcoholism, drug addiction, transportation, low edu. Level, literacy, decrease access to med. care, intermediate, rehab)? @ -No Was there de-escalation of care discussed even if they declined (Discuss DNR or withdrawal of care, Hospice)? DNR status @ -No What co-morbidities impacted this encounter? (DM, HTN, Smoking, COPD, CAD, Cancer, CVA, ARF, Chemo, Hep., AIDS, mental health diagnosis, sleep apnea, morbid obesity)? @ -None Was patient admitted / discharged? Hospital course, mention meds given and route, prescriptions, significant lab abnormalities, going to OR and other pertinent info. @ -84-year-old male who presents to the ER for urinalysis. Patient has seen multiple specialists's been to multiple emergency departments regarding his urinary symptoms. Vital signs upon arrival are within acceptable limits. She was seen at the urologist office told that he did have a UTI after culture results came back. Patient wanted psych opinion this week came to the ER. States that his symptoms are chronic. Laboratory evaluation obtained. Urinalysis shows 46 red blood cells and 61 white blood cells. Previous microbiology results are reviewed. He had urine culture from 6 days ago that was unremarkable. Patient instructed to follow-up with his primary care doctor. Urine will be sent to lab for reflex culture. Did you discuss the management of the patient with other professionals (professionals i.e. , PA, ASSESSMENT CLINICIAN, lab, RT, psych nurse, dialysis social worker, geographic information systems engineer, teacher, strike operations officer, case technician)? Give summary @ -No Was critical care preformed (if so, how long)? @ -No Undiagnosed new problem with uncertain prognosis? @ -No Drug Therapy requiring intensive monitoring for toxicity (Heparin, Nitro, Insulin, Cardizem)? @ -No Were any procedures done? @ -No Diagnosis/symptom? Acute, or Chronic, or Acute on Chronic? Uncomplicated (without systemic symptoms) or Complicated (systemic symptoms)? @ -Dysuria Side effects of treatment? @ -No Exacerbation, Progression, or Severe Exacerbation? @ -No Poses a threat to life or bodily function? How? (Chest pain, USA, SC, pneumonia, PE, COPD, DKA, ARF, appy, cholecystitis, CVA, Diverticulitis, Homicidal, Suicidal, threat to staff... and all critical care pts) @ -No - Lab Data Lab Results 09/15/24 Range/Units 19:49 Urine Color [place] Urine Appearance Cloudy (Clear) Urine RBC 46 H (0-5) /hpf Urine WBC 61 H (0-5) /hpf Urine WBC Clumps Many H (None) /hpf Urine Bacteria Many H (None) /hpf Urine Mucus Few H (None) /hpf Disposition Clinical Impression: Abnormal urinalysis Disposition: HOME SELF-CARE Condition: Good Instructions (If sedation given, give patient instructions): Dysuria (ED) Is patient prescribed a controlled substance at d/c from ED?: No Referrals: Dagoberto Munoz DO [Primary Care Provider] - 1-2 days Time of Disposition: 21:30
[2024-09-15 20:08] LABS: Appearance,Urine Cloudy (Clear); Color,Urine Orange
[2024-09-15 20:24] LABS: Bacteria,Urine Many /hpf; Mucus,Urine Few /hpf; RBC,Urine 46 /hpf (0-5); WBC,Urine 61 /hpf (0-5)
== END 2024-09-15 21:45 | disposition home or self-care (01) ==
LOC: EC 18:54
DX: R82.90 Unspecified abnormal findings in urine (principal)
CPT/HCPCS: 81001; 87086; 99283

== ENCOUNTER 2024-10-08 12:38 | Outpatient (CLI) | payer MEDICARE | END 2024-10-11 09:27 | disposition home or self-care (01) | LOC: WNDWHC3 12:38 | PROVIDERS: ATTEND Internal Medicine Infectious Disease | DX: Z53.9 Procedure and treatment not carried out, unspecified reason (principal) ==

== ENCOUNTER 2024-10-20 12:53 | Emergency (ER) | payer MEDICARE ==
[2024-10-20 13:05] VITALS: RESP 18
--- NOTE | 2024-10-20 14:21 | ED ---
General Adult HPI - General Chief complaint: Urogenital Stated complaint: abn labs Time Seen by Provider: 10/20/24 13:10 Source: patient, RN notes reviewed, old records reviewed Mode of arrival: ambulatory Limitations: no limitations - History of Present Illness Initial comments: This is an 84-year-old male who presents to the emergency department stating that he has had urethral stricture repair and had some procedure done recently he comes in today because he has some dysuria with urination and he thinks he might have another urinary tract infection. Patient states he is also been spiking a fever for the last couple of nights. Patient denies any back pain. Patient [place] any abdominal pain. - Related Data Home Medications Medication Instructions Recorded Confirmed Levothyroxine Sodium [Synthroid] 112 mcg PO HS 01/01/24 01/01/24 Previous Rx's Medication Instructions Recorded Sulfamethox-Tmp 800-160Mg [Bactrim 1 tab PO Q12HR 7 Days #14 tab 12/29/23 DS 800-160 mg] Ciprofloxacin HCl [Cipro] 500 mg PO Q12HR #6 tablet 01/25/24 Ciprofloxacin HCl [Cipro] 500 mg PO Q12HR #20 tablet 10/20/24 Allergies Allergy/AdvReac Type Severity Reaction Status Date / Time No Known Allergies Allergy Verified 10/20/24 13:05 Review of Systems ROS Statement: Those systems with pertinent positive or pertinent negative responses have been documented in the HPI. ROS Other: All systems not noted in ROS Statement are negative. Past Medical History Past Medical History: Cancer, Hyperlipidemia, Osteoarthritis (OA), Prostate Disorder, Thyroid Disorder Additional Past Medical History / Comment(s): In February 2018 pelvic abscess,diverticulitis,small bowel obs, HX OF PROSTATE CANCER WITH RADIATION (2013), SQUAMOUS CELL SKIN CANCER, CHRONIC SINUSITIS, , HYPOTHYROID., STATES PAST HX OF BACK PROBLEMS. History of Any Multi-Drug Resistant Organisms: MRSA Date of last positivie culture/infection: 04/01/18 MDRO Source:: ABDOMEN Surgical Site Past Surgical History: Adenoidectomy, Bowel Resection, Orthopedic Surgery, Prostate Surgery, Tonsillectomy Additional Past Surgical History / Comment(s): Exploratory Laparotomy Lysis of Adhesions Small Bowel Resection Partial Colectomy w/Colostomy 03-17-18,rt knee surgery, Lt HIP REPLACED, had gamez cath placed after 03/17/18 surgery. Past Anesthesia/Blood Transfusion Reactions: No Reported Reaction Additional Past Anesthesia/Blood Transfusion Reaction / Comment(s): No hx blood transfusion Past Psychological History: No Psychological Hx Reported Smoking Status: Never smoker Past Alcohol Use History: Occasional Past Drug Use History: None Reported - Past Family History Mother Family Medical History: No Reported History Sister(s) Family Medical History: CVA/TIA Father Family Medical History: Myocardial Infarction (NM) General Exam - General Exam Comments Initial Comments: GENERAL: Patient is well-developed and well-nourished. Patient is nontoxic and well- hydrated and is in mild distress. ENT: Neck is soft and supple. No significant lymphadenopathy is noted. Oropharynx is clear. Moist mucous membranes. Neck has full range of motion without eliciting any pain. EYES: The sclera were anicteric and conjunctiva were pink and moist. Extraocular movements were intact and pupils were equal round and reactive to light. Eyelids were unremarkable. GENITALIA: On exam patient of the skin of the penis but not constricting the urethra. Patient also has some fullness in the mons pubis area which she states has been ongoing for quite a while and he is being worked up for that as an outpatient. SKIN: Skin is clear with no lesions or rashes and otherwise unremarkable. NEUROLOGIC: Patient is alert and oriented x3. Cranial nerves II through XII are grossly intact. Motor and sensory are also intact. Normal speech, volume and content. Symmetrical smile. MUSCULOSKELETAL: Normal extremities with adequate strength and full range of motion. LYMPHATICS: No significant lymphadenopathy is noted PSYCHIATRIC: Normal psychiatric evaluation. Limitations: no limitations Course Vital Signs 10/20/24 13:03 Temperature 97.9 F Pulse Rate 88 Respiratory 18 Rate Blood Pressure 126/61 O2 Sat by Pulse 92 L Oximetry Medical Decision Making - Medical Decision Making Was pt. sent in by a medical professional or institution (, PA, BRICK TENDER, urgent care, hospital, or senior living...) When possible be specific @ -No Did you speak to anyone other than the patient for history (EMS, parent, family, police, friend...)? What history was obtained from this source @ -No Did you review nursing and triage notes (agree or disagree)? Why? @ -I reviewed and agree with nursing and triage notes Were old charts reviewed (outside hosp., previous admission, EMS record, old EKG, old radiological studies, urgent care reports/EKG's, senior living records)? Report findings @ -No old charts were reviewed Differential Diagnosis? @ -Urinary tract infection, pyelonephritis, hematuria, is not an all-inclusive list EKG interpreted by me (3pts min.). @ -As above X-rays interpreted by me (1pt min.). @ -None done CT interpreted by me (1pt min.). @ -None done U/S interpreted by me (1pt. min.). @ -None done What testing was considered but not performed or refused? (CT, X-rays, U/S, labs)? Why? @ -None What meds were considered but not given or refused? Why? @ -None Did you discuss the management of the patient with other professionals (professionals i.e. , PA, BRICK TENDER, lab, RT, psych nurse, psychotherapist social worker, clinical mental health counselor, teacher, systems support officer, insurance case manager)? Give summary @ -No Was smoking cessation discussed for >3mins.? @ -No Was critical care preformed (if so, how long)? @ -No Were there social determinants of health that impacted care today? How? (Homelessness, low income, unemployed, alcoholism, drug addiction, transportation, low edu. Level, literacy, decrease access to med. care, assisted, rehab)? @ -No Was there de-escalation of care discussed even if they declined (Discuss DNR or withdrawal of care, Hospice)? DNR status @ -No What co-morbidities impacted this encounter? (DM, HTN, Smoking, COPD, CAD, Cancer, CVA, ARF, Chemo, Hep., AIDS, mental health diagnosis, sleep apnea, morbid obesity)? @ -None Was patient admitted / discharged? Hospital course, mention meds given and route, prescriptions, significant lab abnormalities, going to OR and other pertinent info. @ -Patient's urine showed an infection. Patient received 1 g of Rocephin IV and I started patient on Cipro p.o. Patient was instructed to come back if symptoms worsened in any way. Undiagnosed new problem with uncertain prognosis? @ -No Drug Therapy requiring intensive monitoring for toxicity (Heparin, Nitro, Insulin, Cardizem)? @ -No Were any procedures done? @ -No Diagnosis/symptom? @ -Urinary tract infection Acute, or Chronic, or Acute on Chronic? @ -Acute Uncomplicated (without systemic symptoms) or Complicated (systemic symptoms)? @ -Complicated Side effects of treatment? @ -No Exacerbation, Progression, or Severe Exacerbation? @ -No Poses a threat to life or bodily function? How? (Chest pain, USA, [place], pneumonia, PE, COPD, DKA, ARF, appy, cholecystitis, CVA, Diverticulitis, Homicidal, Suicidal, threat to staff... and all critical care pts) @ -No - Lab Data Lab Results 10/20/24 Range/Units 14:14 Urine Color Dark Brown Urine Appearance Turbid (Clear) Urine pH 7.0 (5.0-8.0) Ur Specific [place] 1.022 (1.001-1.035) Urine Protein 3+ H (Negative) Urine Glucose (UA) Negative (Negative) Urine Ketones Negative (Negative) Urine Blood Moderate H (Negative) Urine Nitrite Positive (Negative) Urine Bilirubin 2+ H (Negative) Urine Urobilinogen 6.0 (<2.0) mg/dL Ur Leukocyte Esterase Large H (Negative) Urine RBC 72 H (0-5) /hpf Urine WBC >182 H (0-5) /hpf Urine WBC Clumps Many H (None) /hpf Calcium Oxalate Crystal Few H (None) /hpf Urine Bacteria Many H (None) /hpf Urine Mucus Occasional H (None) /hpf Disposition Clinical Impression: Urinary tract infection Disposition: HOME SELF-CARE Condition: Good Instructions (If sedation given, give patient instructions): Urinary Tract Infection in Men (ED) Prescriptions: Ciprofloxacin HCl [Cipro] 500 mg PO Q12HR #20 tablet Is patient prescribed a controlled substance at d/c from ED?: No Referrals: Dagoberto Munoz DO [Primary Care Provider] - 1-2 days Time of Disposition: 15:16
[2024-10-20 14:38] LABS: Appearance,Urine Turbid (Clear); Bacteria,Urine Many /hpf; Bilirubin,Urine 2+ (Negative); Blood,Urine Moderate (Negative); Calcium Oxalate Crystals,Urine Few /hpf; Color,Urine Dark Brown; Glucose,Urine (UA) Negative (Negative); Ketones,Urine Negative (Negative); Leukocyte Esterase,Urine Large (Negative); Mucus,Urine Occasional /hpf; Nitrite,Urine Positive (Negative); Protein,Urine 3+ (Negative); RBC,Urine 72 /hpf (0-5); Specific Gravity,Urine 1.022 (1.001-1.035); WBC,Urine >182 /hpf (0-5)
[2024-10-20] MEDS: cefTRIAXone 1,000 MG VIAL (IM USE) IM STA (15:46)
[2024-10-20] MEDS: CIPROFLOXACIN HCL 500 MG TAB PO STA (15:47)
[2024-10-20 16:05] VITALS: BP 129/81; PULSE 87; TEMP 98.1
== END 2024-10-20 16:04 | disposition home or self-care (01) ==
LOC: EC 12:53
DX: N39.0 Urinary tract infection, site not specified (principal)
CPT/HCPCS: 81001; 87086; 99283; 96372; J0696

== ENCOUNTER 2024-10-21 21:01 | Emergency (ER) | payer MEDICARE ==
--- NOTE | 2024-10-21 22:30 | ED ---
Male Urogenital HPI - General Chief complaint: Urogenital Stated complaint: Urinary retention Time Seen by Provider: 10/21/24 21:14 Source: patient Mode of arrival: ambulatory Limitations: no limitations - History of Present Illness Initial comments: This patient is an 84-year-old man who presents with complaint that he is not able to urinate. Patient relates that he had history of previous urethral surgery with Dr. Worthington out of [place]. He states that he started having symptoms of bladder pressure and hesitancy 2 days ago. He was seen here yes terday, diagnosed with urinary tract infection, and was given initial IV antibiotics followed by outpatient course to start. He states that starting few hours ago he felt urge to urinate and has not been able to pass urine. He has not noted fever or chills. No back pain. There is suprapubic discomfort. He has noted that his urine has been red but he states he is taking an [id number] urinary medication that discolors his urine. MD Complaint: other -: hour(s) Location: penis Radiation: none Severity: moderate Quality: burning Consistency: constant Improves with: none Worsens with: urination new medication Reports: urinary retention - Related Data Home Medications Medication Instructions Recorded Confirmed Levothyroxine Sodium [Synthroid] 112 mcg PO HS 01/01/24 10/23/24 Pentoxifylline [TRENtal] 400 mg PO DAILY 10/23/24 10/23/24 Previous Rx's Medication Instructions Recorded Ciprofloxacin HCl [Cipro] 500 mg PO Q12HR #20 tablet 10/20/24 Acetaminophen Tab [Tylenol] 650 mg PO Q6HR PRN tab 10/25/24 Famotidine [Pepcid] 20 mg PO BID tab 10/25/24 Allergies Allergy/AdvReac Type Severity Reaction Status Date / Time No Known Allergies Allergy Verified 10/30/24 10:24 Review of Systems ROS Statement: Those systems with pertinent positive or pertinent negative responses have been documented in the HPI. ROS Other: All systems not noted in ROS Statement are negative. Constitutional: Denies: fever, chills, weakness Respiratory: Denies: cough, dyspnea Cardiovascular: Denies: chest pain, palpitations Gastrointestinal: Reports: abdominal pain. Denies: nausea, vomiting, diarrhea, constipation Genitourinary: Reports: dysuria, frequency, hematuria. Denies: testicular pain, testicular mass Musculoskeletal: Denies: back pain Skin: Denies: rash Neurological: Denies: headache, weakness Past Medical History Past Medical History: Cancer, Hyperlipidemia, Osteoarthritis (OA), Prostate Disorder, Thyroid Disorder Additional Past Medical History / Comment(s): In February 2018 pelvic abscess,diverticulitis,small bowel obs, HX OF PROSTATE CANCER WITH RADIATION (2013), SQUAMOUS CELL SKIN CANCER, CHRONIC SINUSITIS, , HYPOTHYROID., STATES PAST HX OF BACK PROBLEMS. History of Any Multi-Drug Resistant Organisms: MRSA Date of last positivie culture/infection: 04/01/18 MDRO Source:: ABDOMEN Surgical Site Past Surgical History: Adenoidectomy, Bowel Resection, Orthopedic Surgery, Prostate Surgery, Tonsillectomy Additional Past Surgical History / Comment(s): Exploratory Laparotomy Lysis of Adhesions Small Bowel Resection Partial Colectomy w/Colostomy 03-17-18,rt knee surgery, Lt HIP REPLACED, had gamez cath placed after 03/17/18 surgery. Past Anesthesia/Blood Transfusion Reactions: No Reported Reaction Additional Past Anesthesia/Blood Transfusion Reaction / Comment(s): No hx blood transfusion Past Psychological History: No Psychological Hx Reported Smoking Status: Never smoker Past Alcohol Use History: Occasional Past Drug Use History: None Reported - Past Family History Mother Family Medical History: No Reported History Sister(s) Family Medical History: CVA/TIA Father Family Medical History: Myocardial Infarction ([place]) General Exam Limitations: no limitations General appearance: alert, in no apparent distress Head exam: Present: atraumatic, normocephalic Eye exam: Present: normal appearance. Absent: scleral icterus, conjunctival injection ENT exam: Present: normal oropharynx Neck exam: Present: normal inspection Respiratory exam: Present: normal lung sounds bilaterally. Absent: respiratory distress, wheezes, rales, rhonchi, stridor, accessory muscle use Cardiovascular Exam: Present: regular rate, normal rhythm, normal heart sounds. Absent: systolic murmur, diastolic murmur, rubs, gallop GI/Abdominal exam: Present: soft. Absent: distended, tenderness, guarding, rebound, rigid, mass Extremities exam: Present: normal inspection, normal capillary refill. Absent: pedal edema, calf tenderness Back exam: Present: normal inspection. Absent: CVA tenderness (R), CVA tenderness (L) Neurological exam: Present: alert Skin exam: Present: warm, dry, intact, normal color. Absent: rash Course Vital Signs 10/21/24 10/21/24 21:04 23:40 Temperature 98.4 F 98.0 F Pulse Rate 100 94 Respiratory 18 19 Rate Blood Pressure 129/64 125/84 O2 Sat by Pulse 93 L 94 L Oximetry Medical Decision Making - Medical Decision Making Patient is 84-year-old man with symptoms consistent with urinary retention. He is not able to pass any urine and is having suprapubic discomfort and sensation of needing to urinate. Nursing was able to successfully and without difficulty place Gamez catheter with resulting drainage of urine. The patient would like to follow with his urologist rather than see urology here. Discussed appropriate further care and follow-up as well as return parameters. Was pt. sent in by a medical professional or institution (, PA, ELECTRONIC GAME DEVELOPER, urgent care, hospital, or longterm...) When possible be specific @ -[No] Did you speak to anyone other than the patient for history (EMS, parent, family, police, friend...)? What history was obtained from this source @ -[No] Did you review nursing and triage notes (agree or disagree)? Why? @ -[I reviewed and agree with nursing and triage notes] Were old charts reviewed (outside hosp., previous admission, EMS record, old EKG, old radiological studies, urgent care reports/EKG's, longterm records)? Report findings @ -[No old charts were reviewed] Differential Diagnosis (chest pain, altered mental status, abdominal pain women, abdominal pain men, vaginal bleeding, weakness, fever, dyspnea, syncope, headache, dizziness, GI bleed, back pain, seizure, CVA, palpatations, mental health, musculoskeletal)? @ -[Differential Abdominal Pain Men: Appendicitis, cholecystitis, diverticulosis, ischemic bowel, pancreatitis, hepatitis, UTI, gastroenteritis, AAA, incarcerated hernia, bowel obstruction, constipation, inflammatory bowel, hepatitis, peptic ulcer disease, splenic infarction, perforated viscus, testicular torsion, this is not meant to be an all-inclusive list EKG interpreted by me (3pts min.). @ -[As above] X-rays interpreted by me (1pt min.). @ -[None done] CT interpreted by me (1pt min.). @ -[None done] U/S interpreted by me (1pt. min.). @ -[None done] What testing was considered but not performed or refused? (CT, X-rays, U/S, labs)? Why? @ -[None] What meds were considered but not given or refused? Why? @ -[None] Did you discuss the management of the patient with other professionals (professionals i.e. , PA, ELECTRONIC GAME DEVELOPER, lab, RT, psych nurse, social insurance adviser, pen rider, teacher, radio electronics officer, disease case manager)? Give summary @ -[No] Was smoking cessation discussed for >3mins.? @ -[No] Was critical care preformed (if so, how long)? @ -[No] Were there social determinants of health that impacted care today? How? (Homelessness, low income, unemployed, alcoholism, drug addiction, transportation, low edu. Level, literacy, decrease access to med. care, prison, rehab)? @ -[No] Was there de-escalation of care discussed even if they declined (Discuss DNR or withdrawal of care, Hospice)? DNR status @ -[No] What co-morbidities impacted this encounter? (DM, HTN, Smoking, COPD, CAD, Cancer, CVA, ARF, Chemo, Hep., AIDS, mental health diagnosis, sleep apnea, mor bid obesity)? @ -[None] Was patient admitted / discharged? Hospital course, mention meds given and route, prescriptions, significant lab abnormalities, going to OR and other pertinent info. @ -[As above Undiagnosed new problem with uncertain prognosis? @ -[No] Drug Therapy requiring intensive monitoring for toxicity (Heparin, Nitro, Insulin, Cardizem)? @ -[No] Were any procedures done? @ -[No] Diagnosis/symptom? @ -[Acute urinary retention Acute, or Chronic, or Acute on Chronic? @ -[Acute Uncomplicated (without systemic symptoms) or Complicated (systemic symptoms)? @ -[default] Side effects of treatment? @ -[No] Exacerbation, Progression, or Severe Exacerbation? @ -[No] Poses a threat to life or bodily function? How? (Chest pain, [place], [place], pneumonia, PE, COPD, DKA, ARF, appy, cholecystitis, CVA, Diverticulitis, Homicidal, Suicidal, threat to staff... and all critical care pts) @ -[Low risk - Lab Data Lab Results 10/21/24 Range/Units 23:10 Urine Color Dark Brown Urine Appearance Turbid (Clear) Urine pH 6.0 (5.0-8.0) Ur Specific St[place] 1.020 (1.001-1.035) Urine Protein 2+ H (Negative) Urine Glucose (UA) Negative (Negative) Urine Ketones Negative (Negative) Urine Blood Moderate H (Negative) Urine Nitrite Positive (Negative) Urine Bilirubin 1+ H (Negative) Urine Urobilinogen 3.0 (<2.0) mg/dL Ur Leukocyte Esterase Large H (Negative) Urine RBC 46 H (0-5) /hpf Urine WBC >182 H (0-5) /hpf Urine WBC Clumps Many H (None) /hpf Urine Bacteria Moderate H (None) /hpf Urine Mucus Occasional H (None) /hpf Disposition Clinical Impression: Urinary retention Disposition: HOME SELF-CARE Condition: Good Instructions (If sedation given, give patient instructions): Urinary Retention in Men (ED), Urinary Tract Infection in Men (ED) Is patient prescribed a controlled substance at d/c from ED?: No Referrals: Dagoberto Munoz DO [Primary Care Provider] - 1-2 days Sony Hillman MD [STAFF PHYSICIAN] - 1-2 days
[2024-10-21] MEDS: LIDOCAINE 2% URO-JET JELLY 5 ML KIT URETHRAL ONE (22:33)
[2024-10-21 23:55] VITALS: BP 125/84; PULSE 94; RESP 19; TEMP 98
[2024-10-22 00:25] LABS: Appearance,Urine Turbid (Clear); Bacteria,Urine Moderate /hpf; Bilirubin,Urine 1+ (Negative); Blood,Urine Moderate (Negative); Color,Urine Dark Brown; Glucose,Urine (UA) Negative (Negative); Ketones,Urine Negative (Negative); Leukocyte Esterase,Urine Large (Negative); Mucus,Urine Occasional /hpf; Nitrite,Urine Positive (Negative); Protein,Urine 2+ (Negative); RBC,Urine 46 /hpf (0-5); WBC,Urine >182 /hpf (0-5)
== END 2024-10-21 23:40 | disposition home or self-care (01) ==
LOC: EC 21:01
DX: R33.9 Retention of urine, unspecified (principal)
CPT/HCPCS: 51702; 51798; 81001; 87086; 99284

== ENCOUNTER 2024-10-22 11:47 | Emergency (ER) | payer MEDICARE ==
--- NOTE | 2024-10-22 12:24 | ED ---
General Adult HPI - General Source: patient, RN notes reviewed <Mona Callahan - Last Filed: 10/22/24 12:23> <Abdi Humphreys - Last Filed: 10/22/24 13:07> - General Stated complaint: Urogenital Time Seen by Provider: 10/22/24 12:00 - History of Present Illness Initial comments: Tricia austin is an 84-year-old male presenting to emergency department for complaint of urinary catheter dysfunction. Patient was evaluated emergency department yesterday evening with urinary retention and was discharged with a Gamez in place. States that prior to arrival patient urinated past his catheter with no drainage into the drainage bag and is concerned that this catheter is not working appropriately. Patient has a history of structures that he has had surgery on the past. (Mona Callahan) This is a an 84-year-old male who presents to the emergency department stating that 2 days ago he was hearing out of Gamez catheter placed because he was unable to urinate. Patient states it been working fine all night but he came in to get hyperbaric chamber treatment and when he was doing it he had the urge to urinate but nothing was going in the bag when he got up urines came out through his penis around the catheter. Denies any burning. Patient has any blood in the urine. Patient has any fever chills. Patient has any back pain or abdominal pain (Abdi Humphreys) - Related Data Home Medications Medication Instructions Recorded Confirmed Levothyroxine Sodium [Synthroid] 112 mcg PO HS 01/01/24 01/01/24 Previous Rx's Medication Instructions Recorded Sulfamethox-Tmp 800-160Mg [Bactrim 1 tab PO Q12HR 7 Days #14 tab 12/29/23 DS 800-160 mg] Ciprofloxacin HCl [Cipro] 500 mg PO Q12HR #6 tablet 01/25/24 Ciprofloxacin HCl [Cipro] 500 mg PO Q12HR #20 tablet 10/20/24 Allergies Allergy/AdvReac Type Severity Reaction Status Date / Time No Known Allergies Allergy Verified 10/22/24 12:36 Review of Systems ROS Other: All systems not noted in ROS Statement are negative. <Mona Callahan - Last Filed: 10/22/24 12:23> ROS Other: All systems not noted in ROS Statement are negative. <Abdi Humphreys - Last Filed: 10/22/24 13:07> ROS Statement: Those systems with pertinent positive or pertinent negative responses have been documented in the HPI. Past Medical History Past Medical History: Cancer, Hyperlipidemia, Osteoarthritis (OA), Prostate Disorder, Thyroid Disorder Additional Past Medical History / Comment(s): In February 2018 pelvic abscess, diverticulitis,small bowel obs, HX OF PROSTATE CANCER WITH RADIATION (2013), SQUAMOUS CELL SKIN CANCER, CHRONIC SINUSITIS, , HYPOTHYROID., STATES PAST HX OF BACK PROBLEMS. History of Any Multi-Drug Resistant Organisms: MRSA Date of last positivie culture/infection: 04/01/18 MDRO Source:: ABDOMEN Surgical Site Past Surgical History: Adenoidectomy, Bowel Resection, Orthopedic Surgery, Prostate Surgery, Tonsillectomy Additional Past Surgical History / Comment(s): Exploratory Laparotomy Lysis of Adhesions Small Bowel Resection Partial Colectomy w/Colostomy 03-17-18,rt knee surgery, Lt HIP REPLACED, had gamez cath placed after 03/17/18 surgery. Past Anesthesia/Blood Transfusion Reactions: No Reported Reaction Additional Past Anesthesia/Blood Transfusion Reaction / Comment(s): No hx blood transfusion Past Psychological History: No Psychological Hx Reported Smoking Status: Never smoker Past Alcohol Use History: Occasional Past Drug Use History: None Reported - Past Family History Mother Family Medical History: No Reported History Sister(s) Family Medical History: CVA/TIA Father Family Medical History: Myocardial Infarction ([place]) <Mona Callahan - Last Filed: 10/22/24 12:23> General Exam <Mona Callahan - Last Filed: 10/22/24 12:23> <Abdi Humphreys - Last Filed: 10/22/24 13:07> - General Exam Comments Initial Comments: Visual Physical Exam Vital signs reviewed General: Well-appearing, nontoxic, no acute distress. Head: Normocephalic, atraumatic Eyes: PERRLA, EOMI ENT: Airway patent Chest: Nonlabored breathing Skin: No visual rash, normal skin tone Neuro: Alert and oriented 3 Musculoskeletal: No gross abnormalities (Mona Callahan) GENERAL Patient is well-developed and well-nourished. Patient is in no distress. EYES Patient's pupils are equal and round. Extraocular motion is intact SKIN Unremarkable ABDOMINAL Patient had no abdominal pain no back pain NEURO The patient is alert and oriented A&Ox3 PYSCH Patient has normal interpersonal interactions. (Abdi Humphreys) Course Vital Signs 10/22/24 12:36 Temperature 98 F Pulse Rate 86 Respiratory 18 Rate Blood Pressure 119/54 O2 Sat by Pulse 92 L Oximetry Medical Decision Making <Mona Callahan - Last Filed: 10/22/24 12:23> <Abdi Humphreys - Last Filed: 10/22/24 13:07> - Medical Decision Making I completed the quick note portion of this chart signed Mona Callahan PA-C (Mona Callahan) Was pt. sent in by a medical professional or institution (DOROTHY Lopez, WASTE REDUCTION COORDINATOR, urgent care, hospital, or usp...) When possible be specific @ -No Did you speak to anyone other than the patient for history (EMS, parent, family, police, friend...)? What history was obtained from this source @ -No Did you review nursing and triage notes (agree or disagree)? Why? @ -I reviewed and agree with nursing and triage notes Were old charts reviewed (outside hosp., previous admission, EMS record, old EKG, old radiological studies, urgent care reports/EKG's, usp records)? Report findings @ -No old charts were reviewed Differential Diagnosis? @ -Urinary retention, urinary tract infection, catheter issues all-inclusive list EKG interpreted by me (3pts min.). @ -As above X-rays interpreted by me (1pt min.). @ -None done CT interpreted by me (1pt min.). @ -None done U/S interpreted by me (1pt. min.). @ -None done What testing was considered but not performed or refused? (CT, X-rays, U/S, labs)? Why? @ -None What meds were considered but not given or refused? Why? @ -None Did you discuss the management of the patient with other professionals (professionals i.e. DOROTHY Lopez, WASTE REDUCTION COORDINATOR, lab, RT, psych nurse, delinquency prevention social worker, electronic warfare officer, teacher, financial administration officer, case operator)? Give summary @ -No Was smoking cessation discussed for >3mins.? @ -No Was critical care preformed (if so, how long)? @ -No Were there social determinants of health that impacted care today? How? (Homelessness, low income, unemployed, alcoholism, drug addiction, transportation, low edu. Level, literacy, decrease access to med. care, correction, rehab)? @ -No Was there de-escalation of care discussed even if they declined (Discuss DNR or withdrawal of care, Hospice)? DNR status @ -No What co-morbidities impacted this encounter? (DM, HTN, Smoking, COPD, CAD, Cancer, CVA, ARF, Chemo, Hep., AIDS, mental health diagnosis, sleep apnea, morbid obesity)? @ -None Was patient admitted / discharged? Hospital course, mention meds given and route, prescriptions, significant lab abnormalities, going to OR and other pertinent info. @ -Patient had some sediment in the catheter tube and it was flushed and the sediment came out and after that the catheter was flowing normally. Undiagnosed new problem with uncertain prognosis? @ -No Drug Therapy requiring intensive monitoring for toxicity (Heparin, Nitro, Insulin, Cardizem)? @ -No Were any procedures done? @ -No Diagnosis/symptom? @ -Catheter problems Acute, or Chronic, or Acute on Chronic? @ -Acute Uncomplicated (without systemic symptoms) or Complicated (systemic symptoms)? @ -Complicated Side effects of treatment? @ -No Exacerbation, Progression, or Severe Exacerbation? @ -No Poses a threat to life or bodily function? How? (Chest pain, [place], [place], pneumonia, PE, COPD, DKA, ARF, appy, cholecystitis, CVA, Diverticulitis, Homicidal, Suicidal, threat to staff... and all critical care pts) @ -No (Abdi Humphreys) Disposition <Mona Callahan - Last Filed: 10/22/24 12:23> Is patient prescribed a controlled substance at d/c from ED?: No Time of Disposition: 13:07 <Abdi Humphreys - Last Filed: 10/22/24 13:07> Clinical Impression: Gamez catheter problem Disposition: HOME SELF-CARE Condition: Good Referrals: Dagoberto Munoz DO [Primary Care Provider] - 1-2 days
[2024-10-22 12:41] VITALS: RESP 18; TEMP 98
[2024-10-22 13:44] VITALS: BP 114/64; PULSE 84
== END 2024-10-22 13:44 | disposition home or self-care (01) ==
LOC: EC 11:47
DX: T83.098A Other mechanical complication of other urinary catheter, initial encounter (principal); Z90.49 Acquired absence of other specified parts of digestive tract; Z90.89 Acquired absence of other organs
CPT/HCPCS: 99284

== ENCOUNTER 2024-10-23 07:18 | Observation (INO) | payer MEDICARE ==
--- NOTE | 2024-10-23 07:48 | ED ---
General Adult HPI - General Chief complaint: Urogenital Stated complaint: Catheter blockage Time Seen by Provider: 10/23/24 07:26 Source: patient, RN notes reviewed Mode of arrival: wheelchair Limitations: no limitations - History of Present Illness Initial comments: Patient is an 84-year-old male returning to the emergency department with concerns for decreased urinary output. Patient is unclear last time he emptied his Gamez catheter bag, he cannot remember if it was 1130 last night or sometime throughout the night. Patient has concerns that he cannot flush it. Patient did have several recent emergency to visits and had his catheter flushed y . Patient has no significant complaints otherwise. No suprapubic pain or fullness. No weakness. Patient has been eating and drinking however states he needs to force himself to eat. Patient does have some genital edema and states that has been present for several weeks. Patient does use a hospital bed. - Related Data Home Medications Medication Instructions Recorded Confirmed Levothyroxine Sodium [Synthroid] 112 mcg PO HS 01/01/24 01/01/24 Previous Rx's Medication Instructions Recorded Sulfamethox-Tmp 800-160Mg [Bactrim 1 tab PO Q12HR 7 Days #14 tab 12/29/23 DS 800-160 mg] Ciprofloxacin HCl [Cipro] 500 mg PO Q12HR #6 tablet 01/25/24 Ciprofloxacin HCl [Cipro] 500 mg PO Q12HR #20 tablet 10/20/24 Allergies Allergy/AdvReac Type Severity Reaction Status Date / Time No Known Allergies Allergy Verified 10/22/24 12:36 Review of Systems ROS Statement: Those systems with pertinent positive or pertinent negative responses have been documented in the HPI. ROS Other: All systems not noted in ROS Statement are negative. Constitutional: Denies: fever Eyes: Denies: eye pain ENT: Denies: ear pain Respiratory: Denies: cough Cardiovascular: Denies: chest pain Gastrointestinal: Denies: abdominal pain Genitourinary: Reports: as per HPI Past Medical History Past Medical History: Cancer, Hyperlipidemia, Osteoarthritis (OA), Prostate Disorder, Thyroid Disorder Additional Past Medical History / Comment(s): In February 2018 pelvic abscess,diverticulitis,small bowel obs, HX OF PROSTATE CANCER WITH RADIATION (2013), SQUAMOUS CELL SKIN CANCER, CHRONIC SINUSITIS, , HYPOTHYROID., STATES PAST HX OF BACK PROBLEMS. History of Any Multi-Drug Resistant Organisms: MRSA Date of last positivie culture/infection: 04/01/18 MDRO Source:: ABDOMEN Surgical Site Past Surgical History: Adenoidectomy, Bowel Resection, Orthopedic Surgery, Prostate Surgery, Tonsillectomy Additional Past Surgical History / Comment(s): Exploratory Laparotomy Lysis of Adhesions Small Bowel Resection Partial Colectomy w/Colostomy 03-17-18,rt knee surgery, Lt HIP REPLACED, had gamez cath placed after 03/17/18 surgery. Past Anesthesia/Blood Transfusion Reactions: No Reported Reaction Additional Past Anesthesia/Blood Transfusion Reaction / Comment(s): No hx blood transfusion Past Psychological History: No Psychological Hx Reported Smoking Status: Never smoker Past Alcohol Use History: Occasional Past Drug Use History: None Reported - Past Family History Mother Family Medical History: No Reported History Sister(s) Family Medical History: CVA/TIA Father Family Medical History: Myocardial Infarction ([place]) General Exam Limitations: no limitations General appearance: alert, in no apparent distress Head exam: Present: normocephalic Eye exam: Present: normal appearance Neck exam: Present: normal inspection Respiratory exam: Present: normal lung sounds bilaterally Cardiovascular Exam: Present: regular rate, normal rhythm GI/Abdominal exam: Present: soft. Absent: distended, tenderness Rectal exam: Present: normal inspection, normal rectal tone. Absent: black st ool, bloody stool exam: Present: other (Mild generalized edema. No tenderness. Catheter in place) Extremities exam: Present: normal inspection Neurological exam: Present: alert Psychiatric exam: Present: normal affect, normal mood Skin exam: Present: normal color Course Vital Signs 10/23/24 10/23/24 10/23/24 07:21 09:00 09:04 Temperature 98 F Pulse Rate 92 82 Respiratory 18 20 Rate Blood Pressure 122/71 117/61 O2 Sat by Pulse 92 L 91 L 95 Oximetry Medical Decision Making - Medical Decision Making Was pt. sent in by a medical professional or institution (, PA, CUSTOMER SUCCESS SPECIALIST, urgent care, hospital, or jail...) When possible be specific @ -No Did you speak to anyone other than the patient for history (EMS, parent, family, police, friend...)? What history was obtained from this source @ -No Did you review nursing and triage notes (agree or disagree)? Why? @ -I reviewed and agree with nursing and triage notes Were old charts reviewed (outside hosp., previous admission, EMS record, old EKG, old radiological studies, urgent care reports/EKG's, jail records)? Report findings @ -Previous visits reviewed including procedures and labs and cultures Differential Diagnosis (chest pain, altered mental status, abdominal pain women, abdominal pain men, vaginal bleeding, weakness, fever, dyspnea, syncope, headache, dizziness, GI bleed, back pain, seizure, CVA, palpatations, mental health, musculoskeletal)? @ -Differential Abdominal Pain Men: Appendicitis, cholecystitis, diverticulosis, ischemic bowel, pancreatitis, hepatitis, UTI, gastroenteritis, AAA, incarcerated hernia, bowel obstruction, constipation, inflammatory bowel, hepatitis, peptic ulcer disease, splenic infarction, perforated viscus, testicular torsion, this is not meant to be an all-inclusive list EKG interpreted by me (3pts min.). @ -As above X-rays interpreted by me (1pt min.). @ -None done CT interpreted by me (1pt min.). @ -None done U/S interpreted by me (1pt. min.). @ -Ultrasound unremarkable. No retention in the bladder What testing was considered but not performed or refused? (CT, X-rays, U/S, labs)? Why? @ -None What meds were considered but not given or refused? Why? @ -None Did you discuss the management of the patient with other professionals (professionals i.e. , PA, CUSTOMER SUCCESS SPECIALIST, lab, RT, psych nurse, social science manager, day care home mother, teacher, complaint evaluation officer, showcase maker)? Give summary @ -[facility], practitioner Asiya Who will admit for Dr. Munoz Was smoking cessation discussed for >3mins.? @ -No Was critical care preformed (if so, how long)? @ -31 minutes of critical care time Were there social determinants of health that impacted care today? How? (Homelessness, low income, unemployed, alcoholism, drug addiction, transportati on, low edu. Level, literacy, decrease access to med. care, long term, rehab)? @ -No Was there de-escalation of care discussed even if they declined (Discuss DNR or withdrawal of care, Hospice)? DNR status @ -No What co-morbidities impacted this encounter? (DM, HTN, Smoking, COPD, CAD, Cancer, CVA, ARF, Chemo, Hep., AIDS, mental health diagnosis, sleep apnea, morbid obesity)? @ -History of urinary retention Was patient admitted / discharged? Hospital course, mention meds given and route, prescriptions, significant lab abnormalities, going to OR and other pertinent info. @ -Patient presents with concerns for urinary retention, none found. Gamez catheter flushes well. Patient does have anemia, etiology unclear at this time. Patient will be admitted for blood transfusion and further evaluation. Admission orders written. Undiagnosed new problem with uncertain prognosis? @ -Undiagnosed cause of anemia with unclear prognosis. Transfusion being provided Drug Therapy requiring intensive monitoring for toxicity (Heparin, Nitro, Insulin, Cardizem)? @ -No Were any procedures done? @ -No Diagnosis/symptom? @ -Anemia Acute, or Chronic, or Acute on Chronic? @ -Acute Uncomplicated (without systemic symptoms) or Complicated (systemic symptoms)? @ -Default Side effects of treatment? @ -No Exacerbation, Progression, or Severe Exacerbation? @ -No Poses a threat to life or bodily function? How? (Chest pain, [place], [place], pneumonia, PE, COPD, DKA, ARF, appy, cholecystitis, CVA, Diverticulitis, Homicidal, Suicidal, threat to staff... and all critical care pts) @ -Threat to hematological function - Lab Data Result diagrams: 10/23/24 07:58 10/23/24 07:58 Lab Results 10/23/24 10/23/24 10/23/24 Range/Units 07:58 07:58 08:54 WBC 8.1 (3.8-10.6) k/uL RBC 2.17 L (4.30-5.90) m/uL Hgb 6.7 L* (13.0-17.5) gm/dL Hct 22.0 L (39.0-53.0) % MCV 101.5 H (80.0-100.0) fL MCH 30.7 (25.0-35.0) pg MCHC 30.3 L (31.0-37.0) g/dL RDW 15.8 H (11.5-15.5) % Plt Count 459 H (150-450) k/uL MPV 7.5 Neutrophils % 79 % Lymphocytes % 13 % Monocytes % 5 % Eosinophils % 0 % Basophils % 0 % Neutrophils # 6.4 (1.3-7.7) k/uL Lymphocytes # 1.1 (1.0-4.8) k/uL Monocytes # 0.4 (0-1.0) k/uL Eosinophils # 0.0 (0-0.7) k/uL Basophils # 0.0 (0-0.2) k/uL Hypochromasia Moderate Macrocytosis Slight Sodium 136 L (137-145) mmol/L Potassium 3.7 (3.5-5.1) mmol/L Chloride 104 (98-107) mmol/L Carbon Dioxide 27 (22-30) mmol/L Anion Gap 5 mmol/L BUN 32 H (9-20) mg/dL Creatinine 0.84 (0.66-1.25) mg/dL Est GFR (CKD-EPI)AfAm >90 (>60 ml/min/1.73 sqM) Est GFR (CKD-EPI)NonAf 81 (>60 ml/min/1.73 sqM) Glucose 155 H (74-99) mg/dL Calcium 8.3 L (8.4-10.2) mg/dL Total Bilirubin 0.5 (0.2-1.3) mg/dL AST 28 (17-59) U/L ALT 28 (4-49) U/L Alkaline Phosphatase 77 (38-126) U/L Total Protein 5.8 L (6.3-8.2) g/dL Albumin 2.7 L (3.5-5.0) g/dL Stool Occult Blood Negative (Negative) Critical Care Time Critical Care Time: Yes Disposition Clinical Impression: Anemia Disposition: ADMITTED IP TO THIS [facility] Is patient prescribed a controlled substance at d/c from ED?: No Referrals: Dagoberto Munoz DO [Primary Care Provider] - 1-2 days Time of Disposition: 09:13
[2024-10-23 08:15] LABS: Basophils % (A) 0 %; Eosinophils % (A) 0 %; Hypochromasia Moderate; Lymphocytes # (A) 1.1 k/uL (1.0-4.8); Lymphocytes % (A) 13 %; MCH 30.7 pg (25.0-35.0); MCHC 30.3 g/dL (31.0-37.0); MCV 101.5 fL (80.0-100.0); Macrocytosis Slight; Mean Platelet Volume 7.5; Monocytes # (A) 0.4 k/uL (0-1.0); Monocytes % (A) 5 %; Neutrophils # (A) 6.4 k/uL (1.3-7.7); Neutrophils % (A) 79 %; Platelet Count 459 k/uL (150-450); RBC 2.17 m/uL (4.30-5.90); RDW 15.8 % (11.5-15.5); WBC 8.1 k/uL (3.8-10.6)
[2024-10-23 08:17] LABS: HGB 6.7 gm/dL (13.0-17.5)
--- NOTE | 2024-10-23 08:34 | US ---
EXAMINATION TYPE: US kidneys/renal and bladder DATE OF EXAM: 10/23/2024 COMPARISON: NONE CLINICAL INDICATION: Male, 84 years old with history of retention; Bladder cath. UTI- still on antib iotics. Hx left kidney cyst. TECHNIQUE: Grayscale imaging of the bilateral kidneys and urinary bladder: FINDINGS: EXAM MEASUREMENTS: Right Kidney: 11.0 x 5.1 x 4.9 cm Left Kidney: 10.3 x 4.6 x 5.3 cm Right Kidney: No hydronephrosis or masses seen Left Kidney: Upper anechoic lesion = 5.2 x 4.5 x 4.2 cm Bladder: nondistended Bilateral Jets not seen There is no evidence for hydronephrosis at this point in time. No nephrolithiasis is seen. No lynette s are identified. IMPRESSION: 1. No renal calcification, renal mass or hydronephrosis. 2. 5.2 cm cyst of the left kidney, possibly parapelvic cyst. [facility], Workstation: HODAN 10/23/2024 8:31 AM
[2024-10-23 08:46] LABS: ALT 28 U/L (4-49); AST 28 U/L (17-59); African American GFR (CKD) >90 (>60 ml/min/1.73 sqM); Albumin 2.7 g/dL (3.5-5.0); Alkaline Phosphatase 77 U/L (38-126); Anion Gap 5 mmol/L; Blood Urea Nitrogen 32 mg/dL (9-20); Calcium 8.3 mg/dL (8.4-10.2); Carbon Dioxide 27 mmol/L (22-30); Chloride 104 mmol/L (98-107); Glucose 155 mg/dL (74-99); Non-African American GFR(CKD) 81 (>60 ml/min/1.73 sqM); Potassium 3.7 mmol/L (3.5-5.1); Sodium 136 mmol/L (137-145); Total Bilirubin 0.5 mg/dL (0.2-1.3); Total Protein 5.8 g/dL (6.3-8.2)
[2024-10-23] MEDS: PANTOPRAZOLE 40 MG/10 ML VIAL IVP STA (08:58)
[2024-10-23] MEDS ORDERED: NALOXONE 0.4 MG/ML 1 ML VIAL IV PRN (09:13)
[2024-10-23] MEDS ORDERED: ACETAMINOPHEN TAB 325 MG TAB PO PRN (09:13)
[2024-10-23 09:21] LABS: Reticulocyte % 6.1 % (0.5-2.0)
[2024-10-23 10:52] LABS: T4, Free (Free Thyroxine) 1.39 ng/dL (0.78-2.19)
[2024-10-23] MEDS: PENTOXIFYLLINE 400 MG TABLET.ER PO SCH (11:41)
--- NOTE | 2024-10-23 17:28 | P.HPIM ---
History of Present Illness H&P Date: 10/23/24 Chief Complaint: decreased urinary output 84-year-old male returning to the emergency department with concerns for decreased urinary output. Patient is unclear last time he emptied his Gamez catheter bag, he cannot remember if it was 1130 last night or sometime throughout the night. Patient has concerns that he cannot flush it. Patient did have several recent emergency to visits and had his catheter flushed yesterday. Patient has no significant complaints otherwise. No suprapubic pain or fullness. No weakness. Patient has been eating and drinking however states he needs to force himself to eat. Patient does have some genital edema and states that has been present for several weeks. Patient does use a hospital bed. Blood work completed in ED reveals a WBC of 8.5, hemoglobin of 6.7, platelet count of 459, sodium 136, potassium 3.7, BUN/creatinine of 32/0.84 and blood glucose of 155 Ultrasound kidneys and bladder was completed which did not reveal any renal calcification mass or hydronephrosis, 5.2 cm cyst of left kidney possibly parapelvic cyst Patient admitted to the hospital for further treatment and evaluation of acute anemia Review of Systems REVIEW OF SYSTEMS: CONSTITUTIONAL: No fever, no malaise, no fatigue. HEENT: No recent visual problems or hearing problems. Denied any sore throat. CARDIOVASCULAR: No chest pain, orthopnea, PND, no palpitations, no syncope. PULMONARY: No shortness of breath, no cough, no hemoptysis. GASTROINTESTINAL: No diarrhea, no nausea, no vomiting, no abdominal pain. NEUROLOGICAL: No headaches, no weakness, no numbness. HEMATOLOGICAL: Denies any bleeding or petechiae. GENITOURINARY: Denies any burning micturition, frequency, or urgency. MUSCULOSKELETAL/RHEUMATOLOGICAL: Denies any joint pain, swelling, or any muscle pain. ENDOCRINE: Denies any polyuria or polydipsia. The rest of the 14-point review of systems is negative. Past Medical History Past Medical History: Cancer, Hyperlipidemia, Osteoarthritis (OA), Prostate Dis order, Thyroid Disorder Additional Past Medical History / Comment(s): In February 2018 pelvic abscess,diverticulitis,small bowel obs, HX OF PROSTATE CANCER WITH RADIATION (2013), SQUAMOUS CELL SKIN CANCER, CHRONIC SINUSITIS, , HYPOTHYROID., STATES PAST HX OF BACK PROBLEMS. History of Any Multi-Drug Resistant Organisms: MRSA Date of last positivie culture/infection: 04/01/18 MDRO Source:: ABDOMEN Surgical Site Past Surgical History: Adenoidectomy, Bowel Resection, Orthopedic Surgery, Prostate Surgery, Tonsillectomy Additional Past Surgical History / Comment(s): Exploratory Laparotomy Lysis of Adhesions Small Bowel Resection Partial Colectomy w/Colostomy 03-17-18,rt knee surgery, Lt HIP REPLACED, had gamez cath placed after 03/17/18 surgery. Past Anesthesia/Blood Transfusion Reactions: No Reported Reaction Additional Past Anesthesia/Blood Transfusion Reaction / Comment(s): No hx blood transfusion Past Psychological History: No Psychological Hx Reported Smoking Status: Never smoker Past Alcohol Use History: Occasional Past Drug Use History: None Reported - Past Family History Mother Family Medical History: No Reported History Sister(s) Family Medical History: CVA/TIA Father Family Medical History: Myocardial Infarction ([place]) Medications and Allergies Home Medications Medication Instructions Recorded Confirmed Type Levothyroxine Sodium [Synthroid] 112 mcg PO HS 01/01/24 10/23/24 History Ciprofloxacin HCl [Cipro] 500 mg PO Q12HR #20 tablet 10/20/24 10/23/24 Rx Pentoxifylline [TRENtal] 400 mg PO DAILY 10/23/24 10/23/24 History Allergies Allergy/AdvReac Type Severity Reaction Status Date / Time No Known Allergies Allergy Verified 10/23/24 10:17 Physical Exam Vitals: Vital Signs Temp Pulse Resp BP Pulse Ox 10/23/24 10:03 98.3 F 75 20 118/61 95 10/23/24 09:53 98.6 F 74 18 114/60 95 10/23/24 09:04 95 10/23/24 09:00 82 20 117/61 91 L 10/23/24 07:21 98 F 92 18 122/71 92 L Intake and Output 10/22/24 10/23/24 10/23/24 22:59 06:59 14:59 Intake Total 0 Balance 0 Intake: Blood Product 0 Unit 0 Other: Voiding Method Indwelling Catheter Weight 67.132 kg General appearance: alert, in no apparent distress Head exam: Present: normocephalic Eye exam: Present: normal appearance Neck exam: Present: normal inspection Respiratory exam: Present: normal lung sounds bilaterally Cardiovascular Exam: Present: regular rate, normal rhythm GI/Abdominal exam: Present: soft. Absent: distended, tenderness Rectal exam: Present: normal inspection, normal rectal tone. Absent: black stool, bloody stool exam: Present: other (Mild generalized edema. No tenderness. Catheter in place) Extremities exam: Present: normal inspection Neurological exam: Present: alert Psychiatric exam: Present: normal affect, normal mood Skin exam: Present: normal color Results CBC & Chem 7: 10/23/24 07:58 10/23/24 07:58 Labs: Abnormal Lab Results - Last 24 Hours (Table) 10/23/24 10/23/24 10/23/24 Range/Units 07:58 07:58 07:58 RBC 2.17 L (4.30-5.90) m/uL Hgb 6.7 L* (13.0-17.5) gm/dL Hct 22.0 L (39.0-53.0) % MCV 101.5 H (80.0-100.0) fL MCHC 30.3 L (31.0-37.0) g/dL RDW 15.8 H (11.5-15.5) % Plt Count 459 H (150-450) k/uL Retic Count 6.1 H (0.5-2.0) % Sodium 136 L (137-145) mmol/L BUN 32 H (9-20) mg/dL Glucose 155 H (74-99) mg/dL Calcium 8.3 L (8.4-10.2) mg/dL Total Protein 5.8 L (6.3-8.2) g/dL Albumin 2.7 L (3.5-5.0) g/dL Crossmatch 10/23/24 Range/Units 08:41 RBC (4.30-5.90) m/uL Hgb (13.0-17.5) gm/dL Hct (39.0-53.0) % MCV (80.0-100.0) fL MCHC (31.0-37.0) g/dL RDW (11.5-15.5) % Plt Count (150-450) k/uL Retic Count (0.5-2.0) % Sodium (137-145) mmol/L BUN (9-20) mg/dL Glucose (74-99) mg/dL Calcium (8.4-10.2) mg/dL Total Protein (6.3-8.2) g/dL Albumin (3.5-5.0) g/dL Crossmatch See Detail Assessment and Plan Assessment: 1. Acute anemia -Hemoglobin at 6.7; patient has been ordered 1 unit of packed RBCs; stool occult blood completed in ED is negative -Patient will be admitted for close monitoring; H&H every 12 hours; type crossmatch and transfuse if hemoglobin is less than 7 -Will add Protonix 40 mg daily; stool occult blood -Consult hematology 2. Hypothyroidism; continue with home dose of levothyroxine 112 mcg daily 3. Hyperlipidemia; currently not on any statin therapy 4. Osteoarthritis; will add Tylenol 650 mg every 4 hours as needed 5. Peripheral vascular disease; Trental 400 mg daily DVT prophylaxis; SCDs only given severe anemia CODE STATUS; full code
[2024-10-23] MEDS: CIPROFLOXACIN HCL 500 MG TAB PO SCH (17:52)
--- NOTE | 2024-10-23 19:08 | P.CONS ---
History of Present Illness - Reason for Consult Consult date: 10/23/24 Macrocytic anemia, h/o prostate cancer - History of Present Illness The pt is an 84 yr old WM, with a complicated PMH/surgical hx, including from the Onc standpoint. He was diagnosed with localized prostate cancer in 2013. He was treated with surgery, but then apparently developed increasing PSA. He received definitive radiation and ADT for the same ( ? 2015). He was seen by Dr Rangel for 1 visit during this time, but did not f/u subsequently. the patient states that he was continued on ADT by urology ( he was not able to clarify the reason for the same definitely. It appears that it may have been because of persistently elevated PSA after completion of radiation). The patient remained on ADT for several years without any PSA progression. He then decided to seek an opinion from oncology at the [facility]. According to him, it is felt that he may have limited metastatic disease, that could potentially be amenable to definitive treatment. ADT was held for greater than a year, followed by a PSMA PET scan earlier this year. this apparently revealed only one focus of uptake in the thoracic cavity. From the patient's description it appears that it may have been a left-sided mediastinal node. The patient received SB RT to this area a few months ago. His PSA subsequently, actually increased, but then had declined back to his baseline. He was supposed to have a repeat PSA Later this month. 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 The patient has had multiple ongoing issues into the same, including requirement of a suprapubic catheter and complete case related to the same, including blockages, and need for catheter changes. The patient was admitted to [facility] a few months, and apparently had surgery for the same after which he was able to have a Gamez catheter placed. He states that he had blood work done During this admission and is not aware of any blood related problems found. The patient has had multiple visits to the ER recently, due to difficulty with urination, and malfunctioning off the Gamez catheter. He came in again this time, due to inability to urinate. Labs showed a hemoglobin of 6.7, due to wh ich she was admitted. MCV was elevated at 101.5. Patient's labs in the EMR show hemoglobin in the 12 range in 01/10. This appears to be his usual baseline based on labs going back to 2014. He has had some transient drops related to acute conditions. Chemistry panel showed normal creatinine. The patient stated that he had had some mild intermittent bleeding in the urine, but not since his procedure at [facility]. He has not noted any blood in the stool or urine. He is not on any anticoagulation or antiplatelet therapy. The patient states that he had a colonoscopy about 7-8 years ago. He has a history of bowel perforation and obstruction requiring sigmoid colectomy several years ago. He denied any new B symptoms currently in terms of unexplained fevers, major drop in appetite, or weight loss. The patient has complains of pain in the lower abdomen/suprapubic area which she described as an aching/burning. This has been present for several months and he has had an extensive workup, including CT scan of the abdomen and pelvis, as well as MRI of the abdomen and pelvis revealing no specific etiology for the same. He denied any change in his bowel habits. He has noticed some thickening and swelling of the skin of the suprapubic area off-and-on. Review of Systems Constitutional: Reports fatigue, Reports weakness Eyes: denies blurred vision, denies pain Ears: deny: decreased hearing, ear discharge, earache, tinnitus Ears, nose, mouth and throat: Denies headache, Denies sore throat Cardiovascular: Reports decreased exercise tolerance Respiratory: Denies cough Gastrointestinal: Reports abdominal pain Genitourinary: Reports as per HPI, Reports urinary hesitancy, Reports urinary retention Musculoskeletal: Reports muscle weakness Integumentary: Denies pruritus, Denies rash Neurological: Reports weakness, Denies numbness Psychiatric: Denies anxiety, Denies depression Endocrine: Reports fatigue Past Medical History Past Medical History: Cancer, Hyperlipidemia, Osteoarthritis (OA), Prostate Disorder, Thyroid Disorder Additional Past Medical History / Comment(s): In February 2018 pelvic abscess,diverticulitis,small bowel obs, HX OF PROSTATE CANCER WITH RADIATION (2013), SQUAMOUS CELL SKIN CANCER, CHRONIC SINUSITIS, , HYPOTHYROID., STATES PAST HX OF BACK PROBLEMS. History of Any Multi-Drug Resistant Organisms: MRSA Year Discovered:: 04/01/18 MDRO Source:: ABDOMEN Surgical Site Past Surgical History: Adenoidectomy, Bowel Resection, Orthopedic Surgery, Prostate Surgery, Tonsillectomy Additional Past Surgical History / Comment(s): Exploratory Laparotomy Lysis of Adhesions Small Bowel Resection Partial Colectomy w/Colostomy 03-17-18,rt knee surgery, Lt HIP REPLACED, had gamez cath placed after 03/17/18 surgery. Past Anesthesia/Blood Transfusion Reactions: No Reported Reaction Additional Past Anesthesia/Blood Transfusion Reaction / Comm: No hx blood transfusion Past Psychological History: No Psychological Hx Reported Smoking Status: Never smoker Past Alcohol Use History: Occasional Past Drug Use History: None Reported - Past Family History Mother Family Medical History: No Reported History Sister(s) Family Medical History: CVA/TIA Father Family Medical History: Myocardial Infarction (MD) Medications and Allergies Home Medications Medication Instructions Recorded Confirmed Type Levothyroxine Sodium [Synthroid] 112 mcg PO HS 01/01/24 10/23/24 History Ciprofloxacin HCl [Cipro] 500 mg PO Q12HR #20 tablet 10/20/24 10/23/24 Rx Pentoxifylline [TRENtal] 400 mg PO DAILY 10/23/24 10/23/24 History Allergies Allergy/AdvReac Type Severity Reaction Status Date / Time No Known Allergies Allergy Verified 10/23/24 10:17 Physical Exam Vitals: Vital Signs Temp Pulse Resp BP Pulse Ox 10/23/24 12:45 98.6 F 70 16 122/73 10/23/24 10:23 98.6 F 72 20 118/61 95 10/23/24 10:03 98.3 F 75 20 118/61 95 10/23/24 09:53 98.6 F 74 18 114/60 95 10/23/24 09:04 95 10/23/24 09:00 82 20 117/61 91 L 10/23/24 07:21 98 F 92 18 122/71 92 L Intake and Output 10/23/24 10/23/24 10/23/24 06:59 14:59 22:59 Intake Total 287 Balance 287 Intake: Blood Product 287 Rc Pheresis 2 As3 Unit 287 [id number] Other: Voiding Method Indwelling Catheter Weight 67.132 kg - Constitutional General appearance: no acute distress - EENT Eyes: EOMI, PERRLA ENT: hearing grossly normal, normal oropharynx - Neck Neck: no lymphadenopathy Thyroid: bilateral: normal size - Respiratory Respiratory: bilateral: CTA - Cardiovascular Rhythm: regular Heart sounds: normal: S1, S2 - Gastrointestinal General gastrointestinal: normal bowel sounds, soft Localized gastrointestinal: tender: suprabubic (Swelling/induration of the skin suprapubic area) - Integumentary Integumentary: normal - Neurologic Neurologic: CNII-XII intact - Musculoskeletal Musculoskeletal: generalized weakness, strength equal bilaterally - Psychiatric Psychiatric: A&O x's 3, appropriate affect Results CBC & Chem 7: 10/23/24 07:58 10/23/24 07:58 Labs: Abnormal Lab Results - Last 24 Hours (Table) 10/23/24 10/23/24 10/23/24 Range/Units 07:58 07:58 07:58 RBC 2.17 L (4.30-5.90) m/uL Hgb 6.7 L* (13.0-17.5) gm/dL Hct 22.0 L (39.0-53.0) % MCV 101.5 H (80.0-100.0) fL MCHC 30.3 L (31.0-37.0) g/dL RDW 15.8 H (11.5-15.5) % Plt Count 459 H (150-450) k/uL Retic Count 6.1 H (0.5-2.0) % Sodium 136 L (137-145) mmol/L BUN 32 H (9-20) mg/dL Glucose 155 H (74-99) mg/dL Calcium 8.3 L (8.4-10.2) mg/dL Total Protein 5.8 L (6.3-8.2) g/dL Albumin 2.7 L (3.5-5.0) g/dL Crossmatch 10/23/24 Range/Units 08:41 RBC (4.30-5.90) m/uL Hgb (13.0-17.5) gm/dL Hct (39.0-53.0) % MCV (80.0-100.0) fL MCHC (31.0-37.0) g/dL RDW (11.5-15.5) % Plt Count (150-450) k/uL Retic Count (0.5-2.0) % Sodium (137-145) mmol/L BUN (9-20) mg/dL Glucose (74-99) mg/dL Calcium (8.4-10.2) mg/dL Total Protein (6.3-8.2) g/dL Albumin (3.5-5.0) g/dL Crossmatch See Detail Chest x-ray: report reviewed CT scan - abdomen: report reviewed CT scan - pelvis: report reviewed MRI - abdomen: report reviewed Assessment and Plan (1) Anemia Narrative/Plan: Macrocytic anemia, of unknown etiology so far. There is no definite immediately evident cause based on clinical assessment. The patient has no o bvious bleeding, and red cells are macrocytic making blood loss anemia less likely. At this point hypoproliferative anemia appears to be more likely. - Additional workup will be ordered, to check for deficiency state, paraproteinemia, and hemolysis.. Additional recommendations will be made accordingly. - Agree with transfusion in the meantime to keep hemoglobin greater than 7. Continue to monitor Current Visit: Yes Status: Acute Code(s): D64.9 - ANEMIA, UNSPECIFIED SNOMED Code(s): 207689070 (2) Urinary retention Narrative/Plan: Defer to urology and the admitting service for further management Current Visit: No Status: Acute Code(s): R33.9 - RETENTION OF URINE, UNSPECIFIED SNOMED Code(s): 287820780 Plan: History of prostate cancer- diagnostic and therapeutic circumstances as described. Based on the history given by the patient, that appears to be no evidence of progressive disease. Check PSA
[2024-10-23] MEDS: FAMOTIDINE 20 MG TAB PO SCH (21:09)
[2024-10-23] MEDS: LEVOTHYROXINE 112 MCG TAB PO SCH (21:11)
[2024-10-24 09:12] LABS: Reticulocyte % 4.5 % (0.5-2.0)
[2024-10-24 09:14] LABS: Anisocytosis Slight; Basophils % (A) 0 %; Eosinophils # (A) 0.1 k/uL (0-0.7); Eosinophils % (A) 1 %; HCT 25.5 % (39.0-53.0); HGB 7.7 gm/dL (13.0-17.5); Hypochromasia Marked; Lymphocytes # (A) 1.6 k/uL (1.0-4.8); Lymphocytes % (A) 22 %; MCH 30.6 pg (25.0-35.0); MCHC 30.1 g/dL (31.0-37.0); MCV 101.8 fL (80.0-100.0); Macrocytosis Slight; Mean Platelet Volume 6.4; Monocytes # (A) 0.3 k/uL (0-1.0); Monocytes % (A) 4 %; Neutrophils # (A) 4.9 k/uL (1.3-7.7); Neutrophils % (A) 70 %; Platelet Count 440 k/uL (150-450); RDW 16.1 % (11.5-15.5); WBC 6.9 k/uL (3.8-10.6)
[2024-10-24 09:35] LABS: ALT 28 U/L (4-49); AST 27 U/L (17-59); African American GFR (CKD) >90 (>60 ml/min/1.73 sqM); Albumin 2.8 g/dL (3.5-5.0); Alkaline Phosphatase 75 U/L (38-126); Anion Gap 7 mmol/L; Blood Urea Nitrogen 24 mg/dL (9-20); Calcium 8.5 mg/dL (8.4-10.2); Carbon Dioxide 27 mmol/L (22-30); Chloride 103 mmol/L (98-107); Glucose 132 mg/dL (74-99); Non-African American GFR(CKD) 84 (>60 ml/min/1.73 sqM); Potassium 4.2 mmol/L (3.5-5.1); Sodium 137 mmol/L (137-145); Total Bilirubin 0.7 mg/dL (0.2-1.3)
[2024-10-24 11:15] LABS: % Iron Saturation 35.5 (15.00-50.00)
[2024-10-24 12:51] LABS: Protein, Total 5.8 g/dL (6.2-8.2)
[2024-10-24 13:02] LABS: PSA Annual Screen 0.382 ng/mL (0.000-4.000)
--- NOTE | 2024-10-24 13:36 | P.PN ---
Subjective Progress Note Date: 10/24/24 The patient denies any new complaints today. He states that the Ortega appears to be draining well. No obvious bleeding Objective - Vital Signs Vital signs: Vital Signs Temp 98.1 F 10/24/24 08:00 Pulse 75 10/24/24 12:00 Resp 16 10/24/24 12:27 BP 117/67 10/24/24 12:00 Pulse Ox 98 10/24/24 12:00 FiO2 Intake & Output 10/23/24 10/24/24 10/24/24 18:59 06:59 18:59 Intake Total 287 410 260 Output Total 700 650 Balance 287 -290 -390 Weight 67.132 kg 68.9 kg Intake: IV 10 20 Invasive Line 1 10 20 Oral 400 240 Blood Product 287 Rc Pheresis 2 As3 Unit 287 [id number] Output: Urine 700 650 Other: Voiding Method Indwelling Catheter Indwelling Catheter Indwelling Catheter # Voids 2 - Constitutional General appearance: Present: no acute distress - EENT Eyes: Present: EOMI ENT: Present: hearing grossly normal, normal oropharynx - Respiratory Respiratory: bilateral: CTA - Cardiovascular Rhythm: regular Heart sounds: normal: S1, S2 - Gastrointestinal General gastrointestinal: Present: soft Localized gastrointestinal: tender: suprabubic - Integumentary Integumentary Comment(s): Skin thickening and induration in suprapubic area of tenderness - Neurologic Neurologic: Present: CNII-XII intact - Musculoskeletal Musculoskeletal: Present: generalized weakness, strength equal bilaterally - Psychiatric Psychiatric: Present: A&O x's 3, appropriate affect - Labs CBC & Chem 7: 10/24/24 07:49 10/24/24 07:49 Labs: Abnormal Lab Results - Last 24 Hours (Table) 10/23/24 10/23/24 10/24/24 Range/Units 07:58 08:41 07:49 RBC (4.30-5.90) m/uL Hgb (13.0-17.5) gm/dL Hct (39.0-53.0) % MCV (80.0-100.0) fL MCHC (31.0-37.0) g/dL RDW (11.5-15.5) % Retic Count (0.5-2.0) % Haptoglobin 308.0 H (31.2-198.0) mg/dL BUN (9-20) mg/dL Glucose (74-99) mg/dL Transferrin 187.0 L (204.0-354.0) mg/dL Ferritin 488.0 H (22.0-322.0) ng/mL Total Protein (6.3-8.2) g/dL Total Protein (PEP) 5.8 L (6.2-8.2) g/dL Albumin (3.5-5.0) g/dL Free T3 pg/mL 1.10 L (2.30-4.20) pg/mL Crossmatch See Detail 10/24/24 10/24/24 10/24/24 Range/Units 07:49 07:49 07:49 RBC 2.50 L (4.30-5.90) m/uL Hgb 7.7 L (13.0-17.5) gm/dL Hct 25.5 L (39.0-53.0) % MCV 101.8 H (80.0-100.0) fL MCHC 30.1 L (31.0-37.0) g/dL RDW 16.1 H (11.5-15.5) % Retic Count 4.5 H (0.5-2.0) % Haptoglobin (31.2-198.0) mg/dL BUN 24 H (9-20) mg/dL Glucose 132 H (74-99) mg/dL Transferrin (204.0-354.0) mg/dL Ferritin (22.0-322.0) ng/mL Total Protein 6.0 L (6.3-8.2) g/dL Total Protein (PEP) (6.2-8.2) g/dL Albumin 2.8 L (3.5-5.0) g/dL Free T3 pg/mL (2.30-4.20) pg/mL Crossmatch Assessment and Plan (1) Anemia Narrative/Plan: Patient's hemoglobin has responded appropriately to blood transfusion, increasing to 7.7 from 6.7. Lab workup so far indicates a hypoproliferative anemia, with high ferritin level. Reticulocyte count is elevated, but not fully appropriate for level of anemia. Other hemolysis markers are negative. Testing for other deficiency states also appears to be negative so far. -Additional results of anemia workup are awaited. If these are unrevealing, then the patient will need a bone marrow aspiration biopsy for further workup. This was discussed with him. -If hemoglobin is stable at greater than 7, and the patient is felt to be clinically stable for discharge according to the admitting service, he can be, from the hematology standpoint. In that case we would follow-up outpatient to schedule additional testing including bone marrow aspiration biopsy if required. Current Visit: Yes Status: Acute Code(s): D64.9 - ANEMIA, UNSPECIFIED SNOMED Code(s): 688134859 (2) Urinary retention Narrative/Plan: The patient's Ortega appears to be functioning well at this time. Defer to the admitting service and other consultants for ongoing management Current Visit: No Status: Acute Code(s): R33.9 - RETENTION OF URINE, UNSPECIFIED SNOMED Code(s): 981317108
[2024-10-24] MEDS ORDERED: MAGNESIUM HYDROXIDE 2,400 MG/30 ML CUP PO PRN (13:58)
[2024-10-24 15:14] LABS: Erythrocyte Sedimentation Rate 35 mm/Hr (0-20)
--- NOTE | 2024-10-24 16:00 | P.PN ---
Subjective Progress Note Date: 10/24/24 84-year-old male returning to the emergency department with concerns for decreased urinary output. Patient is unclear last time he emptied his Ortega catheter bag, he cannot remember if it was 1130 last night or sometime throughout the night. Patient has concerns that he cannot flush it. Patient did have several recent emergency to visits and had his catheter flushed yesterday. Patient has no significant complaints otherwise. No suprapubic pain or fullness. No weakness. Patient has been eating and drinking however states he needs to force himself to eat. Patient does have some genital edema and states that has been present for several weeks. Patient does use a hospital bed. Blood work completed in ED reveals a WBC of 8.5, hemoglobin of 6.7, platelet count of 459, sodium 136, potassium 3.7, BUN/creatinine of 32/0.84 and blood glucose of 155 Ultrasound kidneys and bladder was completed which did not reveal any renal calcification mass or hydronephrosis, 5.2 cm cyst of left kidney possibly parapelvic cyst Patient admitted to the hospital for further treatment and evaluation of acute anemia -----Patient's hemoglobin has responded appropriately to blood transfusion, increasing to 7.7 from 6.7. Lab workup so far indicates a hypoproliferative anemia, with high ferritin level. Reticulocyte count is elevated, but not fully appropriate for level of anemia. Other hemolysis markers are negative. Testing for other deficiency states also appears to be negative so far. -Additional results of anemia workup are awaited. If these are unrevealing, then the patient will need a bone marrow aspiration biopsy for further workup. Objective - Vital Signs Vital signs: Vital Signs Temp 98.1 F 10/24/24 08:00 Pulse 80 10/24/24 08:00 Resp 16 10/24/24 08:00 BP 113/63 10/24/24 08:00 Pulse Ox 96 10/24/24 08:00 FiO2 Intake & Output 10/23/24 10/24/24 10/24/24 18:59 06:59 18:59 Intake Total 287 410 250 Output Total 700 350 Balance 287 -290 -100 Weight 67.132 kg 68.9 kg Intake: IV 10 10 Invasive Line 1 10 10 Oral 400 240 Blood Product 287 Rc Pheresis 2 As3 Unit 287 [id number] Output: Urine 700 350 Other: Voiding Method Indwelling Catheter Indwelling Catheter Indwelling Catheter # Voids 2 - Exam General appearance: alert, in no apparent distress Head exam: Present: normocephalic Eye exam: Present: normal appearance Neck exam: Present: normal inspection Respiratory exam: Present: normal lung sounds bilaterally Cardiovascular Exam: Present: regular rate, normal rhythm GI/Abdominal exam: Present: soft. Absent: distended, tenderness Rectal exam: Present: normal inspection, normal rectal tone. Absent: black stool, bloody stool exam: Present: other (Mild generalized edema. No tenderness. Catheter in place) Extremities exam: Present: normal inspection Neurological exam: Present: alert Psychiatric exam: Present: normal affect, normal mood Skin exam: Present: normal color - Labs CBC & Chem 7: 10/24/24 07:49 10/24/24 07:49 Labs: Abnormal Lab Results - Last 24 Hours (Table) 10/23/24 10/23/24 10/24/24 Range/Units 07:58 08:41 07:49 RBC 2.50 L (4.30-5.90) m/uL Hgb 7.7 L (13.0-17.5) gm/dL Hct 25.5 L (39.0-53.0) % MCV 101.8 H (80.0-100.0) fL MCHC 30.1 L (31.0-37.0) g/dL RDW 16.1 H (11.5-15.5) % Retic Count (0.5-2.0) % BUN (9-20) mg/dL Glucose (74-99) mg/dL Transferrin 187.0 L (204.0-354.0) mg/dL Ferritin 488.0 H (22.0-322.0) ng/mL Total Protein (6.3-8.2) g/dL Albumin (3.5-5.0) g/dL Free T3 pg/mL 1.10 L (2.30-4.20) pg/mL Crossmatch See Detail 10/24/24 10/24/24 Range/Units 07:49 07:49 RBC (4.30-5.90) m/uL Hgb (13.0-17.5) gm/dL Hct (39.0-53.0) % MCV (80.0-100.0) fL MCHC (31.0-37.0) g/dL RDW (11.5-15.5) % Retic Count 4.5 H (0.5-2.0) % BUN 24 H (9-20) mg/dL Glucose 132 H (74-99) mg/dL Transferrin (204.0-354.0) mg/dL Ferritin (22.0-322.0) ng/mL Total Protein 6.0 L (6.3-8.2) g/dL Albumin 2.8 L (3.5-5.0) g/dL Free T3 pg/mL (2.30-4.20) pg/mL Crossmatch Assessment and Plan Assessment: 1. Acute anemia -Hemoglobin at 6.7; patient has been ordered 1 unit of packed RBCs; stool occult blood completed in ED is negative -Patient will be admitted for close monitoring; H&H every 12 hours; type crossmatch and transfuse if hemoglobin is less than 7 -Will add Protonix 40 mg daily; stool occult blood -Consult hematology 2. Hypothyroidism; continue with home dose of levothyroxine 112 mcg daily 3. Hyperlipidemia; currently not on any statin therapy 4. Osteoarthritis; will add Tylenol 650 mg every 4 hours as needed 5. Peripheral vascular disease; Trental 400 mg daily DVT prophylaxis; SCDs only given severe anemia CODE STATUS; full code
[2024-10-25 00:32] VITALS: RESP 16
[2024-10-25 06:56] LABS: HCT 26.8 % (39.0-53.0); HGB 8.2 gm/dL (13.0-17.5); Hypochromasia Marked; MCH 30.8 pg (25.0-35.0); MCHC 30.6 g/dL (31.0-37.0); MCV 100.7 fL (80.0-100.0); Macrocytosis Slight; Mean Platelet Volume 6.7; Platelet Count 480 k/uL (150-450); RBC 2.66 m/uL (4.30-5.90); RDW 15.8 % (11.5-15.5); WBC 7.1 k/uL (3.8-10.6)
[2024-10-25] MEDS: TAMSULOSIN 0.4 MG CAP.ER.24H PO SCH (09:17)
--- NOTE | 2024-10-25 11:03 | P.DS ---
Providers Date of admission: 10/23/24 09:15 Expected date of discharge: 10/25/24 Attending physician: Dagoberto Munoz Consults: 10/23/24 09:13 Consult Physician Routine Consulting Provider: Augusto Lara Consult Reason/Comments: anemia Do you want consulting provider notified?: Yes 10/25/24 08:58 Consult Physician Routine Consulting Provider: Vega Blanc Consult Reason/Comments: Right inguinal induration,urinary retention Do you want consulting provider notified?: Yes Primary care physician: Dagoberto Munoz Hospital Course: Hospital course: Acute anemia, etiology unclear, status post 1 unit packed RBCs, hypoproliferative anemia as per hematology with outpatient bone marrow biopsy recommended. Recent acute UTI , urinary retention with Ortega catheter placement Right right-sided suprapubic tenderness with inguinal induration Recent MRI of pelvis and abdomen on 08/31/2024 reporting diastasis of the anterior abdominal wall with possible wide necked hernia measuring up to 7.5 cm at the neck, no evidence for bowel obstruction or acute abdominal process, simple appearing left renal cyst, pancreatic neck cystic lesion possibly representing cecal lie of prior pancreatitis versus sidebranch intraductal mucinous neoplasm versus other cystic neoplasms-continued monitoring outpatient recommended. Bilateral fat-containing inguinal hernias. Follow-up outpatient with general surgery-been arranged per PCP outpatient. History of prostate cancer status post robotic assisted laparoscopic prostatectomy 2013, postoperative radiation, urethral stricture repair PSA 0.382, currently Hypertension Hyperlipidemia Hypothyroidism Osteoarthritis Patient has been cleared by hematology for discharge recommending outpatient bone marrow biopsy. Complains of right suprapubic tenderness, right inguinal induration noted .patient will be discharged home today in a stable condition with guarded prognosis pending urology's evaluation, recommendations as well as PT recommendations. The impression and plan of care has been dictated as directed. : I performed a history and examination of this patient, discussed the same with the dictator. I agree with the dictator's note ,documented as a scribe. Any additional findings or plans will be noted. Patient Condition at Discharge: Stable Plan - Discharge Summary Discharge Rx Participant: Yes New Discharge Prescriptions: New Famotidine [Pepcid] 20 mg PO BID tab Acetaminophen Tab [Tylenol] 650 mg PO Q6HR PRN tab PRN Reason: Mild Pain Or Fever > 100.5 Continue Levothyroxine Sodium [Synthroid] 112 mcg PO HS Ciprofloxacin HCl [Cipro] 500 mg PO Q12HR #20 tablet Pentoxifylline [TRENtal] 400 mg PO DAILY Discharge Medication List Levothyroxine Sodium [Synthroid] 112 mcg PO HS 01/01/24 [History] Ciprofloxacin HCl [Cipro] 500 mg PO Q12HR #20 tablet 10/20/24 [Rx] Pentoxifylline [TRENtal] 400 mg PO DAILY 10/23/24 [History] Acetaminophen Tab [Tylenol] 650 mg PO Q6HR PRN tab 10/25/24 [Rx] Famotidine [Pepcid] 20 mg PO BID tab 10/25/24 [Rx] Follow up Appointment(s)/Referral(s): Dagoberto Munoz DO [Primary Care Provider] - 3 Days Vega Blanc MD [STAFF PHYSICIAN] - 1 Week Augusto Lara [STAFF PHYSICIAN] - 1 Week
--- NOTE | 2024-10-25 13:31 | P.PN ---
Subjective Progress Note Date: 10/25/24 No acute events. Pt reporting he is feeling improved. Hgb improved today to 8.2 Objective - Vital Signs Vital signs: Vital Signs Temp 97.9 F 10/25/24 07:43 Pulse 77 10/25/24 07:43 Resp 16 10/25/24 07:43 BP 119/67 10/25/24 07:43 Pulse Ox 96 10/25/24 07:43 FiO2 Intake & Output 10/24/24 10/25/24 10/25/24 18:59 06:59 18:59 Intake Total 378 20 140 Output Total 1950 1999 Balance -157 -1979 140 Weight 66.3 kg Intake: IV 20 20 20 Invasive Line 1 20 20 20 Oral 358 120 Output: Urine 1949 1999 Other: Voiding Method Indwelling Catheter Indwelling Catheter Indwelling Catheter - Constitutional General appearance: Present: average body habitus, no acute distress - EENT Eyes: Present: anicteric sclerae, EOMI ENT: Present: hearing grossly normal - Respiratory Details: breathing is even and unlabored - Cardiovascular Details: skin warm and dry - Integumentary Integumentary: Present: pale. Absent: cyanotic - Psychiatric Psychiatric: Present: A&O x's 3 - Labs CBC & Chem 7: 10/25/24 06:24 10/24/24 07:49 Labs: Abnormal Lab Results - Last 24 Hours (Table) 10/24/24 10/24/24 10/25/24 Range/Units 07:49 07:49 06:24 RBC 2.66 L (4.30-5.90) m/uL Hgb 8.2 L (13.0-17.5) gm/dL Hct 26.8 L (39.0-53.0) % MCV 100.7 H (80.0-100.0) fL MCHC 30.6 L (31.0-37.0) g/dL RDW 15.8 H (11.5-15.5) % Plt Count 480 H (150-450) k/uL ESR 35 H (0-20) mm/Hr Haptoglobin 308.0 H (31.2-198.0) mg/dL Total Protein (PEP) 5.8 L (6.2-8.2) g/dL Assessment and Plan (1) Anemia Current Visit: Yes Status: Acute Priority: High Code(s): D64.9 - ANEMIA, UNSPECIFIED SNOMED Code(s): 497577514 (2) Urinary retention Current Visit: Yes Status: Acute Code(s): R33.9 - RETENTION OF URINE, UNSPECIFIED SNOMED Code(s): 278531082 Plan: Anemia: Patient's hemoglobin has responded appropriately to blood transfusion, increasing to 7.7 from 6.7. Hgb today, 8.2. Lab workup so far indicates a hypoproliferative anemia, with high ferritin level. Reticulocyte count is elevated, but not fully appropriate for level of anemia. Other hemolysis markers are negative. Testing for other deficiency states also negative. TSH and T4 WNL, T3 1.1. Patient is on synthroid -Additional results of anemia workup are still pending. If these are unreve aling, then the patient will need a bone marrow aspiration biopsy for further workup. This was discussed with him and he was agreeable to the same. -If hemoglobin is stable, and > 7, and the patient is felt to be clinically stable for discharge according to the admitting service, he can be, from the hematology standpoint. In that case we would follow-up outpatient to schedule additional testing including bone marrow aspiration biopsy if required. Urinary retention: -The patient's Ortega appears to be functioning well at this time. Defer to the admitting service and other consultants for ongoing management -PSA normal, 0.38
[2024-10-25 15:36] VITALS: BP 110/61; PULSE 76; TEMP 98
--- NOTE | 2024-10-25 21:17 | P.GSCN ---
History of Present Illness Consult date: 10/25/24 Reason for Consult: UTI, urinary retention History of present illness: This is a 84-year-old male with history of prostate cancer treated with radiation therapy subsequently developed biochemical recurrence and is currently on intermittent androgen the relation therapy. Admitted to the hospital with anemia and urinary retention. His anemia is being evaluated by hematology. Urology is consulted for his urinary retention, and the finding of induration along the right groin. He indicated the induration has been present for a couple of weeks along the right side, has not noticed any changes, does complain of mild discomfort. He did have an MRI of the abdomen and pelvis in August which showed evidence of fat-containing renal hernias but no other significant finding. He also underwent a renal bladder ultrasound on October 23 that showed no acute finding. Denies any fevers or chills. He does have a catheter which was placed on October 23 for his urinary retention. 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 Denies any gross hematuria or dysuria at this time. Catheter is in place draining cloudy urine. Review of Systems - Constitutional Denies fever, Denies weight loss - EENT Ears, nose, mouth and throat: Denies dysphagia - Cardiovascular Denies chest pain, Denies shortness of breath - Respiratory Denies cough, Denies 7 - Gastrointestinal Reports as per HPI - Genitourinary Denies dysuria, Denies hematuria - Neurological Denies headaches, Denies syncope Past Medical History Past Medical History: Cancer, Hyperlipidemia, Osteoarthritis (OA), Prostate Disorder, Thyroid Disorder Additional Past Medical History / Comment(s): In February 2018 pelvic abscess,diverticulitis,small bowel obs, HX OF PROSTATE CANCER WITH RADIATION (2013), SQUAMOUS CELL SKIN CANCER, CHRONIC SINUSITIS, , HYPOTHYROID., STATES PAST HX OF BACK PROBLEMS. History of Any Multi-Drug Resistant Organisms: MRSA Year Discovered:: 04/01/18 MDRO Source:: ABDOMEN Surgical Site Past Surgical History: Adenoidectomy, Bowel Resection, Orthopedic Surgery, Prostate Surgery, Tonsillectomy Additional Past Surgical History / Comment(s): Exploratory Laparotomy Lysis of Adhesions Small Bowel Resection Partial Colectomy w/Colostomy 03-17-18,rt knee surgery, Lt HIP REPLACED, had gamez cath placed after 03/17/18 surgery. Past Anesthesia/Blood Transfusion Reactions: No Reported Reaction Additional Past Anesthesia/Blood Transfusion Reaction / Comm: No hx blood transfusion Past Psychological History: No Psychological Hx Reported Additional Psychological History / Comment(s): pt is independant. lives alone in 2 story home that has 8 porch steps. no home care sevices. no medical equipment. Smoking Status: Never smoker Past Alcohol Use History: Occasional Additional Past Alcohol Use History / Comment(s): quit alcohol 1.5 to 2 months ago stated i only drank occ Past Drug Use History: None Reported - Past Family History Mother Family Medical History: No Reported History Sister(s) Family Medical History: CVA/TIA Father Family Medical History: Myocardial Infarction ([place]) Medications and Allergies Home Medications Medication Instructions Recorded Confirmed Type Levothyroxine Sodium [Synthroid] 112 mcg PO HS 01/01/24 10/23/24 History Ciprofloxacin HCl [Cipro] 500 mg PO Q12HR #20 tablet 10/20/24 10/23/24 Rx Pentoxifylline [TRENtal] 400 mg PO DAILY 10/23/24 10/23/24 History Acetaminophen Tab [Tylenol] 650 mg PO Q6HR PRN tab 10/25/24 Rx Famotidine [Pepcid] 20 mg PO BID tab 10/25/24 Rx Allergies Allergy/AdvReac Type Severity Reaction Status Date / Time No Known Allergies Allergy Verified 10/23/24 10:17 Surgical - Exam Vital Signs Temp Pulse Resp BP Pulse Ox 98 F 92 18 122/71 92 L 10/23/24 07:21 10/23/24 07:21 10/23/24 07:21 10/23/24 07:21 10/23/24 07:21 - General no distress, no pain - Eyes normal ocular movement, no pale - ENT normal nares, normal mucosa - Respiratory normal expansion, normal respiratory effort - Abdomen Abdomen: soft, tender (Along the right groin, some induration no fluctuance or erythema appreciated) - Genitourinary testicles present - Psychiatric oriented to time, oriented to person, oriented to place Results - Labs 10/25/24 06:24 10/24/24 07:49 Abnormal Lab Results - Last 24 Hours (Table) 10/25/24 Range/Units 06:24 RBC 2.66 L (4.30-5.90) m/uL Hgb 8.2 L (13.0-17.5) gm/dL Hct 26.8 L (39.0-53.0) % MCV 100.7 H (80.0-100.0) fL MCHC 30.6 L (31.0-37.0) g/dL RDW 15.8 H (11.5-15.5) % Plt Count 480 H (150-450) k/uL Assessment and Plan Assessment: 84-year-old male history of bladder neck contracture status post [address] Worthington at [facility], currently has a 16 [place]amb[place] Gamez catheter for urinary retention. Urology is consulted for his retention and induration along the right groin, and exam is not consistent with Josie's or any infectious etiology, at this point recommend continued observation. From urology standpoint he is stable for discharge, can follow-up as an outpatient in 1 week for trial of void
[2024-10-27 07:32] LABS: Albumin 2.46 g/dL (3.80-4.90); Gamma Globulin 1.26 g/dL (0.70-1.50)
== END 2024-10-25 16:35 | disposition home health service (06) ==
LOC: EC 07:18 → 3SCARD 09:15
PROVIDERS: ADMIT Family Medicine; ATTEND Family Medicine
DX: N39.0 Urinary tract infection, site not specified (principal); T83.018A Breakdown (mechanical) of other urinary catheter, initial encounter; D53.9 Nutritional anemia, unspecified; D61.9 Aplastic anemia, unspecified; N35.819 Other urethral stricture, male, unspecified site; E03.9 Hypothyroidism, unspecified; E78.5 Hyperlipidemia, unspecified; I73.9 Peripheral vascular disease, unspecified; N35.919 Unspecified urethral stricture, male, unspecified site; K40.20 Bilateral inguinal hernia, without obstruction or gangrene, not specified as recurrent; M19.90 Unspecified osteoarthritis, unspecified site; I10 Essential (primary) hypertension; R60.9 Edema, unspecified; R19.5 Other fecal abnormalities; Z93.3 Colostomy status; Z79.2 Long term (current) use of antibiotics; Z79.899 Other long term (current) drug therapy; Z79.890 Hormone replacement therapy; Z85.46 Personal history of malignant neoplasm of prostate; Z92.3 Personal history of irradiation; Z90.79 Acquired absence of other genital organ(s); Z90.49 Acquired absence of other specified parts of digestive tract
CPT/HCPCS: 36430; 96374; 99284; 51798; 36415; 86900; 86901; 83921; 84439; 84481; 80053 ×2; 85652; 82607; 82728; 82746; 83540; 83550; 84443; 85025 ×2; 85027; 85045 ×2; 86850; 86920; 82272; 84165; 83010; 86334; 76770; G0378 ×3; P9016; G0103; J2470

== ENCOUNTER 2024-10-30 10:17 | Emergency (ER) | payer MEDICARE ==
[2024-10-30 10:28] VITALS: RESP 18; TEMP 97.6
[2024-10-30 11:17] LABS: Appearance,Urine Turbid (Clear); Bilirubin,Urine Negative (Negative); Blood,Urine Moderate (Negative); Color,Urine Yellow; Glucose,Urine (UA) Negative (Negative); Ketones,Urine Negative (Negative); Leukocyte Esterase,Urine Large (Negative); Mucus,Urine Few /hpf; Nitrite,Urine Negative (Negative); Protein,Urine 2+ (Negative); RBC,Urine >182 /hpf (0-5); Specific Gravity,Urine 1.019 (1.001-1.035); Squamous Epithelial Cell,Urine 2 /hpf (0-4); Urobilinogen,Urine <2.0 mg/dL (<2.0); WBC,Urine >182 /hpf (0-5)
--- NOTE | 2024-10-30 11:28 | ED ---
Male Urogenital HPI - General Chief complaint: Urogenital Stated complaint: Urogenital Time Seen by Provider: 10/30/24 10:29 Source: patient, RN notes reviewed Mode of arrival: wheelchair Limitations: no limitations - History of Present Illness Initial comments: This is an 84 year old male who presents to the emergency department for problems with urination. States that he has a Gamez catheter in place due to problems with a urethral stricture that was previously operated on. This had been working great for him, however he noticed that over the last day that he had not been producing as much urine as usual. He has not had any pain and states that he flushes this on his own and the Gamez catheter itself seems to be working, however he is just not making as much urine despite drinking a lot of water. Denies any pain associated with this. Denies any nausea, vomiting, fevers, or chills. - Related Data Home Medications Medication Instructions Recorded Confirmed Levothyroxine Sodium [Synthroid] 112 mcg PO HS 01/01/24 10/23/24 Pentoxifylline [TRENtal] 400 mg PO DAILY 10/23/24 10/23/24 Previous Rx's Medication Instructions Recorded Ciprofloxacin HCl [Cipro] 500 mg PO Q12HR #20 tablet 10/20/24 Acetaminophen Tab [Tylenol] 650 mg PO Q6HR PRN tab 10/25/24 Famotidine [Pepcid] 20 mg PO BID tab 10/25/24 Allergies Allergy/AdvReac Type Severity Reaction Status Date / Time No Known Allergies Allergy Verified 10/30/24 10:24 Review of Systems ROS Statement: Those systems with pertinent positive or pertinent negative responses have been documented in the HPI. ROS Other: All systems not noted in ROS Statement are negative. Past Medical History Past Medical History: Cancer, Hyperlipidemia, Osteoarthritis (OA), Prostate Disorder, Thyroid Disorder Additional Past Medical History / Comment(s): In February 2018 pelvic abscess,diverticulitis,small bowel obs, HX OF PROSTATE CANCER WITH RADIATION (20 14), SQUAMOUS CELL SKIN CANCER, CHRONIC SINUSITIS, , HYPOTHYROID., STATES PAST HX OF BACK PROBLEMS. History of Any Multi-Drug Resistant Organisms: MRSA Date of last positivie culture/infection: 04/01/18 MDRO Source:: ABDOMEN Surgical Site Past Surgical History: Adenoidectomy, Bowel Resection, Orthopedic Surgery, Prostate Surgery, Tonsillectomy Additional Past Surgical History / Comment(s): Exploratory Laparotomy Lysis of Adhesions Small Bowel Resection Partial Colectomy w/Colostomy 03-17-18,rt knee surgery, Lt HIP REPLACED, had gamez cath placed after 03/17/18 surgery. Past Anesthesia/Blood Transfusion Reactions: No Reported Reaction Additional Past Anesthesia/Blood Transfusion Reaction / Comment(s): No hx blood transfusion Past Psychological History: No Psychological Hx Reported Smoking Status: Never smoker Past Alcohol Use History: Occasional Past Drug Use History: None Reported - Past Family History Mother Family Medical History: No Reported History Sister(s) Family Medical History: CVA/TIA Father Family Medical History: Myocardial Infarction ([place]) General Exam Limitations: no limitations General appearance: alert, in no apparent distress Head exam: Present: atraumatic, normocephalic, normal inspection Respiratory exam: Present: normal lung sounds bilaterally. Absent: respiratory distress, wheezes, rales, rhonchi, stridor Cardiovascular Exam: Present: regular rate, normal rhythm, normal heart sounds. Absent: systolic murmur, diastolic murmur, rubs, gallop, clicks GI/Abdominal exam: Present: soft, normal bowel sounds. Absent: distended, tenderness, guarding, rebound, rigid Neurological exam: Present: alert, oriented X3, CN II-XII intact Psychiatric exam: Present: normal affect, normal mood Skin exam: Present: warm, dry, intact, normal color. Absent: rash Course Vital Signs 10/30/24 10/30/24 10/30/24 10:24 13:11 15:46 Temperature 97.6 F Pulse Rate 74 69 74 Respiratory 18 18 18 Rate Blood Pressure 144/65 129/70 115/86 O2 Sat by Pulse 98 97 96 Oximetry Medical Decision Making - Medical Decision Making This is an 84-year-old male who presents to the emergency department for problems with urination. Was pt. sent in by a medical professional or institution? @ -No Did you speak to anyone other than the patient for history? @ -No Did you review nursing and triage notes? @ -Yes, and I agree, it is accurate with regards to the patient's symptoms. Were old charts reviewed? @ -No Differential Diagnosis? @ -UTI, Gamez catheter malfunction, urethral stricture, dehydration, renal failure, this is not meant to be an all-inclusive list. EKG interpreted by me (3pts min.)? @ -Not obtained X-rays interpreted by me (1pt min.)? @ -Not obtained CT interpreted by me (1pt min.)? @ -Not obtained U/S interpreted by me (1pt. min.)? @ -Not obtained What testing was considered but not performed? (CT, X-rays, U/S, labs)? Why? @ -None What meds were considered but not given? Why? @ -None Did you discuss the management of the patient with other professionals? @ -No Did you reconcile home meds? @ -No Was smoking cessation discussed for >3mins.? @ -No Was critical care preformed (if so, how long)? @ -No Were there social determinants of health that impacted care today? How? (Homelessness, low income, unemployed, alcoholism, drug addiction, transportation, low edu. Level, literacy, decrease access to med. care, fpc, rehab)? @ -No Was there de-escalation of care discussed even if they declined? (Discuss DNR or withdrawal of care, Hospice)? @ -No What co-morbidities impacted this encounter? (DM, HTN, Smoking, COPD, CAD, Cancer, CVA, Hep., AIDS, mental health diagnosis, sleep apnea, morbid obesity)? @ -None Was patient admitted / discharged? @ -Discharged. Lab work unremarkable. Urinalysis contains a large amount of white blood cells and blood. This may be related to the Gamez catheter. He is just now finishing up his last dose of ciprofloxacin. Advised that we will culture the urine, but we will avoid any new antibiotics at this time. He initially wanted his 16 Vietnamese catheter switched out for an 18 or 20 to reduce the likelihood of it becoming clogged with bladder debris. However, he then decided against this. His Gamez catheter was verified to be patent and draining. He also denied any discomfort. Bladder scan demonstrated about 20 mL of urine. Advised that the cause of his reduced output is not entirely clear. It is likely related to dehydration. Advised he increase his water intake and continue to monitor his urine output. He will otherwise follow-up with his urologist. Patient discharged home stable addition. Case discussed with ED attending Dr. Zimmerman. Return precautions reviewed in depth, the patient is instructed to return to the emergency department with any new, worsening, or concerning symptoms. Patient verbalized understanding. Undiagnosed new problem with uncertain prognosis? @ -None Drug Therapy requiring intensive monitoring for toxicity (Heparin, Nitro, Insulin, Cardizem)? @ -None Were any procedures done? @ -None Diagnosis/symptom? @ -Reduced urine output Acute, or Chronic, or Acute on Chronic? @ -Acute Uncomplicated (without systemic symptoms) or Complicated (systemic symptoms)? @ -Uncomplicated Side effects of treatment? @ -None Exacerbation, Progression, or Severe Exacerbation] @ -Not applicable Poses a threat to life or bodily function? @ -No - Lab Data Result diagrams: 10/30/24 13:09 10/30/24 13:09 Lab Results 10/30/24 10/30/24 10/30/24 Range/Units 10:58 13:09 13:09 WBC 7.0 (3.8-10.6) k/uL RBC 3.03 L (4.30-5.90) m/uL Hgb 9.6 L (13.0-17.5) gm/dL Hct 31.1 L (39.0-53.0) % MCV 102.6 H (80.0-100.0) fL MCH 31.7 (25.0-35.0) pg MCHC 30.9 L (31.0-37.0) g/dL RDW 15.4 (11.5-15.5) % Plt Count 423 (150-450) k/uL MPV 6.4 Neutrophils % 70 % Lymphocytes % 20 % Monocytes % 6 % Eosinophils % 1 % Basophils % 1 % Neutrophils # 4.9 (1.3-7.7) k/uL Lymphocytes # 1.4 (1.0-4.8) k/uL Monocytes # 0.4 (0-1.0) k/uL Eosinophils # 0.1 (0-0.7) k/uL Basophils # 0.0 (0-0.2) k/uL Hypochromasia Moderate Macrocytosis Slight Sodium 133 L (137-145) mmol/L Potassium 4.2 (3.5-5.1) mmol/L Chloride 100 (98-107) mmol/L Carbon Dioxide 30 (22-30) mmol/L Anion Gap 3 mmol/L BUN 28 H (9-20) mg/dL Creatinine 0.73 (0.66-1.25) mg/dL Est GFR (CKD-EPI)AfAm >90 (>60 ml/min/1.73 sqM) Est GFR (CKD-EPI)NonAf 86 (>60 ml/min/1.73 sqM) Glucose 95 (74-99) mg/dL Calcium 9.0 (8.4-10.2) mg/dL Phosphorus 3.6 (2.5-4.5) mg/dL Magnesium 2.3 (1.6-2.3) mg/dL Total Bilirubin 0.3 (0.2-1.3) mg/dL AST 28 (17-59) U/L ALT 21 (4-49) U/L Alkaline Phosphatase 78 (38-126) U/L Total Protein 6.8 (6.3-8.2) g/dL Albumin 3.6 (3.5-5.0) g/dL Urine Color Yellow Urine Appearance Turbid (Clear) Urine pH 7.0 (5.0-8.0) Ur Specific [place] 1.019 (1.001-1.035) Urine Protein 2+ H (Negative) Urine Glucose (UA) Negative (Negative) Urine Ketones Negative (Negative) Urine Blood Moderate H (Negative) Urine Nitrite Negative (Negative) Urine Bilirubin Negative (Negative) Urine Urobilinogen <2.0 (<2.0) mg/dL Ur Leukocyte Esterase Large H (Negative) Urine RBC >182 H (0-5) /hpf Urine WBC >182 H (0-5) /hpf Ur Squamous Epith Cells 2 (0-4) /hpf Urine Mucus Few H (None) /hpf Disposition Clinical Impression: Decreased urine output Disposition: HOME SELF-CARE Additional Instructions: Return to the emergency department with any new, worsening, or concerning symptoms. Follow up with your urologist. Is patient prescribed a controlled substance at d/c from ED?: No Referrals: Dagoberto Munoz DO [Primary Care Provider] - 1-2 days Time of Disposition: 15:26
[2024-10-30 13:28] LABS: Basophils % (A) 1 %; Eosinophils # (A) 0.1 k/uL (0-0.7); Eosinophils % (A) 1 %; HCT 31.1 % (39.0-53.0); HGB 9.6 gm/dL (13.0-17.5); Hypochromasia Moderate; Lymphocytes # (A) 1.4 k/uL (1.0-4.8); Lymphocytes % (A) 20 %; MCH 31.7 pg (25.0-35.0); MCHC 30.9 g/dL (31.0-37.0); MCV 102.6 fL (80.0-100.0); Macrocytosis Slight; Mean Platelet Volume 6.4; Monocytes # (A) 0.4 k/uL (0-1.0); Monocytes % (A) 6 %; Neutrophils # (A) 4.9 k/uL (1.3-7.7); Neutrophils % (A) 70 %; Platelet Count 423 k/uL (150-450); RBC 3.03 m/uL (4.30-5.90); RDW 15.4 % (11.5-15.5)
[2024-10-30 13:46] LABS: ALT 21 U/L (4-49); AST 28 U/L (17-59); African American GFR (CKD) >90 (>60 ml/min/1.73 sqM); Albumin 3.6 g/dL (3.5-5.0); Alkaline Phosphatase 78 U/L (38-126); Anion Gap 3 mmol/L; Blood Urea Nitrogen 28 mg/dL (9-20); Carbon Dioxide 30 mmol/L (22-30); Chloride 100 mmol/L (98-107); Glucose 95 mg/dL (74-99); Magnesium 2.3 mg/dL (1.6-2.3); Non-African American GFR(CKD) 86 (>60 ml/min/1.73 sqM); Phosphorus 3.6 mg/dL (2.5-4.5); Potassium 4.2 mmol/L (3.5-5.1); Sodium 133 mmol/L (137-145); Total Bilirubin 0.3 mg/dL (0.2-1.3); Total Protein 6.8 g/dL (6.3-8.2)
[2024-10-30 15:49] VITALS: BP 115/86; PULSE 74
== END 2024-10-30 15:56 | disposition home or self-care (01) ==
LOC: EC 10:17
DX: R39.198 Other difficulties with micturition (principal)
CPT/HCPCS: 36415; 80053; 81001; 83735; 84100; 85025; 87086; 99283

== ENCOUNTER 2024-11-13 05:33 | Emergency (ER) | payer MEDICARE ==
--- NOTE | 2024-11-13 06:50 | ED ---
General Adult HPI - General Chief complaint: Urogenital Stated complaint: Cath issue Time Seen by Provider: 11/13/24 06:09 Source: patient, RN notes reviewed Mode of arrival: ambulatory Limitations: no limitations - History of Present Illness Initial comments: 84-year-old male presents to the emergency department for evaluation of urinary catheter issues. Patient reports that he has been dealing with patient is secondary to a urinary stricture and recently underwent a procedure. He states that he had a scope done 2 days ago and it his Gamez catheter was replaced at that time. He states that since then it has not been draining appropriately. He reports that it seems to be positional. He denies any other associated symptoms with this. Denies any recent fever, chills. - Related Data Home Medications Medication Instructions Recorded Confirmed Levothyroxine Sodium [Synthroid] 112 mcg PO HS 01/01/24 10/23/24 Pentoxifylline [TRENtal] 400 mg PO DAILY 10/23/24 10/23/24 Previous Rx's Medication Instructions Recorded Ciprofloxacin HCl [Cipro] 500 mg PO Q12HR #20 tablet 10/20/24 Acetaminophen Tab [Tylenol] 650 mg PO Q6HR PRN tab 10/25/24 Famotidine [Pepcid] 20 mg PO BID tab 10/25/24 Cephalexin [Keflex] 500 mg PO Q6HR #40 cap 11/13/24 Allergies Allergy/AdvReac Type Severity Reaction Status Date / Time No Known Allergies Allergy Verified 11/13/24 05:36 Review of Systems ROS Statement: Those systems with pertinent positive or pertinent negative responses have been documented in the HPI. ROS Other: All systems not noted in ROS Statement are negative. Past Medical History Past Medical History: Cancer, Hyperlipidemia, Osteoarthritis (OA), Prostate Disorder, Thyroid Disorder Additional Past Medical History / Comment(s): In February 2018 pelvic abscess,diverticulitis,small bowel obs, HX OF PROSTATE CANCER WITH RADIATION (2013), SQUAMOUS CELL SKIN CANCER, CHRONIC SINUSITIS, , HYPOTHYROID., STATES PAST HX OF BACK PROBLEMS. History of Any Multi-Drug Resistant Organisms: MRSA Date of last positivie culture/infection: 04/01/18 MDRO Source:: ABDOMEN Surgical Site Past Surgical History: Adenoidectomy, Bowel Resection, Orthopedic Surgery, Prostate Surgery, Tonsillectomy Additional Past Surgical History / Comment(s): Exploratory Laparotomy Lysis of Adhesions Small Bowel Resection Partial Colectomy w/Colostomy 03-17-18,rt knee surgery, Lt HIP REPLACED, had gamez cath placed after 03/17/18 surgery. Past Anesthesia/Blood Transfusion Reactions: No Reported Reaction Additional Past Anesthesia/Blood Transfusion Reaction / Comment(s): No hx blood transfusion Past Psychological History: No Psychological Hx Reported Smoking Status: Never smoker Past Alcohol Use History: Occasional Past Drug Use History: None Reported - Past Family History Mother Family Medical History: No Reported History Sister(s) Family Medical History: CVA/TIA Father Family Medical History: Myocardial Infarction ([place]) General Exam Limitations: no limitations General appearance: alert, in no apparent distress Head exam: Present: atraumatic, normocephalic, normal inspection Eye exam: Present: normal appearance, PERRL, EOMI. Absent: scleral icterus, conjunctival injection, periorbital swelling Respiratory exam: Present: normal lung sounds bilaterally. Absent: respiratory distress, wheezes, rales, rhonchi, stridor Cardiovascular Exam: Present: regular rate, normal rhythm, normal heart sounds. Absent: systolic murmur, diastolic murmur, rubs, gallop, clicks GI/Abdominal exam: Present: soft. Absent: distended, tenderness, guarding, rebound, rigid Extremities exam: Present: normal inspection, full ROM, normal capillary refill. Absent: tenderness, pedal edema, joint swelling, calf tenderness Neurological exam: Present: alert, oriented X3 Psychiatric exam: Present: normal affect, normal mood Skin exam: Present: warm, dry, intact, normal color. Absent: rash Course Vital Signs 11/13/24 11/13/24 11/13/24 05:35 09:09 10:43 Temperature 97.9 F 98.1 F 97.6 F Pulse Rate 83 71 74 Respiratory 18 20 18 Rate Blood Pressure 120/79 126/74 105/63 O2 Sat by Pulse 96 97 97 Oximetry Medical Decision Making - Medical Decision Making Was pt. sent in by a medical professional or institution (, PA, DELIVERY ROOM SUPERVISOR, urgent care, hospital, or care home...) When possible be specific @ -No Did you speak to anyone other than the patient for history (EMS, parent, family, police, friend...)? What history was obtained from this source @ -No Did you review nursing and triage notes (agree or disagree)? Why? @ -I reviewed and agree with nursing and triage notes Were old charts reviewed (outside hosp., previous admission, EMS record, old EKG, old radiological studies, urgent care reports/EKG's, care home records)? Report findings @ -No old charts were reviewed Differential Diagnosis (chest pain, altered mental status, abdominal pain women, abdominal pain men, vaginal bleeding, weakness, fever, dyspnea, syncope, headache, dizziness, GI bleed, back pain, seizure, CVA, palpatations, mental health, musculoskeletal)? @ -n Gamez catheter issues, urinary tract infection, urinary stricture, this list is not all inclusive EKG interpreted by me (3pts min.). @ -None X-rays interpreted by me (1pt min.). @ -None done CT interpreted by me (1pt min.). @ -None done U/S interpreted by me (1pt. min.). @ -None done What testing was considered but not performed or refused? (CT, X-rays, U/S, labs)? Why? @ -None What meds were considered but not given or refused? Why? @ -None Did you discuss the management of the patient with other professionals (professionals i.e. , PA, DELIVERY ROOM SUPERVISOR, lab, RT, psych nurse, psych social worker, mechanical design engineer facilities, teacher, flight radio officer, binder caser)? Give summary @ -No Was smoking cessation discussed for >3mins.? @ -No Was critical care preformed (if so, how long)? @ -No Were there social determinants of health that impacted care today? How? (Homelessness, low income, unemployed, alcoholism, drug addiction, transportation, low edu. Level, literacy, decrease access to med. care, senior care, rehab)? @ -No Was there de-escalation of care discussed even if they declined (Discuss DNR or withdrawal of care, Hospice)? DNR status @ -No What co-morbidities impacted this encounter? (DM, HTN, Smoking, COPD, CAD, Cancer, CVA, ARF, Chemo, Hep., AIDS, mental health diagnosis, sleep apnea, morbid obesity)? @ -None Was patient admitted / discharged? Hospital course, mention meds given and route, prescriptions, significant lab abnormalities, going to OR and other pertinent info. @ -Discharge. Patient presented to the emergency department for evaluation of Gamez catheter issues. The Gamez catheter was replaced by nursing staff and is flowing well. UA obtained showsLarge leukocyte esterase, 51 RBCs, greater than 182 WBCs, occasional bacteria. This will be sent for urine culture. Patient will be started antibiotics. Advised him to follow-up with his urologist. He is understanding agreeable this plan. Patient stable at time of discharge. Case discussed with Dr. Abdullahi. Undiagnosed new problem with uncertain prognosis? @ -No Drug Therapy requiring intensive monitoring for toxicity (Heparin, Nitro, Insulin, Cardizem)? @ -No Were any procedures done? @ -No Diagnosis/symptom? @ -Gamez catheter dysfunction Acute, or Chronic, or Acute on Chronic? @ -Acute Uncomplicated (without systemic symptoms) or Complicated (systemic symptoms)? @ -Uncomplicated Side effects of treatment? @ -No Exacerbation, Progression, or Severe Exacerbation? @ -No Poses a threat to life or bodily function? How? (Chest pain, [place], [place], pneumonia, PE, COPD, DKA, ARF, appy, cholecystitis, CVA, Diverticulitis, Homicidal, Suicidal, threat to staff... and all critical care pts) @ -No - Lab Data Lab Results 11/13/24 Range/Units 09:09 Urine Color Yellow Urine Appearance Cloudy (Clear) Urine pH 7.5 (5.0-8.0) Ur Specific [place] 1.020 (1.001-1.035) Urine Protein 2+ H (Negative) Urine Glucose (UA) Negative (Negative) Urine Ketones Negative (Negative) Urine Blood Small H (Negative) Urine Nitrite Negative (Negative) Urine Bilirubin Negative (Negative) Urine Urobilinogen <2.0 (<2.0) mg/dL Ur Leukocyte Esterase Large H (Negative) Urine RBC 51 H (0-5) /hpf Urine WBC >182 H (0-5) /hpf Urine Bacteria Occasional H (None) /hpf Urine Mucus Rare H (None) /hpf Disposition Clinical Impression: Gamez catheter problem, UTI (urinary tract infection) Disposition: HOME SELF-CARE Condition: Stable Instructions (If sedation given, give patient instructions): Urinary Tract Infection in Men (ED) Additional Instructions: Please follow up with your urologist. Return to the emergency department for new or worsening symptoms. Prescriptions: Cephalexin [Keflex] 500 mg PO Q6HR #40 cap Is patient prescribed a controlled substance at d/c from ED?: No Referrals: Dagoberto Munoz DO [Primary Care Provider] - 1-2 days
[2024-11-13 09:34] LABS: Appearance,Urine Cloudy (Clear); Bacteria,Urine Occasional /hpf; Bilirubin,Urine Negative (Negative); Blood,Urine Small (Negative); Color,Urine Yellow; Glucose,Urine (UA) Negative (Negative); Ketones,Urine Negative (Negative); Leukocyte Esterase,Urine Large (Negative); Mucus,Urine Rare /hpf; Nitrite,Urine Negative (Negative); PH, Urine 7.5 (5.0-8.0); Protein,Urine 2+ (Negative); RBC,Urine 51 /hpf (0-5); Urobilinogen,Urine <2.0 mg/dL (<2.0); WBC,Urine >182 /hpf (0-5)
[2024-11-13 10:43] VITALS: BP 105/63; PULSE 74; RESP 18; TEMP 97.6
== END 2024-11-13 10:47 | disposition home or self-care (01) ==
LOC: EC 05:33
DX: T83.098A Other mechanical complication of other urinary catheter, initial encounter (principal); N39.0 Urinary tract infection, site not specified
CPT/HCPCS: 51702; 51798; 81001; 87086; 99284

== ENCOUNTER 2024-12-17 14:36 | Emergency (ER) | payer MEDICARE ==
[2024-12-17 15:40] VITALS: RESP 18
--- NOTE | 2024-12-17 16:00 | ED ---
Male Urogenital HPI - General Chief complaint: Urogenital Stated complaint: Cath issue Time Seen by Provider: 12/17/24 15:07 Source: patient, RN notes reviewed Mode of arrival: wheelchair Limitations: no limitations - History of Present Illness Initial comments: 84-year-old male with urinary retention presenting to the emergency department for complaint of Gamez catheter malfunction. Patient states that his Gamez catheter was removed and is concerned that the balloon had burst. He states that yesterday evening he was attempting to flush the catheter. He endorses suprapubic tenderness. States he had appointment yesterday with his urologist where his catheter was replaced. Additionally, patient was evaluated yesterday evening emergency department as well for catheter malfunction. Denies current antibiotic use. - Related Data Home Medications Medication Instructions Recorded Confirmed Levothyroxine Sodium [Synthroid] 112 mcg PO HS 01/01/24 10/23/24 Pentoxifylline [TRENtal] 400 mg PO DAILY 10/23/24 10/23/24 Previous Rx's Medication Instructions Recorded Ciprofloxacin HCl [Cipro] 500 mg PO Q12HR #20 tablet 10/20/24 Acetaminophen Tab [Tylenol] 650 mg PO Q6HR PRN tab 10/25/24 Famotidine [Pepcid] 20 mg PO BID tab 10/25/24 Cephalexin [Keflex] 500 mg PO Q6HR #40 cap 11/13/24 Ciprofloxacin HCl [Cipro] 500 mg PO Q12HR #20 tablet 12/17/24 Allergies Allergy/AdvReac Type Severity Reaction Status Date / Time No Known Allergies Allergy Verified 12/17/24 14:54 Review of Systems ROS Statement: Those systems with pertinent positive or pertinent negative responses have been documented in the HPI. ROS Other: All systems not noted in ROS Statement are negative. Past Medical History Past Medical History: Cancer, Hyperlipidemia, Osteoarthritis (OA), Prostate Disorder, Thyroid Disorder Additional Past Medical History / Comment(s): In February 2018 pelvic abscess,diverticulitis,small bowel obs, HX OF PROSTATE CANCER WITH RADIATION (2013), SQUAMOUS CELL SKIN CANCER, CHRONIC SINUSITIS, , HYPOTHYROID., STATES PAST HX OF BACK PROBLEMS. History of Any Multi-Drug Resistant Organisms: MRSA Date of last positivie culture/infection: 04/01/18 MDRO Source:: ABDOMEN Surgical Site Past Surgical History: Adenoidectomy, Bowel Resection, Orthopedic Surgery, Prostate Surgery, Tonsillectomy Additional Past Surgical History / Comment(s): Exploratory Laparotomy Lysis of Adhesions Small Bowel Resection Partial Colectomy w/Colostomy 03-17-18,rt knee surgery, Lt HIP REPLACED, had gamez cath placed after 03/17/18 surgery. Past Anesthesia/Blood Transfusion Reactions: No Reported Reaction Additional Past Anesthesia/Blood Transfusion Reaction / Comment(s): No hx blood transfusion Past Psychological History: No Psychological Hx Reported Smoking Status: Never smoker Past Alcohol Use History: Occasional Past Drug Use History: None Reported - Past Family History Mother Family Medical History: No Reported History Sister(s) Family Medical History: CVA/TIA Father Family Medical History: Myocardial Infarction ([place]) General Exam Limitations: no limitations General appearance: alert, in no apparent distress Neck exam: Present: normal inspection. Absent: tenderness, meningismus, lymphadenopathy Respiratory exam: Present: normal lung sounds bilaterally. Absent: respiratory distress, wheezes, rales, rhonchi, stridor Cardiovascular Exam: Present: regular rate, normal rhythm, normal heart sounds. Absent: systolic murmur, diastolic murmur, rubs, gallop, clicks GI/Abdominal exam: Present: soft, distended (suprapubic), tenderness (suprapubic), normal bowel sounds. Absent: guarding, rebound, rigid Extremities exam: Present: normal inspection, full ROM, normal capillary refill. Absent: tenderness, pedal edema, joint swelling, calf tenderness Back exam: Present: normal inspection. Absent: CVA tenderness (R), CVA tenderness (L) Course Vital Signs 12/17/24 12/17/24 12/17/24 14:47 15:20 16:58 Temperature 97.5 F L Pulse Rate 83 75 78 Respiratory 20 18 18 Rate Blood Pressure 138/63 133/84 125/74 O2 Sat by Pulse 98 98 96 Oximetry 12/17/24 18:01 Temperature 98.9 F Pulse Rate 74 Respiratory 18 Rate Blood Pressure 131/72 O2 Sat by Pulse 98 Oximetry Medical Decision Making - Medical Decision Making Was pt. sent in by a medical professional or institution (, PA, [employer], urgent care, hospital, or alf...) When possible be specific @ -No Did you speak to anyone other than the patient for history (EMS, parent, family, police, friend...)? What history was obtained from this source @ -No Did you review nursing and triage notes (agree or disagree)? Why? @ -I reviewed and agree with nursing and triage notes Were old charts reviewed (outside hosp., previous admission, EMS record, old EKG, old radiological studies, urgent care reports/EKG's, alf records)? Report findings @ -Reviewed patient's chart note from 12/16/2024 where Gamez catheter was replaced. Differential Diagnosis (chest pain, altered mental status, abdominal pain women, abdominal pain men, vaginal bleeding, weakness, fever, dyspnea, syncope, headache, dizziness, GI bleed, back pain, seizure, CVA, palpatations, mental health, musculoskeletal)? @ -Urinary retention, urinary tract infection, Gamez catheter malfunction, this list not all inclusive EKG interpreted by me (3pts min.). @ -None X-rays interpreted by me (1pt min.). @ -None done CT interpreted by me (1pt min.). @ -None done U/S interpreted by me (1pt. min.). @ -None done What testing was considered but not performed or refused? (CT, X-rays, U/S, labs)? Why? @ -None What meds were considered but not given or refused? Why? @ -None Did you discuss the management of the patient with other professionals (professionals i.e. , PA, [employer], lab, RT, psych nurse, outreach and education social worker, dock grader, teacher, annual giving officer, director of casework)? Give summary @ -No Was smoking cessation discussed for >3mins.? @ -No Was critical care preformed (if so, how long)? @ -No Were there social determinants of health that impacted care today? How? (Homelessness, low income, unemployed, alcoholism, drug addiction, transportation, low edu. Level, literacy, decrease access to med. care, long term, rehab)? @ -No Was there de-escalation of care discussed even if they declined (Discuss DNR or withdrawal of care, Hospice)? DNR status @ -No What co-morbidities impacted this encounter? (DM, HTN, Smoking, COPD, CAD, Cancer, CVA, ARF, Chemo, Hep., AIDS, mental health diagnosis, sleep apnea, morbid obesity)? @ -None Was patient admitted / discharged? Hospital course, mention meds given and route, prescriptions, significant lab abnormalities, going to OR and other pertinent info. @ -Discharge. 84-year-old male presenting with Gamez catheter dislodgment. Bladder scan completed at bedside. Patient has successfully voided 2 times in the emergency department without reinsertion of catheter. Urinalysis remarkable for infection. Discussion and offer replacement of patient's Gamez catheter however he is declined saying that he is able to void on his own and return back to emergency department if urinary retention has returned. He is provided with Rocephin and outpatient prescription for Cipro. Urine culture sent. Case dis cussed with Dr. Arguelles Undiagnosed new problem with uncertain prognosis? @ -No Drug Therapy requiring intensive monitoring for toxicity (Heparin, Nitro, Insulin, Cardizem)? @ -No Were any procedures done? @ -No Diagnosis/symptom? @ -Urinary tract infection, urinary retention Acute, or Chronic, or Acute on Chronic? @ -Acute Uncomplicated (without systemic symptoms) or Complicated (systemic symptoms)? @ -Uncomplicated Side effects of treatment? @ -No Exacerbation, Progression, or Severe Exacerbation? @ -No Poses a threat to life or bodily function? How? (Chest pain, [place], [place], pneumonia, PE, COPD, DKA, ARF, appy, cholecystitis, CVA, Diverticulitis, Homicidal, Suicidal, threat to staff... and all critical care pts) @ -No - Lab Data Lab Results 12/17/24 Range/Units 16:58 Urine Color Light Red Urine Appearance Cloudy (Clear) Urine pH 7.0 (5.0-8.0) Ur Specific [place] 1.019 (1.001-1.035) Urine Protein 2+ H (Negative) Urine Glucose (UA) Negative (Negative) Urine Ketones Negative (Negative) Urine Blood Large H (Negative) Urine Nitrite Negative (Negative) Urine Bilirubin Negative (Negative) Urine Urobilinogen <2.0 (<2.0) mg/dL Ur Leukocyte Esterase Large H (Negative) Urine RBC >182 H (0-5) /hpf Urine WBC >182 H (0-5) /hpf Ur Squamous Epith Cells 1 (0-4) /hpf Disposition Clinical Impression: Urinary retention, UTI (urinary tract infection) Disposition: HOME SELF-CARE Condition: Good Instructions (If sedation given, give patient instructions): Urinary Retention in Men (ED), Urinary Tract Infection in Men (ED) Additional Instructions: Please return to the Emergency Department if symptoms worsen or any other concerns. Prescriptions: Ciprofloxacin HCl [Cipro] 500 mg PO Q12HR #20 tablet Is patient prescribed a controlled substance at d/c from ED?: No Referrals: Dagoberto Munoz DO [Primary Care Provider] - 1-2 days Time of Disposition: 16:25
[2024-12-17 17:35] LABS: Appearance,Urine Cloudy (Clear); Bilirubin,Urine Negative (Negative); Blood,Urine Large (Negative); Color,Urine Light Red; Glucose,Urine (UA) Negative (Negative); Ketones,Urine Negative (Negative); Leukocyte Esterase,Urine Large (Negative); Nitrite,Urine Negative (Negative); Protein,Urine 2+ (Negative); RBC,Urine >182 /hpf (0-5); Specific Gravity,Urine 1.019 (1.001-1.035); Squamous Epithelial Cell,Urine 1 /hpf (0-4); Urobilinogen,Urine <2.0 mg/dL (<2.0); WBC,Urine >182 /hpf (0-5)
[2024-12-17] MEDS: cefTRIAXone 1,000 MG VIAL (IM USE) IM STA (17:58)
[2024-12-17 18:03] VITALS: BP 131/72; PULSE 74; TEMP 98.9
== END 2024-12-17 18:03 | disposition home or self-care (01) ==
LOC: EC 14:36
DX: N39.0 Urinary tract infection, site not specified (principal); R33.9 Retention of urine, unspecified
CPT/HCPCS: 81001; 87086; 99284; 96372; J0696

== ENCOUNTER 2024-12-18 13:06 | Emergency (ER) | payer MEDICARE ==
[2024-12-18 13:11] VITALS: PULSE 79; RESP 18; TEMP 97.2
--- NOTE | 2024-12-18 13:42 | ED ---
General Adult HPI - General Chief complaint: Abdominal Pain Stated complaint: Urogenital Time Seen by Provider: 12/18/24 13:15 Source: patient, RN notes reviewed Limitations: no limitations - History of Present Illness Initial comments: Patient is an 84-year-old male presenting to the emergency department with problems with urinating. Patient has had several catheters in the past, especially recently. 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 Patient did have suprapubic catheter at 1 point. Patient did have procedure to open the stricture twice. Patient was here yesterday and had his catheter removed with hopes of not needing it. Patient has only urinated small amounts since last night. - Related Data Home Medications Medication Instructions Recorded Confirmed Levothyroxine Sodium [Synthroid] 112 mcg PO HS 01/01/24 12/18/24 Pentoxifylline [TRENtal] 400 mg PO DAILY 10/23/24 12/18/24 Previous Rx's Medication Instructions Recorded Ciprofloxacin HCl [Cipro] 500 mg PO Q12HR #20 tablet 10/20/24 Allergies Allergy/AdvReac Type Severity Reaction Status Date / Time No Known Allergies Allergy Verified 12/18/24 13:52 Review of Systems ROS Statement: Those systems with pertinent positive or pertinent negative responses have been documented in the HPI. ROS Other: All systems not noted in ROS Statement are negative. Constitutional: Denies: fever Eyes: Denies: eye pain ENT: Denies: ear pain Respiratory: Denies: cough, dyspnea Cardiovascular: Denies: chest pain Endocrine: Denies: fatigue Gastrointestinal: Denies: abdominal pain Genitourinary: Reports: urgency, frequency Musculoskeletal: Denies: back pain Skin: Denies: rash Past Medical History Past Medical History: Cancer, Hyperlipidemia, Osteoarthritis (OA), Prostate Disorder, Thyroid Disorder Additional Past Medical History / Comment(s): In February 2018 pelvic abs cess,diverticulitis,small bowel obs, HX OF PROSTATE CANCER WITH RADIATION (2013), SQUAMOUS CELL SKIN CANCER, CHRONIC SINUSITIS, , HYPOTHYROID., STATES PAST HX OF BACK PROBLEMS. History of Any Multi-Drug Resistant Organisms: MRSA Date of last positivie culture/infection: 04/01/18 MDRO Source:: ABDOMEN Surgical Site Past Surgical History: Adenoidectomy, Bowel Resection, Orthopedic Surgery, Prostate Surgery, Tonsillectomy Additional Past Surgical History / Comment(s): Exploratory Laparotomy Lysis of Adhesions Small Bowel Resection Partial Colectomy w/Colostomy 03-17-18,rt knee surgery, Lt HIP REPLACED, had gamez cath placed after 03/17/18 surgery. Past Anesthesia/Blood Transfusion Reactions: No Reported Reaction Additional Past Anesthesia/Blood Transfusion Reaction / Comment(s): No hx blood transfusion Past Psychological History: No Psychological Hx Reported Smoking Status: Never smoker Past Alcohol Use History: Occasional Past Drug Use History: None Reported - Past Family History Mother Family Medical History: No Reported History Sister(s) Family Medical History: CVA/TIA Father Family Medical History: Myocardial Infarction ([place]) General Exam Limitations: no limitations General appearance: alert, in no apparent distress Head exam: Present: normocephalic Eye exam: Present: normal appearance Neck exam: Present: normal inspection Respiratory exam: Present: normal lung sounds bilaterally Cardiovascular Exam: Present: regular rate, normal rhythm GI/Abdominal exam: Present: soft. Absent: distended, tenderness, pulsatile mass Extremities exam: Present: normal inspection Neurological exam: Present: alert Psychiatric exam: Present: normal affect, normal mood Skin exam: Present: normal color Course Vital Signs 12/18/24 13:08 Temperature 97.2 F L Pulse Rate 79 Respiratory 18 Rate Blood Pressure 140/61 O2 Sat by Pulse 98 Oximetry Medical Decision Making - Medical Decision Making Was pt. sent in by a medical professional or institution (DOROTHY Lopez, HOSPICE EDUCATOR, urgent ca re, hospital, or usp...) When possible be specific @ -No Did you speak to anyone other than the patient for history (EMS, parent, family, police, friend...)? What history was obtained from this source @ -No Did you review nursing and triage notes (agree or disagree)? Why? @ -I reviewed and agree with nursing and triage notes Were old charts reviewed (outside hosp., previous admission, EMS record, old EKG, old radiological studies, urgent care reports/EKG's, usp records)? Report findings @ -No old charts were reviewed Differential Diagnosis (chest pain, altered mental status, abdominal pain women, abdominal pain men, vaginal bleeding, weakness, fever, dyspnea, syncope, headache, dizziness, GI bleed, back pain, seizure, CVA, palpatations, mental health, musculoskeletal)? @ -Differential Abdominal Pain Men: Appendicitis, cholecystitis, diverticulosis, ischemic bowel, pancreatitis, hepatitis, UTI, gastroenteritis, AAA, incarcerated hernia, bowel obstruction, constipation, inflammatory bowel, hepatitis, peptic ulcer disease, splenic infarction, perforated viscus, testicular torsion, this is not meant to be an all-inclusive list EKG interpreted by me (3pts min.). @ -As above X-rays interpreted by me (1pt min.). @ -None done CT interpreted by me (1pt min.). @ -None done U/S interpreted by me (1pt. min.). @ -None done What testing was considered but not performed or refused? (CT, X-rays, U/S, labs)? Why? @ -None What meds were considered but not given or refused? Why? @ -None Did you discuss the management of the patient with other professionals ( professionals i.e. , PA, HOSPICE EDUCATOR, lab, RT, psych nurse, high school social studies teacher, agile project manager, teacher, executive officer, ed case manager)? Give summary @ -No Was smoking cessation discussed for >3mins.? @ -No Was critical care preformed (if so, how long)? @ -No Were there social determinants of health that impacted care today? How? (Homelessness, low income, unemployed, alcoholism, drug addiction, transportation, low edu. Level, literacy, decrease access to med. care, detention, rehab)? @ -No Was there de-escalation of care discussed even if they declined (Discuss DNR or withdrawal of care, Hospice)? DNR status @ -No What co-morbidities impacted this encounter? (DM, HTN, Smoking, COPD, CAD, Cancer, CVA, ARF, Chemo, Hep., AIDS, mental health diagnosis, sleep apnea, morbid obesity)? @ -History of previous prostate problems and urethral strictures Was patient admitted / discharged? Hospital course, mention meds given and route, prescriptions, significant lab abnormalities, going to OR and other pertinent info. @ -Patient presents with concern for urinary retention. Catheter placed and flushed without difficulty. Urine is flowing. Patient is symptom-free and will be discharged with close follow-up with his urologist. Undiagnosed new problem with uncertain prognosis? @ -No Drug Therapy requiring intensive monitoring for toxicity (Heparin, Nitro, Insulin, Cardizem)? @ -No Were any procedures done? @ -No Diagnosis/symptom? @ -Urinary retention Acute, or Chronic, or Acute on Chronic? @ -Acute on chronic Uncomplicated (without systemic symptoms) or Complicated (systemic symptoms)? @ -Default Side effects of treatment? @ -No Exacerbation, Progression, or Severe Exacerbation? @ -No Poses a threat to life or bodily function? How? (Chest pain, [place], [place], pneumonia, PE, COPD, DKA, ARF, appy, cholecystitis, CVA, Diverticulitis, Homicidal, Suicidal, threat to staff... and all critical care pts) @ -No Disposition Clinical Impression: Urinary retention Disposition: HOME SELF-CARE Condition: Stable Instructions (If sedation given, give patient instructions): Urinary Retention in Men (ED) Additional Instructions: Please follow-up with your urologist Friday. Return for fever, catheter not draining, abdominal discomfort, worsening symptoms or any other concerns Is patient prescribed a controlled substance at d/c from ED?: No Referrals: Dagoberto Munoz DO [Primary Care Provider] - 1-2 days Time of Disposition: 14:57
[2024-12-18 15:02] VITALS: BP 136/79
== END 2024-12-18 15:02 | disposition home or self-care (01) ==
LOC: EC 13:06
DX: R33.9 Retention of urine, unspecified (principal); Z85.46 Personal history of malignant neoplasm of prostate
CPT/HCPCS: 51702; 99283

== ENCOUNTER 2025-02-14 18:50 | Emergency (ER) | payer MEDICARE ==
--- NOTE | 2025-02-14 19:07 | ED ---
General Adult HPI - General Chief complaint: Urogenital Stated complaint: Urogenital Time Seen by Provider: 02/14/25 18:56 Source: patient, RN notes reviewed, old records reviewed Mode of arrival: ambulatory Limitations: no limitations - History of Present Illness Initial comments: Patient is an 84-year-old male present to the emergency department with concern for Gamez catheter not draining well. Patient states that has been clogged and not draining well today. Patient has history of similar episodes multiple times previously. Patient frequently needs catheter changes. Current catheter was changed a month ago at his urology office and they were only able to put a 16M. Patient does have scheduled surgery in 3 weeks for reconstruction including bladder removal secondary to history of radiation treatment for prostate cancer - Related Data Home Medications Medication Instructions Recorded Confirmed Levothyroxine Sodium [Synthroid] 112 mcg PO HS 01/01/24 12/18/24 Pentoxifylline [TRENtal] 400 mg PO DAILY 10/23/24 12/18/24 Previous Rx's Medication Instructions Recorded Ciprofloxacin HCl [Cipro] 500 mg PO Q12HR #20 tablet 10/20/24 Allergies Allergy/AdvReac Type Severity Reaction Status Date / Time No Known Allergies Allergy Verified 12/31/24 21:13 Review of Systems ROS Statement: Those systems with pertinent positive or pertinent negative responses have been documented in the HPI. ROS Other: All systems not noted in ROS Statement are negative. Constitutional: Denies: fever Eyes: Denies: eye pain ENT: Denies: ear pain Respiratory: Denies: dyspnea Cardiovascular: Denies: chest pain Gastrointestinal: Denies: abdominal pain Genitourinary: Reports: as per HPI (Retention) Musculoskeletal: Denies: back pain Past Medical History Past Medical History: Cancer, Hyperlipidemia, Osteoarthritis (OA), Prostate Disorder, Thyroid Disorder Additional Past Medical History / Comment(s): In February 2018 pelvic abscess,diverticulitis,small bowel obs, HX OF PROSTATE CANCER WITH RADIATION (2013), SQUAMOUS CELL SKIN CANCER, CHRONIC SINUSITIS, , HYPOTHYROID., STATES PAST HX OF BACK PROBLEMS. History of Any Multi-Drug Resistant Organisms: MRSA Date of last positivie culture/infection: 04/01/18 MDRO Source:: ABDOMEN Surgical Site Past Surgical History: Adenoidectomy, Bowel Resection, Orthopedic Surgery, Prostate Surgery, Tonsillectomy Additional Past Surgical History / Comment(s): Exploratory Laparotomy Lysis of Adhesions Small Bowel Resection Partial Colectomy w/Colostomy 03-17-18,rt knee surgery, Lt HIP REPLACED, had gamez cath placed after 03/17/18 surgery. Past Anesthesia/Blood Transfusion Reactions: No Reported Reaction Additional Past Anesthesia/Blood Transfusion Reaction / Comment(s): No hx blood transfusion Past Psychological History: No Psychological Hx Reported Smoking Status: Never smoker Past Alcohol Use History: Occasional Past Drug Use History: None Reported - Past Family History Mother Family Medical History: No Reported History Sister(s) Family Medical History: CVA/TIA Father Family Medical History: Myocardial Infarction ([place]) General Exam Limitations: no limitations General appearance: alert, in no apparent distress Head exam: Present: normocephalic Eye exam: Present: normal appearance Neck exam: Present: normal inspection Respiratory exam: Present: normal lung sounds bilaterally Cardiovascular Exam: Present: regular rate, normal rhythm GI/Abdominal exam: Present: soft. Absent: tenderness exam: Present: other (Mild generalized edema which patient states is chronic) Extremities exam: Present: normal inspection Neurological exam: Present: alert Psychiatric exam: Present: normal affect, normal mood Skin exam: Present: normal color Course Vital Signs 02/14/25 18:52 Temperature 97.4 F L Pulse Rate 89 Respiratory 20 Rate Blood Pressure 123/72 O2 Sat by Pulse 98 Oximetry Medical Decision Making - Medical Decision Making Was pt. sent in by a medical professional or institution (DOROTHY Lopez, BOX SPRING MAKER, urgent care, hospital, or half-way...) When possible be specific @ -No Did you speak to anyone other than the patient for history (EMS, parent, family, police, friend...)? What history was obtained from this source @ -No Did you review nursing and triage notes (agree or disagree)? Why? @ -I reviewed and agree with nursing and triage notes Were old charts reviewed (outside hosp., previous admission, EMS record, old EKG, old radiological studies, urgent care reports/EKG's, half-way records)? Report findings @ -No old charts were reviewed Differential Diagnosis (chest pain, altered mental status, abdominal pain women, abdominal pain men, vaginal bleeding, weakness, fever, dyspnea, syncope, headac he, dizziness, GI bleed, back pain, seizure, CVA, palpatations, mental health, musculoskeletal)? @ -Differential Abdominal Pain Men: Appendicitis, cholecystitis, diverticulosis, ischemic bowel, pancreatitis, hepatitis, UTI, gastroenteritis, AAA, incarcerated hernia, bowel obstruction, constipation, inflammatory bowel, hepatitis, peptic ulcer disease, splenic infarction, perforated viscus, testicular torsion, this is not meant to be an all-inclusive list EKG interpreted by me (3pts min.). @ -As above X-rays interpreted by me (1pt min.). @ -None done CT interpreted by me (1pt min.). @ -None done U/S interpreted by me (1pt. min.). @ -None done What testing was considered but not performed or refused? (CT, X-rays, U/S, labs)? Why? @ -None What meds were considered but not given or refused? Why? @ -None Did you discuss the management of the patient with other professionals (professionals i.e. , PA, BOX SPRING MAKER, lab, RT, psych nurse, psychiatric social worker supervisor, senior center manager, teacher, navigation officer, family independence case manager)? Give summary @ -Discussed with nursing staff regarding catheter change if unable to flush. Catheter was not able to be flushed and was changed without any difficulty. Good flow. Was smoking cessation discussed for >3mins.? @ -No Was critical care preformed (if so, how long)? @ -No Were there social determinants of health that impacted care today? How? (Homelessness, low income, unemployed, alcoholism, drug addiction, transportation, low edu. Level, literacy, decrease access to med. care, halfway, rehab)? @ -No Was there de-escalation of care discussed even if they declined (Discuss DNR or withdrawal of care, Hospice)? DNR status @ -No What co-morbidities impacted this encounter? (DM, HTN, Smoking, COPD, CAD, Cancer, CVA, ARF, Chemo, Hep., AIDS, mental health diagnosis, sleep apnea, morbid obesity)? @ -History of radiation to the genital region secondary to history of previous prostate cancer Was patient admitted / discharged? Hospital course, mention meds given and route, prescriptions, significant lab abnormalities, going to OR and other pertinent info. @ -Patient presents unable to flush his catheter. Catheter was changed without difficulty and does have urine output. Patient is happy and will be discharged to follow-up with his urologist Undiagnosed new problem with uncertain prognosis? @ -No Drug Therapy requiring intensive monitoring for toxicity (Heparin, Nitro, Insulin, Cardizem)? @ -No Were any procedures done? @ -No Diagnosis/symptom? @ -Urinary retention Acute, or Chronic, or Acute on Chronic? @ -Acute Uncomplicated (without systemic symptoms) or Complicated (systemic symptoms)? @ -Default Side effects of treatment? @ -No Exacerbation, Progression, or Severe Exacerbation? @ -No Poses a threat to life or bodily function? How? (Chest pain, [place], [place], pneumonia, PE, COPD, DKA, ARF, appy, cholecystitis, CVA, Diverticulitis, Homicidal, Suicidal, threat to staff... and all critical care pts) @ -No Disposition Clinical Impression: Urinary retention Disposition: HOME SELF-CARE Condition: Stable Instructions (If sedation given, give patient instructions): Urinary Retention in Men (ED) Additional Instructions: Please do follow-up with your urologist this week. Return for unable to have urine passed through the catheter, pain, fever, worsening symptoms or other concerns. Is patient prescribed a controlled substance at d/c from ED?: No Referrals: Andrade Ferreira MD [Primary Care Provider] - 1-2 days Time of Disposition: 19:46
[2025-02-14 19:55] VITALS: BP 120/67; PULSE 90; RESP 16; TEMP 98.7
== END 2025-02-14 20:07 | disposition home or self-care (01) ==
LOC: EC 18:50
DX: R33.9 Retention of urine, unspecified (principal); Z85.46 Personal history of malignant neoplasm of prostate
CPT/HCPCS: 51702; 51798; 99283

== ENCOUNTER 2025-03-15 21:18 | Emergency (ER) | payer MEDICARE ==
[2025-03-15 21:23] VITALS: TEMP 98
--- NOTE | 2025-03-15 22:05 | ED ---
Male Urogenital HPI - General Chief complaint: Urogenital Stated complaint: Cath issues Time Seen by Provider: 03/15/25 22:04 Source: patient, RN notes reviewed Mode of arrival: ambulatory Limitations: no limitations - History of Present Illness Initial comments: 84-year-old male presenting for Gamez catheter issue. States his Gamez catheter fell out today and he is unsure how. Denies injury or trauma. Denies pain, burning, or discharge. States he has a chronic Gamez status post radiation for prostate cancer. - Related Data Home Medications Medication Instructions Recorded Confirmed Levothyroxine Sodium [Synthroid] 112 mcg PO HS 01/01/24 12/18/24 Pentoxifylline [TRENtal] 400 mg PO DAILY 10/23/24 12/18/24 Previous Rx's Medication Instructions Recorded Ciprofloxacin HCl [Cipro] 500 mg PO Q12HR #20 tablet 10/20/24 Allergies Allergy/AdvReac Type Severity Reaction Status Date / Time No Known Allergies Allergy Verified 03/15/25 21:23 Review of Systems ROS Statement: Those systems with pertinent positive or pertinent negative responses have been documented in the HPI. ROS Other: All systems not noted in ROS Statement are negative. Past Medical History Past Medical History: Cancer, Hyperlipidemia, Osteoarthritis (OA), Prostate Disorder, Thyroid Disorder Additional Past Medical History / Comment(s): In February 2018 pelvic abscess,diverticulitis,small bowel obs, HX OF PROSTATE CANCER WITH RADIATION (2013), SQUAMOUS CELL SKIN CANCER, CHRONIC SINUSITIS, , HYPOTHYROID., STATES PAST HX OF BACK PROBLEMS. History of Any Multi-Drug Resistant Organisms: MRSA Date of last positivie culture/infection: 04/01/18 MDRO Source:: ABDOMEN Surgical Site Past Surgical History: Adenoidectomy, Bowel Resection, Orthopedic Surgery, Prostate Surgery, Tonsillectomy Additional Past Surgical History / Comment(s): Exploratory Laparotomy Lysis of Adhesions Small Bowel Resection Partial Colectomy w/Colostomy 03-17-18,rt knee surgery, Lt HIP REPLACED, had gamez cath placed after 03/17/18 surgery. Past Anesthesia/Blood Transfusion Reactions: No Reported Reaction Additional Past Anesthesia/Blood Transfusion Reaction / Comment(s): No hx blood transfusion Past Psychological History: No Psychological Hx Reported Smoking Status: Never smoker Past Alcohol Use History: Occasional Past Drug Use History: None Reported - Past Family History Mother Family Medical History: No Reported History Sister(s) Family Medical History: CVA/TIA Father Family Medical History: Myocardial Infarction ([place]) General Exam Limitations: no limitations General appearance: alert, in no apparent distress Head exam: Present: atraumatic, normocephalic, normal inspection Eye exam: Present: normal appearance, PERRL, EOMI. Absent: scleral icterus, conjunctival injection, periorbital swelling exam: Present: normal inspection. Absent: testicular tenderness, urethral discharge, scrotal swelling Neurological exam: Present: alert, oriented X3 Psychiatric exam: Present: normal affect, normal mood Skin exam: Present: warm, dry, intact, normal color. Absent: rash Course Vital Signs 03/15/25 03/15/25 21:20 22:10 Temperature 98.0 F 98.0 F Pulse Rate 76 71 Respiratory 15 17 Rate Blood Pressure 149/72 135/79 O2 Sat by Pulse 97 99 Oximetry Medical Decision Making - Medical Decision Making Was pt. sent in by a medical professional or institution (, PA, STEEL DIE ENGRAVER, urgent care, hospital, or halfway...) When possible be specific @ -No Did you speak to anyone other than the patient for history (EMS, parent, family, police, friend...)? What history was obtained from this source @ -No Did you review nursing and triage notes (agree or disagree)? Why? @ -I reviewed and agree with nursing and triage notes Were old charts reviewed (outside hosp., previous admission, EMS record, old EKG, old radiological studies, urgent care reports/EKG's, halfway records)? Report findings @ -No old charts were reviewed Differential Diagnosis (chest pain, altered mental status, abdominal pain women, abdominal pain men, vaginal bleeding, weakness, fever, dyspnea, syncope, headache, dizziness, GI bleed, back pain, seizure, CVA, palpatations, mental health, musculoskeletal)? @ -Not applicable EKG interpreted by me (3pts min.). @ -None X-rays interpreted by me (1pt min.). @ -None done CT interpreted by me (1pt min.). @ -None done U/S interpreted by me (1pt. min.). @ -None done What testing was considered but not performed or refused? (CT, X-rays, U/S, labs)? Why? @ -None What meds were considered but not given or refused? Why? @ -None Did you discuss the management of the patient with other professionals (pro fessionals i.e. , PA, STEEL DIE ENGRAVER, lab, RT, psych nurse, social media marketing specialist, glue bone drier, teacher, animal services officer, counseling case manager)? Give summary @ -No Was smoking cessation discussed for >3mins.? @ -No Was critical care preformed (if so, how long)? @ -No Were there social determinants of health that impacted care today? How? (Homelessness, low income, unemployed, alcoholism, drug addiction, transportation, low edu. Level, literacy, decrease access to med. care, fdc, rehab)? @ -No Was there de-escalation of care discussed even if they declined (Discuss DNR or withdrawal of care, Hospice)? DNR status @ -No What co-morbidities impacted this encounter? (DM, HTN, Smoking, COPD, CAD, Cancer, CVA, ARF, Chemo, Hep., AIDS, mental health diagnosis, sleep apnea, morbid obesity)? @ -None Was patient admitted / discharged? Hospital course, mention meds given and route, prescriptions, significant lab abnormalities, going to OR and other pertinent info. @ -Discharge. 84-year-old male presenting for Gamez catheter issue. States he has indwelling catheter fell out today and he is unsure how. He is asymptomatic. Catheter changed without difficulty and does have urine output. Appropriate return precautions and follow-up care discussed. Case was discussed with my ED attending Dr. Rankin. Undiagnosed new problem with uncertain prognosis? @ -No Drug Therapy requiring intensive monitoring for toxicity (Heparin, Nitro, Insulin, Cardizem)? @ -No Were any procedures done? @ -No Diagnosis/symptom? @ -Gamez catheter issue Acute, or Chronic, or Acute on Chronic? @ -Acute Uncomplicated (without systemic symptoms) or Complicated (systemic symptoms)? @ -Uncomplicated Side effects of treatment? @ -No Exacerbation, Progression, or Severe Exacerbation? @ -No Poses a threat to life or bodily function? How? (Chest pain, [place], [place], pneumonia, PE, COPD, DKA, ARF, appy, cholecystitis, CVA, Diverticulitis, Homicidal, Suicidal, threat to staff... and all critical care pts) @ -No Disposition Clinical Impression: Gamez catheter problem Disposition: HOME SELF-CARE Condition: Stable Additional Instructions: Please return to the Emergency Department if symptoms worsen or any other concerns. Is patient prescribed a controlled substance at d/c from ED?: No Referrals: Andrade Ferreira MD [Primary Care Provider] - 1-2 days Time of Disposition: 22:05
[2025-03-15 22:12] VITALS: BP 135/79; PULSE 71; RESP 17
== END 2025-03-15 22:11 | disposition home or self-care (01) ==
LOC: EC 21:18
DX: Z46.6 Encounter for fitting and adjustment of urinary device (principal)
CPT/HCPCS: 51702; 99283

== ENCOUNTER → 2025-03-16 | Outpatient (CLI) | payer MEDICARE ==
--- NOTE | 2025-03-16 15:41 | XR ---
EXAMINATION TYPE: XR abdomen 2V DATE OF EXAM: 03/16/2025 3:34 PM COMPARISON: None CLINICAL INDICATION: Male, 84 years old with history of R10.9 UNSPECIFIED ABDOMINAL PAIN; [facility] TECHNIQUE: Two views of the abdomen were obtained. FINDINGS: Lung bases are clear. No evidence for free intraperitoneal air. There is gassy abdomen with air present throughout small bowel and colon. Scattered air-fluid levels are also present. Air extends distally to the rectum. No significant stool burden. IMPRESSION: Gassy small and large bowel with scattered air-fluid levels throughout. The overall pattern is nonobs tructive at this time given the extent of colon air. Consider generalized ileus or enteritis. Follow- up as clinically indicated. [facility], , 03/16/2025 3:39 PM
== END | disposition home or self-care (01) ==
LOC: RADXRMAIN 15:13
PROVIDERS: ATTEND Internal Medicine Geriatric Medicine
DX: R10.9 Unspecified abdominal pain (principal)
CPT/HCPCS: 74019

== ENCOUNTER 2025-03-17 10:26 | Emergency (ER) | payer MEDICARE ==
[2025-03-17 10:57] VITALS: BP 134/75; PULSE 74; RESP 18; TEMP 97.6
[2025-03-17] MEDS: LIDOCAINE 2% URO-JET JELLY 5 ML KIT URETHRAL ONE (12:17)
--- NOTE | 2025-03-17 12:45 | ED ---
Male Urogenital HPI - General Chief complaint: Urogenital Stated complaint: cath issue Time Seen by Provider: 03/17/25 11:05 Source: patient, RN notes reviewed Mode of arrival: ambulatory Limitations: no limitations - History of Present Illness Initial comments: 84-year-old male presents emergency department chief complaint of needing Gamez catheter. Patient states he is Gamez catheter fell out. Patient denies any other associate symptoms no fevers or chills no other complaints. - Related Data Home Medications Medication Instructions Recorded Confirmed Levothyroxine Sodium [Synthroid] 112 mcg PO HS 01/01/24 12/18/24 Pentoxifylline [TRENtal] 400 mg PO DAILY 10/23/24 12/18/24 Previous Rx's Medication Instructions Recorded Ciprofloxacin HCl [Cipro] 500 mg PO Q12HR #20 tablet 10/20/24 Allergies Allergy/AdvReac Type Severity Reaction Status Date / Time No Known Allergies Allergy Verified 03/15/25 21:23 Review of Systems ROS Statement: Those systems with pertinent positive or pertinent negative responses have been documented in the HPI. ROS Other: All systems not noted in ROS Statement are negative. Past Medical History Past Medical History: Cancer, Hyperlipidemia, Osteoarthritis (OA), Prostate Disorder, Thyroid Disorder Additional Past Medical History / Comment(s): In February 2018 pelvic absces s,diverticulitis,small bowel obs, HX OF PROSTATE CANCER WITH RADIATION (2013), SQUAMOUS CELL SKIN CANCER, CHRONIC SINUSITIS, , HYPOTHYROID., STATES PAST HX OF BACK PROBLEMS. History of Any Multi-Drug Resistant Organisms: MRSA Date of last positivie culture/infection: 04/01/18 MDRO Source:: ABDOMEN Surgical Site Past Surgical History: Adenoidectomy, Bowel Resection, Orthopedic Surgery, Prostate Surgery, Tonsillectomy Additional Past Surgical History / Comment(s): Exploratory Laparotomy Lysis of Adhesions Small Bowel Resection Partial Colectomy w/Colostomy 03-17-18,rt knee surgery, Lt HIP REPLACED, had gamez cath placed after 03/17/18 surgery. Past Anesthesia/Blood Transfusion Reactions: No Reported Reaction Additional Past Anesthesia/Blood Transfusion Reaction / Comment(s): No hx blood transfusion Past Psychological History: No Psychological Hx Reported Smoking Status: Never smoker Past Alcohol Use History: Occasional Past Drug Use History: None Reported - Past Family History Mother Family Medical History: No Reported History Sister(s) Family Medical History: CVA/TIA Father Family Medical History: Myocardial Infarction ([place]) General Exam Limitations: no limitations General appearance: alert, in no apparent distress Head exam: Present: atraumatic, normocephalic, normal inspection Eye exam: Present: normal appearance, PERRL, EOMI. Absent: scleral icterus, conjunctival injection, periorbital swelling Respiratory exam: Present: normal lung sounds bilaterally. Absent: respiratory distress, wheezes, rales, rhonchi, stridor Cardiovascular Exam: Present: regular rate, normal rhythm, normal heart sounds. Absent: systolic murmur, diastolic murmur, rubs, gallop, clicks GI/Abdominal exam: Present: soft, normal bowel sounds. Absent: distended, tenderness, guarding, rebound, rigid Course Vital Signs 03/17/25 10:53 Temperature 97.6 F Pulse Rate 74 Respiratory 18 Rate Blood Pressure 134/75 O2 Sat by Pulse 98 Oximetry Medical Decision Making - Medical Decision Making Was pt. sent in by a medical professional or institution (, PA, CASE MANAGEMENT RN, urgent care, hospital, or shelter...) When possible be specific @ -No Did you speak to anyone other than the patient for history (EMS, parent, family, police, friend...)? What history was obtained from this source @ -No Did you review nursing and triage notes (agree or disagree)? Why? @ -I reviewed and agree with nursing and triage notes Were old charts reviewed (outside hosp., previous admission, EMS record, old EKG, old radiological studies, urgent care reports/EKG's, shelter records)? Report findings @ -No old charts were reviewed Differential Diagnosis (chest pain, altered mental status, abdominal pain women, abdominal pain men, vaginal bleeding, weakness, fever, dyspnea, syncope, headache, dizziness, GI bleed, back pain, seizure, CVA, palpatations, mental health, musculoskeletal)? @ -Urinary retention, Gamez catheter, EKG interpreted by me (3pts min.). @ none X-rays interpreted by me (1pt min.). @ -None done CT interpreted by me (1pt min.). @ -None done U/S interpreted by me (1pt. min.). @ -None done What testing was considered but not performed or refused? (CT, X-rays, U/S, labs)? Why? @ -None What meds were considered but not given or refused? Why? @ -None Did you discuss the management of the patient with other professionals (professionals i.e. , PA, CASE MANAGEMENT RN, lab, RT, psych nurse, social services aide, scientific associate, teacher, earth science technical officer, director of casework)? Give summary @ -No Was smoking cessation discussed for >3mins.? @ -No Was critical care preformed (if so, how long)? @ -No Were there social determinants of health that impacted care today? How? (Homelessness, low income, unemployed, alcoholism, drug addiction, transportation, low edu. Level, literacy, decrease access to med. care, retirement, rehab)? @ -No Was there de-escalation of care discussed even if they declined (Discuss DNR or withdrawal of care, Hospice)? DNR status @ -No What co-morbidities impacted this encounter? (DM, HTN, Smoking, COPD, CAD, Cancer, CVA, ARF, Chemo, Hep., AIDS, mental health diagnosis, sleep apnea, morbid obesity)? @ -None Was patient admitted / discharged? Hospital course, mention meds given and route, prescriptions, significant lab abnormalities, going to OR and other pertinent info. @ -Discharge patient had Gamez catheter placed patient discharged in stable condition. Undiagnosed new problem with uncertain prognosis? @ -No Drug Therapy requiring intensive monitoring for toxicity (Heparin, Nitro, Insulin, Cardizem)? @ -No Were any procedures done? @ -No Diagnosis/symptom? @ -Urine retention, Gamez catheter Acute, or Chronic, or Acute on Chronic? @ -Acute Uncomplicated (without systemic symptoms) or Complicated (systemic symptoms)? @ -Uncomplicated Side effects of treatment? @ -No Exacerbation, Progression, or Severe Exacerbation? @ -No Poses a threat to life or bodily function? How? (Chest pain, [place], [place], pneumonia, PE, COPD, DKA, ARF, appy, cholecystitis, CVA, Diverticulitis, Homicidal, Suicidal, threat to staff... and all critical care pts) @ -No Disposition Clinical Impression: Gamez catheter problem, Urinary retention Disposition: HOME SELF-CARE Condition: Stable Additional Instructions: Please return to the Emergency Department if symptoms worsen or any other concerns. Is patient prescribed a controlled substance at d/c from ED?: No Referrals: Andrade Ferreira MD [Primary Care Provider] - 1-2 days Time of Disposition: 12:44
== END 2025-03-17 12:51 | disposition home or self-care (01) ==
LOC: EC 10:26
DX: Z46.6 Encounter for fitting and adjustment of urinary device (principal); R33.9 Retention of urine, unspecified
CPT/HCPCS: 51702; 99283

== ENCOUNTER 2025-03-21 08:37 | Emergency (ER) | payer MEDICARE ==
[2025-03-21 08:43] VITALS: RESP 18
--- NOTE | 2025-03-21 09:18 | ED ---
General Adult HPI - General Chief complaint: Recheck/Abnormal Lab/Rx Stated complaint: port issue Time Seen by Provider: 03/21/25 08:47 Source: patient, RN notes reviewed Mode of arrival: ambulatory Limitations: no limitations - History of Present Illness Initial comments: 84-year-old male presents emergency department chief complaint of left arm PICC line clogged. He states he was unable to flush it. Patient states he is on antibiotics. Patient denies any fevers or chills. Patient denies any chest pain shortness of breath no other associated symptoms. - Related Data Home Medications Medication Instructions Recorded Confirmed Levothyroxine Sodium [Synthroid] 112 mcg PO HS 01/01/24 12/18/24 Pentoxifylline [TRENtal] 400 mg PO DAILY 10/23/24 12/18/24 Previous Rx's Medication Instructions Recorded Ciprofloxacin HCl [Cipro] 500 mg PO Q12HR #20 tablet 10/20/24 Allergies Allergy/AdvReac Type Severity Reaction Status Date / Time No Known Allergies Allergy Verified 03/21/25 08:43 Review of Systems ROS Statement: Those systems with pertinent positive or pertinent negative responses have been documented in the HPI. ROS Other: All systems not noted in ROS Statement are negative. Past Medical History Past Medical History: Cancer, Hyperlipidemia, Osteoarthritis (OA), Prostate Disorder, Thyroid Disorder Additional Past Medical History / Comment(s): In February 2018 pelvic abscess,diverticulitis,small bowel obs, HX OF PROSTATE CANCER WITH RADIATION (2013), SQUAMOUS CELL SKIN CANCER, CHRONIC SINUSITIS, , HYPOTHYROID., STATES PAST HX OF BACK PROBLEMS. History of Any Multi-Drug Resistant Organisms: MRSA Date of last positivie culture/infection: 04/01/18 MDRO Source:: ABDOMEN Surgical Site Past Surgical History: Adenoidectomy, Bowel Resection, Orthopedic Surgery, Prostate Surgery, Tonsillectomy Additional Past Surgical History / Comment(s): Exploratory Laparotomy Lysis of Adhesions Small Bowel Resection Partial Colectomy w/Colostomy 03-17-18,rt knee surgery, Lt HIP REPLACED, had gamez cath placed after 03/17/18 surgery. Past Anesthesia/Blood Transfusion Reactions: No Reported Reaction Additional Past Anesthesia/Blood Transfusion Reaction / Comment(s): No hx blood transfusion Past Psychological History: No Psychological Hx Reported Smoking Status: Never smoker Past Alcohol Use History: Occasional Past Drug Use History: None Reported - Past Family History Mother Family Medical History: No Reported History Sister(s) Family Medical History: CVA/TIA Father Family Medical History: Myocardial Infarction (IA) General Exam Limitations: no limitations General appearance: alert, in no apparent distress Head exam: Present: atraumatic, normocephalic, normal inspection Eye exam: Present: normal appearance, PERRL, EOMI. Absent: scleral icterus, conjunctival injection, periorbital swelling Respiratory exam: Present: normal lung sounds bilaterally. Absent: respiratory distress, wheezes, rales, rhonchi, stridor Cardiovascular Exam: Present: regular rate, normal rhythm, normal heart sounds. Absent: systolic murmur, diastolic murmur, rubs, gallop, clicks Extremities exam: Present: other (Left arm PICC line in place, no erythema or drainage skin intact) Course Vital Signs 03/21/25 03/21/25 08:39 09:29 Temperature 97.2 F L 97.8 F Pulse Rate 75 70 Respiratory 18 18 Rate Blood Pressure 170/67 156/73 O2 Sat by Pulse 98 98 Oximetry Medical Decision Making - Medical Decision Making Was pt. sent in by a medical professional or institution (, PA, [employer], urgent care, hospital, or [place] [facility] care facility...) When possible be specific @ -[No] Did you speak to anyone other than the patient for history (EMS, parent, family, police, friend...)? What history was obtained from this source @ -[No] Did you review nursing and triage notes (agree or disagree)? Why? @ -[I reviewed and agree with nursing and triage notes] Were old charts reviewed (outside hosp., previous admission, EMS record, old EKG, old radiological studies, urgent care reports/EKG's, [place] [facility] facility records)? Report findings @ -[No old charts were reviewed] Differential Diagnosis (chest pain, altered mental status, abdominal pain women, abdominal pain men, vaginal bleeding, weakness, fever, dyspnea, syncope, headache, dizziness, GI bleed, back pain, seizure, CVA, palpatations, mental health, musculoskeletal)? @ -[PICC line complication, DVT EKG interpreted by me (3pts min.). @ -[None X-rays interpreted by me (1pt min.). @ -[None done] CT interpreted by me (1pt min.). @ -[None done] U/S interpreted by me (1pt. min.). @ -[None done] What testing was considered but not performed or refused? (CT, X-rays, U/S, labs)? Why? @ -None What meds were considered but not given or refused? Why? @ -None Did you discuss the management of the patient with other professionals (professionals i.e. DrSamara, PA, [employer], lab, RT, psych nurse, social worker school, wildlife and game protector, teacher, intelligence support officer, director case)? Give summary @ -No Was smoking cessation discussed for >3mins.? @ -No Was critical care preformed (if so, how long)? @ -No Were there social determinants of health that impacted care today? How? (Homelessness, low income, unemployed, alcoholism, drug addiction, transportation, low edu. Level, literacy, decrease access to med. care, long term, rehab)? @ -No Was there de-escalation of care discussed even if they declined (Discuss DNR or withdrawal of care, Hospice)? DNR status @ -No What co-morbidities impacted this encounter? (DM, HTN, Smoking, COPD, CAD, Cancer, CVA, ARF, Chemo, Hep., AIDS, mental health diagnosis, sleep apnea, morbid obesity)? @ -None Was patient admitted / discharged? Hospital course, mention meds given and route, prescriptions, significant lab abnormalities, going to OR and other pertinent info. @ -Discharged patient had a clogged PICC line this was easily flushed by RN, heparin was Undiagnosed new problem with uncertain prognosis? @ -No Drug Therapy requiring intensive monitoring for toxicity (Heparin, Nitro, Insulin, Cardizem)? @ -No Were any procedures done? @ -No Diagnosis/symptom? @ -PICC line complication Acute, or Chronic, or Acute on Chronic? @ -Acute Uncomplicated (without systemic symptoms) or Complicated (systemic symptoms)? @ -uncomplicated Side effects of treatment? @ -No Exacerbation, Progression, or Severe Exacerbation? @ -No Poses a threat to life or bodily function? How? (Chest pain, [place], [place], pneumonia, PE, COPD, DKA, ARF, appy, cholecystitis, CVA, Diverticulitis, Homicidal, Suicidal, threat to staff... and all critical care pts) @ -No Disposition Clinical Impression: Occluded PICC line Disposition: HOME SELF-CARE Condition: Stable Additional Instructions: Please return to the Emergency Department if symptoms worsen or any other concerns. Is patient prescribed a controlled substance at d/c from ED?: No Referrals: Andrade Ferreira MD [Primary Care Provider] - 1-2 days Time of Disposition: 09:17
[2025-03-21 09:31] VITALS: BP 156/73; PULSE 70; TEMP 97.8
== END 2025-03-21 09:30 | disposition home or self-care (01) ==
LOC: EC 08:37
DX: T80.211A Bloodstream infection due to central venous catheter, initial encounter (principal); X58.XXXA Exposure to other specified factors, initial encounter
CPT/HCPCS: 99283; 96374; J1642

== ENCOUNTER → 2025-05-04 | Outpatient (CLI) | payer MEDICARE ==
[2025-05-04 18:13] LABS: Basophils # (A) 0.04 X 10*3/uL (0.00-0.10); Basophils % (A) 0.4 %; Eosinophils % (A) 2.1 %; HCT 34.8 % (39.6-50.0); HGB 11.1 g/dL (13.0-17.0); Lymphocytes # (A) 1.89 X 10*3/uL (0.90-5.00); MCH 31.2 pg (27.0-32.0); MCHC 31.9 g/dL (32.0-37.0); MCV 97.8 FL (80.0-97.0); Monocytes # (A) 0.74 X 10*3/uL (0.20-1.00); Monocytes % (A) 7.8 %; NRBC Per 100 WBC 0 X 10*3/uL (0.00-0.01); Neutrophils # (A) 6.51 X 10*3/uL (1.80-7.70); Neutrophils % (A) 68.9 %; Platelet Count 346 X 10*3/uL (140-440); RBC 3.56 X 10*6/uL (4.40-5.60); WBC 9.46 X 10*3/uL (4.50-10.00)
[2025-05-04 18:37] LABS: ALT 30 U/L (10-49); AST 33 U/L (14-35); Albumin 3.6 g/dL (3.8-4.9); Albumin/Globulin Ratio 1.44 Ratio (1.60-3.17); Alkaline Phosphatase 85 U/L (41-126); Blood Urea Nitrogen 20.4 mg/dL (9.0-27.0); Carbon Dioxide 26.9 mmol/L (21.6-31.8); Chloride 102 mmol/L (96-109); Globulin 2.5 g/dL (1.6-3.3); Glucose 101 mg/dL (70-110); Potassium 4.5 mmol/L (3.5-5.5); Prostate Specific Antigen 0.43 ng/mL (0.000-6.500); Sodium 139 mmol/L (135-145); Total Bilirubin 0.3 mg/dL (0.3-1.2); Total Protein 6.1 g/dL (6.2-8.2)
== END | disposition home or self-care (01) ==
LOC: LABWHC1 12:54
DX: C61 Malignant neoplasm of prostate (principal)
CPT/HCPCS: 36415; 80053; 84153; 84403; 85025